=== PATIENT | female | born 1945 | race Caucasian/White ===

== ENCOUNTER 2025-03-14 12:19 | Outpatient (REF) | payer MEDICARE, SELFPAY ==
--- OUTSIDE RECORDS SUMMARY | 2025-03-13 09:00 | XMS_ITS | Encounter Summary ---
Author Organization [facility] Address [address] [place] [address] Phone Care Team Providers Care Poultry Service Technician Name Role Phone Christopher Thompson MD Unavailable + [phone] Ysabel Sanchez RN Unavailable [email or web address] Stephon Chambers RN Unavailable [phone] Carine Rivas RN Unavailable [email or web address] Vikki Perez MD Unavailable Amirah Smith MD Primary Care Provider Dusty Aguirre DO Unavailable [phone] Stephon Maya MD Unavailable Ayanna Fox RETAIL ANALYST Unavailable [phone] Karen Santo CNP Unavailable Shala Hartman NP Unavailable [phone] Reason for Visit * Treatment and Therapy Plan (Routine) - Authorized Specialty Diagnoses / Procedures Referred By Contac t Referred To Contact Infusion Therapy Procedures PORT Dusty Montes DO Phone: tel: fax: mailto:[email or web address] Florence Mccarty RN [address] [place] [address] Phone: tel: mailto:[email or web address] Referral ID Status Reason Start Date Expiration Date V isits Requested Visits Authorized [id number] Authorized 05/15/2022 05/15/2082 [id number] Encounter Details Date Type Department Care Team (Late st Contact Info) Description 03/13/2025 9:00 AM EDT Infusion [facility] at [facility] [address] [place] [address] Dusty Aguirre, DO [address] [place] [address] [email or web address] Malignant neoplasm of both ovaries; Intra-abdominal tumor Social History Tobacco Use Types Packs/Day Years Used Date Smoking Tobacco: Former Cigarettes 0.5 25 0 01/15/1995 - 01/16/2020 Smokeless Tobacco: Never Alcohol Use Standard Drinks/Week Comments Not Currently 0 (1 standard drink = 0.6 oz pur e alcohol) Child or Family Care Answer Date Record ed Do you have problems with on e of the following making it difficult for you to work, study, or receive health care? No 03/25/2024 Education Answer Date Recorded Are you interested in more education? Not on jose e 11/14/2022 Are you concerned about learning? Not on file 11/14/2022 No 11/14/2022 No 11/14/2022 Food Answer Date Recorded Within the past 6 months we worried whether our food would run out before we got money to buy more. Never True 03/25/2024 Within the past 6 months the food we bought just didn't last and we didn't have enough money to get more. Never True Residential Stability Answer Date Recor ded What is your housing situation today? I have malika sing 03/25/2024 How many times have you move d in the past 12 months? Zero (I did not move) 03/25/2024 Paying for Meds Answer Date Recorded Do you have trouble paying for medicines? No 03/25/2024 Paying Utility Bills Answer Date Record ed Do you have trouble paying your heating or elect ricity bill? No 03/25/2024 Transportation Answer Date Recorded Has the lack of transportati on kept you from medical appointments or from getting medications? No 03/25/2024 Digital Access Answer Date Recorded No 03/25/2024 Yes 03/25/2024 Do you have reliable internet access at home? Ye s 03/25/2024 Do you have a device (e.g., phone, tablet, computer) with a working camera? Yes 03/25/2024 Intimate Partner Violence Answer Date R ecorded Are you denied basic needs s uch as food, clothing, or medical care? No 11/10/2022 In the past 12 months have y ou been in a relationship with a person who hurts, threatens, or tries to control you? No 11/10/2022 Are you denied basic needs s uch as food, clothing, or medical care? No 11/10/2022 In the past 12 months have y ou been in a relationship with a person who hurts, threatens, or tries to control you? No 11/10/2022 Comments No Sex and Gender Information Value Date Recorded Sex Assigned at Not on file Legal Sex Female 12:05 PM EDT Gender Identity Not on file Sexual Orientation Not on file documented as of this encounter Plan of Treatment Upcoming Encounters Date Type Department Care Team (Late st Contact Info) Description 03/21/2025 9:40 AM EDT Infusion [facility] at [address] [address] Dusty Aguirre, [address] [address] [email or web address] 03/21/2025 11:30 AM EDT Office Visit [facility] at [address] [address] Ayanna Fox FNP [address] [place] [phone] 03/21/2025 12:40 PM EDT Infusion [facility] at [address] [address] Dusty Aguirre, [address] [address] [email or web address] Karen Burgos, KAPIL [address] [place] [address] 04/04/2025 8:20 AM EDT Appointment [facility] Laboratory [address] [place] [address] Dusty Aguirre, DO [address] [place] [address] [email or web address] 04/04/2025 9:00 AM EDT Office Visit [facility] at [address] [address] Ayanna Fox FNP [address] [place] [phone] [email or web address] 04/04/2025 10:00 AM EDT Infusion [facility] Center at [address] [address] Dusty Aguirre, DO [address] [place] [address] [email or web address] Niyah Cole RN [address] [place] [address] 04/06/2025 3:20 PM EDT Telemedicine [facility] Rheumatology [address], [address], [address] [place] [address] Stephon Maya MD [address] [place] [address] [email or web address] 04/11/2025 10:20 AM EDT Appointment [facility] Laboratory [address] [place] [address] Dusty Aguirre, DO [address] [place] [address] [email or web address] 04/11/2025 11:30 AM EDT Office Visit [facility] at [address] [address] Ayanna Fox FNP [address] [place] [phone] [email or web address] 04/11/2025 12:40 PM EDT Infusion [facility] at [address] [address] Dusty Aguirre, DO [address] [place] [address] [email or web address] Eldon Mckeon RN [address] [place] [address] [email or web address] 04/17/2025 9:10 AM EDT Appointment [facility] Laboratory [address] [place] [address] Dusty Aguirre, DO [address] [place] [address] [email or web address] 04/17/2025 10:30 AM EDT Office Visit [facility] Center at [address] [address] Dusty Aguirre, DO [address] [place] [address] [email or web address] 04/17/2025 11:20 AM EDT Infusion [facility] at [address] [address] Dusty Aguirre, DO [address] [place] [address] [email or web address] Eldon Mckeon RN [address] [place] [address] 04/28/2025 11:50 AM EDT Appointment [facility] Laboratory [address] [place] [address] Dusty Aguirre, DO [address] [place] [address] [email or web address] 04/28/2025 1:00 PM EDT Office Visit [facility] at [address] [address] Ayanna Fox FNP [address] [place] [phone] [email or web address] 04/28/2025 2:00 PM EDT Infusion [facility] at [address] [address] Dusty Aguirre, DO [address] [place] [address] [email or web address] Sophy Nolan, KAPIL [address] [place] [address] 05/08/2025 7:50 AM EDT Appointment [facility] Laboratory [address] [place] [address] Dusty Aguirre, DO [address] [place] [address] [email or web address] 05/08/2025 9:00 AM EDT Office Visit [facility] at [address] [address] Dusty Aguirre, DO [address] [place] [address] [email or web address] 05/08/2025 10:00 AM EDT Infusion [facility] at [facility] [address] [place] [address] Dusty Aguirre DO [address] [place] [address] [email or web address] Eldon Mckeon RN [address] [place] [address] [email or web address] documented as of this encounter Procedures Procedure Name Priority Date/Time Associated Diagnosis Comments COMPREHENSIVE METABOLIC PANEL Routine 03/13/2025 8:56 AM EDT Malignant neoplasm of both ovaries CBC AND DIFFERENTIAL Routine 03/13/2025 8:56 AM EDT Malignant neoplasm of both ovaries CA-125 Routine 03/13/2025 8:56 AM EDT Malignant neoplasm of both ovaries Intra-abdominal tumor documented in this encounter Results * (ABNORMAL) Comprehensive metabolic panel (03/13/2025 8:56 AM EDT) SODIUM 138 133 - 146 mmol/L [facility] POTASSIUM 4.2 3.3 - 5.1 mmol/L [facility] CHLORIDE 102 96 - 108 mmol/L [facility] CO2 25 21 - 35 mmol/L [facility] BUN 17 6 - 19 mg/dL [facility] CREATININE 0.60 0.5 - 1.5 mg/dL [facility] GLUCOSE 101(H) 70 - 99 mg/dL [facility] ALBUMIN 3.9 3.9 - 4.8 g/dL [facility] TOTAL PROTEIN 5.7(L) 6.5 - 8.0 g/dL [facility] CALCIUM 9.2 8.4 - 10.3 mg/dL [facility] ALKALINE PHOSPHATASE 66 39 - 117 U/L [facility] TOTAL BILIRUBIN 0.4 0.0 - 1.2 mg/dL [facility] AST 23 0 - 37 U/L [facility] ALT 17 0 - 40 U/L [facility] GLOBULIN 1.8 1 - 4.8 g/dL [facility] EGFR 92 >59 mL/min/1.7 3m2 [facility] Comment:Estimated glomerular filtration rate calculated using the CKD-EPI refit equation. ANION GAP 15 10 - 20 mmol/L [facility] Blood 03/13/2025 8:56 AM EDT 03/13/2025 9:17 AM EDT us Shala Hartman NP LAB BLOOD ORDERABLES Fin al Result [facility] [address] [place], [place] [id number] * (ABNORMAL) CBC and differential (03/13/2025 8:56 AM EDT) WBC 11.58(H) 4.00 - 11.00 K/uL [facility] RBC 3.24(L) 4.00 - 5.20 M/uL [facility] HGB 10.4(L) 12.0 - 16.0 g/dL [facility] HCT 33.0(L) 36.0 - 46.0 % [facility] PLT 411 150 - 450 K/uL [facility] MCV 101.9(H) 80.0 - 100.0 fL [facility] MCH 32.1(H) 27.0 - 31.0 pg [facility] MCHC 31.5(L) 32.0 - 36.0 g/dL [facility] RDW 17.0(H) 11.5 - 14.5 % [facility] MPV 9.6 8.4 - 12.0 fL [facility] NRBC 0.30(H) 0.00 /100 WBCs [facility] ABSOLUTE NRBC 0.03(H) 0.00 K/uL [facility] DIFF METHOD Auto [facility] NEUTS 72.4 48.0 - 76.0 % [facility] LYMPHS 19.3 18.0 - 41.0 % [facility] MONOS 4.9 4.0 - 11.0 % [facility] EOS 1.4 0.0 - 5.0 % [facility] BASOS 0.8 0.0 - 1.5 % [facility] Granulocytes, immature (%) 1.2(H) 0.0 - 0.9 % [facility] ABSOLUTE NEUTS 8.38(H) 1.92 - 7.60 K/uL [facility] ABSOLUTE LYMPHS 2.24 0.72 - 4.10 K/uL [facility] ABSOLUTE MONOS 0.57 0.16 - 1.10 K/uL [facility] ABSOLUTE EOS 0.16 0.00 - 0.50 K/uL [facility] ABSOLUTE BASOS 0.09 0.00 - 0.15 K/uL [facility] Granulocytes, immature 0.14(H) 0.00 - 0.09 K/uL [facility] Blood 03/13/2025 8:56 AM EDT 03/13/2025 9:17 AM EDT us Shala Hartman DOCUMENTATION IMPROVEMENT SPECIALIST LAB BLOOD ORDERABLES Fin al Result [address] [address] * (ABNORMAL) CA-125 (03/13/2025 8:56 AM EDT) CA 125 156.0(H) 0 - 35 U/mL [facility] Comment: Test Methodology Brenda [id number] Patient results determined by assays using different manufacturers or methods may not be comparable. Blood 03/13/2025 8:56 AM EDT 03/13/2025 9:17 AM EDT us Dusty Aguirre DO LAB BLOOD ORDERABLES Final Result Performing Organization Address [facility]/ZIP Co de Phone Number [address] [address] documented in this encounter Visit Diagnoses Diagnosis Malignant neoplasm of both ovaries Intra-abdominal tumor documented in this encounter Care Teams Poultry Service Technician Relationship Specialty Start Date End Date Amirah Smith MD [address] [place] [address] [place] [phone] PCP - General Internal Medicine 03/06/22 Christopher Thompson MD [address] [place] [address] Obstetrics and Gynecology ServiceYAW [address] [place] [address] [email or web address] Primary Oncologist Gynecologic Oncology 02/06/20 Ysabel Sanchez, KAPIL [address] [place] [address] [email or web address] Associate Infusion Nurse 03/29/20 Stephon Chambers RN [address] [place] [address] [email or web address] Associate Infusion Nurse 09/18/20 Carine Rivas RN [address] [place] [phone] [email or web address] Primary Infusion Nurse 11/05/20 Vikki Perez MD [address] [place] [address] [address] [place] [address] [email or web address] Primary Oncologist Gynecologic Oncology 03/27/21 Dusty Aguirre DO [address] [place] [address] [email or web address] Primary Oncologist Hematology and Oncology 05/01/22 Stephon Maya MD [address] [place] [address] [email or web address] 07/30/23 Ayanna Fox FNP [address] [place] [address] [email or web address] Registered Nurse Nurse Practitioner 08/09/24 Karen Santo CNP [address] [place] [address] [email or web address] Nurse Practitioner 08/29/24 Shala Hartman NP [address] [place] [address] [email or web address] Nurse Practitioner 11/08/24 documented as of this encounter Additional Source Comments The information contained in this document represents components of the legal health record. It is not the complete legal health record.[facility]
--- OUTSIDE RECORDS SUMMARY | 2025-03-13 10:00 | XMS_ITS | Encounter Summary ---
Author Organization [facility] Address [address] [place] [address] Phone Care Team Providers Care Agriculture Research Director Name Role Phone Christopher Thompson MD Unavailable + [phone] Ysabel Sanchez RN Unavailable [email or web address] Stephon Chambers RN Unavailable +[phone] Carine Rivas RN Unavailable [email or web address] Vikki Perez MD Unavailable [phone] Amirah Smith MD Primary Care Provider Dusty Aguirre DO Unavailable [phone] Stephon Maya MD Unavailable Ayanna Fox VISITOR SERVICES INFORMATION ASSISTANT Unavailable Karen Santo CNP Unavailable Shala Hartman NP Unavailable Reason for Visit * Reason Comments Follow Up Visit Encounter Details Date Type Department Care Team (Late st Contact Info) Description 03/13/2025 10:00 AM EDT Office Visit [facility] [address] [place] [address] Dusty Aguirre DO [address] [place] [address] [email or web address] Shala Hartman, SALES CONSULTANT RESIDENTIAL MANAGER [address] [place] [address] [place] [address] [email or web address] Malignant neoplasm of both ovaries (Primary Dx) Social History Tobacco Use Types Packs/Day Years [...] on file documented as of this encounter Last Filed Vital Signs Vital Sign Reading Time Taken Comments Blood Pressure 128/64 03/13/2025 9:00 AM EDT Pulse 79 03/13/2025 9:00 AM EDT Temperature 36.5 C (97.7 F) 03/13/2025 9:00 AM EDT Respiratory Rate - - Oxygen Saturation 95% 03/13/2025 9:00 AM EDT Inhaled Oxygen Concentration - - Weight 56.2 kg (123 lb 14.4 oz) 03/13/2025 9:00 AM EDT Height 158 cm (5' 2.21 ) 03/13/2025 9:00 AM EDT Body Mass Index 22.51 03/13/2025 9:00 AM EDT documented in this encounter Progress Notes * Shala Hartman, KATHY - 03/13/2025 10:00 AM EDT Images from the original note were not included. Hematology/ Medical Oncology Progress Note [facility] Date: March 13, 2025 Primary oncologist: Dusty Aguirre MD CATERING TRUCK OPERATOR Oncologist [facility]: Vikki Perez MD Current treatment plan: Paclitaxel 80 mg/m2 on days 1, 8, and 15 out of a 28 day cycle Lesly Ospina [id number] Assessment Lesly Ospina is a 79 year old woman who has ovarian cancer. She had previously been receiving bevacizumab however was recently noted to have disease progression. Her [facility] CATERING TRUCK OPERATOR Oncologist recommended we stop bevacizumab and start her on paclitaxel as described above. She is due for C8D8 today. She denies headaches, dizziness, CP, SOB, N/V/D/C, weight/appetite changes. Her daughter is with her today. Oncology History Oncology History Malignant neoplasm of both ovaries 02/08/2020 Initial Diagnosis Malignant neoplasm of both ovaries 02/14/2020 - 08/08/2020 Systemic Therapy Adjuvant/Neoadjuvant; CARBOPLATIN/PACLITAXEL EVERY 3 WEEKS-MINIMUM CREATININE FOR AUC CALCULATION SET AT 0.7 Christopher Thompson MD 10/04/2020 - 12/09/2020 Systemic Therapy Maintenance; BEVACIZUMAB 15 MG/KG - EVERY 3 WEEKS Christopher Thompson MD 12/31/2020 - 03/04/2022 Systemic Therapy Palliative; DOXORUBICIN LIPOSOMAL Kwasi Vega MD 04/03/2022 - 06/11/2022 Systemic Therapy Palliative; BEVACIZUMAB/DOXORUBICIN LIPOSOMAL Dusty Aguirre, DO 06/26/2022 - 12/29/2022 Systemic Therapy Palliative; BEVACIZUMAB / PEMBROLIZUMAB - EVERY 3 WEEKS Dusty Hernandez Timothy, DO 08/03/2023 - 07/11/2024 Systemic Therapy Palliative; MIRVETUXIMAB SORAVTANSINE-GYNX / BEVACIZUMAB Montano David Timothy, DO 08/23/2024 - Systemic Therapy Palliative; PACLITAXEL 80 MG/M2 Montano David Timothy, DO Malignant neoplasm of right ovary 04/26/2020 Initial Diagnosis Malignant neoplasm of right ovary 07/17/2022 - 07/17/2022 Systemic Therapy Palliative; BEVACIZUMAB 15 MG/KG/CYCLOPHOSPHAMIDE Dusty Aguirre, DO 05/04/2024 - 05/04/2024 Systemic Therapy Palliative; BEVACIZUMAB 15 MG/KG - EVERY 3 WEEKS Dusty Aguirre, DO Cancer Staging No matching staging information was found for the patient. Subjective Review of Systems Review of Systems - Oncology PFSHx, allergies- reviewed, unchanged since last seen. Objective Last Vitals ECO- Restricted in physically strenuous activity but ambulatory and able to carry out work of alight or sedentary nature, e.g., light house work, office work Physical Exam Objective: Wt Readings from Last 3 Encounters: 03/06/25 56 kg (123 lb 6.4 oz) 02/20/25 54.8 kg (120 lb 14.4 oz) 02/14/25 54.4 kg (120 lb) Temp Readings from Last 3 Encounters: 03/06/25 36.5 ??C (97.7 ??F) (Tympanic) 02/20/25 36.5 ??C (97.7 ??F) (Tympanic) BP Readings from Last 3 Encounters: 03/06/25 126/63 02/20/25 112/69 02/14/25 115/70 Pulse Readings from Last 3 Encounters: 03/06/25 73 02/20/25 72 02/14/25 79 Physical Exam: General appearance - alert, well appearing, and in no distress Mental status - alert, oriented to person, place, and time Chest - clear to auscultation, no wheezes, rales or rhonchi, symmetric air entry Heart - normal rate, regular rhythm, normal S1, S2, no murmurs, rubs, clicks or gallops Abdomen - soft, nontender, nondistended, no masses or organomegaly Neurological - alert, oriented, normal speech, no focal findings or movement disorder noted Musculoskeletal - no joint tenderness, deformity or swelling Extremities - peripheral pulses normal, no pedal edema, no clubbing or cyanosis Skin - normal coloration and turgor, no rashes, no suspicious skin lesions noted Meds/Labs/Radiology: Reviewed personally in chart along with patient. Plan: Labs obtained prior to this visit reviewed with Lesly. She remains slightly anemic but stable. Labs otherwise are OK to proceed with C8D8 Paclitaxel today. Orders signed. Will consider obtaining repeat imaging prior to C9. Follow up as scheduled in 1 week prior to C8D15 w/ CBC CMP CA125 prior. I personally spent 37 minutes preparing for, caring for the patient (redw-em-rrqv and ykj-meoy-xd-face) and finalizing the visit for this patient. Sign RIA Hernandez 03/13/2025 9:12 AM Dusty Aguirre DO documented in this encounter Plan of Treatment Upcoming Encounters Date Type Department Care Team (Late st Contact Info) Description 03/21/2025 9:40 AM EDT Infusion [facility] [address] [place] [address] Dusty Aguirre DO [address] [place] [address] [email or web address] 03/21/2025 11:30 AM EDT Office Visit [facility] Center at [address] [address] Ayanna Fox VISITOR SERVICES INFORMATION ASSISTANT[address] [address] 03/21/2025 12:40 PM EDT Infusion [facility] at [address] [address] Dusty Aguirre, DO [address] [place] [address] [email or web address] Karen Burgos RN [address] [place] [address] 04/04/2025 8:20 AM EDT Appointment [facility] [address] [place] [address] Dusty Aguirre, DO [address] [place] [address] [email or web address] 04/04/2025 9:00 AM EDT Office Visit [facility] at [address] [address] Ayanna Fox FN[address] [address] 04/04/2025 10:00 AM EDT Infusion [facility] at [address] [address] Dusty Aguirre, DO [address] [place] [address] [email or web address] Niyah Cole RN [address] [place] [address] 04/06/2025 3:[address] [facility] Rheumatology [place] [address] [facility], 4th Floor, [address] [place] [address] Stephon Maya MD [address] [place] [address] [email or web address] 04/11/2025 10:20 AM EDT Appointment [facility] Laboratory [address] [place] [address] Dusty Aguirre, DO [address] [place] [address] [email or web address] 04/11/2025 11:30 AM EDT Office Visit [facility] Center at [address] [address] Ayanna Fox FNP [address] [place] [address] [email or web address] 04/11/2025 12:40 PM EDT Infusion [facility] at [address] [address] Dusty Aguirre, DO [address] [place] [address] [email or web address]@[email or web address] Eldon Mckoen, KAPIL [address] [place] [address] 04/17/2025 9:10 AM EDT Appointment [facility] Laboratory [address] [place] [address] Dusty Aguirre, DO [address] [place] [address] [email or web address]@[email or web address] 04/17/2025 10:30 AM EDT Office Visit [facility] at [address] [address] Dusty Aguirre, DO [address] [place] [address] [email or web address]@[email or web address] 04/17/2025 11:20 AM EDT Infusion [facility] at [address] [address] Dusty Aguirre, DO [address] [place] [address] [email or web address] Eldon Mckeon RN [address] [place] [address] 04/28/2025 11:50 AM EDT Appointment [address] [address] Dusty Aguirre, DO [address] [place] [address] [email or web address] 04/28/2025 1:00 PM EDT Office Visit [facility] at [address] [address] Ayanna Fox FNP [address] [place] [address] [email or web address] 04/28/2025 2:00 PM EDT Infusion [facility] at [address] [address] Dusty Aguirre, DO [address] [place] [address] [email or web address] Sophy Nolan RN [address] [place] [address] 05/08/2025 7:50 AM EDT Appointment [facility] [address] [place] [address] Timothy, Montano David, DO [address] [place] [address] [email or web address] 05/08/2025 9:00 AM EDT Office Visit [facility] at [address] [address] Dusty Aguirre, DO [address] [place] [address] [email or web address] 05/08/2025 10:00 AM EDT Infusion [facility] at [address] [address] Dusty Aguirre, DO [address] [place] [address] [email or web address] Eldon Mckeon RN [address] [place] [address] [email or web address] documented as of this encounter Visit Diagnoses Diagnosis Malignant neoplasm of both ovaries- Primary documented in this encounter Care Teams Agriculture Research Director Relationship Specialty Start Date End Date Amirah Smith MD [address] [place] [address] [place] [address] PCP - General Internal Medicine 03/06/22 Christopher Thompson MD [address] [place] [address] Obstetrics and Gynecology ServiceYAW [address] [place] [address] [email or web address] Primary Oncologist Gynecologic Oncology 02/06/20 Ysabel Sanchez RN [address] [place] [address] [email or web address] Associate Infusion Nurse 03/29/20 Stephon Chambers RN [address] [place] [address] [email or web address] Associate Infusion Nurse 09/18/20 Carine Rivas, KAPIL [address] [place] [phone] [email or web address] Primary Infusion Nurse 11/05/20 Vikki Perez MD [address] [place] [address] [email or web address] Primary Oncologist Gynecologic Oncology 03/27/21 Dusty Aguirre DO [address] [place] [address] [email or web address] Primary Oncologist Hematology and Oncology 05/01/22 Stephon Maya MD [address] [place] [address] [email or web address] Rheumatology 07/30/23 Ayanna Fox FNP [address] [place] [address] [email or web address] Registered Nurse Nurse Practitioner 08/09/24 Karen Santo CNP [address] [place] [address] [email or web address] Nurse Practitioner 08/29/24 Shala Hartman NP [address] [place] [address] [email or web address] Nurse Practitioner 11/08/24 documented as of this encounter Additional Source Comments The information contained in this document represents components of the legal health record. It is not the complete legal health record.[facility]
--- OUTSIDE RECORDS SUMMARY | 2025-03-13 11:20 | XMS_ITS | Encounter Summary ---
Author Organization [facility] Address [address] [place] [address] Phone Care Team Providers Care Cell Tuber Machine Name Role Phone Christopher Thompson MD Unavailable + [phone] Ysabel Sanchez RN Unavailable [email or web address] [email or web address] Stephon Chambers RN Unavailable [phone] Carine Rivas RN Unavailable [email or web address] Vikki Perez MD Unavailable [phone] Amirah Smith MD Primary Care Provider Dusty Aguirre DO Unavailable [phone] Stephon Maya MD Unavailable [phone] Ayanna Fox DESIGN LEAD Unavailable [phone] Karen Santo AUTO SLIP COVER INSTALLER Unavailable Shala Hartman NP Unavailable [phone] Reason for Visit * Treatment and Therapy Plan (Routine) - Authorized Specialty Diagnoses / Procedures Referred By Contac t Referred To Contact Infusion Therapy Diagnoses Malignant neoplasm of both ovaries Procedures FL PACLITAXEL INJECTION, 1 MG Dusty Aguirre DO [address] [place] [address] Phone: tel: fax: mailto:[email or web address] [place] at [facility] [address] [place] [address] Phone: tel: fax: Referral ID Status Reason Start Date Expiration Date V isits Requested Visits Authorized [id number] Authorized 08/01/2024 08/01/2084 [id number] Encounter Details Date Type Department Care Team (Late st Contact Info) Description 03/13/2025 11:20 AM EDT Infusion [facility] [place] [address] [place] [address] Dusty Aguirre DO [address] [place] [address] [email or web address]GIOVANNA .[facility] Vashti Brizuela RN [address] [place] [address] [email or web address] [email or web address] Malignant neoplasm of both ovaries (Primary Dx) [...] on file documented as of this encounter Progress Notes * Vashti Brizuela, KAPIL - 03/13/2025 11:20 AM EDT Lesly Ospina here today for weekly paclitaxel infusion. Patient arrived with RCWP accessed, clamped and capped from lab draw appointment prior, flushes easily with brisk blood return noted. Paclitaxel administered per order, tolerated well RCWP flushed with 20 mL NS, flushes easily with brisk blood return, saline locked and de-accessed per policy Patient discharged stable documented in this encounter Plan of Treatment Upcoming Encounters Date Type Department Care Team (Late st Contact Info) Description 03/21/2025 9:40 AM EDT Infusion [facility] at [address] [address] Dusty Aguirre, DO [address] [place] [address] [email or web address] 03/21/2025 11:30 AM EDT Office Visit [facility] Center at [address] [address] Ayanna Fox, DESIGN LEAD [address] [place] [address] [email or web address] 03/21/2025 12:40 PM EDT Infusion [facility] at [address] [address] Dusty Aguirre, [address] [address] [email or web address]@[email or web address] Karen Burgos, KAPIL [address] [place] [address] 04/04/2025 8:20 AM EDT Appointment [facility] Laboratory [address] [place] [address] Dusty Aguirre, [address] [address] [email or web address]@[email or web address] 04/04/2025 9:00 AM EDT Office Visit [facility] at [address] [address] Ayanna Fox, DESIGN LEAD [address] [place] [address] [email or web address] 04/04/2025 10:00 AM EDT Infusion [facility] Center at [address] [address] Dusty Aguirre, [address] [address] [email or web address] [place] Niyah Cole RN [address] [place] [address] 04/06/2025 3:20 PM EDT Telemedicine [facility] Rheumatology [place] [address] [facility], 4th Floor, [address] [place] [address] Stephon Maya MD [address] [place] [address] [email or web address] 04/11/2025 10:20 AM EDT Appointment [facility] Laboratory [address] [place] [address] Dusty Aguirre, DO [address] [place] [address] [email or web address]@[email or web address] 04/11/2025 11:30 AM EDT Office Visit [facility] at [address] [address] Ayanna Fox FNP [address] [place] [address] [email or web address] 04/11/2025 12:40 PM EDT Infusion [facility] at [address] [address] Dusty Aguirre, DO [address] [place] [address] [email or web address] [place] Eldon Mckeon RN [address] [place] [address] [email or web address] [email or web address] 04/17/2025 9:10 AM EDT Appointment [facility] Laboratory [address] [place] [address] Dusty Aguirre, DO [address] [place] [address] [email or web address]@[email or web address] 04/17/2025 10:30 AM EDT Office Visit [facility] [place] at [address] [address] Dusty Aguirre, DO [address] [place] [address] [email or web address]@[email or web address] 04/17/2025 11:20 AM EDT Infusion [facility] at [address] [address] Dusty Aguirre, DO [address] [place] [address] [email or web address]@[email or web address] Eldon Mckeon RN [address] [place] [address] 04/28/2025 11:50 AM EDT Appointment [facility] Laboratory [address] [place] [address] Dusty Aguirre, DO [address] [place] [address] [email or web address]@[facility] 04/28/2025 1:00 PM EDT Office Visit [facility] Center at [address] [address] Ayanna Fox FNP [address] [place] [address] 04/28/2025 2:00 PM EDT Infusion [facility] Center at [address] [address] Dusty Aguirre, DO [address] [place] [address] [email or web address]@[email or web address] Sophy Nolan RN [address] [place] [address] 05/08/2025 7:50 AM EDT Appointment [facility] [address] [place] [address] Dusty Aguirre, DO [address] [place] [address] [email or web address]@[email or web address] 05/08/2025 9:00 AM EDT Office Visit [facility] at [address] [address] Dusty Aguirre, [address] [address] [email or web address]@[email or web address] 05/08/2025 10:00 AM EDT Infusion [facility] at [address] [address] Dusty Aguirre, DO [address] [place] [address] [email or web address]@[email or web address] Eldon Mckeon RN [address] [place] [address] [email or web address] [email or web address] documented as of this encounter Visit Diagnoses Diagnosis Malignant neoplasm of both ovaries- Primary documented in this encounter Administered Medications Inactive Administered Medications - up to 3 most recent administrations Medication Order MAR Action Action Date Dose Rate Site cetirizine (ZyrTEC) tablet 10 mg 10 mg, Oral, Once, On Thu03/13/25 at 1130, For 1 dose, Hold if: IV antihistamine given. Administer 30-60 minutes prior to paclitaxel.Indications:Malign ant neoplasm of both ovaries Given 03/13/2025 11:30 AM EDT 10 mg dexAMETHasone (DECADRON) tablet 12 mg 12 mg, Oral, Once, On Thu03/13/25 at 1130, For 1 dose, May administer with food to reduce GI upset.Indications:Malignant neoplasm of both ovaries Given 03/13/2025 11:30 AM EDT 12 mg famotidine (PF) (PEPCID) injection 20 mg 20 mg, Intravenous, Once, On Thu03/13/25 at 1130, For 1 dose, Administer 30-60 minutes prior to paclitaxel. May be given undiluted IV push over 2 minutes.Indications:Malignant neoplasm of both ovaries Given 03/13/2025 11:30 AM EDT 20 mg PACLitaxeL (TAXOL) 99 mg in sodium chloride 0.9% (PVC Free) 286.5 mL IVPB 99 mg (rounded from 99.2 mg = 64 mg/m2 1.55 m2 Treatment Plan BSA from Recorded weight), Intravenous, Administer over 60 Minutes, at 286.5 mL/hr, Once, On Thu03/13/25 at 1245, For 1 dose, Administer over 60 minutes. Use NON-DEHP bag, line and a low-protein binding 0.2 micron in-line filter Gently invert medication bag 2-4 times just prior to infusing. Administer using NON-PVC tubing and through a 0.22 micron in-line filter. THIS IS A HIGH RISK HAZARDOUS AGENT. MUST USE APPROPRIATE PRECAUTIONS WHEN HANDLING AND DISPOSING OF THIS AGENT.Indications:Malignant neoplasm of both ovaries New Bag 03/13/2025 12:18 PM EDT 99 mg 286.5 mL/hr documented in this encounter Care Teams Cell Tuber Machine Relationship Specialty Start Date End Date Amirah Smith MD [address] [place] [address] [place] [address] PCP - General Internal Medicine 03/06/22 Christopher Thompson MD [address] [place] [address] Obstetrics and Gynecology ServiceYAW [address] [place] [address] [email or web address] [place] Primary Oncologist Gynecologic Oncology 02/06/20 Ysabel Sanchez RN [address] [place] [address] [email or web address] [email or web address] Associate Infusion Nurse 03/29/20 Stephon Chambers RN [address] [place] [address] [email or web address] [email or web address] Associate Infusion Nurse 09/18/20 Carine Rivas, KAPIL [address] [place] [address] [email or web address] [email or web address] Primary Infusion Nurse 11/05/20 Vikki Perez MD [address] [address] [email or web address] Primary Oncologist Gynecologic Oncology 03/27/21 Dusty Aguirre DO [address] [place] [address] [email or web address] Primary Oncologist Hematology and Oncology 05/01/22 Stephon Maya MD [address] [place] [address] [email or web address] Rheumatology 07/30/23 Ayanna Fox FNP [address] [place] [address] [email or web address] [email or web address] [email or web address] Registered Nurse Nurse Practitioner 08/09/24 Karen Santo CNP [address] [place] [address] [email or web address] [email or web address] Nurse Practitioner 08/29/24 Shala Hartman NP [address] [place] [address] [email or web address] [email or web address] Nurse Practitioner 11/08/24 documented as of this encounter Additional Source Comments The information contained in this document represents components of the legal health record. It is not the complete legal health record.[facility]
--- OUTSIDE RECORDS SUMMARY | 2025-03-14 13:11 | XMS_ITS | Encounter Summary ---
Author Organization [facility] Address [address] [place] [address] Phone Care Team Providers Care Greeting Card Editor Name Role Phone Christopher Thompson MD Unavailable + [phone] Ysabel Sanchez RN Unavailable [email or web address] Stephon Chambers RN Unavailable [phone] Carine Rivas RN Unavailable [email or web address] Vikki Perez MD Unavailable [phone] Amirah Smith MD Primary Care Provider Dusty Aguirre DO Unavailable [phone] Marilia Nolan COUNTY SURVEYOR Unavailable Karen Santo CNP Unavailable Loyda PinonC Unavailable gloria Stephon Maya MD Unavailable Minor BaltazarBS Unavailable Ayanna Fox COUNTY SURVEYOR Unavailable Shala Hartman NP Unavailable Karen Santo CNP Unavailable Shala Hartman NP Unavailable Encounter Details Date Type Department Care Team (Late st Contact Info) Description 09/12/2022 Procedure Pass [facility], Ct Scan - [address] [address] Social History Tobacco Use Types Packs/Day Years Used Date Smoking Tobacco: Former Cigarettes 0.5 25 0 01/15/1995 - 01/16/2020 Smokeless Tobacco: Never Alcohol Use Standard Drinks/Week Comments Not Currently 0 (1 standard drink = 0.6 oz pur e alcohol) Comments No Sex and Gender Information Value Date Recorded Sex Assigned at Not on file Legal Sex Female 12:05 PM EDT Gender Identity Not on file Sexual Orientation Not on file documented as of this encounter Plan of Treatment Upcoming Encounters Date Type Department Care Team (Late st Contact Info) Description 03/21/2025 9:40 AM EDT Infusion [facility] at [address] [address] Dusty Aguirre, [address] [address] [email or web address] 03/21/2025 11:30 AM EDT Office Visit [facility] at [address] [address] Ayanna Fox FNP [address] [place] [address] [email or web address] 03/21/2025 12:40 PM EDT Infusion [facility] at [address] [address] Dusty Aguirre DO [address] [place] [address] [email or web address] .[email or web address] Karen Burgos, KPAIL [address] [place] [address] [email or web address] 04/04/2025 8:20 AM EDT Appointment [facility] [address] [place] [address] Dusty Aguirre, DO [address] [place] [address] [email or web address] 04/04/2025 9:00 AM EDT Office Visit [facility] at [address] [address] Ayanna Fox, COUNTY SURVEYOR [address] [place] [address] [email or web address] 04/04/2025 10:00 AM EDT Infusion [facility] at [address] [address] Dusty Aguirre, DO [address] [place] [address] [email or web address] Niyah Cole RN [address] [place] [address] [email or web address] 04/06/2025 3:20 PM EDT Telemedicine [address], 4th Floor, [address] [place] [address] Stephon Maya MD [address] [place] [address] [email or web address] 04/11/2025 10:20 AM EDT Appointment [facility] [address] [place] [address] Dusty Aguirre, DO [address] [place] [address] [email or web address] 04/11/2025 11:30 AM EDT Office Visit [facility] at [address] [address] Ayanna Fox COUNTY SURVEYOR[address] [address] 04/11/2025 12:40 PM EDT Infusion [facility] at [address] [address] Dusty Aguirre, DO [address] [place] [address] [email or web address] Eldon Mckeon RN [address] [place] [address] 04/17/2025 9:10 AM EDT Appointment [facility] [address] [place] [address] Dusty Aguirre, DO [address] [place] [address] [email or web address]@[email or web address] 04/17/2025 10:30 AM EDT Office Visit [facility] at [address] [address] Dusty Aguirre, DO [address] [place] [address] [email or web address] 04/17/2025 11:20 AM EDT Infusion [facility] at [address] [address] Dusty Aguirre, DO [address] [place] [address] [email or web address] Eldon Mckeon RN [address] [place] [address] 04/28/2025 11:50 AM EDT Appointment [facility] [address] [place] [address] Dusty Aguirre, DO [address] [place] [address] [email or web address] 04/28/2025 1:00 PM EDT Office Visit [facility] at [address] [address] Ayanna Fox FNP [address] [place] [address] [email or web address] 04/28/2025 2:00 PM EDT Infusion [facility] at [address] [address] Dusty Aguirre, DO [address] [place] [address] [email or web address] Sophy Nolan RN [address] [place] [address] [email or web address] 05/08/2025 7:50 AM EDT Appointment [facility] [address] [place] [address] Dusty Aguirre, DO [address] [place] [address] [email or web address] 05/08/2025 9:00 AM EDT Office Visit [facility] at [address] [address] Dusty Aguirre, DO [address] [place] [address] [email or web address]@[email or web address] 05/08/2025 10:00 AM EDT Infusion [facility] at [address] [address] Dusty Aguirre, DO [address] [place] [address] [email or web address] Eldon Mckeon, RN [address] [place] [address] [email or web address] documented as of this encounter Visit Diagnoses Not on filedocumented in this encounter Additional Health Concerns Infection Onset Date Last Indicated Resolved Time CoV-Risk 11/10/2022 11/10/2022 11/21/2022 1:24 AM EDT documented as of this encounter Care Teams Greeting Card Editor Relationship Specialty Start Date End Date Amirah Smith MD [address] [place] [address] Dr [address] [place] [phone] PCP - General Internal Medicine 03/06/22 Christopher Thompson MD [address] [place] [address] Obstetrics [facility] [address] [place] [address] [email or web address] Primary Oncologist Gynecologic Oncology 02/06/20 Ysabel Sanchez RN [address] [place] [address] [email or web address] Associate Infusion Nurse 03/29/20 Stephon Chambers RN [address] [place] [address] [email or web address] Associate Infusion Nurse 09/18/20 Carine Rivas, KAPIL [address] [place] [phone] [email or web address] Primary Infusion Nurse 11/05/20 Vikki Perez MD [address] [place] [address] [address] [place] [address] [email or web address] Primary Oncologist Gynecologic Oncology 03/27/21 Dusty Aguirre DO [address] [place] [address] [email or web address] Primary Oncologist Hematology and Oncology 05/01/22 Marilia Nolan, COUNTY SURVEYOR [address] [place] [address] [email or web address] Nurse Practitioner Medical Oncology 08/05/22 08/08/24 Karen Santo CNP [address] [place] [address] [email or web address] Nurse Practitioner Medical Oncology 09/05/22 08/08/24 Loyda Pinon PA-C [address] [place] [address] [email or web address] Physician Slot Operations Manager Medical Oncology 10/20/22 08/20/23 Stephon Maya MD [address] [place] [address] [email or web address] [place] [place] Rheumatology 07/30/23 Minor Baltazar MBBS [address] [place] [address] [email or web address] [place] Primary Oncologist Medical Oncology 10/16/23 10/25/23 Ayanna Fox FNP [address] [place] [address] [email or web address] Registered Nurse Nurse Practitioner 08/09/24 Shala Hartman NP [address] [place] [address] [email or web address] Nurse Practitioner 08/15/24 10/30/24 Karen Santo CNP [address] [place] [address] [email or web address] Nurse Practitioner 08/29/24 Shala Hartman NP [address] [place] [address] [email or web address] Nurse Practitioner 11/08/24 documented as of this encounter Additional Source Comments The information contained in this document represents components of the legal health record. It is not the complete legal health record.[facility]
--- OUTSIDE RECORDS SUMMARY | 2025-03-14 13:11 | XMS_ITS | Encounter Summary ---
Author Organization [facility] Address [address] [place] [address] Phone Care Team Providers Care Renal Dietitian Name Role Phone Christopher Thompson MD Unavailable + [phone] Ysabel Sanchez RN Unavailable [email or web address] Stephon Chambers RN Unavailable [phone] Carine Rivas RN Unavailable [email or web address] Vikki Perez MD Unavailable [phone] Amirah Smith MD Primary Care Provider Dusty Aguirre DO Unavailable [phone] Marilia Nolan WELDING ROD COATER Unavailable [phone] Karen Santo CNP Unavailable Loyda PinonC Unavailable gloria Stephon Maya MD Unavailable Minor BaltazarBS Unavailable Ayanna Fox WELDING ROD COATER Unavailable Shala Hartman NP Unavailable Karen Santo CNP Unavailable Shala Hartman NP Unavailable Encounter Details Date Type Department Care Team (Late st Contact Info) Description 06/25/2023 Procedure Pass [facility], Ct Scan - [address] [address] Social History Tobacco Use Types Packs/Day Years Used Date Smoking Tobacco: Former Cigarettes 0.5 25 0 01/15/1995 - 01/16/2020 Smokeless Tobacco: Never Alcohol Use Standard Drinks/Week Comments Not Currently 0 (1 standard drink = 0.6 oz pur e alcohol) Education Answer Date Recorded Are you interested in more education? Not on jose e 11/14/2022 Are you concerned about learning? Not on file 11/14/2022 No 11/14/2022 No 11/14/2022 Digital Access Answer Date Recorded No 12/10/2022 No 12/10/2022 Reliable internet access at home? Not on file 12/10/2022 Device with a working camera? Not on file Intimate Partner Violence Answer Date R ecorded [...] Info) Description 03/21/2025 9:40 AM EDT Infusion [facility] at [address] [address] Dusty Aguirre DO [address] [place] [address] [email or web address] [email or web address] .[email or web address] 03/21/2025 11:30 AM EDT Office Visit [facility] at [address] [address] Ayanna Fox, WELDING ROD COATER[address] [address] 03/21/2025 12:40 PM EDT Infusion [facility] at [address] [address] Dusty Aguirre, DO [address] [place] [address] [email or web address] [place] Karen Burgos, KAPIL [address] [place] [address] 04/04/2025 8:20 AM EDT Appointment [facility] [address] [place] [address] Dusty Aguirre, DO [address] [place] [address] [email or web address] [place] 04/04/2025 9:00 AM EDT Office Visit [facility] at [address] [address] Ayanna Fox, [address] [address] 04/04/2025 10:00 AM EDT Infusion [facility] at [address] [address] Dusty Aguirre, DO [address] [place] [address] [email or web address] [email or web address] [email or web address] [email or web address] Niyah Cole, KAPIL [address] [place] [address] 04/06/2025 3:20 PM EDT Telemedicine [facility] [place] Rheumatology [address], 4[address] Floor, [address] [place] [address] Stephon Maya MD [address] [place] [address] [email or web address] 04/11/2025 10:20 AM EDT Appointment [facility] [address] [place] [address] Dusty Aguirre, DO [address] [place] [address] [email or web address] 04/11/2025 11:30 AM EDT Office Visit [facility] at [address] [address] Ayanna Fox FNP [address] [place] [phone] [email or web address] 04/11/2025 12:40 PM EDT Infusion [facility] at [address] [address] Dusty Aguirre, DO [address] [place] [address] [email or web address]@[email or web address] Eldon Mckeon RN [address] [place] [address] [email or web address] 04/17/2025 9:10 AM EDT Appointment [facility] [address] [place] [address] Dusty Aguirre, DO [address] [place] [address] [email or web address]@[email or web address] 04/17/2025 10:30 AM EDT Office Visit [facility] at [address] [address] Dusty Aguirre, DO [address] [place] [address] [email or web address] [place] [place] 04/17/2025 11:20 AM EDT Infusion [facility] at [address] [address] Dusty Aguirre, DO [address] [place] [address] [email or web address]@[email or web address] Eldon Mckeon, KAPIL [address] [place] [address] 04/28/2025 11:50 AM EDT Appointment [facility] [address] [place] [address] Dusty Aguirre, DO [address] [place] [address] [email or web address]@[facility] 04/28/2025 1:00 PM EDT Office Visit [facility] at [address] [address] Ayanna Fox FNP [address] [place] [address] [email or web address] 04/28/2025 2:00 PM EDT Infusion [facility] at [address] [address] Dusty Aguirre, DO [address] [place] [address] [email or web address]@[email or web address] Sophy Nolan, KAPIL [address] [place] [address] [email or web address] 05/08/2025 7:50 AM EDT Appointment [facility] [address] [place] [address] Dusty Aguirre, DO [address] [place] [address] JAY [email or web address]@[email or web address] 05/08/2025 9:00 AM EDT Office Visit [facility] at [address] [address] Dusty Aguirre, DO [address] [place] [address] JAY [email or web address] 05/08/2025 10:00 AM EDT Infusion [facility] at [address] [address] Dusty Aguirre, [address] [address] JAY [email or web address] Eldon Mckeon RN [address] [place] [address] [email or web address] documented as of this encounter Visit Diagnoses Not on filedocumented in this encounter Care Teams Renal Dietitian Relationship Specialty Start Date End Date Amirah Smith MD [address] [place] [address] [place] [address] PCP - General Internal Medicine 03/06/22 Christopher Thompson MD [address] [place] [address] Obstetrics and Gynecology ServiceYAW [address] [place] [address] [email or web address] [email or web address] Primary Oncologist Gynecologic Oncology 02/06/20 Ysabel Sanchez RN [address] [place] [address] [email or web address] Associate Infusion Nurse 03/29/20 Stephon Chambers RN [address] [place] [address] [email or web address] Associate Infusion Nurse 09/18/20 Carine Rivas, RN [address] [place] [address] [email or web address] Primary Infusion Nurse 11/05/20 Vikki Perez MD [address] [place] [address] [email or web address] Primary Oncologist Gynecologic Oncology 03/27/21 Dusty Aguirre DO [address] [place] [address] [email or web address] Primary Oncologist Hematology and Oncology 05/01/22 Marilia Nolan FNP [address] [place] [address] [email or web address] Nurse Practitioner Medical Oncology 08/05/22 08/08/24 Karen Santo CNP [address] [place] [address] [email or web address] Nurse Practitioner Medical Oncology 09/05/22 08/08/24 Loyda Pinon PA-C [address] [place] [address] [email or web address] Physician Macaroni Maker Medical Oncology 10/20/22 08/20/23 Stephon Maya MD [address] [place] [address] [email or web address] Rheumatology 07/30/23 Minor Baltazar MBBS [address] [place] [address] [email or web address] Primary Oncologist Medical Oncology 10/16/23 10/25/23 Ayanna Fox FNP [address] [place] [address] [email or web address] Registered Nurse Nurse Practitioner 08/09/24 Shala Hartman NP [address] [place] [address] [email or web address] Nurse Practitioner 08/15/24 10/30/24 Karen Santo CNP [address] [place] [address] [email or web address] Nurse Practitioner 08/29/24 Shala Hartman NP [address] [place] [address] [email or web address] Nurse Practitioner 11/08/24 documented as of this encounter Additional Source Comments The information contained in this document represents components of the legal health record. It is not the complete legal health record.[facility]
--- OUTSIDE RECORDS SUMMARY | 2025-03-14 13:11 | XMS_ITS ---
Author Organization [facility] Address [address] [place] [address] Phone Care Team Providers Care Proctologist Name Role Phone Christopher Thompson MD Unavailable [phone] Ysabel Sanchez RN Unavailable [email or web address] Stephon Chambers RN Unavailable [phone] Carine Rivas RN Unavailable [email or web address] Vikki Perez MD Unavailable [phone] Amirah Smith MD Primary Care Provider Dusty Aguirre DO Unavailable Stephon Maya MD Unavailable Ayanna Fox MARINE FISHERIES TECHNICIAN Unavailable Karen Santo FRANCHISE SALES MANAGER Unavailable Shala Hartman FOREST LANDSCAPE ECOLOGY PROFESSOR Unavailable Active Problems Patient Care Coordination No te Formatting of this note migh t be different from the original. 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 DISCUSSION: I discussed all impression and further management in this regard. She tolerated the third cycle of chemotherapy fairly well after dose reduction. There are no recurrent visual side effects. I discussed the potential toxicity from current therapy. She has been responding with significant decline in her tumor marker CA125. I reassured her about this. She will continue current therapy as planned. RECOMMENDATIONS: C4 of chemotherapy today with Elahere, 5mg/kg Return for follow-up in 3 weeks with labs, provider visit and for next cycle of chemotherapy Thank you very much for allowing to participate in this patient's care Elevated CA-125 02/08/2020 Intra-abdominal tumor 01/24/2020 Current Treatment and Therapy Plans ACCESS AND FLUSH ([facility])* Plan Start Date:05/15/2022 Plan Provider:Marcella Zacarias CNP Linked Problems Malignant neoplasm of both o varies Treatment Medications No medications scheduled. PACLITAXEL 80 MG/M2* Plan Start Date:08/23/2024 Plan Provider:Dusty Aguirre DO Linked Problems Malignant neoplasm of both o varies Treatment Medications Current Day (Day 1 5, Cycle 8 - Planned for 03/21/2025) PACLitaxel (TAXOL)PACLitaxel (TAXOL) IVPB in 250 mL (Doses >85 mg to 199 mg) PACLitaxeL (TAXOL) 99 mg in sodium chloride 0.9% (PVC Free) 286.5 mL IVPB Other Current Plans TOCILIZUMAB* Plan Start Date:08/29/2024 Plan Provider:Stephon Maya MD Linked Problems Seropositive rheumatoid arth ritis of multiple sites Treatment Medications No medications scheduled. ZOLEDRONIC ACID ([facility])* Plan Start Date:08/15/2024 Plan Provider:Stephon Maya MD Linked Problems Age-related osteoporosis wit hout current pathological fracture Treatment Medications No medications scheduled. Past Treatment and Therapy Plans TREATMENT PLAN Plan Name Start Date Discontinue Date Treatment Medications Discontinue Reason Plan Provider Cycles MIRVETUXIMAB SORAVTANSINE-GY NX / BEVACIZUMAB 08/03/19 24 08/01/2024 bevacizumab-awwb ([facility]) IVPB Bagmirvetuximab soravtansine-gynx IVPB 2 mg/mL Fr bag b. Progression Dusty Aguirre, DO 15 of 15 cycles started BEVACIZUMAB / PEMBROLIZUMAB - EVERY 3 WEEKS 06/26/20 22 07/02/2023 bevacizumabbevaciz umab-awwb ([facility]) IVPB Bagpembrolizumab (KEYTRUDA)pembroli zumab (KEYTRUDA) IVPB Bag g. Patient Preference Dusty Aguirre, DO 8 of 8 cycles started BEVACIZUMAB/DOX ORUBICIN LIPOSOMAL 04/03/20 22 06/26/2022 bevacizumabbevaciz umab-awwb ([facility]) IVPB BagDOXOrubicin liposomal (DOXIL) IVPB in 250 mL (Doses 90 mg or LESS) b. Progression Dusty Aguirre, DO 3 of 3 cycles started DOXORUBICIN LIPOSOMAL 01/01/20 21 04/03/2022 DOXOrubicin liposomal (DOXIL) IVPB in 250 mL (Doses 90 mg or LESS) b. Progression Kwasi Vega MD 15 of 15 cycles started BEVACIZUMAB 15 MG/KG - EVERY 3 WEEKS 10/05/19 21 12/31/2020 bevacizumabbevaciz umab-awwb ([facility]ASI) IVPB Bag b. Progression Christopher Thompson MD 3 of 6 cycles started CARBOPLATIN/PAC LITAXEL EVERY 3 WEEKS-MINIMUM CREATININE FOR AUC CALCULATION SET AT 0.7 02/14/20 20 10/04/2020 CARBOplatin (PARAPLATIN) IVPB (by AUC) 270 mLPACLitaxel (TAXOL) IVPB in 500 mL (Doses GREATER than 199 mg) a. Therapy Complete Christopher Thompson MD 6 of 6 cycles started TREATMENT PLAN-SUPPLEMENTAL Plan Name Start Date Discontinue Date Treatment Medications Discontinue Reason Plan Provider Cycles BEVACIZUMAB 15 MG/KG - EVERY 3 WEEKS 202304/27/2024 bevacizumab a. Therapy Complete Dusty Aguirre, DO Treatment not started BEVACIZUMAB 15 MG/KG/CYCLOP HOSPHAMIDE 202107/16/2022 bevacizumabcycloPHOSpham demarcus (CYTOXAN) e. 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
--- OUTSIDE RECORDS SUMMARY | 2025-03-14 13:11 | XMS_ITS | Encounter Summary ---
Author Organization [facility] Address [address] [place] [address] Phone Care Team Providers Care Senior Project Architect Name Role Phone Christopher Thompson MD Unavailable + [phone] Ysabel Sanchez RN Unavailable [email or web address] Stephon Chambers RN Unavailable [phone] Carine Rivas RN Unavailable [email or web address] Vikki Perez MD Unavailable Amirah Smith MD Primary Care Provider Dusty Aguirre DO Unavailable Stephon Maya MD Unavailable Ayanna FoxP Unavailable Karen Santo CNP Unavailable Shala Hartman NP Unavailable Encounter Details Date Type Department Care Team (Late st Contact Info) Description 02/20/2025 Orders Only [facility] [address] [place], [place] [phone] Shala Hartman, KATHY [address] [place] [address] [email or web address] Social History Tobacco Use Types Packs/Day Years [...] Info) Description 03/21/2025 9:40 AM EDT Infusion [facility] at [address] [address] Dusty Aguirre, DO [address] [place] [address] [email or web address]@[email or web address] 03/21/2025 11:30 AM EDT Office Visit [facility] at [address] [address] Ayanna Fox FNP [address] [place] [address] [email or web address] 03/21/2025 12:40 PM EDT Infusion [facility] at [address] [address] Dusty Aguirre DO [address] [place] [address] [email or web address] .[facility] Karen Burgos, KAPIL [address] [place] [address] [email or web address] 04/04/2025 8:20 AM EDT Appointment [facility] [address] [place] [address] Dusty Aguirre, DO [address] [place] [address] [email or web address] .[facility] 04/04/2025 9:00 AM EDT Office Visit [facility] at [address] [address] Ayanna Fox, HEAD OF ACQUISITIONS [address] [place] [address] [email or web address] 04/04/2025 10:00 AM EDT Infusion [facility] at [address] [address] Dusty Aguirre, DO [address] [place] [address] [email or web address] Niyah Cole, KAPIL [address] [place] [address] 04/06/2025 3:20 PM EDT Telemedicine [address], 4th Floor, [address] [place] [address] Stephon Maya MD [address] [place] [address] [email or web address] 04/11/2025 10:20 AM EDT Appointment [address] [address] Dusty Aguirre, DO [address] [place] [address] [email or web address]@[email or web address] 04/11/2025 11:30 AM EDT Office Visit [facility] at [address] [address] Ayanna Fox, HEAD OF ACQUISITIONS [address] [place] [address] [email or web address] 04/11/2025 12:40 PM EDT Infusion [facility] at [address] [address] Dusty Aguirre, DO [address] [place] [address] [email or web address]@[email or web address] Eldon Mckeon RN [address] [place] [address] 04/17/2025 9:10 AM EDT Appointment [facility] [address] [place] [address] Dusty Aguirre, DO [address] [place] [address] [email or web address]@[email or web address] 04/17/2025 10:30 AM EDT Office Visit [facility] at [address] [address] Dusty Aguirre, DO [address] [place] [address] [email or web address]@[email or web address] 04/17/2025 11:20 AM EDT Infusion [facility] at [address] [address] Dusty Aguirre, DO [address] [place] [address] NAVEEN@[facility] Eldon Mckeon RN [address] [place] [address] 04/28/2025 11:50 AM EDT Appointment [facility] [address] [place] [address] Dusty Aguirre, DO [address] [place] [address] [email or web address]@[facility] 04/28/2025 1:00 PM EDT Office Visit [facility] at [address] [address] Ayanna Fox FNP [address] [place] [address] [email or web address] 04/28/2025 2:00 PM EDT Infusion [facility] at [address] [address] Dusty Aguirre, DO [address] [place] [address] [email or web address]@[email or web address] Sophy Nolan RN [address] [place] [address] [email or web address] 05/08/2025 7:50 AM EDT Appointment [facility] [address] [place] [address] Dusty Aguirre, DO [address] [place] [address] [email or web address]@[email or web address] 05/08/2025 9:00 AM EDT Office Visit [facility] at [address] [address] Dusty Aguirre, DO [address] [place] [address] [email or web address]@[email or web address] 05/08/2025 10:00 AM EDT Infusion [facility] at [address] [address] Dusty Aguirre, DO [address] [place] [address] [email or web address] Eldon Mckeon, KAPIL [address] [place] [address] [email or web address] documented as of this encounter Visit Diagnoses Not on filedocumented in this encounter Care Teams Senior Project Architect Relationship Specialty Start Date End Date Amirah Smith MD [address] [place] [address] [place] [address] PCP - General Internal Medicine 03/06/22 Christopher Thompson MD [address] [facility] Obstetrics and Gynecology ServiceYAW [address] [place] [address] [email or web address] Primary Oncologist Gynecologic Oncology 02/06/20 Ysabel Sanchez RN [address] [place] [address] [email or web address] Associate Infusion Nurse 03/29/20 Stephon Chambers RN [address] [place] [address] [email or web address] Associate Infusion Nurse 09/18/20 Carine Rivas RN [address] [place] [phone] [email or web address] Primary Infusion Nurse 11/05/20 Vikki Perez MD [address] [facility] Y[address] [place] [address] [email or web address] Primary Oncologist Gynecologic Oncology 03/27/21 Dusty Aguirre DO [address] [place] [address] [email or web address] Primary Oncologist Hematology and Oncology 05/01/22 Stephon Maya MD [address] [place] [address] TIARA@[email or web address] 07/30/23 Ayanna Fox FNP [address] [place] [address] [email or web address] Registered Nurse Nurse Practitioner 08/09/24 Karen Santo CNP [address] [place] [address] [email or web address] Nurse Practitioner 08/29/24 Shala Hartman NP [address] [place] [address] [email or web address] Nurse Practitioner 11/08/24 documented as of this encounter Additional Source Comments The information contained in this document represents components of the legal health record. It is not the complete legal health record.[facility]
--- OUTSIDE RECORDS SUMMARY | 2025-03-14 13:11 | XMS_ITS | Encounter Summary ---
Author Organization [facility] Address [address] [place] [address] Phone Care Team Providers Care Agricultural Research Technologist Name Role Phone Christopher Thompson MD Unavailable + [phone] Ysabel Sanchez RN Unavailable [email or web address] Stephon Chambers RN Unavailable [phone] Carine Rivas RN Unavailable [email or web address] Vikki Perez MD Unavailable [phone] Amirah Smith MD Primary Care Provider Dusty Aguirre DO Unavailable Stephon Maay MD Unavailable Ayanna Looney FRENCH EDGE OPERATOR Unavailable [phone] Karen Santo PHOTOCOPYING EQUIPMENT MECHANIC Unavailable Shala Hartman NP Unavailable Reason for Visit * Reason Onset Date Comments Medication Refill 03/09/2025 Encounter Details Date Type Department Care Team (Late st Contact Info) Description 03/09/2025 Refill [facility] at [address] [phone] Shiela Solo [address] [place] [address] [email or web address] Medication Refill Social History Tobacco Use Types Packs/Day Years [...] as of this encounter Progress Notes * Shiela Solo - 03/09/2025 10:52 AM EDT RACHEL LOONEY documented in this encounter Plan of Treatment Upcoming Encounters Date Type Department Care Team (Late st Contact Info) Description 03/21/2025 9:[address] [facility] at [address] [address] Dusty Aguirre, [address] [address] [email or web address]@[email or web address] 03/21/2025 11:30 AM EDT Office Visit [facility] at [address] [address] Ayanna Looney FNP [address] [place] [address] [email or web address] 03/21/2025 12:[address] [facility] at [address] [address] Dusty Aguirre, DO [address] [place] [address] [email or web address]@[email or web address] [facility] Karen Burgos, KAPIL [address] [place] [address] [email or web address] 04/04/2025 8:20 AM EDT Appointment [facility] [address] [place] [address] Dusty Aguirre, DO [address] [place] [address] [email or web address] 04/04/2025 9:00 AM EDT Office Visit [facility] at [address] [address] Ayanna Looney FNP [address] [place] [address] [email or web address] 04/04/2025 10:[address] [facility] at [address] [address] Dusty Aguirre, [address] [address] [email or web address]@[facility] Niyah Cole RN [address] [place] [address] [email or web address] 04/06/2025 3:20 PM EDT Telemedicine [address], 4th Floor, [address] [place] [address] Stephon Maya MD [address] [place] [address] [email or web address] 04/11/2025 10:20 AM EDT Appointment [facility] [address] [place] [address] Dusty Aguirre, DO [address] [place] [address] [email or web address] 04/11/2025 11:30 AM EDT Office Visit [facility] at [address] [address] Ayanna Looney FNP [address] [place] [address] 04/11/2025 12:40 PM EDT Infusion [facility] at [address] [address] Dusty Aguirre, DO [address] [place] [address] NAVEEN@[facility] Eldon Mckeon RN [address] [place] [address] 04/17/2025 9:10 AM EDT Appointment [facility] [address] [place] [address] Dusty Aguirre, DO [address] [place] [address] NAVEEN@[facility] 04/17/2025 10:30 AM EDT Office Visit [facility] at [address] [address] Dusty Aguirre, DO [address] [place] [address] NAVEEN@[facility] 04/17/2025 11:20 AM EDT Infusion [facility] at [address] [address] Dusty Aguirre, DO [address] [place] [address] NAVEEN@[facility] Eldon Mckeon RN [address] [place] [address] [email or web address] 04/28/2025 11:50 AM EDT Appointment [facility] Laboratory [address] [place] [address] uDsty Aguirre, DO [address] [place] [address] NAVEEN@[facility] 04/28/2025 1:00 PM EDT Office Visit [facility] [place] at [address] [address] Ayanna Looney FNP [address] [place] [address] [email or web address] 04/28/2025 2:00 PM EDT Infusion [facility] at [address] [address] Dusty Aguirre, DO [address] [place] [address] NAVEEN@[facility] Sophy Nolan RN [address] [place] [address] [email or web address] 05/08/2025 7:50 AM EDT Appointment [facility] [address] [place] [address] Dusty Aguirre, DO [address] [place] [address] NAVEEN@[facility] 05/08/2025 9:00 AM EDT Office Visit [facility] at [address] [address] Dusty Aguirre, DO [address] [place] [address] NAVEEN@[facility] 05/08/2025 10:00 AM EDT Infusion [facility] at [address] [address] Dusty Aguirre, DO [address] [place] [address] NAVEEN@[facility] Eldon Mckeon RN [address] [place] [address] [email or web address] documented as of this encounter Visit Diagnoses Not on filedocumented in this encounter Care Teams Agricultural Research Technologist Relationship Specialty Start Date End Date Amirah Smith MD [address] [place] [address] [place] [address] PCP - General Internal Medicine 03/06/22 Christopher Thompson MD [address] [place] [address] Obstetrics and Gynecology ServiceYA [address]E [place] [address] [email or web address] Primary Oncologist Gynecologic Oncology 02/06/20 Ysabel Sanchez RN [address] [place] [address] [email or web address] Associate Infusion Nurse 03/29/20 Stephon Chambers RN [address] [place] [address] [email or web address] Associate Infusion Nurse 09/18/20 Carine Rivas RN [address] [place] [phone] [email or web address] Primary Infusion Nurse 11/05/20 Vikki Perez MD [address] [place] [address] [email or web address] Primary Oncologist Gynecologic Oncology 03/27/21 Dusty Aguirre DO [address] [place] [address] [email or web address]@[email or web address] Primary Oncologist Hematology and Oncology 05/01/22 Stephon Maya MD [address] [place] [address] TIARA@[email or web address] Rheumatology 07/30/23 Ayanna Looney FNP [address] [place] [address] [email or web address] Registered Nurse Nurse Practitioner 08/09/24 Karen Santo CNP [address] [place] [address] [email or web address] Nurse Practitioner 08/29/24 Shala Hartman NP [address] [place] [address] [email or web address] Nurse Practitioner 11/08/24 documented as of this encounter Additional Source Comments The information contained in this document represents components of the legal health record. It is not the complete legal health record[facility]
--- OUTSIDE RECORDS SUMMARY | 2025-03-14 13:11 | XMS_ITS | Encounter Summary ---
Author Organization Formerly [facility] Address [address] [place] [address] Phone Care Team Providers Care Network Engineer Name Role Phone Christopher Thompson MD Unavailable + [phone] Ysabel Sanchez RN Unavailable [email or web address] Stephon Chambers RN Unavailable [phone] Carine Rivas RN Unavailable [email or web address] Vikki Perez MD Unavailable [phone] Amirah Smith MD Primary Care Provider Dusty Aguirre DO Unavailable [phone] Marilia Nolan DRAFTER AUTOMOTIVE DESIGN LAYOUT Unavailable Karen Santo CNP Unavailable Loyda PinonC Unavailable gloria Stephon Maya MD Unavailable Minor BaltazarBS Unavailable Ayanna Fox DRAFTER AUTOMOTIVE DESIGN LAYOUT Unavailable [phone] Shala Hartman NP Unavailable Karen Santo CNP Unavailable Shala Hartman NP Unavailable [phone] Encounter Details Date Type Department Care Team (Late st Contact Info) Description 09/12/2022 Procedure Pass [facility], Ct Scan - [address] [address] Social History Tobacco Use Types Packs/Day Years [...] Info) Description 03/21/2025 9:40 AM EDT Infusion [facility] at [address] [address] Dusty Aguirre, [address] [address] [email or web address]@[facility] 03/21/2025 11:30 AM EDT Office Visit [facility] at [address] [address] Ayanna Fox FNP [address] [place] [address] [email or web address] 03/21/2025 12:40 PM EDT Infusion [facility] at [address] [address] Dusty Aguirre DO [address] [place] [address] [email or web address]@[facility] [facility] Karen Burgos, KAPIL [address] [place] [address] [email or web address] 04/04/2025 8:20 AM EDT Appointment [facility] [address] [place] [address] Dusty Aguirre, DO [address] [place] [address] [email or web address]@[email or web address] 04/04/2025 9:00 AM EDT Office Visit [facility] at [address] [address] Ayanna Fox, DRAFTER AUTOMOTIVE DESIGN LAYOUT [address] [place] [address] [email or web address] 04/04/2025 10:00 AM EDT Infusion [facility] at [address] [address] Dusty Aguirre, DO [address] [place] [address] [email or web address]@[facility] Niyah Cole RN [address] [place] [address] [email or web address] 04/06/2025 3:20 PM EDT Telemedicine [address], 4th Floor, [address] [place] [address] Stephon Maya MD [address] [place] [address] [email or web address] 04/11/2025 10:20 AM EDT Appointment [facility] [address] [place] [address] Dusty Aguirre, DO [address] [place] [address] [email or web address]@[facility] 04/11/2025 11:30 AM EDT Office Visit [facility] at [address] [address] Ayanna Fox DRAFTER AUTOMOTIVE DESIGN L[address] [address] 04/11/2025 12:40 PM EDT Infusion [facility] at [address] [address] Dusty Aguirre, DO [address] [place] [address] [email or web address]@[facility] Eldon Mckeon RN [address] [place] [address] 04/17/2025 9:10 AM EDT Appointment [facility] Laboratory [address] [place] [address] Dusty Aguirre, DO [address] [place] [address] [email or web address]@[facility] 04/17/2025 10:30 AM EDT Office Visit [facility] at [address] [address] Dusty Aguirre, DO [address] [place] [address] [email or web address]@[facility] 04/17/2025 11:20 AM EDT Infusion [facility] Center at [address] [address] Dusty Aguirre, DO [address] [place] [address] [email or web address]@[facility] Eldon Mckeon RN [address] [place] [address] 04/28/2025 11:50 AM EDT Appointment [facility] Laboratory [address] [place] [address] Dusty Aguirre, DO [address] [place] [address] [email or web address]@[facility] 04/28/2025 1:00 PM EDT Office Visit [facility] at [address] [address] Ayanna Fox FNP [address] [place] [address] [email or web address] 04/28/2025 2:00 PM EDT Infusion [facility] at [address] [address] Dusty Aguirre, DO [address] [place] [address] [email or web address]@[facility] Sophy Nolan RN [address] [place] [address] [email or web address] 05/08/2025 7:50 AM EDT Appointment [facility] [address] [place] [address] Dusty Aguirre, DO [address] [place] [address] [email or web address]@[facility] 05/08/2025 9:00 AM EDT Office Visit [facility] at [address] [address] Dusty Aguirre, DO [address] [place] [address] [email or web address]@[facility] 05/08/2025 10:00 AM EDT Infusion [facility] at [address] [address] Dusty Aguirre, DO [address] [place] [address] [email or web address]@[facility] Eldon Mckeon, RN [address] [place] [address] [email or web address] documented as of this encounter Visit Diagnoses Not on filedocumented in this encounter Additional Health Concerns Infection Onset Date Last Indicated Resolved Time CoV-Risk 11/10/2022 11/10/2022 11/21/2022 1:24 AM EDT documented as of this encounter Care Teams Network Engineer Relationship Specialty Start Date End Date Amirah Smith MD [address] [place] [address] Dr Sanchez [address] [place] [phone] PCP - General Internal Medicine 03/06/22 Christopher Thompson MD [address] [place] [address] Obstetrics and [facility] [address] [place] [address] [email or web address] Primary Oncologist Gynecologic Oncology 02/06/20 Ysabel Sanchez RN [address] [place] [address] [email or web address] Associate Infusion Nurse 03/29/20 Stephon Chambers RN [address] [place] [address] [email or web address] Associate Infusion Nurse 09/18/20 Carine Rivas, KAPIL [address] [place] [phone] [email or web address] Primary Infusion Nurse 11/05/20 Vikki Perez MD [address] [place] [address] [address] [place] [address] [email or web address] Primary Oncologist Gynecologic Oncology 03/27/21 Dusty Aguirre DO [address] [place] [address] [email or web address]@[facility] Primary Oncologist Hematology and Oncology 05/01/22 Marilia Nolan, DRAFTER AUTOMOTIVE DESIGN LAYOUT [address] [place] [address] [email or web address] Nurse Practitioner Medical Oncology 08/05/22 08/08/24 Karen Santo CNP [address] [place] [address] [email or web address] Nurse Practitioner Medical Oncology 09/05/22 08/08/24 Loyda Pinon PA-C [address] [place] [address] [email or web address] Physician Furnace Operator Medical Oncology 10/20/22 08/20/23 Stephon Maya MD [address] [place] [address] [email or web address] Rheumatology 07/30/23 Minor Baltazar MBBS [address] [place] [address] [email or web address] Primary Oncologist Medical Oncology 10/16/23 10/25/23 Ayanna Fox FNP [address] [place] [address] [email or web address] Registered Nurse Nurse Practitioner 08/09/24 Shala Hartman NP [address] [place] [address] [email or web address] Nurse Practitioner 08/15/24 10/30/24 Karen Santo CNP [address] [place] [address] [email or web address] Nurse Practitioner 08/29/24 Shala Hartamn NP [address] [place] [address] [email or web address] Nurse Practitioner 11/08/24 documented as of this encounter Additional Source Comments The information contained in this document represents components of the legal health record. It is not the complete legal health record.[facility]
--- OUTSIDE RECORDS SUMMARY | 2025-03-14 13:11 | XMS_ITS | Encounter Summary ---
Author Organization [facility] Address [address] [place] [address] Phone Care Team Providers Care Washer And Capper Machine Operator Name Role Phone Christopher Thompson MD Unavailable + [phone] Ysabel Sanchez RN Unavailable [email or web address] Stephon Chambers RN Unavailable [phone] Carine Rivas RN Unavailable [email or web address] Vikki Perez MD Unavailable [phone] Amirah Smith MD Primary Care Provider Dusty Aguirre DO Unavailable Marilia Nolan HADOOP DEVELOPER Unavailable [phone] PackKaren HUMAN RESOURCES LEADER Unavailable Stephon Maya MD Unavailable Ayanna Fox HADOOP DEVELOPER Unavailable Shala Hartman NP Unavailable Karen Santo HUMAN RESOURCES LEADER Unavailable Shala Hartman NP Unavailable Encounter Details Date Type Department Care Team (Late st Contact Info) Description 03/14/2024 Procedure Pass [facility], Ct Scan - [address] [address] Social History Tobacco Use Types Packs/Day Years [...] work, study, or receive health care? No 07/27/2023 Education Answer Date Recorded Are you interested in more education? Not on jose e 11/14/2022 Are you concerned about learning? Not on file 11/14/2022 No 11/14/2022 No 11/14/2022 Food Answer Date Recorded Within the past 6 months we worried whether our food would run out before we got money to buy more. Never True 07/27/2023 Within the past 6 months the food we bought just didn't last and we didn't have enough money to get more. Never True Residential Stability Answer Date Recor ded Family situation today data Not on file 02/2024 How many times have you move d in the past 12 months? Zero (I did not move) 07/27/2023 Paying for Meds Answer Date Recorded Do you have trouble paying for medicines? No 07/27/2023 Paying Utility Bills Answer Date Record ed Do you have trouble paying your heating or elect ricity bill? No 07/27/2023 Transportation Answer Date Recorded Has the lack of transportati on kept you from medical appointments or from getting medications? No 07/27/2023 Digital Access Answer Date Recorded No 07/27/2023 Yes 07/27/2023 Do you have reliable internet access at home? Ye s 07/27/2023 Do you have a device (e.g., phone, tablet, computer) with a working camera? Yes 07/27/2023 Intimate Partner Violence Answer Date R ecorded [...] Info) Description 03/21/2025 9:40 AM EDT Infusion [facility] at [address] [address] Dusty Aguirre DO [address] [place] [address] [email or web address]@[email or web address] 03/21/2025 11:30 AM EDT Office Visit [facility] at [address] [address] Ayanna Fox FNP [address] [place] [address] [email or web address] 03/21/2025 12:40 PM EDT Infusion [facility] at [address] [address] Dusty Aguirre DO [address] [place] [address] [email or web address]@[email or web address] Karen Burgos, KAPIL [address] [place] [address] [email or web address] 04/04/2025 8:20 AM EDT Appointment [facility] [address] [place] [address] Dusty Aguirre DO [address] [place] [address] [email or web address] 04/04/2025 9:00 AM EDT Office Visit [facility] at [address] [address] Ayanna Fox, HADOOP DEVELOPER [address] [place] [address] [email or web address] 04/04/2025 10:00 AM EDT Infusion [facility] at [address] [address] Dusty Aguirre, DO [address] [place] [address] [email or web address]@[email or web address] Niyah Cole, KAPIL [address] [place] [address] 04/06/2025 3:20 PM EDT Telemedicine [address], 4th Floor, [address] [place] [address] Stephon Maya MD [address] [place] [address] [email or web address] 04/11/2025 10:20 AM EDT Appointment [address] [address] Dusty Aguirre, DO [address] [place] [address] [email or web address]@[facility] 04/11/2025 11:30 AM EDT Office Visit [facility] at [address] [address] Ayanna Fox, HADOOP DEVELOPER [address] [place] [address] [email or web address] 04/11/2025 12:40 PM EDT Infusion [facility] at [address] [address] Dusty Aguirre, DO [address] [place] [address] [email or web address]@[facility] Eldon Mckeon RN [address] [place] [address] 04/17/2025 9:10 AM EDT Appointment [facility] Laboratory [address] [place] [address] Dusty Aguirre, DO [address] [place] [address] [email or web address]@[facility] 04/17/2025 10:30 AM EDT Office Visit [facility] at [address] [address] Dusty Aguirre, [address] [address] [email or web address]@[email or web address] 04/17/2025 11:20 AM EDT Infusion [facility] at [address] [address] Dusty Aguirre, DO [address] [place] [address] [email or web address]@[facility] Eldon Mcekon RN [address] [place] [address] 04/28/2025 11:50 AM EDT Appointment [facility] Laboratory [address] [place] [address] Dusty Aguirre, DO [address] [place] [address] [email or web address]@[facility] 04/28/2025 1:00 PM EDT Office Visit [facility] at [address] [address] Ayanna Fox FNP [address] [place] [address] [email or web address] 04/28/2025 2:00 PM EDT Infusion [facility] at [address] [address] Dusty Aguirre, DO [address] [place] [address] [email or web address]@[email or web address] Sophy Nolan RN [address] [place] [address] [email or web address] 05/08/2025 7:50 AM EDT Appointment [facility] [address] [place] [address] Dusty Aguirre, DO [address] [place] [address] [email or web address]@[email or web address] 05/08/2025 9:00 AM EDT Office Visit [facility] at [address] [address] Dusty Aguirre, DO [address] [place] [address] [email or web address]@[email or web address] 05/08/2025 10:00 AM EDT Infusion [facility] at [address] [address] Dusty Aguirre, DO [address] [place] [address] [email or web address] Eldon Mckeon, KAPIL [address] [place] [address] [email or web address] documented as of this encounter Visit Diagnoses Not on filedocumented in this encounter Care Teams Washer And Capper Machine Operator Relationship Specialty Start Date End Date Amirah Smith MD [address] [place] [address] [place] [address] PCP - General Internal Medicine 03/06/22 Christopher Thompson MD [address] [place] [address] Obstetrics and Gynecology ServiceYAW [address] [place] [address] [email or web address] Primary Oncologist Gynecologic Oncology 02/06/20 Ysabel Sanchez RN [address] [place] [address] [email or web address] Associate Infusion Nurse 03/29/20 Stephon Chambers RN [address] [place] [address] [email or web address] Associate Infusion Nurse 09/18/20 Carine Rivas RN [address] [place] [phone] [email or web address] Primary Infusion Nurse 11/05/20 Vikki Perez MD [address] [place] [address] [address] [email or web address] Primary Oncologist Gynecologic Oncology 03/27/21 Dusty Aguirre DO [address] [place] [address] [email or web address] Primary Oncologist Hematology and Oncology 05/01/22 Marilia Nolan FNP [address] [place] [address] [email or web address] Nurse Practitioner Medical Oncology 08/05/22 08/08/24 Karen Santo CNP [address] [place] [address] [email or web address] Nurse Practitioner Medical Oncology 09/05/22 08/08/24 Stephon Maya MD [address] [place] [address] [email or web address] Rheumatology 07/30/23 Ayanna Fox FNP [address] [place] [address] [email or web address] Registered Nurse Nurse Practitioner 08/09/24 Shala Hartman NP [address] [place] [address] [email or web address] Nurse Practitioner 08/15/24 10/30/24 Karen Santo CNP [address] [place] [address] [email or web address] Nurse Practitioner 08/29/24 Shala Hartman NP [address] [place] [address] [email or web address] Nurse Practitioner 11/08/24 documented as of this encounter Additional Source Comments The information contained in this document represents components of the legal health record. It is not the complete legal health record.[facility]
--- OUTSIDE RECORDS SUMMARY | 2025-03-14 13:11 | XMS_ITS | Encounter Summary ---
Author Organization [facility] Address [address] [place] [address] Phone Care Team Providers Care Petroleum Refinery Operator Name Role Phone Christopher Thompson MD Unavailable + [phone] Ysabel Sanchez RN Unavailable [email or web address] Stephon Chambers RN Unavailable [phone] Carine Rivas RN Unavailable [email or web address] Vikki Perez MD Unavailable Amirah Smith MD Primary Care Provider Dusty Aguirre DO Unavailable Marilia Nolan WAD BLANKING PRESS ADJUSTER Unavailable PackKaren CLASSIFIER OPERATOR Unavailable Stephon Maya MD Unavailable [phone] Ayanna Fox WAD BLANKING PRESS ADJUSTER Unavailable Shala Hartman NP Unavailable Karen Santo CLASSIFIER OPERATOR Unavailable Shala Hartman NP Unavailable Encounter Details Date Type Department Care Team (Late st Contact Info) Description 03/14/2024 Procedure Pass [facility], Ct Scan - [address] [address] Social History Tobacco Use Types Packs/Day Years [...] Info) Description 03/21/2025 9:40 AM EDT Infusion [facility] [place] at [address] [address] Dusty Aguirre DO [address] [place] [address] [email or web address] 03/21/2025 11:30 AM EDT Office Visit [facility] at [address] [address] Ayanna Fox FNP [address] [place] [phone] [email or web address] 03/21/2025 12:40 PM EDT Infusion [facility] at [address] [address] Dusty Aguirre DO [address] [place] [address] [email or web address]@[facility] Karen Burgos, KAPIL [address] [place] [address] [email or web address] 04/04/2025 8:20 AM EDT Appointment [facility] [address] [place] [address] Dusty Aguirre DO [address] [place] [address] [email or web address] 04/04/2025 9:00 AM EDT Office Visit [facility] at [address] [address] Ayanna Fox, WAD BLANKING PRESS ADJUSTER [address] [place] [address] [email or web address] 04/04/2025 10:00 AM EDT Infusion [facility] at [address] [address] Dusty Aguirre, DO [address] [place] [address] [email or web address]@[facility] Niyah Cole, KAPIL [address] [place] [address] 04/06/2025 3:20 PM EDT Telemedicine [address], 4th Floor, [address] [place] [address] Stephon Maya MD [address] [place] [phone] [email or web address] 04/11/2025 10:20 AM EDT Appointment [address] [address] Dusty Aguirre, DO [address] [place] [address] NAVEEN@[facility] 04/11/2025 11:30 AM EDT Office Visit [facility] at [address] [address] Ayanna Fox, WAD BLANKING PRESS ADJUSTER [address] [place] [address] [email or web address] 04/11/2025 12:40 PM EDT Infusion [facility] at [address] [address] Dusty Aguirre, DO [address] [place] [address] [email or web address]@[facility] Eldon Mckeon RN [address] [place] [address] 04/17/2025 9:10 AM EDT Appointment [facility] Laboratory [address] [place] [address] Dusty Aguirre, DO [address] [place] [phone] [email or web address]@[facility] 04/17/2025 10:30 AM EDT Office Visit [facility] at [address] [address] Dusty Aguirre, [address] [address] [email or web address]@[facility] 04/17/2025 11:20 AM EDT Infusion [facility] at [address] [address] Dusty Aguirre, DO [address] [place] [address] [email or web address]@[facility] Eldon Mckeon RN [address] [place] [address] 04/28/2025 11:50 AM EDT Appointment [facility] Laboratory [address] [place] [address] Dusty Aguirre, DO [address] [place] [address] NAVEEN@[facility] 04/28/2025 1:00 PM EDT Office Visit [facility] at [address] [address] Ayanna Fox FNP [address] [place] [address] [email or web address] 04/28/2025 2:00 PM EDT Infusion [facility] Center at [address] [address] Dusty Aguirre, DO [address] [place] [address] [email or web address]@[facility] Sophy Nolan RN [address] [place] [address] [email or web address] 05/08/2025 7:50 AM EDT Appointment [facility] [address] [place] [address] Dusty Aguirre, DO [address] [place] [address] [email or web address]@[facility] 05/08/2025 9:00 AM EDT Office Visit [facility] at [address] [address] Dusty Aguirre, DO [address] [place] [address] [email or web address]@[facility] 05/08/2025 10:00 AM EDT Infusion [facility] Center at [address] [address] Dusty Aguirre, DO [address] [place] [address] [email or web address]@[facility] Eldon Mckeon, KAPIL [address] [place] [address] [email or web address] documented as of this encounter Visit Diagnoses Not on filedocumented in this encounter Care Teams Petroleum Refinery Operator Relationship Specialty Start Date End Date Amirah Smith MD [address] [place] [address] [place] [address] PCP - General Internal Medicine 03/06/22 Christopher Thompson MD [address] [place] [address] Obstetrics and Gynecology ServiceYAW [address] [place] [address] [email or web address] Primary Oncologist Gynecologic Oncology 02/06/20 Ysabel Sanchez RN [address] [place] [address] [email or web address] Associate Infusion Nurse 03/29/20 Stephon Chambers RN [address] [place] [address] [email or web address] Associate Infusion Nurse 09/18/20 Carine Rivas RN [address] [place] [phone] [email or web address] Primary Infusion Nurse 11/05/20 Vikki Perez MD [address] [place] [address] [address] [email or web address] Primary Oncologist Gynecologic Oncology 03/27/21 Dusty Aguirre DO [address] [place] [address] [email or web address] Primary Oncologist Hematology and Oncology 05/01/22 Marilia Nolan FNP [address] [place] [address] [email or web address] Nurse Practitioner Medical Oncology 08/05/22 08/08/24 Karen Santo CNP [address] [place] [address] [email or web address] Nurse Practitioner Medical Oncology 09/05/22 08/08/24 Stephon Maya MD [address] [place] [address] [email or web address] Rheumatology 07/30/23 Ayanna Fox FNP [address] [place] [address] [email or web address] Registered Nurse Nurse Practitioner 08/09/24 Shala Hartman NP [address] [place] [address] [email or web address] Nurse Practitioner 08/15/24 10/30/24 Karen Santo CNP [address] [place] [address] [email or web address] Nurse Practitioner 08/29/24 Shala Hartman NP [address] [place] [address] [email or web address] Nurse Practitioner 11/08/24 documented as of this encounter Additional Source Comments The information contained in this document represents components of the legal health record. It is not the complete legal health record.[facility]
--- OUTSIDE RECORDS SUMMARY | 2025-03-14 13:11 | XMS_ITS | Encounter Summary ---
Author Organization [facility] Address [address] [place] [address] Phone Care Team Providers Care Hose Cementer Name Role Phone Christopher Thompson MD Unavailable + [phone] Ysabel Sanchez RN Unavailable [email or web address] Stephon Chambers RN Unavailable [phone] Carine Rivas RN Unavailable [email or web address] Vikki Perez MD Unavailable [phone] Amirah Smith MD Primary Care Provider Dusty Aguirre DO Unavailable Stephon Maya MD Unavailable Ayanna FoxP Unavailable [phone] Karen Santo CNP Unavailable Shala Hartman NP Unavailable [phone] Reason for Visit * Reason Comments Medication Refill Encounter Details Date Type Department Care Team (Late st Contact Info) Description 03/13/2025 Refill Located Within [facility] [place] [address] [place] [address] Ayanna Fox TENNIS BALL COVERER HAND [address] [place] [address] [email or web address] Medication Refill Social History Tobacco Use Types [...] encounter Progress Notes * Shiela Solo - 03/13/2025 1:20 PM EDT TO [facility] THIS RX CAME BACK A REFUSED RX DUE TO UNABLE TO FIND MEDICATION WITH THIS NAME. I ATTACHED THE MED IT IS LISTED IN HER CHART TO SEE IF THAT HELPS THEM FIND IT. documented in this encounter Plan of Treatment Upcoming Encounters Date Type Department Care Team (Late st Contact Info) Description 03/21/2025 9:40 AM EDT Infusion Located Within [facility] [place] at [address] [address] Dusty Aguirre, DO [address] [place] [address] [email or web address] 03/21/2025 11:30 AM EDT Office Visit [facility] at [address] [address] Ayanna Fox FNP [address] [place] [address] [email or web address] 03/21/2025 12:40 PM EDT Infusion Located Within [facility] [place] at [address] [address] Dusty Aguirre DO [address] [place] [address] [email or web address] .[email or web address] Kaern Brugos, KAPIL [address] [place] [address] 04/04/2025 8:20 AM EDT Appointment [facility] Laboratory [address] [place] [address] Dusty Aguirre, DO [address] [place] [address] [email or web address] 04/04/2025 9:00 AM EDT Office Visit Located Within [facility] at [address] [address] Ayanna Fox FNP [address] [place] [address] [email or web address] 04/04/2025 10:00 AM EDT Infusion [facility] at [address] [address] Dusty Aguirre, DO [address] [place] [address] [email or web address] Niyah Cole RN [address] [place] [address] 04/06/2025 3:20 PM EDT Telemedicine [address], 4th Floor, [address] [place] [address] Stephon Maya MD [address] [place] [address] [email or web address] 04/11/2025 10:20 AM EDT Appointment [facility] Laboratory [address] [place] [address] Dusty Aguirre, DO [address] [place] [address] [email or web address]@[email or web address] 04/11/2025 11:30 AM EDT Office Visit [facility] at [address] [address] Ayanna Fox FNP [address] [place] [address] [email or web address] 04/11/2025 12:[address] [facility] at [address] [address] Dusty Aguirre, DO [address] [place] [address] [email or web address]@[email or web address] Eldon Mckeon RN [address] [place] [address] [email or web address] 04/17/2025 9:10 AM EDT Appointment [facility] Laboratory [address] [place] [address] Dusty Aguirre, DO [address] [place] [address] [email or web address]@[email or web address] 04/17/2025 10:30 AM EDT Office Visit [facility] at [address] [address] Dusty Aguirre, DO [address] [place] [address] [email or web address]@[email or web address] 04/17/2025 11:[address] [facility] at [address] [address] Dusty Aguirre, DO [address] [place] [address] [email or web address]@[email or web address] Eldon Mckeon RN [address] [place] [address] [email or web address] 04/28/2025 11:50 AM EDT Appointment [facility] [address] [place] [address] Dusty Aguirre, DO [address] [place] [address] [email or web address]@[facility] 04/28/2025 1:00 PM EDT Office Visit [facility] at [address] [address] Ayanna Fox FNP [address] [place] [address] [email or web address] 04/28/2025 2:00 PM EDT Infusion [facility] at [address] [address] Dusty Aguirre, DO [address] [place] [address] [email or web address]@[email or web address] Sophy Nolan, RN [address] [place] [address] [email or web address] 05/08/2025 7:50 AM EDT Appointment [facility] Laboratory [address] [place] [address] Dusty Aguirre, DO [address] [place] [address] [email or web address]@[facility] 05/08/2025 9:00 AM EDT Office Visit Located [facility] [place] at [address] [address] Dusty Aguirre, DO [address] [place] [address] [email or web address]@[email or web address] 05/08/2025 10:00 AM EDT Infusion [facility] at [address] [address] Dusty Aguirre, DO [address] [place] [address] [email or web address]@[email or web address] Eldon Mckeon RN [address] [place] [address] [email or web address] documented as of this encounter Visit Diagnoses Not on filedocumented in this encounter Care Teams Hose Cementer Relationship Specialty Start Date End Date Amirah Smith MD [address] [place] [address] [place] [address] PCP - General Internal Medicine 03/06/22 Christopher Thompson MD [address] [place] [address] Obstetrics [facility] [address] [place] [address] [email or web address] Primary Oncologist Gynecologic Oncology 02/06/20 Ysabel aSnchez RN [address] [place] [address] [email or web address] Associate Infusion Nurse 03/29/20 Stephon Chambers RN [address] [place] [address] [email or web address] Associate Infusion Nurse 09/18/20 Carine Rivas, KAPIL [address] [place] [phone] [email or web address] Primary Infusion Nurse 11/05/20 Vikki Perez MD [address] [place] [address] [address] [place] [address] [email or web address] Primary Oncologist Gynecologic Oncology 03/27/21 Dusty Aguirre DO [address] [place] [address] [email or web address]@[email or web address] Primary Oncologist Hematology and Oncology 05/01/22 Stephon Maya MD [address] [place] [address] [email or web address] Rheumatology 07/30/23 Ayanna Fox FNP [address] [place] [address] [email or web address] Registered Nurse Nurse Practitioner 08/09/24 Karen Santo CNP [address] [place] [address] [email or web address] Nurse Practitioner 08/29/24 Shala Hartman NP [address] [place] [address] [email or web address] Nurse Practitioner 11/08/24 documented as of this encounter Additional Source Comments The information contained in this document represents components of the legal health record. It is not the complete legal health record.[facility]
--- OUTSIDE RECORDS SUMMARY | 2025-03-14 13:11 | XMS_ITS | Encounter Summary ---
Author Organization [facility] Address [address] [place] [address] Phone Care Team Providers Care Silverware Etcher Name Role Phone Christopher Thompson MD Unavailable + [phone] Ysabel Sanchez RN Unavailable [email or web address] Stephon Chambers RN Unavailable [phone] Carine Rivas RN Unavailable [email or web address] Vikki Perez MD Unavailable [phone] Amirah Smith MD Primary Care Provider Dusty Aguirre DO Unavailable [phone] Marilia Nolan OFFICE ASSISTANT RECEPTIONIST Unavailable Karen Santo CNP Unavailable Loyda PinonC Unavailable gloria Stephon Maya MD Unavailable Minor BaltazarBS Unavailable Ayanna Fox OFFICE ASSISTANT RECEPTIONIST Unavailable Shala Hartman NP Unavailable Karen Santo CNP Unavailable Shala Hartman NP Unavailable Encounter Details Date Type Department Care Team (Late st Contact Info) Description 06/25/2023 Procedure Pass [facility], Ct Scan - [address] [address] Social History Tobacco Use Types Packs/Day Years [...] Info) Description 03/21/2025 9:40 AM EDT Infusion Merged With [facility] at [address] [address] Dusty Aguirre DO [address] [place] [address] [email or web address] .[facility] 03/21/2025 11:30 AM EDT Office Visit Merged With [facility] at [address] [address] Ayanna Fox, OFFICE ASSISTANT RECEPTIONIST[address] [address] 03/21/2025 12:40 PM EDT Infusion Merged With [facility] at [address] [address] Dusty Aguirre, DO [address] [place] [address] [email or web address] Karen Burgos, KAPIL [address] [place] [address] 04/04/2025 8:20 AM EDT Appointment [facility] Laboratory [address] [place] [address] Dusty Aguirre, DO [address] [place] [address] [email or web address]@[email or web address] 04/04/2025 9:00 AM EDT Office Visit [facility] at [address] [address] Ayanna Fox, [address] [address] 04/04/2025 10:00 AM EDT Infusion Merged With [facility] at [address] [address] Dusty Aguirre, DO [address] [place] [address] [email or web address] .[facility] Niyah Cole, KAPIL [address] [place] [address] 04/06/2025 3:20 PM EDT Telemedicine [facility] Rheumatology [address], 4th Floor, [address] [place] [address] Stephon Maya MD [address] [place] [address] [email or web address] 04/11/2025 10:20 AM EDT Appointment [facility] Laboratory [address] [place] [address] Dusty Aguirre, DO [address] [place] [address] [email or web address]@[facility] 04/11/2025 11:30 AM EDT Office Visit [facility] at [address] [address] Ayanna Fox FNP [address] [place] [phone] [email or web address] 04/11/2025 12:40 PM EDT Infusion Merged With [facility] at [address] [address] Dusty Aguirre, DO [address] [place] [address] [email or web address]@[facility] Eldon Mckeon RN [address] [place] [address] [email or web address] 04/17/2025 9:10 AM EDT Appointment [facility] Laboratory [address] [place] [address] Dusty Aguirre, DO [address] [place] [address] [email or web address]@[facility] 04/17/2025 10:30 AM EDT Office Visit [facility] at [address] [address] Dusty Aguirre, DO [address] [place] [address] [email or web address] 04/17/2025 11:20 AM EDT Infusion Merged With [facility] at [address] [address] Dusty Aguirre, DO [address] [place] [address] [email or web address]@[email or web address] Eldon Mckeon, KAPIL [address] [place] [phone] 04/28/2025 11:50 AM EDT Appointment [facility] Laboratory [address] [place] [address] Dusty Aguirre, DO [address] [place] [address] ROLYOME@[facility] 04/28/2025 1:00 PM EDT Office Visit Merged With [facility] at [address] [address] Ayanna Fox FNP [address] [place] [phone] [email or web address] 04/28/2025 2:00 PM EDT Infusion Merged With [facility] at [address] [address] Dusty Aguirre, DO [address] [place] [address] [email or web address]@[email or web address] Sophy Nolan, KAPIL [address] [place] [address] [email or web address] 05/08/2025 7:50 AM EDT Appointment [facility] Laboratory [address] [place] [address] Dusty Aguirre, DO [address] [place] [address] JAY [email or web address]@[facility] 05/08/2025 9:00 AM EDT Office Visit [facility] at [address] [address] Dusty Aguirre, DO [address] [place] [address] JAY [email or web address] 05/08/2025 10:00 AM EDT Infusion [facility] at [address] [address] Dusty Aguirre, [address] [address] JAY [email or web address] Eldon Mckeon RN [address] [place] [address] [email or web address] documented as of this encounter Visit Diagnoses Not on filedocumented in this encounter Care Teams Silverware Etcher Relationship Specialty Start Date End Date Amirah Smith MD [address] [place] [address] [place] [address] PCP - General Internal Medicine 03/06/22 Christopher Thompson MD [address] [place] [address] Obstetrics and Gynecology ServiceYAW [address] [place] [address] [email or web address] Primary Oncologist Gynecologic Oncology 02/06/20 Ysabel Snachez RN [address] [place] [address] [email or web address] Associate Infusion Nurse 03/29/20 Stephon Chambers RN [address] [place] [address] [email or web address] Associate Infusion Nurse 09/18/20 Carine Rivas, RN [address] [place] [address] [email or web address] Primary Infusion Nurse 11/05/20 Vikki Perez MD [address] [place] [address] CORIN@[facility] Primary Oncologist Gynecologic Oncology 03/27/21 Dusty Aguirre DO [address] [place] [address] [email or web address]@[email or web address] Primary Oncologist Hematology and Oncology 05/01/22 Marilia Nolan FNP [address] [place] [address] [email or web address] Nurse Practitioner Medical Oncology 08/05/22 08/08/24 Karen Santo CNP [address] [place] [address] [email or web address] Nurse Practitioner Medical Oncology 09/05/22 08/08/24 Loyda Pinon PA-C [address] [place] [address] [email or web address] Physician Natural History Collections Curator Medical Oncology 10/20/22 08/20/23 Stephon Maya MD [address] [place] [address] TIARA@[email or web address] Rheumatology 07/30/23 Minor Baltazar MBBS [address] [place] [address] [email or web address] Primary Oncologist Medical Oncology 10/16/23 10/25/23 Ayanna Fox FNP [address] [place] [address] [email or web address] Registered Nurse Nurse Practitioner 08/09/24 Shala Hartman NP [address] [place] [address] [email or web address] Nurse Practitioner 08/15/24 10/30/24 Karen Santo CNP [address] [place] [address] [email or web address] Nurse Practitioner 08/29/24 Shala Hartman NP [address] [place] [address] [email or web address] Nurse Practitioner 11/08/24 documented as of this encounter Additional Source Comments The information contained in this document represents components of the legal health record. It is not the complete legal health record.[facility]
--- OUTSIDE RECORDS SUMMARY | 2025-03-14 13:12 | XMS_ITS | Encounter Summary ---
Author Organization [facility] Address [address] [place] [address] Phone Care Team Providers Care Presales Senior Specialist Name Role Phone Christopher Thompson MD Unavailable + [phone] Ysabel Sanchez RN Unavailable [email or web address] Stephon Chambers RN Unavailable [phone] Carine Rivas RN Unavailable [email or web address] Vikki Perez MD Unavailable [phone] Amirah Smith MD Primary Care Provider Dusty Aguirre DO Unavailable [phone] Marilia Nolan MERCHANDISING ASSISTANT Unavailable PackKaren WAFER FAB TECHNICIAN Unavailable Stephon Maya MD Unavailable [phone] Ayanna Fox MERCHANDISING ASSISTANT Unavailable Shala Hartman NP Unavailable Karen Santo WAFER FAB TECHNICIAN Unavailable Shala Hartman NP Unavailable Encounter Details Date Type Department Care Team (Late st Contact Info) Description 04/26/2024 Procedure Pass [facility], [address] [address] Social History Tobacco Use Types Packs/Day Years [...] Info) Description 03/21/2025 9:40 AM EDT Infusion [facility] at [address] [address] Dusty Aguirre DO [address] [place] [address] [email or web address]@[email or web address] 03/21/2025 11:30 AM EDT Office Visit [facility] at [address] [address] Ayanna Fox FNP [address] [place] [phone] [email or web address] 03/21/2025 12:40 PM EDT Infusion [facility] at [address] [address] Dusty Aguirre DO [address] [place] [address] [email or web address]@[facility] .[facility] Karen Burgos, KAPIL [address] [place] [address] [email or web address] 04/04/2025 8:20 AM EDT Appointment [facility] [address] [place] [address] Dusty Aguirre, DO [address] [place] [address] [email or web address]@[email or web address] .[facility] 04/04/2025 9:00 AM EDT Office Visit [facility] at [address] [address] Ayanna Fox, MERCHANDISING ASSISTANT [address] [place] [address] [email or web address] 04/04/2025 10:00 AM EDT Infusion [facility] at [address] [address] Dusty Aguirre, DO [address] [place] [address] [email or web address]@[email or web address] Niyah Cole, KAPIL [address] [place] [address] 04/06/2025 3:20 PM EDT Telemedicine [address], 4th Floor, [address] [place] [address] Stephon Maya MD [address] [place] [address] TIARA@[email or web address] 04/11/2025 10:20 AM EDT Appointment [facility] Laboratory [address] [place] [address] Dusty Aguirre, DO [address] [place] [address] [email or web address]@[facility] 04/11/2025 11:30 AM EDT Office Visit [facility] at [address] [address] Ayanna Fox, MERCHANDISING ASSISTANT [address] [place] [address] [email or web address] 04/11/2025 12:40 PM EDT Infusion [facility] at [address] [address] Dusty Aguirre, DO [address] [place] [address] [email or web address]@[email or web address] Eldon Mckeon RN [address] [place] [address] 04/17/2025 9:10 AM EDT Appointment [facility] Laboratory [address] [place] [address] Dusty Aguirre, DO [address] [place] [address] [email or web address]@[facility] 04/17/2025 10:30 AM EDT Office Visit [facility] at [address] [address] Dusty Aguirre, DO [address] [place] [address] [email or web address]@[facility] 04/17/2025 11:20 AM EDT Infusion [facility] at [address] [address] Dusty Aguirre, DO [address] [place] [address] [email or web address]@[facility] Eldon Mckeon RN [address] [place] [address] 04/28/2025 11:50 AM EDT Appointment [facility] Laboratory [address] [place] [address] Dusty Aguirre, DO [address] [place] [address] [email or web address]@[facility] 04/28/2025 1:00 PM EDT Office Visit [facility] at [address] [address] Ayanna Fox FNP [address] [place] [address] [email or web address] 04/28/2025 2:00 PM EDT Infusion [facility] at [address] [address] Dusty Aguirre, DO [address] [place] [address] ROLYOME@[facility] Sophy Nolan RN [address] [place] [address] [email or web address] 05/08/2025 7:50 AM EDT Appointment [facility] [address] [place] [address] Dusty Aguirre, DO [address] [place] [address] [email or web address]@[facility] 05/08/2025 9:00 AM EDT Office Visit [facility] at [address] [address] Dusty Aguirre, DO [address] [place] [address] [email or web address]@[facility] 05/08/2025 10:00 AM EDT Infusion [facility] at [address] [address] Dusty Aguirre, DO [address] [place] [address] [email or web address]@[email or web address] Eldon Mckeon, KAPIL [address] [place] [address] [email or web address] documented as of this encounter Visit Diagnoses Not on filedocumented in this encounter Care Teams Presales Senior Specialist Relationship Specialty Start Date End Date Amirah Smith MD [address] [place] [address] [place] [address] PCP - General Internal Medicine 03/06/22 Christopher Thompson MD [address] [place] [address] Obstetrics and Gynecology ServiceYAW [address] [place] [address] [email or web address] Primary Oncologist Gynecologic Oncology 02/06/20 Ysabel Sanchez RN [address] [place] [address] [email or web address] Associate Infusion Nurse 03/29/20 Setphon Chambers RN [address] [place] [address] [email or web address] Associate Infusion Nurse 09/18/20 Carine Rivas RN [address] [place] [phone] [email or web address] Primary Infusion Nurse 11/05/20 Vikki Perez MD [address] [place] [address] [address] [place] [address] [email or web address] Primary Oncologist Gynecologic Oncology 03/27/21 Dusty Aguirre DO [address] [place] [address] [email or web address]@[email or web address] Primary Oncologist Hematology and Oncology 05/01/22 Marilia Nolan FNP [address] [place] [address] [email or web address] Nurse Practitioner Medical Oncology 08/05/22 08/08/24 Karen Santo CNP [address] [place] [address] [email or web address] Nurse Practitioner Medical Oncology 09/05/22 08/08/24 Stephon Maya MD [address] [place] [address] [email or web address] Rheumatology 07/30/23 Ayanna Fox FNP [address] [place] [address] [email or web address] Registered Nurse Nurse Practitioner 08/09/24 Shala Hartman NP [address] [place] [address] [email or web address] Nurse Practitioner 08/15/24 10/30/24 Karen Santo CNP [address] [place] [address] [email or web address] Nurse Practitioner 08/29/24 Shala Hartman NP [address] [place] [address] [email or web address] Nurse Practitioner 11/08/24 documented as of this encounter Additional Source Comments The information contained in this document represents components of the legal health record. It is not the complete legal health record.[facility]
--- OUTSIDE RECORDS SUMMARY | 2025-03-14 13:12 | XMS_ITS | Encounter Summary ---
Author Organization [facility] Address [address] [place] [address] Phone Care Team Providers Care Guide Rail Cleaner Name Role Phone Christopher Thompson MD Unavailable + [phone] Ysabel Sanchez RN Unavailable [email or web address] Stephon Chambers RN Unavailable [phone] Carine Rivas RN Unavailable [email or web address] Vikki Perez MD Unavailable [phone] Amirah Smith MD Primary Care Provider Dusty Aguirre DO Unavailable Marilia Nolan GROCERY MANAGER Unavailable Karen Santo CNP Unavailable Loyda PinonC Unavailable gloria Stephon Maya MD Unavailable Minor BaltazarBS Unavailable Ayanna Fox GROCERY MANAGER Unavailable Shala Hartman NP Unavailable Karen Santo CNP Unavailable Shala Hartman NP Unavailable [phone] Encounter Details Date Type Department Care Team (Late st Contact Info) Description 05/29/2022 Procedure Pass [facility], Ct Scan - [address] [address] Social History Tobacco Use Types Packs/Day Years [...] Info) Description 03/21/2025 9:40 AM EDT Infusion [facility] at [address] [address] Dusty Aguirre, [address] [address] [email or web address] 03/21/2025 11:30 AM EDT Office Visit [facility] at [address] [address] Ayanna Fox FNP [address] [place] [address] [email or web address] 03/21/2025 12:40 PM EDT Infusion [facility] at [address] [address] Dusty Aguirre DO [address] [place] [address] [email or web address] .[facility] Karen Burgos, KAPIL [address] [place] [address] [email or web address] 04/04/2025 8:20 AM EDT Appointment [facility] [address] [place] [address] Dusty Aguirre, DO [address] [place] [address] [email or web address]@[facility] 04/04/2025 9:00 AM EDT Office Visit [facility] at [address] [address] Ayanna Fox, GROCERY MANAGER [address] [place] [address] [email or web address] 04/04/2025 10:00 AM EDT Infusion [facility] at [address] [address] Dusty Aguirre, DO [address] [place] [address] [email or web address]@[facility] Niyah Cole RN [address] [place] [address] [email or web address] 04/06/2025 3:20 PM EDT Telemedicine [address], 4th Floor, [address] [place] [address] Stephon Maya MD [address] [place] [address] [email or web address] 04/11/2025 10:20 AM EDT Appointment [facility] Laboratory [address] [place] [address] Dusty Aguirre, DO [address] [place] [address] [email or web address] 04/11/2025 11:30 AM EDT Office Visit [facility] at [address] [address] Ayanna Fox GROCERY MANAGER[address] [address] 04/11/2025 12:40 PM EDT Infusion [facility] at [address] [address] Dusty Aguirre, DO [address] [place] [address] NAVEEN@[facility] Eldon Mckeon RN [address] [place] [address] 04/17/2025 9:10 AM EDT Appointment [facility] Laboratory [address] [place] [address] Dusty Aguirre, DO [address] [place] [address] NAVEEN@[facility] 04/17/2025 10:30 AM EDT Office Visit [facility] at [address] [address] Dusty Aguirre, DO [address] [place] [address] [email or web address]@[facility] 04/17/2025 11:20 AM EDT Infusion [facility] at [address] [address] Dusty Aguirre, DO [address] [place] [address] NAVEEN@[facility] Eldon Mckeon RN [address] [place] [address] 04/28/2025 11:50 AM EDT Appointment [facility] Laboratory [address] [place] [address] Dusty Aguirre, DO [address] [place] [address] NAVEEN@[facility] 04/28/2025 1:00 PM EDT Office Visit [facility] at [address] [address] Ayanna Fox FNP [address] [place] [address] [email or web address] 04/28/2025 2:00 PM EDT Infusion [facility] at [address] [address] Dusty Aguirre, DO [address] [place] [address] NAVEEN@[facility] Sophy Nolan RN [address] [place] [address] [email or web address] 05/08/2025 7:50 AM EDT Appointment [facility] [address] [place] [address] Dusty Aguirre, DO [address] [place] [address] [email or web address]@[facility] 05/08/2025 9:00 AM EDT Office Visit [facility] at [address] [address] Dusty Aguirre, DO [address] [place] [address] [email or web address]@[facility] 05/08/2025 10:00 AM EDT Infusion [facility] at [address] [address] Dusty Aguirre, DO [address] [place] [address] [email or web address]@[facility] Eldon Mckeon, RN [address] [place] [address] [email or web address] documented as of this encounter Visit Diagnoses Not on filedocumented in this encounter Additional Health Concerns Infection Onset Date Last Indicated Resolved Time CoV-Risk 11/10/2022 11/10/2022 11/21/2022 1:24 AM EDT documented as of this encounter Care Teams Guide Rail Cleaner Relationship Specialty Start Date End Date Amirah Smith MD [address] [place] [address] Dr Sanchez [address] [place] [phone] PCP - General Internal Medicine 03/06/22 Christopher Thompson MD [address] [place] [address] Obstetrics and Gynecology ServiceCON[facility] [address] [place] [address] [email or web address] Primary Oncologist Gynecologic Oncology 02/06/20 Ysabel Sanchez RN [address] [place] [address] [email or web address] Associate Infusion Nurse 03/29/20 Stephon Chambers RN [address] [place] [address] [email or web address] Associate Infusion Nurse 09/18/20 Carine Rivas, KAPIL [address] [place] [phone] [email or web address] Primary Infusion Nurse 11/05/20 Vikki Perez MD [address] [place] [address] YAW [address] [place] [address] [email or web address] Primary Oncologist Gynecologic Oncology 03/27/21 Dusty Aguirre DO [address] [place] [address] [email or web address] Primary Oncologist Hematology and Oncology 05/01/22 Marilia Nolan, GROCERY MANAGER [address] [place] [address] [email or web address] Nurse Practitioner Medical Oncology 08/05/22 08/08/24 Karen Santo CNP [address] [place] [address] [email or web address] Nurse Practitioner Medical Oncology 09/05/22 08/08/24 Loyda Pinon PA-C [address] [place] [address] [email or web address] Physician Pool Installer Medical Oncology 10/20/22 08/20/23 Stephon Maya MD [address] [place] [address] [email or web address] Rheumatology 07/30/23 Minor Baltazar MBBS [address] [place] [address] [email or web address] Primary Oncologist Medical Oncology 10/16/23 10/25/23 Ayanna Fox FNP [address] [place] [address] [email or web address] Registered Nurse Nurse Practitioner 08/09/24 Shala Hartman NP [address] [place] [address] [email or web address] Nurse Practitioner 08/15/24 10/30/24 Karen Santo CNP [address] [place] [address] [email or web address] Nurse Practitioner 08/29/24 Shala Hartman NP [address] [place] [address] [email or web address] Nurse Practitioner 11/08/24 documented as of this encounter Additional Source Comments The information contained in this document represents components of the legal health record. It is not the complete legal health record.[facility]
--- OUTSIDE RECORDS SUMMARY | 2025-03-14 13:12 | XMS_ITS | Encounter Summary ---
Author Organization [facility] Address [address] [place] [address] Phone Care Team Providers Care Cork Sorter Name Role Phone Christopher Thompson MD Unavailable + [phone] Ysabel Sanchez RN Unavailable [email or web address] Stephon Chambers RN Unavailable [phone] Amirah Smith MD Primary Care Provider Carine Rivas RN Unavailable [email or web address] Vikki Perez MD Unavailable [phone] Amirah Smith MD Primary Care Provider Dusty Aguirre DO Unavailable [phone] Marilia Nolan CSO Unavailable [phone] Karen Santo MANAGER REPORT Unavailable Loyda Pinon PA-C Unavailable gloria Stephon Maya MD Unavailable [phone] Minor BaltazarBS Unavailable [phone] Ayanna Fox CSO Unavailable [phone] Shala Hartman NP Unavailable [phone] Karen Santo CNP Unavailable Shala Hartman NP Unavailable [phone] Encounter Details Date Type Department Care Team (Late st Contact Info) Description 09/12/[address], [facility] - [address], [address] [place] [phone] Social History Tobacco Use Types Packs/Day Years [...] Encounters Date Type Department Care Team (Late Contact Info) Description 03/21/2025 9:40 AM EDT Infusion [facility] at [address] [address] Dusty Aguirre DO [address] [place] [phone] [email or web address]@[facility] 03/21/2025 11:30 AM EDT Office Visit [facility] at [address] [address] Ayanna Fox FNP [address] [place] [address] [email or web address] 03/21/2025 12:40 PM EDT Infusion [facility] at [address] [address] Dusty Aguirre DO [address] [place] [address] [email or web address]@[email or web address] .[facility] Karen Burgos, KAPIL [address] [place] [address] 04/04/2025 8:20 AM EDT Appointment [facility] [address] [place] [address] Dusty Aguirre, DO [address] [place] [address] [email or web address]@[facility] 04/04/2025 9:00 AM EDT Office Visit [facility] at [address] [address] Ayanna Fox FNP [address] [place] [address] [email or web address] 04/04/2025 10:00 AM EDT Infusion [facility] at [address] [address] Dusty Aguirre, DO [address] [place] [address] [email or web address]@[facility] Niyah Cole RN [address] [place] [address] [email or web address] 04/06/2025 3:20 PM EDT Telemedicine [address], 4th Floor, [address] [place] [address] Stephon Maya MD [address] [place] [address] [email or web address] 04/11/2025 10:20 AM EDT Appointment [facility] Laboratory [address] [place] [address] Dusty Aguirre, DO [address] [place] [address] [email or web address]@[facility] 04/11/2025 11:30 AM EDT Office Visit [facility] at [address] [address] Ayanna Fox FNP [address] [place] [address] 04/11/2025 12:40 PM EDT Infusion [facility] at [address] [address] Dusty Aguirre, DO [address] [place] [address] NAVEEN@[facility] Eldon Mckeon RN [address] [place] [address] 04/17/2025 9:10 AM EDT Appointment [facility] Laboratory [address] [place] [address] Dusty Aguirre, DO [address] [place] [address] NAVEEN@[facility] 04/17/2025 10:30 AM EDT Office Visit [facility] at [address] [address] Dusty Aguirre, DO [address] [place] [address] [email or web address]@[facility] 04/17/2025 11:20 AM EDT Infusion [facility] at [address] [address] Dusty Aguirre, DO [address] [place] [address] NAVEEN@[facility] Eldon Mckeon RN [address] [place] [address] 04/28/2025 11:50 AM EDT Appointment [facility] Laboratory [address] [place] [address] Dusty Aguirre, DO [address] [place] [address] NAVEEN@[facility] 04/28/2025 1:00 PM EDT Office Visit [facility] at [address] [address] Ayanna Fox FNP [address] [place] [address] [email or web address] 04/28/2025 2:00 PM EDT Infusion [facility] at [address] [address] Dusty Aguirre, DO [address] [place] [address] NAVEEN@[facility] Sophy Nolan RN [address] [place] [address] [email or web address] 05/08/2025 7:50 AM EDT Appointment [address] [address] Dusty Aguirre, DO [address] [place] [address] NAVEEN@[facility] 05/08/2025 9:00 AM EDT Office Visit [facility] at [address] [address] Dusty Aguirre, DO [address] [place] [address] NAVEEN@[facility] 05/08/2025 10:00 AM EDT Infusion [facility] at [address] [address] Dusty Aguirre, DO [address] [place] [address] JAY [email or web address] Eldon Mckeon RN [address] [place] [address] [email or web address] documented as of this encounter Visit Diagnoses Not on filedocumented in this encounter Additional Health Concerns Infection Onset Date Last Indicated Resolved Time CoV-Risk 11/10/2022 11/10/2022 11/21/2022 1:24 AM EDT documented as of this encounter Care Teams Cork Sorter Relationship Specialty Start Date End Date Amirah Smith MD [address] [place] [address] Dr Sanchez [facility] [place] [phone] PCP - General Internal Medicine 09/25/20 03/05/22 Amirah Smith MD [address] [place] [address] [place] [phone] PCP - General Internal Medicine 03/06/22 Christopher Thompson MD [address] [place] [address] Obstetrics and Gynecology [facility] [address] [place] [address] [email or web address] Primary Oncologist Gynecologic Oncology 02/06/20 Ysabel Sanchez RN [address] [place] [address] [email or web address] Associate Infusion Nurse 03/29/20 Stephon Chambers RN [address] [place] [address] [email or web address] Associate Infusion Nurse 09/18/20 Carine Rivas RN [address] [place] [phone] [email or web address] Primary Infusion Nurse 11/05/20 Vikki Perez MD [address] [place] [address] [address] [place] [address] [email or web address] Primary Oncologist Gynecologic Oncology 03/27/21 Dusty Aguirre DO [address] [place] [address] [email or web address]@[facility] Primary Oncologist Hematology and Oncology 05/01/22 Marilia Nolan FNP [address] [place] [address] [email or web address] Nurse Practitioner Medical Oncology 08/05/22 08/08/24 Karen Santo CNP [address] [place] [address] [email or web address] Nurse Practitioner Medical Oncology 09/05/22 08/08/24 Loyda Pinon PA-C [address] [place] [address] [email or web address] Physician Lace Burn Out Tender Medical Oncology 10/20/22 08/20/23 Stephon Maya MD [address] [place] [address] [email or web address] Rheumatology 07/30/23 Minor Baltazar MBBS [address] [place] [address] [email or web address] Primary Oncologist Medical Oncology 10/16/23 10/25/23 Ayanna Fox FNP [address] [place] [address] [email or web address] Registered Nurse Nurse Practitioner 08/09/24 Shala HartmanKATHY [address] [place] [address] [email or web address] Nurse Practitioner 08/15/24 10/30/24 Karen Santo CNP [address] [place] [address] [email or web address] Nurse Practitioner 08/29/24 Shala Hartman NP [address] [place] [address] [email or web address] Nurse Practitioner 11/08/24 documented as of this encounter Additional Source Comments The information contained in this document represents components of the legal health record. It is not the complete legal health record.[facility]
--- OUTSIDE RECORDS SUMMARY | 2025-03-14 13:12 | XMS_ITS | Encounter Summary ---
Author Organization [facility] Address [address] [place] [address] Phone Care Team Providers Care Civil Design Specialist Name Role Phone Christopher Thompson MD Unavailable + [phone] Ysabel Sanchez RN Unavailable [email or web address] Stephon Chambers RN Unavailable [phone] Carine Rivas RN Unavailable [email or web address] Vikki Perez MD Unavailable [phone] Amirah Smith MD Primary Care Provider Dusty Aguirre DO Unavailable [phone] Marilia Nolan COMMUNITY LIVING INSTRUCTOR Unavailable Karen Santo CNP Unavailable Loyda PinonC Unavailable gloria Stephon Maya MD Unavailable Minor BaltazarBS Unavailable Ayanna Fox COMMUNITY LIVING INSTRUCTOR Unavailable Shala Hartman NP Unavailable Karen Santo CNP Unavailable Shala Hartman NP Unavailable Encounter Details Date Type Department Care Team (Late st Contact Info) Description 01/14/2023 Procedure Pass [facility], Ct Scan - [address] [address] Social History Tobacco Use Types Packs/Day Years [...] [facility] at [address] [address] Dusty Aguirre DO [address] [place] [address] [email or web address] [facility] 03/21/2025 11:30 AM EDT Office Visit [facility] at [address] [address] Ayanna Fox, COMMUNITY LIVING INSTRUCTOR[address] [address] 03/21/2025 12:40 PM EDT Infusion [facility] at [address] [address] Dusty Aguirre, DO [address] [place] [address] [email or web address] Karen Burgos, KAPIL [address] [place] [address] 04/04/2025 8:20 AM EDT Appointment [facility] [address] [place] [address] Dusty Aguirre, DO [address] [place] [address] [email or web address] 04/04/2025 9:00 AM EDT Office Visit [facility] at [address] [address] Ayanna Fox, [address] [address] 04/04/2025 10:00 AM EDT Infusion [facility] at [address] [address] Dusty Aguirre, DO [address] [place] [address] [email or web address] [facility] Niyah Cole, KAPIL [address] [place] [address] 04/06/2025 3:20 PM EDT Telemedicine [facility] Rheumatology [address], 4th Floor, [address] [place] [address] Stephon Maya MD [address] [place] [address] [email or web address] 04/11/2025 10:20 AM EDT Appointment [facility] [address] [place] [address] Dusty Aguirre, DO [address] [place] [address] [email or web address] 04/11/2025 11:30 AM EDT Office Visit [facility] at [address] [address] Ayanna Fox FNP [address] [place] [address] [email or web address] 04/11/2025 12:40 PM EDT Infusion [facility] at [address] [address] Dusty Aguirre, DO [address] [place] [address] [email or web address] Eldon Mckeon RN [address] [place] [address] [email or web address] 04/17/2025 9:10 AM EDT Appointment [facility] [address] [place] [address] Dusty Aguirre, DO [address] [place] [address] [email or web address] 04/17/2025 10:30 AM EDT Office Visit [facility] at [address] [address] Dusty Aguirre, DO [address] [place] [address] [email or web address] 04/17/2025 11:20 AM EDT Infusion [facility] at [address] [address] Dusty Aguirre, DO [address] [place] [address] [email or web address] Eldon Mckeon, KAPIL [address] [place] [address] 04/28/2025 11:50 AM EDT Appointment [facility] [address] [place] [address] Dusty Aguirre, DO [address] [place] [address] [email or web address]@[email or web address] 04/28/2025 1:00 PM EDT Office Visit [facility] at [address] [address] Ayanna Fox FNP [address] [place] [address] [email or web address] 04/28/2025 2:00 PM EDT Infusion [facility] at [address] [address] Dusty Aguirre, DO [address] [place] [address] [email or web address] Sophy Nolan, KAPIL [address] [place] [address] [email or web address] 05/08/2025 7:50 AM EDT Appointment [facility] [address] [place] [address] Dusty Aguirre, DO [address] [place] [address] JAY [email or web address] 05/08/2025 9:00 AM EDT Office Visit [facility] at [address] [address] Dusty Aguirre, DO [address] [place] [address] JAY [email or web address] 05/08/2025 10:00 AM EDT Infusion [facility] at [address] [address] Dusty Aguirre, [address] [address] JAY [email or web address] Eldon Mckeon RN [address] [place] [address] [email or web address] documented as of this encounter Visit Diagnoses Not on filedocumented in this encounter Care Teams Civil Design Specialist Relationship Specialty Start Date End Date Amirah Smith MD [address] [place] [address] [place] [address] PCP - General Internal Medicine 03/06/22 Christopher Thompson MD [address] [place] [address] Obstetrics and Gynecology ServiceYAW [address] [place] [address] [email or web address] Primary Oncologist Gynecologic Oncology 02/06/20 Ysabel Sanchez RN [address] [place] [address] [email or web address] Associate Infusion Nurse 03/29/20 Stephon Chambers RN [address] [place] [address] [email or web address] Associate Infusion Nurse 09/18/20 Carine Rivas, RN [address] [place] [address] [email or web address] Primary Infusion Nurse 11/05/20 Vikki Perez MD [address] [place] [address] [email or web address] Primary Oncologist Gynecologic Oncology 03/27/21 Dusty Aguirre DO [address] [place] [address] [email or web address] Primary Oncologist Hematology and Oncology 05/01/22 Marilia Nolan FNP [address] [place] [address] [email or web address] Nurse Practitioner Medical Oncology 08/05/22 08/08/24 Karen Santo CNP [address] [place] [address] [email or web address] Nurse Practitioner Medical Oncology 09/05/22 08/08/24 Loyda Pinon PA-C [address] [place] [address] [email or web address] Physician Insurance Instructor Medical Oncology 10/20/22 08/20/23 Stephon Maya MD [address] [place] [address] [email or web address] Rheumatology 07/30/23 Minor Baltazar MBBS [address] [place] [address] [email or web address] Primary Oncologist Medical Oncology 10/16/23 10/25/23 Ayanna Fox FNP [address] [place] [address] [email or web address] Registered Nurse Nurse Practitioner 08/09/24 Shala Hartman NP [address] [place] [address] [email or web address] Nurse Practitioner 08/15/24 10/30/24 Karen Santo CNP [address] [place] [address] [email or web address] Nurse Practitioner 08/29/24 Shala Hartman NP [address] [place] [address] [email or web address] Nurse Practitioner 11/08/24 documented as of this encounter Additional Source Comments The information contained in this document represents components of the legal health record. It is not the complete legal health record.[facility]
--- OUTSIDE RECORDS SUMMARY | 2025-03-14 13:12 | XMS_ITS | Encounter Summary ---
Author Organization [facility] Address [address] [place] [address] [place] [address] Phone Care Team Providers Care Soil Analyst Name Role Phone Christopher Thompson MD Unavailable + [phone] Ysabel Sanchez RN Unavailable [email or web address] Stephon Chambers RN Unavailable [phone] Carine Rivas RN Unavailable [email or web address] Vikki Perez MD Unavailable [phone] Amirah Smith MD Primary Care Provider Dusty Aguirre DO Unavailable Marilia Nolan TEXTILE CUTTING MACHINE OPERATOR Unavailable Karen Santo CNP Unavailable Stephon Maya MD Unavailable Ayanna Fox TEXTILE CUTTING MACHINE OPERATOR Unavailable Shala Hartman NP Unavailable Karen Santo CNP Unavailable Shala Hartman NP Unavailable Reason for Visit * Reason Comments Medication Refill Encounter Details Date Type Department Care Team (Late st Contact Info) Description 11/20/2023 Refill [facility] Rheumatology [place] [address] [facility], 4th Floor, [address] [place] [address] Stephon Maya MD [address] [place] [address] [email or web address] Medication Refill Social History Tobacco Use Types [...] as of this encounter Progress Notes * Stephon Maya MD - 11/20/2023 3:39 PM EDT PCP should prescribe atorvastatin * Beena Rojas - 11/20/2023 9:24 AM EDT Rx Care Gap Status - Instructions for Clinical Staff (prescriber discretion applies): > At least one medication below does not meet full criteria. Please see medication-specific renewal instructions below. > Labs due: Remind patient to get lab tests done soon. > Orders needed: Please click BPA/SmartSet to enter. Lipid panel - Needs order * Visit Info Last visit: 07/30/2023 Stephon Maya MD - Rheumatology [facility] YAW4 > Requested f/u: Not specified Upcoming visit: 12/02/2023 (Stephon Maya MD - [facility] RHEUMATOLOGY YAW4) ACTIONS TAKEN BY Beena Rojas - No action needed by clinical staff Cholesterol Medication Rx Protocol - atorvastatin calcium Criteria not met; renew for up to 3 months. (unless patient is on high intensity statin, in which case LDL level may not be needed at provider discretion) Visit in the past 14 months: Yes Clinical criteria: - Lipid panel within past year: No Health Maintenance Labs Due / Due Soon Topic Date Due LIPID PANEL Never done * Jenifer Yin - 11/20/2023 6:53 AM EDT IMMERSE Rx Review INSTRUCTIONS FOR CLINICAL STAFF > At least one medication below does not meet full criteria. Please see medication-specific renewal instructions below. > Staff: Labs due: Remind patient to get lab tests done soon. >Prescriber: > Lab orders needed: Review / cosign pended lab orders. Lipid panel - Needs order * Visit Info Last visit: 07/30/2023 Stephon Maya MD - Rheumatology [facility] YAW4 > Requested f/u: Not specified Upcoming visit: 12/02/2023 (Stephon Maya MD - [facility] RHEUMATOLOGY YAW4) Rx Pool Staff - IMMERSE: Review Required ATORVASTATIN 40 MG TABLET Formula Mismatch: Strength unavailable in Epic Med List. Requested Med Details: ATORVASTATIN 40 MG TABLET Active Med List Details:atorvastatin calcium (ATORVASTATIN ORAL) Protocol information is provided below for renewal guidance once above items are resolved. Provider - Summary Comments for medication One or more active medication requires a lab order. Please review the lab orders before signing. Cholesterol Medication Rx Protocol Clinical Review Required (above) - atorvastatin calcium Safety Alert: Active order listed under ???Historical Provider?? . Please review to determine appropriateness for renewal. Criteria not met; renew for up to 3 months. (unless patient is on high intensity statin, in which case LDL level may not be needed at provider discretion) Visit in the past 14 months: Yes Clinical criteria: - Lipid panel within past year: No IMMERSE: Supporting Clinical Documentation for Requested Med Health Maintenance Labs Due / Due Soon Topic Date Due LIPID PANEL Never done documented in this encounter Plan of Treatment Upcoming Encounters Date Type Department Care Team (Late st Contact Info) Description 03/21/2025 9:40 AM EDT Infusion [facility] at [address] [address] Dusty Aguirre DO [address] [place] [address] [email or web address] [email or web address] 03/21/2025 11:30 AM EDT Office Visit [facility] at [address] [address] Ayanna Fox, TEXTILE CUTTING MACHINE OPERATOR[address] [address] 03/21/2025 12:40 PM EDT Infusion [facility] at [address] [address] Dusty Aguirre, DO [address] [place] [address] [email or web address] Karen Burgos, KAPIL [address] [place] [address] 04/04/2025 8:20 AM EDT Appointment [facility] Laboratory [address] [place] [address] Dusty Aguirre, DO [address] [place] [phone] [email or web address] 04/04/2025 9:00 AM EDT Office Visit [facility] at [address] [address] Ayanna Fox, [address] [address] 04/04/2025 10:00 AM EDT Infusion [facility] at [address] [address] Dusty Aguirre, DO [address] [place] [address] [email or web address] Niyah Cole, KAPIL [address] [place] [address] 04/06/2025 3:20 PM EDT Telemedicine [facility] Rheumatology [address], 4th Floor, [address] [place] [address] Stephon Maya MD [address] [place] [address] [email or web address] 04/11/2025 10:20 AM EDT Appointment [facility] Laboratory [address] [place] [address] Dusty Aguirre, DO [address] [place] [address] [email or web address]@[facility] 04/11/2025 11:30 AM EDT Office Visit [facility] at [address] [address] Ayanna Fox FNP [address] [place] [address] [email or web address] 04/11/2025 12:40 PM EDT Infusion [facility] at [address] [address] Dusty Aguirre, DO [address] [place] [address] [email or web address]@[email or web address] Eldon Mckeon RN [address] [place] [address] [email or web address] 04/17/2025 9:10 AM EDT Appointment [facility] Laboratory [address] [place] [address] Dutsy Aguirre, DO [address] [place] [address] [email or web address]@[facility] 04/17/2025 10:30 AM EDT Office Visit [facility] at [address] [address] Dusty Aguirre, DO [address] [place] [address] [email or web address]@[facility] 04/17/2025 11:20 AM EDT Infusion [facility] at [address] [address] Dusty Aguirre, DO [address] [place] [address] [email or web address]@[facility] Eldon Mckeon, KAPIL [address] [place] [address] 04/28/2025 11:50 AM EDT Appointment [facility] Laboratory [address] [place] [address] Dusty Aguirre, DO [address] [place] [address] [email or web address]@[facility] 04/28/2025 1:00 PM EDT Office Visit [facility] at [address] [address] Ayanna Fox FNP [address] [place] [phone] [email or web address] 04/28/2025 2:00 PM EDT Infusion [facility] at [address] [address] Dusty Aguirre, DO [address] [place] [address] [email or web address]@[facility] Sophy Nolan, KAPIL [address] [place] [address] 05/08/2025 7:50 AM EDT Appointment [facility] Laboratory [address] [place] [address] Dusty Aguirre, DO [address] [place] [address] JAY [email or web address]@[facility] 05/08/2025 9:00 AM EDT Office Visit [facility] at [address] [address] Dusty Aguirre, [address] [address] JAY [email or web address] 05/08/2025 10:00 AM EDT Infusion [facility] at [address] [address] Dusty Aguirre, [address] [address] JAY [email or web address]@[facility] Eldon Mckeon RN [address] [place] [address] [email or web address] documented as of this encounter Visit Diagnoses Diagnosis Encounter for medication monitoring- Primary Encounter for therapeutic drug monitoring Encounter for long-term (current) use of medications Encounter for long-term (current) use of other medications documented in this encounter Care Teams Soil Analyst Relationship Specialty Start Date End Date Amirah Smith MD [address] [place] [address] [place] [address] PCP - General Internal Medicine 03/06/22 Christopher Thompson MD [address] [place] [address] Obstetrics and Gynecology ServiceYAW [address] [place] [address] [email or web address] Primary Oncologist Gynecologic Oncology 02/06/20 Ysabel Sanchez RN [address] [place] [address] [email or web address] Associate Infusion Nurse 03/29/20 Stephon Chambers RN [address] [place] [address] [email or web address] Associate Infusion Nurse 09/18/20 Carine Rivas RN [address] [place] [address] [email or web address] Primary Infusion Nurse 11/05/20 Vikki Perez MD [address] [address] [email or web address] Primary Oncologist Gynecologic Oncology 03/27/21 Dusty Aguirre DO [address] [place] [address] [email or web address] Primary Oncologist Hematology and Oncology 05/01/22 Marilia Nolan FNP [address] [place] [address] [email or web address] Nurse Practitioner Medical Oncology 08/05/22 08/08/24 Karen Santo CNP [address] [place] [address] [email or web address] Nurse Practitioner Medical Oncology 09/05/22 08/08/24 Stephon Maya MD [address] [place] [address] [email or web address] Rheumatology 07/30/23 Ayanna Fox FNP [address] [place] [address] [email or web address] Registered Nurse Nurse Practitioner 08/09/24 Shala Hartman NP [address] [place] [address] [email or web address] Nurse Practitioner 08/15/24 10/30/24 Karen Santo CNP [address] [place] [address] [email or web address] Nurse Practitioner 08/29/24 Shala Hartman NP [address] [place] [address] [email or web address] Nurse Practitioner 11/08/24 documented as of this encounter Additional Source Comments The information contained in this document represents components of the legal health record. It is not the complete legal health record.[facility]
--- OUTSIDE RECORDS SUMMARY | 2025-03-14 13:12 | XMS_ITS | Encounter Summary ---
Author Organization [facility] Address [address] [place] [address] [place] [address] Phone Care Team Providers Care All Around Gear Machine Operator Name Role Phone Christopher Thompson MD Unavailable + [phone] Ysabel Sanchez RN Unavailable [email or web address] Stephon Chambers RN Unavailable [phone] Carine Rivas RN Unavailable [email or web address] Vikki Perez MD Unavailable [phone] Amirah Smith MD Primary Care Provider Dusty Aguirre DO Unavailable Marilia Nolan VACUUM FORMING MACHINE OPERATOR Unavailable Karen Santo SANITARIAN Unavailable Stephon Maya MD Unavailable [phone] Ayanna Fox VACUUM FORMING MACHINE OPERATOR Unavailable Shala Hartman NP Unavailable Karen Santo CNP Unavailable Shala Hartman NP Unavailable Encounter Details Date Type Department Care Team (Latest Contact Info) Description 04/18/2024 Ancillary Orders [facility] Rheumatology [address], 4th Floor, [address] [place], [place] [id number] Stephon Maya MD [address] [place], [place] [id number] [email or web address] Rheumatoid arthritis involving multiple sites with positive rheumatoid factor (Primary Dx); Pain in both hands; Inflammatory arthritis Social History Tobacco Use Types Packs/Day Years [...] Info) Description 03/21/2025 9:40 AM EDT Infusion [facility] at [address] [address] Dusty Aguirre, [address] [address] [email or web address] 03/21/2025 11:30 AM EDT Office Visit [facility] at [address] [address] Ayanna Fox FNP [address] [place] [address] [email or web address] 03/21/2025 12:40 PM EDT Infusion [facility] at [address] [address] Dusty Aguirre, DO [address] [place] [address] [email or web address] .[facility] Karen Burgos, KAPIL [address] [place] [address] [email or web address] 04/04/2025 8:20 AM EDT Appointment [facility] [address] [place] [address] Dusty Aguirre, DO [address] [place] [address] [email or web address] 04/04/2025 9:00 AM EDT Office Visit [facility] at [address] [address] Ayanna Fox FNP [address] [place] [address] [email or web address] 04/04/2025 10:00 AM EDT Infusion [facility] at [address] [address] Dusty Aguirre, [address] [address] [email or web address]@[email or web address] Niyah Cole RN [address] [place] [address] [email or web address] 04/06/2025 3:20 PM EDT Telemedicine [address], 4[address] Floor, [address] [place] [address] Stephon Maya MD [address] [place] [address] [email or web address] 04/11/2025 10:20 AM EDT Appointment [facility] Laboratory [address] [place] [address] Dusty Aguirre, DO [address] [place] [address] [email or web address]@[email or web address] 04/11/2025 11:30 AM EDT Office Visit [facility] at [address] [address] Ayanna Fox FNP [address] [place] [address] 04/11/2025 12:40 PM EDT Infusion [facility] at [address] [address] Dusty Aguirre, DO [address] [place] [address] [email or web address]@[facility] Eldon Mckeon RN [address] [place] [address] 04/17/2025 9:10 AM EDT Appointment [facility] Laboratory [address] [place] [address] Dusty Aguirre, DO [address] [place] [address] [email or web address]@[facility] 04/17/2025 10:30 AM EDT Office Visit [facility] at [address] [address] Dusty Aguirre, DO [address] [place] [address] [email or web address]@[facility] 04/17/2025 11:20 AM EDT Infusion [facility] at [address] [address] Dusty Aguirre, DO [address] [place] [address] [email or web address]@[facility] Eldon Mckeon RN [address] [place] [address] [email or web address] 04/28/2025 11:50 AM EDT Appointment [facility] Laboratory [address] [place] [address] Dusty Aguirre, DO [address] [place] [address] [email or web address]@[facility] 04/28/2025 1:00 PM EDT Office Visit [facility] at [address] [address] Ayanna Fox FNP [address] [place] [address] [email or web address] 04/28/2025 2:00 PM EDT Infusion [facility] at [address] [address] Dusty Aguirre, DO [address] [place] [address] [email or web address]@[facility] Sophy Nolan RN [address] [place] [address] [email or web address] 05/08/2025 7:50 AM EDT Appointment [facility] Laboratory [address] [place] [address] Dusty Aguirre, DO [address] [place] [address] [email or web address]@[facility] 05/08/2025 9:00 AM EDT Office Visit [facility] at [address] [address] Dusty Aguirre, DO [address] [place] [address] [email or web address]@[facility] 05/08/2025 10:00 AM EDT Infusion [facility] at [address] [address] Dusty Aguirre, DO [address] [place] [address] [email or web address]@[email or web address] Eldon Mckeon, KAPIL [address] [place] [address] documented as of this encounter Results * XR FOOT 3 OR MORE VIEWS (LEFT) (04/18/2024 12:43 PM EDT) Anatomical Region Laterality Modality Foot Left Computed Radiogr aphy 04/19/2024 9:06 AM EDT Impressions 04/19/2024 9:07 AM EDT Hallux valgus and degenerative changes. No evidence of inflammatory arthritis. Narrative 04/19/2024 9:07 AM EDT XR FOOT 3 OR MORE VIEWS (LEFT) Referring clinician's provided indication for this examination in Epic: Pain; assess for erosive changes, progression in deformity in patient with seropositive rheumatoid arthritis COMPARISON: XR FOOT 2 VIEWS (LEFT) FINDINGS: Severe hallux valgus with a medial bunion. Healed fracture of the fifth metatarsal. Mild first metatarsophalangeal and scattered interphalangeal degenerative changes. No acute fracture or dislocation. No soft tissue swelling. Procedure Note Estefanía Hernandez MD - 04/19/2024 XR FOOT 3 OR MORE VIEWS (LEFT) Referring clinician's provided indication for this examination in Epic:Pain; assess for erosive changes, progression in deformity in patient withseropositive rheumatoid arthritis COMPARISON: XR FOOT 2 VIEWS (LEFT) FINDINGS: Severe hallux valgus with a medial bunion. Healed fracture of the fifthmetatarsal. Mild first metatarsophalangeal and scattered interphalangealdegenerative changes. No acute fracture or dislocation. No soft tissueswelling. IMPRESSION: Hallux valgus and degenerative changes. No evidence of inflammatory arthritis. Stephon Maya MD IMG XR LOWER EXTREMIT Y Final Result documented in this encounter Visit Diagnoses Diagnosis Rheumatoid arthritis involving multiple sites with positive rheumatoid factor Pain in both hands Inflammatory arthritis Unspecified inflammatory polyarthropathy Rheumatoid arthritis involving multiple sites with positive rheumatoid factor- Primary Pain in both hands Inflammatory arthritis Unspecified inflammatory polyarthropathy documented in this encounter Care Teams All Around Gear Machine Operator Relationship Specialty Start Date End Date Amirah Smith MD [address] [place] [address] [place] [address] PCP - General Internal Medicine 03/06/22 Christopher Thompson MD [address] [place] [address] Obstetrics and Gynecology ServiceYAW [address] [place] [address] [email or web address] Primary Oncologist Gynecologic Oncology 02/06/20 Ysabel Sanchez RN [address] [place] [address] [email or web address] Associate Infusion Nurse 03/29/20 Stephon Chambers RN [address] [place] [address] [email or web address] Associate Infusion Nurse 09/18/20 Carine Rivas, KAPIL [address] [place] [phone] [email or web address] Primary Infusion Nurse 11/05/20 Vikki Perez MD [address] [place] [address] [address] [place] [address] [email or web address] Primary Oncologist Gynecologic Oncology 03/27/21 Dusty Aguirre DO [address] [place] [address] [email or web address] Primary Oncologist Hematology and Oncology 05/01/22 Marilia Nolan, VACUUM FORMING MACHINE OPERATOR [address] [place] [address] [email or web address] Nurse Practitioner Medical Oncology 08/05/22 08/08/24 Karen Santo CNP [address] [place] [address] [email or web address] Nurse Practitioner Medical Oncology 09/05/22 08/08/24 Stephon Maya MD [address] [place] [address] [email or web address] Rheumatology 07/30/23 Ayanna Fox FNP [address] [place] [address] [email or web address] Registered Nurse Nurse Practitioner 08/09/24 Shala Hartman NP [address] [place] [address] [email or web address] Nurse Practitioner 08/15/24 10/30/24 Karen Santo CNP [address] [place] [address] [email or web address] Nurse Practitioner 08/29/24 Shala Hartman NP [address] [place] [address] [email or web address] Nurse Practitioner 11/08/24 documented as of this encounter Additional Source Comments The information contained in this document represents components of the legal health record. It is not the complete legal health record.[facility]
--- OUTSIDE RECORDS SUMMARY | 2025-03-14 13:12 | XMS_ITS | Encounter Summary ---
Author Organization [facility] Address [address] [place] [address] Phone Care Team Providers Care Professor Of Biological Sciences Name Role Phone Christopher Thompson MD Unavailable [phone] Ysabel Sanchez RN Unavailable [email or web address] Stephon Chambers RN Unavailable [phone] Carine Rivas RN Unavailable [email or web address] Vikki Perez MD Unavailable [phone] Amirah Smith MD Primary Care Provider Dusty Aguirre DO Unavailable Marilia Nolan PULMONARY CARE NURSE Unavailable Karen Santo COMPOUNDER FLAVORINGS Unavailable Stephon Maya MD Unavailable [phone] Minor Baltazar MBBS Unavailable Ayanna Fox PULMONARY CARE NURSE Unavailable Shala Hartman ELECTRIC BRAIN WAVE EQUIPMENT MECHANIC Unavailable Karen Santo CNP Unavailable Shala Hartman ELECTRIC BRAIN WAVE EQUIPMENT MECHANIC Unavailable Encounter Details Date Type Department Care Team (Late st Contact Info) Description 10/02/2023 Procedure Pass [facility], Ct Scan - [address] [address] Social History Tobacco Use Types Packs/Day Years [...] Info) Description 03/21/2025 9:40 AM EDT Infusion [facility] at [address] [address] Dusty Aguirre, DO [address] [place] [address] [email or web address] 03/21/2025 11:30 AM EDT [facility] [address] [address] Ayanna Fox FNP [address] [place] [address] [email or web address] 03/21/2025 12:40 PM EDT [facility] [address] [address] Dusty Aguirre, DO [address] [place] [address] [email or web address] .[facility] Karen Burgos, KAPIL [address] [place] [address] 04/04/2025 8:20 AM EDT Appointment [facility] [address] [place] [address] Dusty Aguirre, DO [address] [place] [address] [email or web address]@[email or web address] .[facility] 04/04/2025 9:00 AM EDT Office Visit [facility] at [address] [address] Ayanna Fox FNP [address] [place] [address] [email or web address] 04/04/2025 10:00 AM EDT [facility] at [address] [address] Dusty Aguirre, DO [address] [place] [address] [email or web address] Niyah Cole RN [address] [place] [address] [email or web address] 04/06/2025 3:20 PM EDT Telemedicine [address], 4th Floor, [address] [place] [address] Stephon Maya MD [address] [place] [address] [email or web address] [email or web address] [email or web address] 04/11/2025 10:20 AM EDT Appointment [facility] Laboratory [address] [place] [address] Dusty Aguirre, DO [address] [place] [address] [email or web address] 04/11/2025 11:30 AM EDT Office Visit [facility] at [address] [address] Ayanna Fox FNP [address] [place] [address] [email or web address] 04/11/2025 12:40 PM EDT [facility] [address] [address] Dusty Aguirre, DO [address] [place] [address] [email or web address]@[email or web address] Eldon Mckeon RN [address] [place] [address] 04/17/2025 9:10 AM EDT Appointment [facility] Laboratory [address] [place] [address] Dusty Aguirre, DO [address] [place] [address] [email or web address]@[email or web address] 04/17/2025 10:30 AM EDT [facility] [address] [address] Dusty Aguirre, DO [address] [place] [address] [email or web address]@[email or web address] 04/17/2025 11:20 AM EDT Infusion [facility] at [address] [address] Dusty Aguirre, DO [address] [place] [address] [email or web address]@[email or web address] Eldon Mckeon RN [address] [place] [address] 04/28/2025 11:50 AM EDT Appointment [facility] Laboratory [address] [place] [address] Dusty Aguirre, DO [address] [place] [address] [email or web address]@[email or web address] 04/28/2025 1:00 PM EDT Office Visit [facility] at [address] [address] Ayanna Fox FNP [address] [place] [address] [email or web address] 04/28/2025 2:00 PM EDT Infusion [facility] at [address] [address] Dusty Aguirre, DO [address] [place] [address] [email or web address] Sophy Nolan RN [address] [place] [address] [email or web address] 05/08/2025 7:50 AM EDT Appointment [facility] Laboratory [address] [place] [address] Dusty Aguirre, DO [address] [place] [address] [email or web address] 05/08/2025 9:00 AM EDT [facility] [address] [address] Dusty Aguirre, DO [address] [place] [address] [email or web address] 05/08/2025 10:00 AM EDT Infusion [facility] at [address] [address] Dusty Aguirre, DO [address] [place] [address] [email or web address] Eldon Mckeon, KAPIL [address] [place] [address] [email or web address] documented as of this encounter Visit Diagnoses Not on filedocumented in this encounter Care Teams Professor Of Biological Sciences Relationship Specialty Start Date End Date Amirah Smith MD [address] [place] [address] [place] [address] PCP - General Internal Medicine 03/06/22 Christopher Thompson MD [address] [place] [address] Obstetrics and Gynecology ServiceYAW [address] [place] [address] [email or web address] Primary Oncologist Gynecologic Oncology 02/06/20 Ysabel Sanchez RN [address] [place] [address] [email or web address] Associate Infusion Nurse 03/29/20 Stephon Chambers RN [address] [place] [address] [email or web address] Associate Infusion Nurse 09/18/20 Carine Rivas, KAPIL [address] [place] [phone] [email or web address] Primary Infusion Nurse 11/05/20 Vikki Perez MD [address] [place] [address] [email or web address] Primary Oncologist Gynecologic Oncology 03/27/21 Dusty Aguirre DO [address] [place] [address] [email or web address]@[email or web address] Primary Oncologist Hematology and Oncology 05/01/22 Marilia Nolan FNP [address] [place] [address] [email or web address] Nurse Practitioner Medical Oncology 08/05/22 08/08/24 Karen Santo CNP [address] [place] [address] [email or web address] Nurse Practitioner Medical Oncology 09/05/22 08/08/24 Stephon Maya MD [address] [place] [address] [email or web address] Rheumatology 07/30/23 Minor Baltazar MBBS [address] [place] [address] [email or web address] Primary Oncologist Medical Oncology 10/16/23 10/25/23 Ayanna Fox FNP [address] [place] [address] [email or web address] Registered Nurse Nurse Practitioner 08/09/24 Shala Hartman NP [address] [place] [address] [email or web address] Nurse Practitioner 08/15/24 10/30/24 Karen Santo CNP [address] [place] [address] [email or web address] Nurse Practitioner 08/29/24 Shala Hartman NP [address] [place] [address] [email or web address] Nurse Practitioner 11/08/24 documented as of this encounter Additional Source Comments The information contained in this document represents components of the legal health record. It is not the complete legal health record.[facility]
--- OUTSIDE RECORDS SUMMARY | 2025-03-14 13:12 | XMS_ITS | Encounter Summary ---
Author Organization [facility] Address [address] [place] [address] Phone Care Team Providers Care Sap Business Analyst Name Role Phone Christopher Thompson MD Unavailable + [phone] Ysabel Sanchez RN Unavailable [email or web address] Stephon Chambers RN Unavailable [phone] Amirah Smith MD Primary Care Provider Carine Rivas RN Unavailable [email or web address] Vikki Perez MD Unavailable [phone] Amirah Smith MD Primary Care Provider Dusty Aguirre DO Unavailable [phone] Marilia Nolan MAIL ROOM CLERK Unavailable [phone] Karen Santo NIGHT SHIFT SUPERVISOR Unavailable Loyda Pinon PA-C Unavailable gloria Stephon Maya MD Unavailable Minor BaltazarBS Unavailable [phone] Ayanna Fox MAIL ROOM CLERK Unavailable [phone] Shala Hartman NP Unavailable [phone] Karen Santo CNP Unavailable Shala Hartman NP Unavailable [phone] Encounter Details Date Type Department Care Team (Late st Contact Info) Description 09/12/[address], [facility] - [address], [address] [place] [phone] Social History Tobacco Use Types Packs/Day Years [...] EDT Infusion [facility] at [address] [address] Dusty Aguirre DO [address] [place] [address] [email or web address]@[email or web address] 03/21/2025 11:30 AM EDT Office Visit [facility] at [address] [address] Ayanna Fox FNP [address] [place] [address] [email or web address] [email or web address] 03/21/2025 12:40 PM EDT Infusion [facility] at [address] [address] Dusty Aguirre DO [address] [place] [address] [email or web address] Karen Burgos, KAPIL [address] [place] [address] 04/04/2025 8:20 AM EDT Appointment [facility] [address] [place] [address] Dusty Aguirre, DO [address] [place] [address] [email or web address]@[facility] 04/04/2025 9:00 AM EDT Office Visit [facility] at [address] [address] Ayanna Fox FNP [address] [place] [address] [email or web address] 04/04/2025 10:00 AM EDT Infusion [facility] at [address] [address] Dusty Aguirre, DO [address] [place] [address] [email or web address]@[facility] Niyah Cole RN [address] [place] [address] [email or web address] 04/06/2025 3:20 PM EDT Telemedicine [address], 4[address] Floor, [address] [place] [address] Stephon Maya MD [address] [place] [address] [email or web address] 04/11/2025 10:20 AM EDT Appointment [facility] [address] [place] [address] Dusty Aguirre, DO [address] [place] [address] [email or web address]@[email or web address] 04/11/2025 11:30 AM EDT Office Visit [facility] at [address] [address] Ayanna Fox FNP [address] [place] [address] 04/11/2025 12:40 PM EDT Infusion [facility] at [address] [address] Dusty Aguirre, DO [address] [place] [address] [email or web address]@[facility] Eldon Mckeon RN [address] [place] [address] 04/17/2025 9:10 AM EDT Appointment [facility] [address] [place] [address] Dusty Aguirre, DO [address] [place] [address] [email or web address]@[facility] 04/17/2025 10:30 AM EDT Office Visit [facility] at [address] [address] Dusty Aguirre, DO [address] [place] [address] [email or web address]@[facility] 04/17/2025 11:20 AM EDT Infusion [facility] at [address] [address] Dusty Aguirre, DO [address] [place] [address] [email or web address]@[facility] Eldon Mckeon RN [address] [place] [address] 04/28/2025 11:50 AM EDT Appointment [facility] [address] [place] [address] Dusty Aguirre, DO [address] [place] [address] [email or web address]@[facility] 04/28/2025 1:00 PM EDT Office Visit [facility] at [address] [address] Ayanna Fox FNP [address] [place] [address] [email or web address] [email or web address] 04/28/2025 2:00 PM EDT Infusion [facility] at [address] [address] Dusty Aguirre, DO [address] [place] [address] [email or web address]@[facility] Sophy Nolan RN [address] [place] [address] [email or web address] [email or web address] 05/08/2025 7:50 AM EDT Appointment [address] [address] Dusty Aguirre, DO [address] [place] [address] [email or web address]@[facility] 05/08/2025 9:00 AM EDT Office Visit [facility] at [address] [address] Dusty Aguirre, DO [address] [place] [address] [email or web address]@[facility] 05/08/2025 10:00 AM EDT Infusion [facility] at [address] [address] Dusty Aguirre, DO [address] [place] [address] JAY [email or web address] Eldon Mckeon RN [address] [place] [address] [email or web address] documented as of this encounter Visit Diagnoses Not on filedocumented in this encounter Additional Health Concerns Infection Onset Date Last Indicated Resolved Time CoV-Risk 11/10/2022 11/10/2022 11/21/2022 1:24 AM EDT documented as of this encounter Care Teams Sap Business Analyst Relationship Specialty Start Date End Date Amirah Smith MD [address] [place] [address] Dr [place] [phone] PCP - General Internal Medicine 09/25/20 03/05/22 Amirah Smith MD [address] [place] [address] [place] [phone] PCP - General Internal Medicine 03/06/22 Christopher Thompson MD [address] [place] [address] [facility] [address] [place] [address] [email or web address] Primary Oncologist Gynecologic Oncology 02/06/20 Ysabel Sanchez RN [address] [place] [address] [email or web address] Associate Infusion Nurse 03/29/20 Stephon Chambers RN [address] [place] [address] [email or web address] Associate Infusion Nurse 09/18/20 Carine Rivas RN [address] [place] [phone] [email or web address] [email or web address] Primary Infusion Nurse 11/05/20 Vikki Perez MD [address] [place] [address] [address] [place] [address] [email or web address] Primary Oncologist Gynecologic Oncology 03/27/21 Dusty Aguirre DO [address] [place] [address] [email or web address] Primary Oncologist Hematology and Oncology 05/01/22 Marilia Nolan FNP [address] [place] [address] [email or web address] [email or web address] Nurse Practitioner Medical Oncology 08/05/22 08/08/24 Karen Santo CNP [address] [place] [address] [email or web address] Nurse Practitioner Medical Oncology 09/05/22 08/08/24 Loyda Pinon PA-C [address] [place] [address] [email or web address] Physician [facility] Medical Oncology 10/20/22 08/20/23 Stephon Maya MD [address] [place] [address] TIARA@[email or web address] Rheumatology 07/30/23 Minor Baltazar MBBS [address] [place] [address] [email or web address] Primary Oncologist Medical Oncology 10/16/23 10/25/23 Ayanna Fox FNP [address] [place] [address] [email or web address] Registered Nurse Nurse Practitioner 08/09/24 Shala HartmanKATHY [address] [place] [address] [email or web address] Nurse Practitioner 08/15/24 10/30/24 Karen Santo CNP [address] [place] [address] [email or web address] [email or web address] Nurse Practitioner 08/29/24 Shala Hartman NP [address] [place] [address] [email or web address] Nurse Practitioner 11/08/24 documented as of this encounter Additional Source Comments The information contained in this document represents components of the legal health record. It is not the complete legal health record.[facility]
--- OUTSIDE RECORDS SUMMARY | 2025-03-14 13:12 | XMS_ITS | Encounter Summary ---
Author Organization [facility] Address [address] [place] [address] Phone Care Team Providers Care Dry Folder Cloth Name Role Phone Christopher Thompson MD Unavailable + [phone] Ysabel Sanchez RN Unavailable [email or web address] Stephon Chambers RN Unavailable [phone] Carine Rivas RN Unavailable [email or web address] Vikki Perez MD Unavailable [phone] Amirah Smith MD Primary Care Provider Dusty Aguirre DO Unavailable Marilia Nolan INJECTION MOULDING MACHINE OPERATOR Unavailable PackKaren MARKET RISK SPECIALIST Unavailable Stephon Maya MD Unavailable Ayanna Fox INJECTION MOULDING MACHINE OPERATOR Unavailable Shala Hartman NP Unavailable [phone] Karen Santo MARKET RISK SPECIALIST Unavailable Shala Hartman NP Unavailable Encounter Details Date Type Department Care Team (Late st Contact Info) Description 05/30/2024 Procedure Pass [facility] Ct Scan - [address] [address] Social History Tobacco Use Types Packs/Day Years [...] Info) Description 03/21/2025 9:40 AM EDT Infusion [facility] at [address] [address] Dusty Aguirre, DO [address] [place] [address] [email or web address] 03/21/2025 11:30 AM EDT Office Visit [facility] at [address] [address] Ayanna Fox FNP [address] [place] [address] [email or web address] 03/21/2025 12:40 PM EDT Infusion [facility] at [address] [address] Dusty Aguirre [address] [address] [email or web address]@[email or web address] Karen Burgos, KAPIL [address] [place] [address] [email or web address] 04/04/2025 8:20 AM EDT Appointment [facility] [address] [place] [address] Dusty Aguirre, DO [address] [place] [address] [email or web address]@[email or web address] [facility] 04/04/2025 9:00 AM EDT Office Visit [facility] at [address] [address] Ayanna Fox, INJECTION MOULDING MACHINE OPERATOR [address] [place] [address] [email or web address] 04/04/2025 10:00 AM EDT Infusion [facility] at [address] [address] Dusty Aguirre, DO [address] [place] [address] [email or web address]@[email or web address] Niyah Cole RN [address] [place] [address] 04/06/2025 3:20 PM EDT Telemedicine [address], 4th Floor, [address] [place] [address] Stephon Maya MD [address] [place] [address] TIARA@[facility] 04/11/2025 10:20 AM EDT Appointment [facility] [address] [place] [address] Dusty Aguirre, DO [address] [place] [address] [email or web address]@[email or web address] 04/11/2025 11:30 AM EDT Office Visit [facility] at [address] [address] Ayanna Fox INJECTION MOULDING MACHINE OPERATOR [address] [place] [address] [email or web address] 04/11/2025 12:40 PM EDT Infusion [facility] at [address] [address] Dusty Aguirre, DO [address] [place] [address] [email or web address]@[facility] Eldon Mckeon RN [address] [place] [address] 04/17/2025 9:10 AM EDT Appointment [facility] [address] [place] [address] Dusty Aguirre, DO [address] [place] [address] [email or web address]@[facility] 04/17/2025 10:30 AM EDT Office Visit [facility] at [address] [address] Dusty Aguirre, [address] [address] [email or web address]@[facility] 04/17/2025 11:20 AM EDT Infusion [facility] at [address] [address] Dusty Aguirre, [address] [address] NAVEEN@[facility] Eldon Mckeon RN [address] [place] [address] 04/28/2025 11:50 AM EDT Appointment [facility] [address] [place] [address] Dusty Aguirre, DO [address] [place] [address] [email or web address]@[facility] 04/28/2025 1:00 PM EDT Office Visit [facility] at [address] [address] Ayanna Fox FNP [address] [place] [address] [email or web address] 04/28/2025 2:00 PM EDT Infusion [facility] at [address] [address] Dusty Aguirre, DO [address] [place] [address] [email or web address]@[facility] Sophy Nolan, KAPIL [address] [place] [address] [email or web address] 05/08/2025 7:50 AM EDT Appointment [facility] [address] [place] [address] Dusty Aguirre, DO [address] [place] [address] [email or web address]@[email or web address] 05/08/2025 9:00 AM EDT Office Visit [facility] at [address] [address] Dusty Aguirre, DO [address] [place] [address] [email or web address]@[email or web address] 05/08/2025 10:00 AM EDT Infusion [facility] at [address] [address] Dusty Aguirre, DO [address] [place] [address] [email or web address] Eldon Mckeon, KAPIL [address] [place] [address] [email or web address] documented as of this encounter Visit Diagnoses Not on filedocumented in this encounter Care Teams Dry Folder Cloth Relationship Specialty Start Date End Date Amirah Smith MD [address] [place] [address] [place] [phone] PCP - General Internal Medicine 03/06/22 Christopher Thompson MD [address] [place] [address] Obstetrics and Gynecology [facility] [address] [place] [address] [email or web address] Primary Oncologist Gynecologic Oncology 02/06/20 Ysabel Sanchez RN [address] [place] [address] [email or web address] Associate Infusion Nurse 03/29/20 Stephon Chambers RN [address] [place] [address] [email or web address] Associate Infusion Nurse 09/18/20 Carine Rivas RN [address] [place] [phone] [email or web address] Primary Infusion Nurse 11/05/20 Vikki Perez MD [address] [place] [address] [address] [place] [address] [email or web address] Primary Oncologist Gynecologic Oncology 03/27/21 Dusty Aguirre DO [address] [place] [address] [email or web address]@[email or web address] Primary Oncologist Hematology and Oncology 05/01/22 Marilia Nolan FNP [address] [place] [address] [email or web address] Nurse Practitioner Medical Oncology 08/05/22 08/08/24 Karen Santo CNP [address] [place] [address] [email or web address] Nurse Practitioner Medical Oncology 09/05/22 08/08/24 Stephon Maya MD [address] [place] [address] [email or web address]@[email or web address] Rheumatology 07/30/23 Ayanna Fox FNP [address] [place] [address] [email or web address] Registered Nurse Nurse Practitioner 08/09/24 Shala Hartman NP [address] [place] [address] [email or web address] Nurse Practitioner 08/15/24 10/30/24 Karen Santo CNP [address] [place] [address] [email or web address] Nurse Practitioner 08/29/24 Shala Hartman NP [address] [place] [address] [email or web address] Nurse Practitioner 11/08/24 documented as of this encounter Additional Source Comments The information contained in this document represents components of the legal health record. It is not the complete legal health record.[facility]
--- OUTSIDE RECORDS SUMMARY | 2025-03-14 13:12 | XMS_ITS | Encounter Summary ---
Author Organization [facility] Address [address] [place] [address] Phone Care Team Providers Care Management Nurse Rn Name Role Phone Christopher Thompson MD Unavailable + [phone] Ysabel Sanchez RN Unavailable [email or web address] Stephon Chambers RN Unavailable [phone] Carine Rivas RN Unavailable [email or web address] Vikki Perez MD Unavailable [phone] Amirah Smith MD Primary Care Provider Dusty Aguirre DO Unavailable Marilia Nolan THEATRE INSTRUCTOR Unavailable Karen Santo CNP Unavailable Loyda PinonC Unavailable gloria Stephon Maya MD Unavailable [phone] Minor BaltazarBS Unavailable Ayanna Fox THEATRE INSTRUCTOR Unavailable Shala Hartman NP Unavailable Karen Santo CNP Unavailable Shala Hartman NP Unavailable Encounter Details Date Type Department Care Team (Late st Contact Info) Description 01/14/2023 Procedure Pass [facility], Ct Scan - [address] [address] Social History Tobacco Use Types Packs/Day Years [...] Description 03/21/2025 9:40 AM EDT Infusion [facility] at [address] [address] Dusty Aguirre DO [address] [place] [address] [email or web address] [facility] 03/21/2025 11:30 AM EDT Office Visit [facility] at [address] [address] Ayanna Fox, THEATRE INSTRUCTOR[address] [address] 03/21/2025 12:40 PM EDT Infusion [facility] at [address] [address] Dusty Aguirre, DO [address] [place] [address] [email or web address]@[facility] Karen Burgos, KAPIL [address] [place] [address] 04/04/2025 8:20 AM EDT Appointment [facility] Laboratory [address] [place] [address] Dusty Aguirre, DO [address] [place] [address] [email or web address]@[facility] 04/04/2025 9:00 AM EDT Office Visit [facility] at [address] [address] Ayanna Fox, [address] [address] 04/04/2025 10:00 AM EDT Infusion [facility] at [address] [address] Dusty Aguirre, DO [address] [place] [address] [email or web address] [facility] Niyah Cole, KAPIL [address] [place] [address] 04/06/2025 3:20 PM EDT Telemedicine [facility] Rheumatology [address], [address] Floor, [address] [place] [address] Stephon Maya MD [address] [place] [address] [email or web address] 04/11/2025 10:20 AM EDT Appointment [facility] Laboratory [address] [place] [address] Dusty Aguirre, DO [address] [place] [address] [email or web address]@[facility] 04/11/2025 11:30 AM EDT Office Visit [facility] at [address] [address] Ayanna Fox FNP [address] [place] [address] [email or web address] 04/11/2025 12:40 PM EDT Infusion [facility] at [address] [address] Dusty Aguirre, DO [address] [place] [address] [email or web address]@[facility] Eldon Mckeon RN [address] [place] [address] [email or web address] 04/17/2025 9:10 AM EDT Appointment [facility] Laboratory [address] [place] [address] Dusty Aguirre, DO [address] [place] [address] [email or web address]@[facility] 04/17/2025 10:30 AM EDT Office Visit [facility] at [address] [address] Dusty Aguirre, DO [address] [place] [address] [email or web address] 04/17/2025 11:20 AM EDT Infusion [facility] at [address] [address] Dusty Aguirre, DO [address] [place] [address] [email or web address] Eldon Mckeon, KAPIL [address] [place] [address] 04/28/2025 11:50 AM EDT Appointment [facility] Laboratory [address] [place] [address] Dusty Aguirre, DO [address] [place] [address] [email or web address]@[facility] 04/28/2025 1:00 PM EDT Office Visit [facility] at [address] [address] Ayanna Fox FNP [address] [place] [address] [email or web address] 04/28/2025 2:00 PM EDT Infusion [facility] at [address] [address] Dusty Aguirre, DO [address] [place] [address] [email or web address] Sophy Nolan, KAPIL [address] [place] [address] [email or web address] 05/08/2025 7:50 AM EDT Appointment [facility] Laboratory [address] [place] [address] Dusty Aguirre, DO [address] [place] [address] JAY [email or web address] 05/08/2025 9:00 AM EDT Office Visit [facility] at [address] [address] Dusty Aguirre, DO [address] [place] [address] JAY [email or web address] 05/08/2025 10:00 AM EDT Infusion [facility] at [address] [address] Dusty Aguirre, [address] [address] JAY [email or web address] Eldon Mckeon RN [address] [place] [address] [email or web address] documented as of this encounter Visit Diagnoses Not on filedocumented in this encounter Care Teams Management Nurse Rn Relationship Specialty Start Date End Date Amirah Smith MD [address] [place] [address] [place] [address] PCP - General Internal Medicine 03/06/22 Christopher Thompson MD [address] [place] [address] Obstetrics and Gynecology ServiceYAW [address] [place] [address] [email or web address]@[email or web address] Primary Oncologist Gynecologic Oncology 02/06/20 Ysabel Sanchez RN [address] [place] [address] [email or web address] Associate Infusion Nurse 03/29/20 Stephon Chambers RN [address] [place] [address] [email or web address] Associate Infusion Nurse 09/18/20 Carine Rivas, RN [address] [place] [address] [email or web address] Primary Infusion Nurse 11/05/20 Vikki Perez MD [address] [place] [address] [email or web address] Primary Oncologist Gynecologic Oncology 03/27/21 Dusty Aguirre DO [address] [place] [address] [email or web address]@[facility] Primary Oncologist Hematology and Oncology 05/01/22 Marilia Nolan FNP [address] [place] [address] [email or web address] Nurse Practitioner Medical Oncology 08/05/22 08/08/24 Karen Santo CNP [address] [place] [address] [email or web address] Nurse Practitioner Medical Oncology 09/05/22 08/08/24 Loyda Pinon PA-C [address] [place] [address] [email or web address] Physician [employer] Inspector Medical Oncology 10/20/22 08/20/23 Stephon Maya MD [address] [place] [address] TIARA@[email or web address] Rheumatology 07/30/23 Minor Baltazar MBBS [address] [place] [address] [email or web address] Primary Oncologist Medical Oncology 10/16/23 10/25/23 Ayanna Fox FNP [address] [place] [address] [email or web address] Registered Nurse Nurse Practitioner 08/09/24 Shala Hartman NP [address] [place] [address] [email or web address] Nurse Practitioner 08/15/24 10/30/24 Karen Santo CNP [address] [place] [address] [email or web address] Nurse Practitioner 08/29/24 Shala Hartman NP [address] [place] [address] [email or web address] Nurse Practitioner 11/08/24 documented as of this encounter Additional Source Comments The information contained in this document represents components of the legal health record. It is not the complete legal health record.[facility]
--- OUTSIDE RECORDS SUMMARY | 2025-03-14 13:12 | XMS_ITS | Encounter Summary ---
Author Organization [facility] Address [address] [place] [address] Phone Care Team Providers Care Trolley Coach Driver Name Role Phone Christopher Thompson MD Unavailable [phone] Ysabel Sanchez RN Unavailable [email or web address] Stephon Chambers RN Unavailable [phone] Carine Rivas RN Unavailable [email or web address] Vikki Perez MD Unavailable [phone] Amirah Smith MD Primary Care Provider Dusty Aguirre DO Unavailable Marilia Nolan DIRECTOR TITLE Unavailable Karen Santo CRITICAL CARE UNIT NURSE Unavailable Stephon Maya MD Unavailable Minor Baltazar MBBS Unavailable Ayanna Fox DIRECTOR TITLE Unavailable Shala Hartman SACK SEWER MACHINE Unavailable [phone] Karen Santo CNP Unavailable Shala Hartman SACK SEWER MACHINE Unavailable Encounter Details Date Type Department Care Team (Late st Contact Info) Description 10/02/2023 Procedure Pass [facility], Ct Scan - [address] [address] Social History Tobacco Use Types Packs/Day Years [...] 9:40 AM EDT Infusion [facility] at [address] [address] Dusty Aguirre, DO [address] [place] [place] [address] [email or web address]@[facility] 03/21/2025 11:30 AM EDT Office Visit [facility] at [address] [address] Ayanna Fox FNP [address] [place] [place] [address] [email or web address] 03/21/2025 12:40 PM EDT Infusion [facility] at [address] [address] Dusty Aguirre, DO [address] [place] [address] [email or web address]@[email or web address] Karen Burgos, KAPIL [address] [place] [place] [address] 04/04/2025 8:20 AM EDT Appointment [facility] [address] [place] [address] Dusty Aguirre, DO [address] [place] [address] [email or web address]@[email or web address] [facility] 04/04/2025 9:00 AM EDT Office Visit [facility] at [address] [address] Ayanna Fox FNP [address] [place] [address] [email or web address] 04/04/2025 10:00 AM EDT Infusion [facility] at [address] [address] Dusty Aguirre, DO [address] [place] [address] [email or web address]@[email or web address] Niyah Cole RN [address] [place] [address] [email or web address] 04/06/2025 3:20 PM EDT Telemedicine [address], 4[address] Floor, [address] [place] [address] Stephon Maya MD [address] [place] [address] [email or web address] 04/11/2025 10:20 AM EDT Appointment [facility] Laboratory [address] [place] [address] Dusty Aguirre, DO [address] [place] [address] [email or web address]@[facility] 04/11/2025 11:30 AM EDT Office Visit [facility] at [address] [address] Ayanna Fox FNP [address] [place] [address] [email or web address] 04/11/2025 12:40 PM EDT Infusion [facility] at [address] [address] Dusty Aguirre, DO [address] [place] [address] [email or web address]@[facility] Eldon Mckeon RN [address] [place] [address] 04/17/2025 9:10 AM EDT Appointment [facility] Laboratory [address] [place] [address] Dusty Aguirre, DO [address] [place] [place] [address] [email or web address]@[facility] 04/17/2025 10:30 AM EDT Office Visit [facility] at [address] [address] Dusty Aguirre, DO [address] [place] [place] [address] [email or web address]@[facility] 04/17/2025 11:[address] [facility] at [address] [address] Dusty Aguirre, DO [address] [place] [address] [email or web address]@[facility] Eldon Mckeon RN [address] [place] [address] 04/28/2025 11:50 AM EDT Appointment [facility] Laboratory [address] [place] [address] Dusty Aguirre, DO [address] [place] [address] [email or web address]@[facility] 04/28/2025 1:00 PM EDT Office Visit [facility] at [address] [address] Ayanna Fox FNP [address] [place] [place] [address] [email or web address] 04/28/2025 2:[address] [facility] at [address] [address] Dusty Aguirre, DO [address] [place] [address] [email or web address]@[facility] Sophy Nolan RN [address] [place] [place] [address] [email or web address] 05/08/2025 7:50 AM EDT Appointment [facility] Laboratory [address] [place] [address] Dusty Aguirre, DO [address] [place] [address] [email or web address] 05/08/2025 9:00 AM EDT Office Visit [facility] at [address] [address] Dusty Aguirre, DO [address] [place] [address] [email or web address]@[facility] 05/08/2025 10:[address] [facility] at [address] [address] Dusty Aguirre, DO [address] [place] [address] [email or web address] Eldon Mckeon, KAPIL [address] [place] [place] [address] [email or web address] documented as of this encounter Visit Diagnoses Not on filedocumented in this encounter Care Teams Trolley Coach Driver Relationship Specialty Start Date End Date Amirah Smith MD [address] [place] [address] [place] [address] PCP - General Internal Medicine 03/06/22 Christopher Thompson MD [address] [place] [address] Obstetrics and Gynecology ServiceYAW [address] [place] [address] [email or web address] Primary Oncologist Gynecologic Oncology 02/06/20 Ysabel Sanchez RN [address] [place] [address] [email or web address] Associate Infusion Nurse 03/29/20 Stephon Chambers RN [address] [place] [address] [email or web address] Associate Infusion Nurse 09/18/20 Carine Rivas, KAPIL [address] [place] [phone] [email or web address] Primary Infusion Nurse 11/05/20 Vikki Perez MD [address] [place] [address] [email or web address] Primary Oncologist Gynecologic Oncology 03/27/21 Dusty Aguirre DO [address] [place] [address] [email or web address]@[facility] Primary Oncologist Hematology and Oncology 05/01/22 Marilia Nolan FNP [address] [place] [address] [email or web address] Nurse Practitioner Medical Oncology 08/05/22 08/08/24 Karen Santo CNP [address] [place] [place] [address] [email or web address] Nurse Practitioner Medical Oncology 09/05/22 08/08/24 Stephon Maya MD [address] [place] [address] TIARA@[email or web address] Rheumatology 07/30/23 Minor Baltazar MBBS [address] [place] [address] [email or web address] Primary Oncologist Medical Oncology 10/16/23 10/25/23 Ayanna Fox FNP [address] [place] [place] [address] [email or web address] Registered Nurse Nurse Practitioner 08/09/24 Shala Hartman NP [address] [place] [place] [address] [email or web address] Nurse Practitioner 08/15/24 10/30/24 Karen Santo CNP [address] [place] [place] [address] [email or web address] Nurse Practitioner 08/29/24 Shala Hartman NP [address] [place] [address] [email or web address] Nurse Practitioner 11/08/24 documented as of this encounter Additional Source Comments The information contained in this document represents components of the legal health record. It is not the complete legal health record.[facility]
--- OUTSIDE RECORDS SUMMARY | 2025-03-14 13:12 | XMS_ITS | Encounter Summary ---
Author Organization [facility] Address [address] [place] [address] Phone Care Team Providers Care Psych Social Worker Name Role Phone Christopher Thompson MD Unavailable [phone]- [phone] Ysabel Sanchez RN Unavailable [email or web address] Stephon Chambers RN Unavailable [phone] Carine Rivas RN Unavailable [email or web address] Vikki Perez MD Unavailable [phone] Amirah Smith MD Primary Care Provider Dusty Aguirre DO Unavailable Stephon Maya MD Unavailable Ayanna Fox DIRECTOR OF PHYSICIAN PRACTICES Unavailable Shala Hartman PULP GRINDER FEEDER Unavailable [phone] Karen Santo CNP Unavailable Shala Hartman NP Unavailable Encounter Details Date Type Department Care Team (Late st Contact Info) Description 09/26/2024 Procedure Pass [facility], Ct Scan - [address] [address] Social History Tobacco Use Types Packs/Day Years [...] Info) Description 03/21/2025 9:40 AM EDT Infusion [facility] Center at [address] [address] Dusty Aguirre DO [address] [place] [address] [email or web address]@[facility] 03/21/2025 11:30 AM EDT Office Visit [facility] at [address] [address] Ayanna Fox FNP [address] [place] [address] [email or web address] 03/21/2025 12:40 PM EDT Infusion [facility] at [address] [address] Dusty Aguirre DO [address] [place] [address] NAVEEN@[facility] Karen Burgos, KAPIL [address] [place] [address] 04/04/2025 8:20 AM EDT Appointment [facility] [address] [place] [address] Dusty Aguirre DO [address] [place] [address] NAVEEN@[facility] 04/04/2025 9:00 AM EDT Office Visit [facility] at [address] [address] Ayanna Fox FNP [address] [place] [address] 04/04/2025 10:00 AM EDT Infusion [facility] at [address] [address] Dusty Aguirre, DO [address] [place] [address] NAVEEN@[facility] Niyah Cole RN [address] [place] [address] 04/06/2025 3:20 PM EDT Telemedicine [address], 4th Floor, [address] [place] [address] Stephon Maya MD [address] [place] [address] [email or web address] 04/11/2025 10:20 AM EDT Appointment [facility] Laboratory [address] [place] [address] Dusty Aguirre, DO [address] [place] [address] NAVEEN@[facility] 04/11/2025 11:30 AM EDT Office Visit [facility] at [address] [address] Ayanna Fox FNP [address] [place] [address] [email or web address] 04/11/2025 12:40 PM EDT Infusion [facility] at [address] [address] Dusty Aguirre, DO [address] [place] [address] NAVEEN@[facility] Eldon Mckeon RN [address] [place] [address] 04/17/2025 9:10 AM EDT Appointment [facility] Laboratory [address] [place] [address] Dusty Aguirre, DO [address] [place] [address] NAVEEN@[facility] 04/17/2025 10:30 AM EDT Office Visit [facility] at [address] [address] Dusty Aguirre, DO [address] [place] [address] NAVEEN@[facility] 04/17/2025 11:20 AM EDT Infusion [facility] at [address] [address] Dusty Aguirre, DO [address] [place] [address] NAVEEN@[facility] Eldon Mckeon RN [address] [place] [address] 04/28/2025 11:50 AM EDT Appointment [facility] Laboratory [address] [place] [address] Dusty Aguirre, DO [address] [place] [address] NAVEEN@[facility] 04/28/2025 1:00 PM EDT Office Visit [facility] at [address] [address] Ayanna Fox FNP [address] [place] [address] 04/28/2025 2:00 PM EDT Infusion [facility] at [address] [address] Dusty Aguirre, DO [address] [place] [address] ROLYOME@[facility] Sophy Nolan RN [address] [place] [address] 05/08/2025 7:50 AM EDT Appointment [facility] Laboratory [address] [place] [address] Dusty Aguirre, DO [address] [place] [address] [email or web address]@[facility] 05/08/2025 9:00 AM EDT Office Visit [facility] Center at [address] [address] Dusty Aguirre, DO [address] [place] [address] [email or web address]@[facility] 05/08/2025 10:00 AM EDT Infusion [facility] at [address] [address] Dusty Aguirre, DO [address] [place] [address] [email or web address]@[facility] Eldon Mckeon RN [address] [place] [address] [email or web address] documented as of this encounter Visit Diagnoses Not on filedocumented in this encounter Care Teams Psych Social Worker Relationship Specialty Start Date End Date Amirah Smith MD [address] [place] [address] [place] [phone] PCP - General Internal Medicine 03/06/22 Christopher Thompson MD [address] [place] [address] Obstetrics and Gynecology [address] [address] [email or web address] Primary Oncologist Gynecologic Oncology 02/06/20 Ysabel Sanchez RN [address] [place] [address] [email or web address] Associate Infusion Nurse 03/29/20 Stephon Chambers RN [address] [place] [address] [email or web address] Associate Infusion Nurse 09/18/20 Carine Rivas RN [address] [place] [phone] [email or web address] Primary Infusion Nurse 11/05/20 Vikki Perez MD [address] [place] [address] [email or web address] Primary Oncologist Gynecologic Oncology 03/27/21 Dusty Aguirre DO [address] [place] [address] [email or web address]@[email or web address] Primary Oncologist Hematology and Oncology 05/01/22 Stephon Maya MD [address] [place] [address] [email or web address] Rheumatology 07/30/23 Ayanna Fox FNP [address] [place] [address] [email or web address] Registered Nurse Nurse Practitioner 08/09/24 Shala Hartman NP [address] [place] [address] [email or web address] Nurse Practitioner 08/15/24 10/30/24 Karen Santo CNP [address] [place] [address] [email or web address] Nurse Practitioner 08/29/24 Shala Hartman NP [address] [place] [address] [email or web address] Nurse Practitioner 11/08/24 documented as of this encounter Additional Source Comments The information contained in this document represents components of the legal health record. It is not the complete legal health record.[facility]
--- OUTSIDE RECORDS SUMMARY | 2025-03-14 13:12 | XMS_ITS | Encounter Summary ---
Author Organization [facility] Address [address] [place] [address] Phone Care Team Providers Care Wardrobe Technician Name Role Phone Christopher Thompson MD Unavailable + [phone] Ysabel Sanchez RN Unavailable [email or web address] Stephon Chambers RN Unavailable [phone] Carine Rivas RN Unavailable [email or web address] Vikki Perez MD Unavailable [phone] Amirah Smith MD Primary Care Provider Dusty Aguirre DO Unavailable [phone] Marilia Nolan BIOMEDICAL ENGINEERING TECHNOLOGIST Unavailable Karen Santo CNP Unavailable Loyda PinonC Unavailable gloria Stephon Maya MD Unavailable Minor BaltazarBS Unavailable Ayanna oFx BIOMEDICAL ENGINEERING TECHNOLOGIST Unavailable Shala Hartman NP Unavailable [phone] Karen Santo CNP Unavailable Shala Hartman NP Unavailable Encounter Details Date Type Department Care Team (Late st Contact Info) Description 05/29/2022 Procedure Pass [facility], Ct Scan - [address] [address] Social History Tobacco Use Types Packs/Day Years [...] [facility] at [address] [address] Dusty Aguirre, [address] [address] [email or web address] 03/21/2025 11:30 AM EDT Office Visit [facility] at [address] [address] Ayanna Fox FNP [address] [place] [address] [email or web address] 03/21/2025 12:40 PM EDT Infusion [facility] at [address] [address] Dusty Aguirre DO [address] [place] [address] [email or web address] Karen Burgos, KAPIL [address] [place] [address] [email or web address] 04/04/2025 8:20 AM EDT Appointment [facility] [address] [place] [address] Dusty Aguirre, DO [address] [place] [address] NAVEEN@[facility] 04/04/2025 9:00 AM EDT Office Visit [facility] at [address] [address] Ayanna Fox, BIOMEDICAL ENGINEERING TECHNOLOGIST [address] [place] [address] [email or web address] 04/04/2025 10:00 AM EDT Infusion [facility] at [address] [address] Dusty Aguirre, DO [address] [place] [address] NAVEEN@[facility] Niyah Cole RN [address] [place] [address] [email or web address] 04/06/2025 3:20 PM EDT Telemedicine [address], 4[address] Floor, [address] [place] [address] Stephon Maya MD [address] [place] [address] [email or web address] 04/11/2025 10:20 AM EDT Appointment [facility] [address] [place] [address] Dusty Aguirre, DO [address] [place] [address] [email or web address] 04/11/2025 11:30 AM EDT Office Visit [facility] at [address] [address] Ayanna Fox BIOMEDICAL ENGINEERING TECHNOLOGIST[address] [address] 04/11/2025 12:40 PM EDT Infusion [facility] at [address] [address] Dusty Aguirre, DO [address] [place] [address] NAVEEN@[facility] Eldon Mckeon RN [address] [place] [address] 04/17/2025 9:10 AM EDT Appointment [facility] [address] [place] [address] Dusty Aguirre, DO [address] [place] [address] NAVEEN@[facility] 04/17/2025 10:30 AM EDT Office Visit [facility] at [address] [address] Dusty Aguirre, DO [address] [place] [address] [email or web address]@[facility] 04/17/2025 11:20 AM EDT Infusion [facility] at [address] [address] Dusty Aguirre, DO [address] [place] [address] NAVEEN@[facility] Eldon Mckeon RN [address] [place] [address] 04/28/2025 11:50 AM EDT Appointment [facility] [address] [place] [address] Dusty Aguirre, DO [address] [place] [address] NAVEEN@[facility] 04/28/2025 1:00 PM EDT Office Visit [facility] at [address] [address] Ayanna Fox FNP [address] [place] [address] [email or web address] 04/28/2025 2:00 PM EDT Infusion [facility] at [address] [address] Dusty Aguirre, DO [address] [place] [address] NAVEEN@[facility] Sophy Nolan RN [address] [place] [address] [email or web address] 05/08/2025 7:50 AM EDT Appointment [facility] [address] [place] [address] Dusty Aguirre, DO [address] [place] [address] NAVEEN@[facility] 05/08/2025 9:00 AM EDT Office Visit [facility] at [address] [address] Dusty Aguirre, DO [address] [place] [address] [email or web address]@[facility] 05/08/2025 10:00 AM EDT Infusion [facility] at [address] [address] Dusty Aguirre, DO [address] [place] [address] [email or web address]@[facility] Eldon Mckeon, RN [address] [place] [address] [email or web address] documented as of this encounter Visit Diagnoses Not on filedocumented in this encounter Additional Health Concerns Infection Onset Date Last Indicated Resolved Time CoV-Risk 11/10/2022 11/10/2022 11/21/2022 1:24 AM EDT documented as of this encounter Care Teams Wardrobe Technician Relationship Specialty Start Date End Date Amirah Smith MD [address] [place] [address] Dr Sanchez [address] [place] [phone] PCP - General Internal Medicine 03/06/22 Christopher Thompson MD [address] [place] [address] Obstetrics and Gynecology [facility] [address] [place] [address] [email or web address] Primary Oncologist Gynecologic Oncology 02/06/20 Ysabel Sanchez RN [address] [place] [address] [email or web address] Associate Infusion Nurse 03/29/20 Stephon Chambers RN [address] [place] [address] [email or web address] Associate Infusion Nurse 09/18/20 Carine Rivas, KAPIL [address] [place] [phone] [email or web address] Primary Infusion Nurse 11/05/20 Vikki Perez MD [address] [place] [address] [address] [place] [address] [email or web address] Primary Oncologist Gynecologic Oncology 03/27/21 Dusty Aguirre DO [address] [place] [address] [email or web address] Primary Oncologist Hematology and Oncology 05/01/22 Marilia Nolan, BIOMEDICAL ENGINEERING TECHNOLOGIST [address] [place] [address] [email or web address] Nurse Practitioner Medical Oncology 08/05/22 08/08/24 Karen Santo CNP [address] [place] [address] [email or web address] Nurse Practitioner Medical Oncology 09/05/22 08/08/24 Loyda Pinon PA-C [address] [place] [address] [email or web address] Physician Sawmill Production Worker Medical Oncology 10/20/22 08/20/23 Stephon Maya MD [address] [place] [address] [email or web address] Rheumatology 07/30/23 Minor Baltazar MBBS [address] [place] [address] [email or web address] Primary Oncologist Medical Oncology 10/16/23 10/25/23 Ayanna Fox FNP [address] [place] [address] [email or web address] Registered Nurse Nurse Practitioner 08/09/24 Shala Hartman NP [address] [place] [address] [email or web address] Nurse Practitioner 08/15/24 10/30/24 Karen Santo CNP [address] [place] [address] [email or web address] Nurse Practitioner 08/29/24 Shala Hartman NP [address] [place] [address] [email or web address] Nurse Practitioner 11/08/24 documented as of this encounter Additional Source Comments The information contained in this document represents components of the legal health record. It is not the complete legal health record.[facility]
--- OUTSIDE RECORDS SUMMARY | 2025-03-14 13:12 | XMS_ITS | Encounter Summary ---
Author Organization [facility] Address [address] [place] [address] [place] [address] Phone Care Team Providers Care Cafeteria Clerk Name Role Phone Christopher Thompson MD Unavailable + [phone] Ysabel Sanchez RN Unavailable [email or web address] Stephon Chambers RN Unavailable [phone] Carine Rivas RN Unavailable [email or web address] Vikki Perez MD Unavailable [phone] Amirah Smith MD Primary Care Provider Dusty Aguirre DO Unavailable Marilia Nolan CATTLE CARE WORKER Unavailable Karen Santo HOG SCRAPER Unavailable Stephon Maya MD Unavailable [phone] Ayanna Fox CATTLE CARE WORKER Unavailable [phone] Shala Hartman NP Unavailable Karen Santo CNP Unavailable Shala Hartman NP Unavailable [phone] Encounter Details Date Type Department Care Team (Latest Contact Info) Description 04/18/2024 Ancillary Orders [facility] Rheumatology [address], 4[address] Floor, [address] [place], [place] [phone] Stephon Maya MD [address] [place], [place] [phone] [email or web address] Rheumatoid arthritis involving multiple sites with positive [...] Info) Description 03/21/2025 9:40 AM EDT Infusion [facility] at [address] [address] Dusty Aguirre, [address] [address] [email or web address]@[facility] 03/21/2025 11:30 AM EDT Office [facility] [address] [address] Ayanna Fox FNP [address] [place] [address] [email or web address] 03/21/2025 12:40 PM EDT Infusion [facility] [address] [address] Dusty Aguirre, DO [address] [place] [address] [email or web address].[place] [facility] Karen Burgos, KAPIL [address] [place] [address] [email or web address] 04/04/2025 8:20 AM EDT Appointment [facility] [address] [place] [address] Dusty Aguirre, DO [address] [place] [address] [email or web address]@[email or web address] 04/04/2025 9:00 AM EDT Office Visit [facility] [address] [address] Ayanna Fox FNP [address] [place] [address] [email or web address] 04/04/2025 10:00 AM EDT Infusion [facility] [address] [address] Dusty Aguirre, [address] [address] NAVEEN@[facility] Niyah Cole RN [address] [place] [address] [email or web address] 04/06/2025 3:20 PM EDT Telemedicine [address], 4[address] Floor, [address] [place] [address] Stephon Maya MD [address] [place] [address] [email or web address] 04/11/2025 10:20 AM EDT Appointment [facility] [address] [place] [address] Dusty Aguirre, DO [address] [place] [address] [email or web address]@[facility] 04/11/2025 11:30 AM EDT Office [facility] [address] [address] Ayanna Fox FNP [address] [place] [address] 04/11/2025 12:40 PM EDT Infusion [facility] at [address] [address] Dusty Aguirre, DO [address] [place] [address] [email or web address]@[facility] Eldon Mckeon RN [address] [place] [address] 04/17/2025 9:10 AM EDT Appointment [facility] [address] [place] [address] Dusty Aguirre, DO [address] [place] [address] [email or web address]@[facility] 04/17/2025 10:30 AM EDT Office Visit [facility] at [address] [address] Dusty Aguirre, DO [address] [place] [address] [email or web address]@[facility] 04/17/2025 11:20 AM EDT Infusion [facility] at [address] [address] Dusty Aguirre, DO [address] [place] [address] [email or web address]@[facility] Eldon Mckeon RN [address] [place] [address] [email or web address] 04/28/2025 11:50 AM EDT Appointment [facility] [address] [place] [address] Dusty Aguirre, DO [address] [place] [address] NAVEEN@[facility] 04/28/2025 1:00 PM EDT Office Visit [facility] at [address] [address] Ayanna Fox FNP [address] [place] [address] [email or web address] 04/28/2025 2:00 PM EDT Infusion [facility] at [address] [address] Dusty Aguirre, DO [address] [place] [address] [email or web address]@[facility] Sophy Nolan RN [address] [place] [address] [email or web address] 05/08/2025 7:50 AM EDT Appointment [facility] [address] [place] [address] Dusty Aguirre, DO [address] [place] [address] [email or web address]@[facility] 05/08/2025 9:00 AM EDT Office Visit [facility] at [address] [address] Dusty Aguirre, DO [address] [place] [address] [email or web address]@[facility] 05/08/2025 10:00 AM EDT Infusion [facility] at [address] [address] Dusty Aguirre, DO [address] [place] [address] [email or web address]@[facility] Eldon Mckeon, RN [address] [place] [address] documented as of this encounter Results * XR FOOT 3 OR MORE VIEWS (RIGHT) (04/18/2024 12:43 PM EDT) Anatomical Region Laterality Modality Foot Right Computed Radiogr aphy 04/19/2024 9:04 AM EDT Impressions 04/19/2024 9:08 AM EDT No specific evidence of inflammatory arthritis. Narrative 04/19/2024 9:08 AM EDT XR FOOT 3 OR MORE VIEWS (RIGHT) Referring clinician's provided indication for this examination in [facility]: Pain COMPARISON: XR FOOT 2 VIEWS (RIGHT) FINDINGS: Severe first metatarsophalangeal degenerative changes. No acute fracture or dislocation. No soft tissue swelling. Procedure Note Estefanía Hernandez MD - 04/19/2024 XR FOOT 3 OR MORE VIEWS (RIGHT) Referring clinician's provided indication for this examination in Epic:Pain COMPARISON: XR FOOT 2 VIEWS (RIGHT) FINDINGS: Severe first metatarsophalangeal degenerative changes. No acute fractureor dislocation. No soft tissue swelling. IMPRESSION: No specific evidence of inflammatory arthritis. Stephon Maya MD [...] polyarthropathy documented in this encounter Care Teams Cafeteria Clerk Relationship Specialty Start Date End Date Amirah Smith MD [address] [place] [address] [place] [phone] PCP - General Internal Medicine 03/06/22 Christopher Thompson MD [address] [place] [address] Obstetrics and Gynecology ServiceYAW [address] [place] [address] [email or web address] Primary Oncologist Gynecologic Oncology 02/06/20 Ysabel Sanchez RN [address] [place] [address] [email or web address] Associate Infusion Nurse 03/29/20 Stephon Chambers RN [address] [place] [address] [email or web address] Associate Infusion Nurse 09/18/20 Carine Rivas RN [address] [place] [phone] [email or web address] Primary Infusion Nurse 11/05/20 Vikki Perez MD [address] [place] [address] [email or web address] Primary Oncologist Gynecologic Oncology 03/27/21 Dusty Aguirre DO [address] [place] [address] [email or web address]@[email or web address] Primary Oncologist Hematology and Oncology 05/01/22 Marilia Nolan FNP [address] [place] [address] [email or web address] Nurse Practitioner Medical Oncology 08/05/22 08/08/24 Karen Santo CNP [address] [place] [address] [email or web address] Nurse Practitioner Medical Oncology 09/05/22 08/08/24 Stephon Maya MD [address] [place] [address] [email or web address] Rheumatology 07/30/23 Ayanna Fox FNP [address] [place] [address] [email or web address] Registered Nurse Nurse Practitioner 08/09/24 Shala Hartman NP [address] [place] [address] [email or web address] Nurse Practitioner 08/15/24 10/30/24 Karen Santo CNP [address] [place] [address] [email or web address] Nurse Practitioner 08/29/24 Shala Hartman NP [address] [place] [address] [email or web address] Nurse Practitioner 11/08/24 documented as of this encounter Additional Source Comments The information contained in this document represents components of the legal health record. It is not the complete legal health record.[facility]
--- OUTSIDE RECORDS SUMMARY | 2025-03-14 13:12 | XMS_ITS | Encounter Summary ---
Author Organization [facility] Address [address] [place] [address] Phone Care Team Providers Care Supervisor Assembly Room Name Role Phone Christopher Thompson MD Unavailable + [phone] Ysabel Sanchez RN Unavailable [email or web address] Stephon Chambers RN Unavailable [phone] Carine Rivas RN Unavailable [email or web address] Vikki Perez MD Unavailable [phone] Amirah Smith MD Primary Care Provider Dusty Aguirre DO Unavailable Stephon Maya MD Unavailable Ayanna Fox MANAGER OF CORPORATE COMMUNICATIONS Unavailable Karen Santo CNP Unavailable Shala Hartman NP Unavailable Reason for Visit * Reason Comments Med Change Request Encounter Details Date Type Department Care Team (Late st Contact Info) Description 03/13/2025 Refill [facility] [address] [place], [place] [phone] Shala Hartman, KATHY [address] [place] [address] [email or web address] Med Change Request Social History Tobacco Use Types Packs/Day Years [...] Progress Notes * Shiela Solo - 03/13/2025 1:36 PM EDT RACHEL HARTMAN documented in this encounter Plan of Treatment Upcoming Encounters Date Type Department Care Team (Late st Contact Info) Description 03/21/2025 9:40 AM EDT Infusion [facility] at [address] [address] Dusty Aguirre, [address] [address] [email or web address]@[facility] 03/21/2025 11:30 AM EDT Office Visit [facility] at [address] [address] Ayanna Fox FNP [address] [place] [address] [email or web address] 03/21/2025 12:40 PM EDT Infusion [facility] at [address] [address] Dusty Aguirre, DO [address] [place] [address] [email or web address]@[email or web address] Karen Burgos, KAPIL [address] [place] [address] [email or web address] 04/04/2025 8:20 AM EDT Appointment [facility] [address] [place] [address] Dusty Aguirre, DO [address] [place] [address] [email or web address]@[facility] 04/04/2025 9:00 AM EDT Office Visit [facility] at [address] [address] Ayanna Fox FNP [address] [place] [address] [email or web address] 04/04/2025 10:00 AM EDT Infusion [facility] at [address] [address] Dusty Aguirre, [address] [address] [email or web address]@[facility] Niyah Cole RN [address] [place] [address] [email or web address] 04/06/2025 3:20 PM EDT Telemedicine [address], 4[address], [address] [place] [address] Stephon Maya MD [address] [place] [address] [email or web address] 04/11/2025 10:20 AM EDT Appointment [facility] [address] [place] [address] Dusty Aguirre DO [address] [place] [address] [email or web address] 04/11/2025 11:30 AM EDT Office Visit [facility] at [address] [address] Ayanna Fox FNP [address] [place] [address] 04/11/2025 12:40 PM EDT Infusion [facility] at [address] [address] Dusty Aguirre, DO [address] [place] [address] NAVEEN@[facility] Eldon Mckeon RN [address] [place] [address] 04/17/2025 9:10 AM EDT Appointment [facility] [address] [place] [address] Dusty Aguirre, DO [address] [place] [address] NAVEEN@[facility] 04/17/2025 10:30 AM EDT Office Visit [facility] at [address] [address] Dusty Aguirre, DO [address] [place] [address] [email or web address]@[facility] 04/17/2025 11:20 AM EDT Infusion [facility] at [address] [address] Dusty Aguirre, DO [address] [place] [address] NAVEEN@[facility] Eldon Mckeon RN [address] [place] [address] [email or web address] 04/28/2025 11:50 AM EDT Appointment [facility] [address] [place] [address] Dusty Aguirre, DO [address] [place] [address] NAVEEN@[facility] 04/28/2025 1:00 PM EDT Office Visit [facility] at [address] [address] Ayanna Fox FNP [address] [place] [address] [email or web address] 04/28/2025 2:00 PM EDT Infusion [facility] at [address] [address] Dusty Aguirre, DO [address] [place] [address] [email or web address]@[facility] Sophy Nolan RN [address] [place] [address] [email or web address] 05/08/2025 7:50 AM EDT Appointment [facility] [address] [place] [address] Dusty Aguirre, DO [address] [place] [address] [email or web address]@[facility] 05/08/2025 9:00 AM EDT Office Visit [facility] at [address] [address] Dusty Aguirre, DO [address] [place] [address] [email or web address]@[facility] 05/08/2025 10:00 AM EDT Infusion [facility] at [address] [address] Dusty Aguirre, DO [address] [place] [address] NAVEEN@[facility] Eldon Mckeon RN [address] [place] [address] [email or web address] documented as of this encounter Visit Diagnoses Not on filedocumented in this encounter Care Teams Supervisor Assembly Room Relationship Specialty Start Date End Date Amirah Smith MD [address] [place] [address] [place] [address] PCP - General Internal Medicine 03/06/22 Christopher Thompson MD [address] [place] [address] Obstetrics and Gynecology ServiceYAW [address], [place] [address] [email or web address] Primary Oncologist Gynecologic Oncology 02/06/20 Ysabel Sanchez RN [address] [place] [address] [email or web address] Associate Infusion Nurse 03/29/20 Stephon Chambers RN [address] [place] [address] [email or web address] Associate Infusion Nurse 09/18/20 Carine Rivas RN [address] [place] [phone] [email or web address] Primary Infusion Nurse 11/05/20 Vikki Perez MD [address] [place] [address] [email or web address] Primary Oncologist Gynecologic Oncology 03/27/21 Dusty Aguirre DO [address] [place] [address] [email or web address]@[email or web address] Primary Oncologist Hematology and Oncology 05/01/22 Stephon Maya MD [address] [place] [address] [email or web address] Rheumatology 07/30/23 Ayanna Fox FNP [address] [place] [address] [email or web address] Registered Nurse Nurse Practitioner 08/09/24 Karen Santo CNP [address] [place] [address] [email or web address] Nurse Practitioner 08/29/24 Shala Hartman NP [address] [place] [address] [email or web address] Nurse Practitioner 11/08/24 documented as of this encounter Additional Source Comments The information contained in this document represents components of the legal health record. It is not the complete legal health record.[facility]
--- OUTSIDE RECORDS SUMMARY | 2025-03-14 13:12 | XMS_ITS | Encounter Summary ---
Author Organization [facility] Address [address] [place] [address] Phone Care Team Providers Care Chief Order Dispatcher Name Role Phone Christopher Thompson MD Unavailable +- [phone] Ysabel Sanchez RN Unavailable [email or web address] Stephon Chambers RN Unavailable [phone] Carine Rivas RN Unavailable [email or web address] Vikki Perez MD Unavailable [phone] Amirah Smith MD Primary Care Provider Dusty Aguirre DO Unavailable Stephon Maya MD Unavailable Ayanna Fox SHARED SERVICES AND OUTSOURCING MANAGER Unavailable Shala Hartman ADOPTION COORDINATOR Unavailable [phone] Karen Santo CNP Unavailable Shala Hartman NP Unavailable Encounter Details Date Type Department Care Team (Late st Contact Info) Description 09/26/2024 Procedure Pass [facility], Ct Scan - [address] [address] Social History Tobacco Use Types Packs/Day Years [...] Info) Description 03/21/2025 9:40 AM EDT Infusion [facility] at [address] [address] Dusty Aguirre DO [address] [place] [address] [email or web address]@[email or web address] 03/21/2025 11:30 AM EDT Office Visit [facility] at [address] [address] Ayanna Fox FNP [address] [place] [address] [email or web address] 03/21/2025 12:40 PM EDT Infusion [facility] at [address] [address] Dusty Aguirre DO [address] [place] [address] [email or web address]@[facility] Karen Burgos, KAPIL [address] [place] [address] 04/04/2025 8:20 AM EDT Appointment [facility] [address] [place] [address] Dusty Aguirre DO [address] [place] [address] [email or web address]@[facility] 04/04/2025 9:00 AM EDT Office Visit [facility] at [address] [address] Ayanna Fox FNP [address] [place] [address] 04/04/2025 10:00 AM EDT Infusion [facility] at [address] [address] Dusty Agurire, DO [address] [place] [address] [email or web address]@[facility] Niyah Cole RN [address] [place] [address] 04/06/2025 3:20 PM EDT Telemedicine [address], 4th Floor, [address] [place] [address] Stephon Maya MD [address] [place] [address] [email or web address] 04/11/2025 10:20 AM EDT Appointment [facility] Laboratory [address] [place] [address] Dusty Aguirre, DO [address] [place] [address] [email or web address]@[facility] 04/11/2025 11:30 AM EDT Office Visit [facility] at [address] [address] Ayanna Fox FNP [address] [place] [address] [email or web address] 04/11/2025 12:40 PM EDT Infusion [facility] at [address] [address] Dusty Aguirre, DO [address] [place] [address] [email or web address]@[facility] Eldon Mckeon RN [address] [place] [address] 04/17/2025 9:10 AM EDT Appointment [facility] Laboratory [address] [place] [address] Dusty Aguirre, DO [address] [place] [address] 225[address] [email or web address]@[facility] 04/17/2025 10:30 AM EDT Office Visit [facility] at [address] [address] Dusty Aguirre, DO [address] [place] [address] [email or web address]@[facility] 04/17/2025 11:20 AM EDT Infusion [facility] at [address] [address] Dusty Aguirre, DO [address] [place] [address] NAVEEN@[facility] Eldon Mckeon RN [address] [place] [address] 04/28/2025 11:50 AM EDT Appointment [facility] Laboratory [address] [place] [address] Dusty Aguirre, DO [address] [place] [address] [email or web address]@[facility] 04/28/2025 1:00 PM EDT Office Visit [facility] at [address] [address] Ayanna Fox FNP [address] [place] [address] 04/28/2025 2:00 PM EDT Infusion [facility] at [address] [address] Dusty Aguirre, DO [address] [place] [address] [email or web address]@[facility] Sophy Nolan RN [address] [place] [address] 470[address] 05/08/2025 7:50 AM EDT Appointment [facility] Laboratory [address] [place] [address] Dusty Aguirre, DO [address] [place] [address] 19560 [email or web address]@[facility] 05/08/2025 9:00 AM EDT Office Visit [facility] at [address] [address] Dusty Aguirre, DO [address] [place] [address] 97[address] [email or web address]@[facility] 05/08/2025 10:00 AM EDT Infusion [facility] at [address] [address] Dusty Aguirre, DO [address] [place] [address] 599[address] [email or web address]@[facility] Eldon Mckeon RN [address] [place] [address] [email or web address] documented as of this encounter Visit Diagnoses Not on filedocumented in this encounter Care Teams Chief Order Dispatcher Relationship Specialty Start Date End Date Amirah Smith MD [address] [place] [address] [place] [address] PCP - General Internal Medicine 03/06/22 Christopher Thompson MD [address] [place] [address] Obstetrics and Gynecology [address] [address] [email or web address] Primary Oncologist Gynecologic Oncology 02/06/20 Ysabel Sanchez RN [address] [place] [address] [email or web address] Associate Infusion Nurse 03/29/20 Stephon Chambers RN [address] [place] [address] [email or web address] Associate Infusion Nurse 09/18/20 Carine Rivas RN [address] [place] [phone] [email or web address] Primary Infusion Nurse 11/05/20 Vikki Perez MD [address] [place] [address] [email or web address] Primary Oncologist Gynecologic Oncology 03/27/21 Dusty Aguirre DO [address] [place] [address] NAVEEN@[email or web address] Primary Oncologist Hematology and Oncology 05/01/22 Stephon Maya MD [address] [place] [address] [email or web address] Rheumatology 07/30/23 Ayanna Fox FNP [address] [place] [address] [email or web address] Registered Nurse Nurse Practitioner 08/09/24 Shala Hartman NP [address] [place] [address] [email or web address] Nurse Practitioner 08/15/24 10/30/24 Karen Santo CNP [address] [place] [address] [email or web address] Nurse Practitioner 08/29/24 Shala Hartman NP [address] [place] [address] [email or web address] Nurse Practitioner 11/08/24 documented as of this encounter Additional Source Comments The information contained in this document represents components of the legal health record. It is not the complete legal health record.[facility]
--- OUTSIDE RECORDS SUMMARY | 2025-03-14 13:12 | XMS_ITS | Encounter Summary ---
Author Organization [facility] Address [address] [place] [address] Phone Care Team Providers Care Turn Machine Operator Name Role Phone Christopher Thompson MD Unavailable + [phone] Ysabel Sanchez RN Unavailable [email or web address] Stephon Chambers RN Unavailable [phone] Carine Rivas RN Unavailable [email or web address] Vikki Perez MD Unavailable Amirah Smith MD Primary Care Provider Dusty Aguirre DO Unavailable Marilia Nolan PHYSICAL DIRECTOR Unavailable [phone] PackKaren MUNICIPAL MAINTENANCE WORKER Unavailable Stephon Maya MD Unavailable Ayanna Fox PHYSICAL DIRECTOR Unavailable Shala Hartman NP Unavailable Karen Santo MUNICIPAL MAINTENANCE WORKER Unavailable Shala Hartman NP Unavailable Encounter Details Date Type Department Care Team (Late st Contact Info) Description 05/30/2024 Procedure Pass [facility], Ct Scan - [address] [address] Social History Tobacco Use Types Packs/Day Years [...] Info) Description 03/21/2025 9:40 AM EDT Infusion [facility] at [address] [address] Dusty Aguirre, DO [address] [place] [address] [email or web address]@[email or web address] 03/21/2025 11:30 AM EDT Office Visit [facility] at [address] [address] Ayanna Fox FNP [address] [place] [address] [email or web address] 03/21/2025 12:40 PM EDT Infusion [facility] at [address] [address] Dusty Aguirre [address] [address] [email or web address]@[email or web address] Karen uBrgos, KAPIL [address] [place] [address] [email or web address] 04/04/2025 8:20 AM EDT Appointment [facility] [address] [place] [address] Dusty Aguirre, DO [address] [place] [address] [email or web address]@[email or web address] .[email or web address] 04/04/2025 9:00 AM EDT Office Visit [facility] at [address] [address] Ayanna Fox, PHYSICAL DIRECTOR [address] [place] [address] [email or web address] 04/04/2025 10:00 AM EDT Infusion [facility] at [address] [address] Dusty Aguirre, DO [address] [place] [address] [email or web address]@[email or web address] Niyah Cole RN [address] [place] [address] 04/06/2025 3:20 PM EDT Telemedicine [address], 4th Floor, [address] [place] [address] Stephon Maya MD [address] [place] [address] TIARA@[email or web address] 04/11/2025 10:[address] [facility] Laboratory [address] [place] [address] Dusty Aguirre, DO [address] [place] [address] [email or web address]@[email or web address] 04/11/2025 11:30 AM EDT Office Visit [facility] at [address] [address] Ayanna Fox PHYSICAL DIRECTOR [address] [place] [address] [email or web address] 04/11/2025 12:40 PM EDT Infusion [facility] at [address] [address] Dusty Aguirre, DO [address] [place] [address] [email or web address]@[email or web address] Eldon Mckeon RN [address] [place] [address] 04/17/2025 9:[address] [facility] Laboratory [address] [place] [address] Dusty Aguirre, DO [address] [place] [address] NAVEEN@[facility] 04/17/2025 10:30 AM EDT Office Visit [facility] at [address] [address] Dusty Aguirre, [address] [address] [email or web address]@[facility] 04/17/2025 11:20 AM EDT Infusion [facility] at [address] [address] Dusty Aguirre, [address] [address] NAVEEN@[facility] Eldon Mckeon RN [address] [place] [address] 04/28/2025 11:[address] [facility] [address] [place] [address] Dusty Aguirre, DO [address] [place] [address] [email or web address]@[facility] 04/28/2025 1:00 PM EDT Office Visit [facility] at [address] [address] Ayanna Fox FNP [address] [place] [address] [email or web address] 04/28/2025 2:00 PM EDT Infusion [facility] at [address] [address] Dusty Aguirre, DO [address] [place] [address] [email or web address]@[facility] Sophy Nolan, KAPIL [address] [place] [address] [email or web address] 05/08/2025 7:50 AM EDT Appointment [facility] [address] [place] [address] Dusty Aguirre, DO [address] [place] [address] [email or web address]@[facility] 05/08/2025 9:00 AM EDT Office Visit [facility] at [address] [address] Dusty Aguirre, DO [address] [place] [address] [email or web address]@[facility] 05/08/2025 10:00 AM EDT Infusion [facility] at [address] [address] Dusty Aguirre, DO [address] [place] [address] [email or web address]@[facility] Eldon Mckeon, KAPIL [address] [place] [address] [email or web address] documented as of this encounter Visit Diagnoses Not on filedocumented in this encounter Care Teams Turn Machine Operator Relationship Specialty Start Date End Date Amirah Smith MD [address] [place] [address] [place] [address] PCP - General Internal Medicine 03/06/22 Christopher Thompson MD [address] [place] [address] Obstetrics and Gynecology ServiceYAW [address] [place] [address] [email or web address] Primary Oncologist Gynecologic Oncology 02/06/20 Ysabel Sanchez RN [address] [place] [address] [email or web address] Associate Infusion Nurse 03/29/20 Stephon Chambers RN [address] [place] [address] [email or web address] Associate Infusion Nurse 09/18/20 Carine Rivas RN [address] [place] [phone] [email or web address] Primary Infusion Nurse 11/05/20 Vikki Perez MD [address] [place] [address] [address] [place] [address] [email or web address] Primary Oncologist Gynecologic Oncology 03/27/21 Dusty Aguirre DO [address] [place] [address] [email or web address]@[email or web address] Primary Oncologist Hematology and Oncology 05/01/22 Marilia Nolan FNP [address] [place] [address] [email or web address] Nurse Practitioner Medical Oncology 08/05/22 08/08/24 Karen Santo CNP [address] [place] [address] [email or web address] Nurse Practitioner Medical Oncology 09/05/22 08/08/24 Stephon Maya MD [address] [place] [address] TIARA@[email or web address] Rheumatology 07/30/23 Ayanna Fox FNP [address] [place] [address] [email or web address] Registered Nurse Nurse Practitioner 08/09/24 Shala Hartman NP [address] [place] [address] [email or web address] Nurse Practitioner 08/15/24 10/30/24 Karen Santo CNP [address] [place] [address] [email or web address] Nurse Practitioner 08/29/24 Shala Hartman NP [address] [place] [address] [email or web address] Nurse Practitioner 11/08/24 documented as of this encounter Additional Source Comments The information contained in this document represents components of the legal health record. It is not the complete legal health record.[facility]
--- OUTSIDE RECORDS SUMMARY | 2025-03-14 13:13 | XMS_ITS | Encounter Summary ---
Author Organization [facility] Address [address] [place] [address] Phone Care Team Providers Care Occupational Nurse Name Role Phone Christopher Thompson MD Unavailable [phone]- [phone] Ysabel Sanchez RN Unavailable [email or web address] Stephon Chambers RN Unavailable [phone] Carine Rivas RN Unavailable [email or web address] Vikki Perez MD Unavailable [phone] Amirah Smith MD Primary Care Provider Dusty Aguirre DO Unavailable [phone] Stephon Maya MD Unavailable [phone] Ayanna Fox SOCIAL AND HUMAN SERVICES ASSISTANT Unavailable Karen Santo GOLF COURSE MANAGER Unavailable Shala Hartman NP Unavailable Encounter Details Date Type Department Care Team (Late st Contact Info) Description 01/09/2025 Procedure Pass [facility], Ct Scan - [address] [address] Social History Tobacco Use Types Packs/Day Years [...] Info) Description 03/21/2025 9:40 AM EDT Infusion [facility] at [address] [address] Dusty Aguirre, DO [address] [place] [address] [email or web address]@[email or web address] 03/21/2025 11:30 AM EDT Office Visit [facility] at [address] [address] Ayanna Fox FNP [address] [place] [address] [email or web address] 03/21/2025 12:40 PM EDT Infusion [facility] at [address] [address] Dusty Aguirre DO [address] [place] [address] [email or web address]@[email or web address] [place] [place] [place] [facility] Karen Burgos, KAPIL [address] [place] [address] 04/04/2025 8:20 AM EDT Appointment [facility] [address] [place] [address] Dusty Aguirre, DO [address] [place] [address] [email or web address]@[facility] [place] [place] 04/04/2025 9:00 AM EDT Office Visit [facility] at [address] [address] Ayanna Fox FNP [address] [place] [address] 04/04/2025 10:00 AM EDT Infusion [facility] at [address] [address] Dusty Aguirre, DO [address] [place] [address] [email or web address]@[facility] Niyah Cole RN [address] [place] [address] [email or web address] 04/06/2025 3:20 PM EDT Telemedicine [facility] [address] [facility], 4th Floor, [address] [place] [address] Stephon Maya MD [address] [place] [address] [email or web address] 04/11/2025 10:20 AM EDT Appointment [facility] [address] [place] [address] Dusty Aguirre DO [address] [place] [address]185 [email or web address]@[facility] 04/11/2025 11:30 AM EDT Office Visit [facility] at [address] [address] Ayanna Fox FNP [address] [place] [address] [email or web address] 04/11/2025 12:40 PM EDT Infusion [facility] at [address] [address] Dusty Aguirre, DO [address] [place] [address] NAVEEN@[facility] Eldon Mckeon RN [address] [place] [address] 04/17/2025 9:10 AM EDT Appointment [facility] Laboratory [address] [place] [address] Dusty Aguirre, DO [address] [place] [address] NAVEEN@[facility] 04/17/2025 10:30 AM EDT Office Visit [facility] at [address] [address] Dusty Aguirre, DO [address] [place] [address] [email or web address]@[facility] 04/17/2025 11:20 AM EDT Infusion [facility] at [address] [address] Dusty Aguirre, DO [address] [place] [address] NAEVEN@[facility] Eldon Mckeon RN [address] [place] [address] 04/28/2025 11:50 AM EDT Appointment [facility] Laboratory [address] [place] [address] Dusty Aguirre, DO [address] [place] [address] NAVEEN@[facility] 04/28/2025 1:00 PM EDT Office Visit [facility] at [address] [address] Ayanna Fox FNP [address] [place] [address] [email or web address] 04/28/2025 2:00 PM EDT Infusion [facility] at [address] [address] Dusty Aguirre, DO [address] [place] [address] NAVEEN@[facility] Sophy Nolan RN [address] [place] [address] 05/08/2025 7:50 AM EDT Appointment [facility] [address] [place] [address] Dusty Aguirre, DO [address] [place] [address] 027[address] NAVEEN@[facility] 05/08/2025 9:00 AM EDT Office Visit [facility] at [address] [address] Dusty Aguirre, DO [address] [place] [address] [email or web address]@[facility] 05/08/2025 10:00 AM EDT Infusion [facility] at [address] [address] Dusty Aguirre, DO [address] [place] [address] [email or web address]@[facility] Eldon Mckeon, KAPIL [address] [place] [address] documented as of this encounter Visit Diagnoses Not on filedocumented in this encounter Care Teams Occupational Nurse Relationship Specialty Start Date End Date Amirah Smith MD [address] [place] [address] [place] [phone] PCP - General Internal Medicine 03/06/22 Christopher Thompson MD [facility] Obstetrics and Gynecology ServiceYAW [address] [place] [address] [email or web address] Primary Oncologist Gynecologic Oncology 02/06/20 Ysabel Sanchez RN [address] [place] [address] [email or web address] Associate Infusion Nurse 03/29/20 Stephon Chambers RN [address] [place] [address] [email or web address] Associate Infusion Nurse 09/18/20 Carine Rivas RN [address] [place] [phone] [email or web address] Primary Infusion Nurse 11/05/20 Vikki Perez MD [address] [place] [address] [address] [place] [address] CORIN@[email or web address] Primary Oncologist Gynecologic Oncology 03/27/21 Dusty Aguirre DO [address] [place] [address] [email or web address] Primary Oncologist Hematology and Oncology 05/01/22 Stephon Maya MD [address] [place] [address] [email or web address] Rheumatology 07/30/23 Ayanna Fox FNP [address] [place] [address] [email or web address] Registered Nurse Nurse Practitioner 08/09/24 Karen Santo CNP [address] [place] [address] [email or web address] Nurse Practitioner 08/29/24 Shala Hartman NP [address] [place] [address] [email or web address] Nurse Practitioner 11/08/24 documented as of this encounter Additional Source Comments The information contained in this document represents components of the legal health record. It is not the complete legal health record.[facility]
--- OUTSIDE RECORDS SUMMARY | 2025-03-14 13:13 | XMS_ITS | Encounter Summary ---
Author Organization [facility] Address [address] [place] [address] Phone Care Team Providers Care Powerhouse Electrician Apprentice Name Role Phone Christopher Thompson MD Unavailable + [phone] Ysabel Sanchez RN Unavailable [email or web address] Stephon Chambers RN Unavailable [phone] Amirah Smith MD Primary Care Provider Carine Rivas RN Unavailable [email or web address] Vikki Perez MD Unavailable [phone] Amirah Smith MD Primary Care Provider Dusty Aguirre DO Unavailable [phone] Marilia Nolan BOOKS SALESPERSON Unavailable [phone] Karen Santo CLINICAL MASSAGE THERAPIST Unavailable Loyda Pinon PA-C Unavailable gloria Stephon Maya MD Unavailable Minor BaltazarBS Unavailable [phone] Ayanna Fox BOOKS SALESPERSON Unavailable [phone] Shala Hartman NP Unavailable [phone] Karen Santo CNP Unavailable Shala Hartman NP Unavailable [phone] Encounter Details Date Type Department Care Team (Late st Contact Info) Description 07/15/2021 Procedure Pass [facility] [place] [facility] [address] [facility], [address] [place] [id number] Social History Tobacco Use Types Packs/Day Years [...] Info) Description 03/21/2025 9:40 AM EDT Infusion [facility] at [address] [address] Dusty Aguirre DO [address] [place] [address] [email or web address]@[email or web address] 03/21/2025 11:30 AM EDT Office [facility] Center at [address] [address] Ayanna Fox FNP [address] [place] [address] [email or web address] 03/21/2025 12:[address] [facility] Center at [address] [address] Dusty Aguirre DO [address] [place] [address] [email or web address] .[facility] Karen Burgos, KAPIL [address] [place] [address] [email or web address] 04/04/2025 8:20 AM EDT Appointment [facility] [address] [place] [address] Dusty Aguirre, DO [address] [place] [address] NAVEEN@[email or web address] 04/04/2025 9:00 AM EDT [facility] [address] [address] Ayanna Fox FNP [address] [place] [address] [email or web address] 04/04/2025 10:00 AM EDT [facility] [address] [address] Dusty Aguirre, DO [address] [place] [address] NAVEEN@[email or web address] Niyah Cole RN [address] [place] [address] [email or web address] 04/06/2025 3:20 PM EDT Telemedicine [address], 4[address] Floor, [address] [place] [address] Stephon Maya MD [address] [place] [address] [email or web address] 04/11/2025 10:20 AM EDT Appointment [facility] Laboratory [address] [place] [address] Dusty Aguirre, DO [address] [place] [address] [email or web address]@[email or web address] 04/11/2025 11:30 AM EDT [facility] [address] [address] Ayanna Fox FNP [address] [place] [address] 04/11/2025 12:40 PM EDT Infusion [facility] at [address] [address] Dusty Aguirre, DO [address] [place] [address] 332[address] NAVEEN@[email or web address] Eldon Mckeon RN [address] [place] [address] 04/17/2025 9:10 AM EDT Appointment [facility] Laboratory [address] [place] [address] Dusty Aguirre, DO [address] [place] [address] NAVEEN@[email or web address] 04/17/2025 10:30 AM EDT Office [facility] at [address] [address] Dusty Aguirre, DO [address] [place] [address] NAVEEN@[email or web address] 04/17/2025 11:20 AM EDT Infusion [facility] at [address] [address] Dusty Aguirre, DO [address] [place] [address] NAVEEN@[email or web address] Eldon Mckeon RN [address] [place] [address] [email or web address] 04/28/2025 11:50 AM EDT Appointment [facility] Laboratory [address] [place] [address] Dusty Aguirre, DO [address] [place] [address] NAVEEN@[email or web address] 04/28/2025 1:00 PM EDT [facility] [address] [address] Ayanna Fox FNP [address] [place] [address] [email or web address] 04/28/2025 2:[address] [facility] Center at [address] [address] Dusty Aguirre, DO [address] [place] [address] NAVEEN@[email or web address] Sophy Nolan RN [address] [place] [address] [email or web address] 05/08/2025 7:50 AM EDT Appointment [facility] Laboratory [address] [place] [address] Dusty Aguirre, DO [address] [place] [address] NAVEEN@[email or web address] 05/08/2025 9:00 AM EDT Office [facility] at [address] [address] Dusty Aguirre, DO [address] [place] [address] NAVEEN@[email or web address] 05/08/2025 10:[address] [facility] at [address] [address] Dusty Aguirre, DO [address] [place] [address] [email or web address]@[email or web address] Eldon Mckeon RN [address] [place] [address] [email or web address] documented as of this encounter Visit Diagnoses Not on filedocumented in this encounter Additional Health Concerns Infection Onset Date Last Indicated Resolved Time CoV-Risk 11/10/2022 11/10/2022 11/21/2022 1:24 AM EDT documented as of this encounter Care Teams Powerhouse Electrician Apprentice Relationship Specialty Start Date End Date Amirah Smith MD [address] [place] [address] Dr Sanchez [address] [place] [phone] PCP - General Internal Medicine 09/25/20 03/05/22 Amirah Smith MD [address] [place] [address] Dr Sanchez [address] [place] [address] [phone] PCP - General Internal Medicine 03/06/22 Christopher Thompson MD [address] [place] [address] Obstetrics and Gynecology [facility] [address] [place] [address] [email or web address] Primary Oncologist Gynecologic Oncology 02/06/20 Ysabel Sanchez RN [address] [place] [address] [email or web address] Associate Infusion Nurse 03/29/20 Stephon Chambers RN [address] [place] [address] [email or web address] Associate Infusion Nurse 09/18/20 Carine Rivas RN [address] [place] [phone] [email or web address] Primary Infusion Nurse 11/05/20 Vikki Perez MD [address] [place] [address] [address] [place] [address] [email or web address] Primary Oncologist Gynecologic Oncology 03/27/21 Dusty Aguirre DO [address] [place] [address] [email or web address]@[email or web address] Primary Oncologist Hematology and Oncology 05/01/22 Marilia Nolan FNP [address] [place] [address] [email or web address] Nurse Practitioner Medical Oncology 08/05/22 08/08/24 Karen Santo CNP [address] [place] [address] [email or web address] Nurse Practitioner Medical Oncology 09/05/22 08/08/24 Loyda Pinon PA-C [address] [place] [address] [email or web address] Physician M48/M60 Tank Driver Medical Oncology 10/20/22 08/20/23 Stephon Maya MD [address] [place] [address] [email or web address] Rheumatology 07/30/23 Minor Baltazar MBBS [address] [place] [address] [email or web address] Primary Oncologist Medical Oncology 10/16/23 10/25/23 Ayanna Fox FNP [address] [place] [address] [email or web address] Registered Nurse Nurse Practitioner 08/09/24 Shala Hartman, KATHY [address] [place] [address] [email or web address] Nurse Practitioner 08/15/24 10/30/24 Karen Santo CNP [address] [place] [address] [email or web address] Nurse Practitioner 08/29/24 Shala Hartman NP [address] [place] [address] [email or web address] Nurse Practitioner 11/08/24 documented as of this encounter Additional Source Comments The information contained in this document represents components of the legal health record. It is not the complete legal health record.[facility]
--- OUTSIDE RECORDS SUMMARY | 2025-03-14 13:13 | XMS_ITS | Encounter Summary ---
Author Organization [facility] Address [address] [place] [address] Phone Care Team Providers Care Turret Lathe Tender Name Role Phone Christopher Thompson MD Unavailable + [phone] Ysabel Sanchez RN Unavailable [email or web address] Stephon Chambers RN Unavailable [phone] Amirah Smith MD Primary Care Provider Carine Rivas RN Unavailable [email or web address] Vikki Perez MD Unavailable [phone] Amirah Smith MD Primary Care Provider Dusty Aguirre DO Unavailable [phone] Marilia Nolan INSIDE WIREMAN Unavailable [phone] Karen Santo ANESTHESIA ASSOCIATE Unavailable Loyda Pinon PA-C Unavailable gloria Stephon Maya MD Unavailable [phone] Minor BaltazarBS Unavailable [phone] Ayanna Fox INSIDE WIREMAN Unavailable [phone] Shala Hartman NP Unavailable [phone] Karen Santo CNP Unavailable Shala Hartman NP Unavailable [phone] Encounter Details Date Type Department Care Team (Late st Contact Info) Description 09/27/2020 Procedure Pass [facility] [place] [facility] [address] [facility], [address] [place] [address] Social History Tobacco Use Types Packs/Day Years [...] Description 03/21/2025 9:40 AM EDT Infusion [facility] at [address] [address] Dusty Aguirre DO [address] [place] [address] [email or web address]@[email or web address] 03/21/2025 11:30 AM EDT Office Visit [facility] Center at [address] [address] Ayanna Fox FNP [address] [place] [address] [email or web address] 03/21/2025 12:40 PM EDT Infusion [facility] Center at [address] [address] Dusty Aguirre DO [address] [place] [address] [email or web address]@[email or web address] [facility] Karen Burgos, KAPIL [address] [place] [address] [email or web address] 04/04/2025 8:20 AM EDT Appointment [facility] [address] [place] [address] Dusty Aguirre, DO [address] [place] [address] [email or web address] 04/04/2025 9:00 AM EDT Office Visit [facility] at [address] [address] Ayanna Fox FNP [address] [place] [address] [email or web address] 04/04/2025 10:00 AM EDT Infusion [facility] at [address] [address] Dusty Aguirre, DO [address] [place] [address] NAVEEN@[facility] Niyah Cole RN [address] [place] [address] [email or web address] 04/06/2025 3:20 PM EDT Telemedicine [address], 4[address] Floor, [address] [place] [address] Stephon Maya MD [address] [place] [address] [email or web address] 04/11/2025 10:20 AM EDT Appointment [facility] Laboratory [address] [place] [address] Dusty Aguirre, DO [address] [place] [address] NAVEEN@[facility] 04/11/2025 11:30 AM EDT Office Visit [facility] at [address] [address] Ayanna Fox FNP [address] [place] [address] 04/11/2025 12:40 PM EDT Infusion [facility] at [address] [address] Dusty Aguirre, DO [address] [place] [address] NAVEEN@[facility] Eldon Mckeon RN [address] [place] [address] 04/17/2025 9:10 AM EDT Appointment [facility] Laboratory [address] [place] [address] Dusty Aguirre, DO [address] [place] [address] NAVEEN@[facility] 04/17/2025 10:30 AM EDT Office Visit [facility] Center at [address] [address] Dusty Aguirre, DO [address] [place] [address] NAVEEN@[facility] 04/17/2025 11:20 AM EDT Infusion [facility] at [address] [address] Dusty Aguirre, DO [address] [place] [address] NAVEEN@[facility] Eldon Mckeon RN [address] [place] [address] [email or web address] 04/28/2025 11:50 AM EDT Appointment [facility] Laboratory [address] [place] [address] Dusty Aguirre, DO [address] [place] [address] NAVEEN@[facility] 04/28/2025 1:00 PM EDT Office Visit [facility] at [address] [address] Ayanna Fox FNP [address] [place] [address] [email or web address] 04/28/2025 2:00 PM EDT Infusion [facility] Center at [address] [address] Dusty Aguirre, DO [address] [place] [address] NAVEEN@[facility] Sophy Nolan RN [address] [place] [address] [email or web address] 05/08/2025 7:50 AM EDT Appointment [facility] Laboratory [address] [place] [address] Dusty Aguirre, DO [address] [place] [address] NAVEEN@[facility] 05/08/2025 9:00 AM EDT Office Visit [facility] Center at [address] [address] Dusty Aguirre, DO [address] [place] [address] NAVEEN@[facility] 05/08/2025 10:00 AM EDT Infusion [facility] Center at [address] [address] Dusty Aguirre, DO [address] [place] [address] [email or web address]@[email or web address] Eldon Mckeon RN [address] [place] [address] [email or web address] documented as of this encounter Visit Diagnoses Not on filedocumented in this encounter Additional Health Concerns Infection Onset Date Last Indicated Resolved Time CoV-Risk 11/10/2022 11/10/2022 11/21/2022 1:24 AM EDT documented as of this encounter Care Teams Turret Lathe Tender Relationship Specialty Start Date End Date Amirah Smith MD [address] [place] [address] Dr Sanchez [address] [place] [phone] PCP - General Internal Medicine 09/25/20 03/05/22 Amirah Smith MD [address] [place] [address] Dr Sanchez [address] [place] [address] [phone] PCP - General Internal Medicine 03/06/22 Christopher Thompson MD [address] [place] [address] Obstetrics and Gynecology [facility] [address] [place] [address] [email or web address] Primary Oncologist Gynecologic Oncology 02/06/20 Ysabel Sanchez RN [address] [place] [address] [email or web address] Associate Infusion Nurse 03/29/20 Stephon Chambers RN [address] [place] [address] [email or web address] Associate Infusion Nurse 09/18/20 Carine Rivas RN [address] [place] [phone] [email or web address] Primary Infusion Nurse 11/05/20 Vikki Perez MD [address] [place] [address] [address] [place] [address] CORIN@[email or web address] Primary Oncologist Gynecologic Oncology 03/27/21 Dusty Aguirre DO [address] [place] [address] NAVEEN@[facility] Primary Oncologist Hematology and Oncology 05/01/22 Marilia Nolan FNP [address] [place] [address] [email or web address] Nurse Practitioner Medical Oncology 08/05/22 08/08/24 Karen Santo CNP [address] [place] [address] [email or web address] Nurse Practitioner Medical Oncology 09/05/22 08/08/24 Loyda Pinon PA-C [address] [place] [address] [email or web address] Physician Client Leader Medical Oncology 10/20/22 08/20/23 Stephon Maya MD [address] [place] [address] TIARA@[email or web address] Rheumatology 07/30/23 Minor Baltazar MBBS [address] [place] [address] [email or web address] Primary Oncologist Medical Oncology 10/16/23 10/25/23 Ayanna Fox FNP [address] [place] [address] [email or web address] Registered Nurse Nurse Practitioner 08/09/24 Shala Hartman, KATHY [address] [place] [address] [email or web address] Nurse Practitioner 08/15/24 10/30/24 Karen Santo CNP [address] [place] [address] [email or web address] Nurse Practitioner 08/29/24 Shala Hartman NP [address] [place] [address] [email or web address] Nurse Practitioner 11/08/24 documented as of this encounter Additional Source Comments The information contained in this document represents components of the legal health record. It is not the complete legal health record.[facility]
--- OUTSIDE RECORDS SUMMARY | 2025-03-14 13:13 | XMS_ITS | Encounter Summary ---
Author Organization [facility] Address [address] [place] [address] Phone Care Team Providers Care Ski Maker Name Role Phone Seble Medina MD Primary Care Provider [phone] Christopher Thompson MD Unavailable + [phone] Ysabel Sanchez RN Unavailable [email or web address] Stephon Chambers RN Unavailable [phone] Amirah Smith MD Primary Care Provider Carine Rivas RN Unavailable [email or web address] Vikki Perez MD Unavailable [phone] Amirah Smith MD Primary Care Provider Dusty Aguirre DO Unavailable + [phone] Marilia Nolan MIDDLEWARE CONSULTANT Unavailable +[phone] Karen Santo CNP Unavailable Loyda Pinon PA-C Unavailable pnugen Stephon Maya MD Unavailable Minor BaltazarBS Unavailable [phone] Ayanna Fox MIDDLEWARE CONSULTANT Unavailable [phone] Shala Harmtan NP Unavailable [phone] Karen Santo CNP Unavailable Shala Hartman NP Unavailable Encounter Details Date Type Department Care Team (Late Contact Info) Description 04/25/2020 Procedure Pass [facility]IVE [facility] [address] [place] [address] Social History Tobacco Use Types Packs/Day Years [...] Info) Description 03/21/2025 9:40 AM EDT Infusion [facility] at [address] [address] Dusty Aguirre, [address] [place] [address] [email or web address]@[email or web address] 03/21/2025 11:30 AM EDT Office Visit [facility] at [address] [address] Ayanna Fox FNP [address] [place] [address] [email or web address] 03/21/2025 12:40 PM EDT Infusion [facility] at [address] [address] Dusty Aguirre DO [address] [place] [address] [email or web address]@[email or web address] .[facility] Karen Burgos, KAPIL [address] [place] [address] [email or web address] 04/04/2025 8:20 AM EDT Appointment [facility] [address] [place] [address] Dusty Aguirre, DO [address] [place] [address] [email or web address]@[email or web address] 04/04/2025 9:00 AM EDT Office Visit [facility] at [address] [address] Ayanna Fox FNP 30 [place] [address] [email or web address] 04/04/2025 10:00 AM EDT Infusion [facility] at [address] [address] Dsuty Agiurre, DO [address] [place] [address] [email or web address]@[facility] Niyah Cole, KAPIL [address] [place] [address] [email or web address] 04/06/2025 3:20 PM EDT Telemedicine [address], 4th Floor, [address] [place] [address] Stephon Maya MD [address] [place] [address] [email or web address] 04/11/2025 10:20 AM EDT Appointment [facility] [address] [place] [address] Dusty Aguirre, DO [address] [place] [address] [email or web address]@[email or web address] 04/11/2025 11:30 AM EDT Office Visit [facility] at [address] [address] Ayanna Fox FNP [address] [place] [address] [email or web address] 04/11/2025 12:40 PM EDT Infusion [facility] at [address] [address] Dusty Aguirre, DO [address] [place] [address] NAVEEN@[facility] Eldon Mckeon RN [address] [place] [address] 04/17/2025 9:10 AM EDT Appointment [facility] [address] [place] [address] Dusty Aguirre, DO [address] [place] [address] NAVEEN@[facility] 04/17/2025 10:30 AM EDT Office Visit [facility] at [address] [address] Dusty Aguirre, DO [address] [place] [address] [email or web address]@[facility] 04/17/2025 11:20 AM EDT Infusion [facility] at [address] [address] Dusty Aguirre, DO [address] [place] [address] NAVEEN@[facility] Eldon Mckeon, KAPIL [address] [place] [address] 04/28/2025 11:50 AM EDT Appointment [facility] Laboratory [address] [place] [address] Dusty Aguirre, DO [address] [place] [address] NAVEEN@[facility] 04/28/2025 1:00 PM EDT Office Visit [facility] at [address] [address] Ayanna Fox FNP [address] [place] [address] [email or web address] 04/28/2025 2:00 PM EDT Infusion [facility] at [address] [address] Dusty Aguirre, [address] [address] NAVEEN@[facility] Sophy Nolan, KAPIL [address] [place] [address] [email or web address] 05/08/2025 7:50 AM EDT Appointment [facility] Laboratory [address] [place] [address] Dusty Aguirre, DO [address] [place] [address] NAVEEN@[facility] 05/08/2025 9:00 AM EDT Office Visit [facility] at [address] [address] Dusty Aguirre, DO [address] [place] [address] NAVEEN@[facility] 05/08/2025 10:00 AM EDT Infusion [facility] at [address] [address] Dusty Aguirre, DO [address] [place] [address] [email or web address]@[email or web address] Eldon Mckeon, KAPIL [address] [place] [address] [email or web address] documented as of this encounter Visit Diagnoses Not on filedocumented in this encounter Additional Health Concerns Infection Onset Date Last Indicated Resolved Time CoV-Risk 11/10/2022 11/10/2022 11/21/2022 1:24 AM EDT documented as of this encounter Care Teams Ski Maker Relationship Specialty Start Date End Date Seble Medina MD [address] [place] [address] Dr LEMUS [facility] [phone] PCP - General Internal Medicine 01/19/20 09/24/20 Amirah Smith MD [address] [place] [address] [place] [phone] PCP - General Internal Medicine 09/25/20 03/05/22 Amirah Smith MD [address] [place] [address] [place] [phone] PCP - General Internal Medicine 03/06/22 Christopher Thompson MD [address] [place] [address] Obstetrics and Gynecology ServiceYA [address] [place] [address] [email or web address] Primary Oncologist Gynecologic Oncology 02/06/20 Ysabel Sanchez RN [address] [place] [address] [email or web address] Associate Infusion Nurse 03/29/20 Stephon Chambers RN [address] [place] [address] [email or web address] Associate Infusion Nurse 09/18/20 Carine Rivas, KAPIL [address] [place] [phone] [email or web address] Primary Infusion Nurse 11/05/20 Vikki Perez MD [address] [place] [address] [email or web address] Primary Oncologist Gynecologic Oncology 03/27/21 Dusty Aguirre DO [address] [place] [address] [email or web address]@[email or web address] Primary Oncologist Hematology and Oncology 05/01/22 Marilia Nolan FNP [address] [place] [address] [email or web address] Nurse Practitioner Medical Oncology 08/05/22 08/08/24 Karen Santo CNP [address] [place] [address] [email or web address] Nurse Practitioner Medical Oncology 09/05/22 08/08/24 Loyda Pinon PA-C [address] [place] [address] [email or web address] Physician Service Center Manager Medical Oncology 10/20/22 08/20/23 Stephon Maya MD [address] [place] [address] TIARA@[facility] Rheumatology 07/30/23 Minor Baltazar MBBS [address] [place] [address] [email or web address] Primary Oncologist Medical Oncology 10/16/23 10/25/23 Ayanna Fox FNP [address] [place] [address] [email or web address] Registered Nurse Nurse Practitioner 08/09/24 Shala Hartman NP [address] [place] [address] [email or web address] Nurse Practitioner 08/15/24 10/30/24 Karen Santo CNP [address] [place] [address] [email or web address] Nurse Practitioner 08/29/24 Shala Hartman NP [address] [place] [address] [email or web address] Nurse Practitioner 11/08/24 documented as of this encounter Additional Source Comments The information contained in this document represents components of the legal health record. It is not the complete legal health record.[facility]
--- OUTSIDE RECORDS SUMMARY | 2025-03-14 13:13 | XMS_ITS | Encounter Summary ---
Author Organization [facility] Address [address] [place] [address] Phone Care Team Providers Care Flash Welding Machine Operator Name Role Phone Christopher Thompson MD Unavailable + [phone] Ysabel Sanchez RN Unavailable [email or web address] Stephon Chambers RN Unavailable [phone] Amirah Smith MD Primary Care Provider Carine Rivas RN Unavailable [email or web address] Vikki Perez MD Unavailable [phone] Amirah Smith MD Primary Care Provider Dusty Aguirre DO Unavailable [phone] Marilia Nolan LABORATORY ANALYST Unavailable [phone] Karen Santo SPINNING MACHINE TENDER Unavailable Loyda Pinon PA-C Unavailable gloria Stephon Maya MD Unavailable Minor BaltazarBS Unavailable [phone] Ayanna Fox LABORATORY ANALYST Unavailable [phone] Shala Hartman NP Unavailable [phone] Karen Santo CNP Unavailable Shala Hartman NP Unavailable [phone] Encounter Details Date Type Department Care Team (Late st Contact Info) Description 03/04/2022 Procedure Pass [facility] Ct Scan - [address] [address] Social History Tobacco Use Types Packs/Day Years [...] Description 03/21/2025 9:40 AM EDT Infusion [facility] at [address] [address] Dusty Aguirre, DO [address] [place] [address] [email or web address]@[facility] 03/21/2025 11:30 AM EDT Office Visit [facility] at [address] [address] Ayanna Fox FNP [address] [place] [address] [email or web address] 03/21/2025 12:40 PM EDT Infusion [facility] at [address] [address] Dusty Aguirre DO [address] [place] [address] [email or web address] .[email or web address] Karen Burgos, KAPIL [address] [place] [address] 04/04/2025 8:20 AM EDT Appointment [facility] [address] [place] [address] Dusty Aguirre, DO [address] [place] [address] [email or web address]@[facility] 04/04/2025 9:00 AM EDT Office Visit [facility] at [address] [address] Ayanna Fox FNP [address] [place] [address] [email or web address] 04/04/2025 10:00 AM EDT Infusion [facility] at [address] [address] Dusty Aguirre, DO [address] [place] [address] NAVEEN@[facility] Niyah Cole RN [address] [place] [address] [email or web address] 04/06/2025 3:20 PM EDT Telemedicine [address], 4[address], [address] [place] [address] Stephon Maya MD [address] [place] [address] [email or web address]@[email or web address] 04/11/2025 10:20 AM EDT Appointment [facility] Laboratory [address] [place] [address] Dusty Aguirre, DO [address] [place] [address] NAVEEN@[facility] 04/11/2025 11:30 AM EDT Office Visit [facility] at [address] [address] Ayanna Fox FNP [address] [place] [address] 04/11/2025 12:40 PM EDT Infusion [facility] at [address] [address] Dusty Aguirre, DO [address] [place] [address] NAVEEN@[facility] Eldon Mckeon RN [address] [place] [address] 04/17/2025 9:10 AM EDT Appointment [facility] Laboratory [address] [place] [address] Dusty Aguirre, DO [address] [place] [address] NAVEEN@[facility] 04/17/2025 10:30 AM EDT Office Visit [facility] at [address] [address] Dusty Aguirre, DO [address] [place] [address] NAVEEN@[facility] 04/17/2025 11:20 AM EDT Infusion [facility] at [address] [address] Dusty Aguirre, DO [address] [place] [address] NAVEEN@[facility] Eldon Mckeon RN [address] [place] [address] 04/28/2025 11:50 AM EDT Appointment [facility] Laboratory [address] [place] [address] Dusty Aguirre, DO [address] [place] [address] NAVEEN@[facility] 04/28/2025 1:00 PM EDT Office Visit [facility] at [address] [address] Ayanna Fox [address] [address] [email or web address] 04/28/2025 2:00 PM EDT Infusion [facility] at [address] [address] Dusty Aguirre, DO [address] [place] [address] NAVEEN@[facility] Sophy Nolan RN [address] [place] [address] [email or web address] 05/08/2025 7:50 AM EDT Appointment [facility] [address] [place] [address] Dusty Aguirre, [address] [address] NAVEEN@[facility] 05/08/2025 9:00 AM EDT Office Visit [facility] at [address] [address] Dusty Aguirre, DO [address] [place] [address] NAVEEN@[facility] 05/08/2025 10:00 AM EDT Infusion [facility] at [address] [address] Dusty Aguirre, DO [address] [place] [address] [email or web address] Eldon Mckeon RN [address] [place] [address] [email or web address] documented as of this encounter Visit Diagnoses Not on filedocumented in this encounter Additional Health Concerns Infection Onset Date Last Indicated Resolved Time CoV-Risk 11/10/2022 11/10/2022 11/21/2022 1:24 AM EDT documented as of this encounter Care Teams Flash Welding Machine Operator Relationship Specialty Start Date End Date Amirah Smith MD [address] [place] [address] Dr Sanchez [address] [place] [phone] PCP - General Internal Medicine 09/25/20 03/05/22 Amirah Smith MD [address] [place] [address] Dr Sanchez [address] [place] [address] [phone] PCP - General Internal Medicine 03/06/22 Christopher Thompson MD [address] [place] [address] Obstetrics and Gynecology [facility] [address], [place] [address] [email or web address] Primary Oncologist Gynecologic Oncology 02/06/20 Ysabel Sanchez RN [address] [place] [address] [email or web address] Associate Infusion Nurse 03/29/20 tSephon Chambers RN [address] [place] [address] [email or web address] Associate Infusion Nurse 09/18/20 Carine Rivas RN [address] [place] [phone] [email or web address] Primary Infusion Nurse 11/05/20 Vikki Perez MD [address] [place] [address] [address] [place] [address] [email or web address] Primary Oncologist Gynecologic Oncology 03/27/21 Dusty Aguirre DO [address] [place] [address] [email or web address]@[email or web address] Primary Oncologist Hematology and Oncology 05/01/22 Marilia Nolan FNP [address] [place] [address] [email or web address] Nurse Practitioner Medical Oncology 08/05/22 08/08/24 Karen Santo CNP [address] [place] [address] [email or web address] Nurse Practitioner Medical Oncology 09/05/22 08/08/24 Loyda Pinon PA-C [address] [place] [address] [email or web address] Physician Social Services Analyst Medical Oncology 10/20/22 08/20/23 Stephon Maya MD [address] [place] [address] [email or web address]@[email or web address] Rheumatology 07/30/23 Minor Baltazar MBBS [address] [place] [address] [email or web address] Primary Oncologist Medical Oncology 10/16/23 10/25/23 Ayanna Fox FNP [address] [place] [address] [email or web address] Registered Nurse Nurse Practitioner 08/09/24 Shala Hartman, KATHY [address] [place] [address] [email or web address] Nurse Practitioner 08/15/24 10/30/24 Karen Santo CNP [address] [place] [address] [email or web address] Nurse Practitioner 08/29/24 Shala Hartman NP [address] [place] [address] [email or web address] Nurse Practitioner 11/08/24 documented as of this encounter Additional Source Comments The information contained in this document represents components of the legal health record. It is not the complete legal health record.[facility]
--- OUTSIDE RECORDS SUMMARY | 2025-03-14 13:13 | XMS_ITS | Clinical Summary ---
Author Organization [facility] Address [address] [place] [phone] Phone Care Team Providers Care Allergist Name Role Phone Christopher Thompson MD Unavailable [phone] Ysabel Sanchez RN Unavailable [email or web address] Stephon Chambers RN Unavailable [phone] Carine Rivas RN Unavailable [email or web address] Vikki Perez MD Unavailable [phone] Amirah Smith MD Primary Care Provider Dusty Aguirre DO Unavailable Stephon Maya MD Unavailable Ayanna Fox CAPACITY MANAGER Unavailable [phone] Karen Santo DIE GRINDER Unavailable Shala Hartman NP Unavailable [phone] Allergies Active Allergy Reactions Criticality Noted Date Comments Aspirin 01/24/2020 Medications FLUoxetine (PROZAC) 20 MG tablet Take 20 mg by mouth nightly at bedtime. Active atorvastatin calcium (ATORVASTATIN ORAL) Take 40 mg by mouth nightly at bedtime. Active budesonide/form oterol fumarate (SYMBICORT INHL) Inhale 1 puff into the lungs 2 (two) times a day. Active albuterol 90 mcg/actuation inhaler Inhale 1 puff into the lungs every 6 (six) hours as needed for wheezing. Active acetaminophen (TYLENOL) 325 mg tablet Take 2 tablets (650 mg total) by mouth every 6 (six) hours. 60 tablet 1 Active polyethylene glycol (MIRALAX) 17 gram packet Take 17 g by mouth daily. 30 packet 2 Active Additional Information Patient taking differently:17 g OralAs needed, Reported on 03/13/2025 senna (SENOKOT) 8.6 mg tablet Take 1 tablet by mouth nightly at bedtime. 30 tablet 1 Active Additional Information Patient not taking.Reported on 03/13/2025 buPROPion (WELLBUTRIN SR) 100 MG SR 12 hr tablet Take 100 mg by mouth daily. Active omeprazole (PRILOSEC) 20 MG capsule Take 1 capsule (20 mg total) by mouth daily. 30 capsule 3 021 Active magnesium oxide (MAG-OX) 400 mg (241.3 mg elemental) tabletIndicatio ns:Malignant neoplasm of ovary, unspecified laterality Take 1 tablet (400 mg total) by mouth daily. 30 tablet 3 022 Active levothyroxine (SYNTHROID, LEVOTHROID) 50 MCG tablet TAKE 1 TABLET BY MOUTH EVERY DAY IN THE MORNING 90 tablet 1 023 Active PEG 400-propylene glycol (SYSTANE) 0.4-0.3 % Drop Place 1 drop into each eye 4 (four) times a day. 10 mL 11 024 Active Additional Information Patient not taking.Reported on 03/13/2025 amLODIPine (NORVASC) 5 MG tabletIndicatio ns:Malignant neoplasm of ovary, unspecified laterality TAKE 1 TABLET (5 MG TOTAL) BY MOUTH DAILY. 90 tablet 1 024 Active carboxymethylce llulose (REFRESH TEARS) 0.5 % Drop Place 1-2 drops into each eye 4 (four) times a day. Active prochlorperazin e (COMPAZINE) 10 MG tabletIndicatio ns:Malignant neoplasm of ovary, unspecified laterality Take 1 tablet (10 mg total) by mouth every 6 (six) hours as needed. 30 tablet 3 024 Active cholecalciferol (VITAMIN D3) 2,000 unit tablet Take 1 tablet (2,000 Units total) by mouth daily. 90 tablet 1 025 Active simethicone 125 mg Cap Take 1 capsule (125 mg total) by mouth 4 (four) times a day as needed (CRAMPING PAIN). 28 capsule 025 Active Additional Information Patient not taking.Reported on 03/13/2025 LORazepam (ATIVAN) 1 MG tabletIndicatio ns:Malignant neoplasm of both ovaries Take 1 tablet (1 mg total) by mouth every 6 (six) hours as needed for anxiety (anxiety/nausea ). 30 tablet 3 025 Active calcium citrate (CALCITRATE) 950 mg (200 mg elemental) tablet Take 1 tablet by mouth daily. Active hydroxychloroqu ine (PLAQUENIL) 200 mg tablet TAKE 1 TABLET BY MOUTH EVERY DAY 90 tablet 3 025 Active lidocaine 2 % Soln Swish and spit 15 mL every 4 (four) hours as needed (for pain related to chemotherapy induced mouth sores). 100 mL 025 Active ACTEMRA ACTPEN 162 mg/0.9 mL subcutaneous pen injectionIndica tions:Seroposit jaleel rheumatoid arthritis of multiple sites INJECT 1 PEN (162 MG) UNDER THE SKIN EVERY 14 DAYS 1.8 mL 3 025 Active predniSONE (DELTASONE) 5 MG tabletIndicatio ns:Rheumatoid arthritis involving multiple sites with positive rheumatoid factor TAKE 1 TABLET BY MOUTH EVERY DAY WITH BREAKFAST 90 tablet 1 025 Active magnesium-alum- simeth(MAALOX)- diphenhydrAMINE -lidocaine (MIRACLE MOUTHWASH) oral/mucosal solution 1:1:1 Swish and spit 10 mL every 4 (four) hours as needed (for chemotherapy induced mouth sores). 280 mL 025 Active nystatin (MYCOSTATIN) 100,000 units/mL suspension SWISH AND SPIT 10 ML BY MOUTH EVERY 4 HOURS NEEDED FOR CHEMOTHERAPY INDUCED MOUTH SORES. 10 mL 025 Active predniSONE (DELTASONE) 5 MG tabletIndicatio ns:Rheumatoid arthritis involving multiple sites with positive rheumatoid factor Take 1 tablet (5 mg total) by mouth daily with breakfast. 90 tablet 1 024 2024 Discontinued nystatin (MYCOSTATIN) 100,000 units/mL suspension Take 5 mL (500,000 Units total) by mouth 4 (four) times a day. 473 mL 025 2024 Discontinued magnesium-alum- simeth(MAALOX)- diphenhydramine -lidocaine (MIRACLE MOUTHWASH) oral/mucosal solution 1:1:1 Swish and spit 10 mL every 4 (four) hours as needed (for chemotherapy induced mouth sores). 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 at [address] [address] Dusty Aguirre, Shala Muir, KATHY Malignant neoplasm of both ovaries (Primary Dx) 03/13/2025 9:[address] [facility] at [address] [address] Dusty Aguirre DO Malignant neoplasm of both ovaries; Intra-abdominal tumor 03/13/2025 Refill [facility] at [address] [address] Shala Hartman NP Med Change Request 03/13/[address] [facility] at [address] [address] Ayanna Fox FNP Medication Refill 03/09/[address] [facility] at [address] [address] Shiela Solo Medication Refill 03/06/2025 10:[address] [facility] at [address] [address] Dusty Aguirre, Carmen Belle, KAPIL Malignant neoplasm of both ovaries (Primary Dx) 03/06/2025 9:30 AM EDT Office Visit [facility] at [address] [address] Shala Hartman, KATHY Malignant neoplasm of both ovaries (Primary Dx) 03/06/2025 8:[address] [facility] at [address] [address] Dusty Aguirre, Tana Ross, KAPIL Malignant neoplasm of both ovaries 02/26/2025 Refill [facility] Rheumatology [address], 4[address] Floor, [address] [place] [address] Stephon Maya MD Medication Refill 02/20/2025 12:40 PM EDT Infusion [facility] at [address] [address] Dusty Aguirre DO Tompkins, Tessa Anne, KAIPL Malignant neoplasm of both ovaries (Primary Dx) 02/20/2025 11:00 AM EDT Office Visit [facility] at [address] [address] Dusty Aguirre, Shala Muir, KATHY Malignant neoplasm of both ovaries (Primary Dx) 02/20/2025 9:40 AM EDT Infusion [facility] at [address] [address] Dusty Aguirre DO Malignant neoplasm of both ovaries; Intra-abdominal tumor 02/20/2025 Orders Only [facility] at [address] [address] Shala Hartman, KATHY 02/14/2025 10:40 AM EDT Infusion [facility] at [address] [address] Dusty Aguirre, Karen Nayak, KAPIL Malignant neoplasm of both ovaries (Primary Dx) 02/14/2025 9:30 AM EDT Office Visit [facility] at [address] [address] Fox, Ayanna A, CAPACITY MANAGER Malignant neoplasm of both ovaries (Primary Dx); Drug-induced constipation 02/14/2025 8:40 AM EDT Infusion [facility] at [address] [address] Dusty Aguirre DO Hickson, Lauren, KAPIL Malignant neoplasm of both ovaries 02/10/2025 Orders Only [facility] Center for Gynecology Oncology [address] [place] [address], 9th Floor, [address] [place] [address] Marcella Zacarias CNP 02/07/2025 1:20 PM EDT Infusion [facility] at [address] [address] Dusty Aguirre DO Romero Losada, Martha Katherine, KAPIL Malignant neoplasm of both ovaries (Primary Dx) 02/07/2025 11:30 AM EDT Office Visit [facility] at [address] [address] Dominique Ayanna A, CAPACITY MANAGER Malignant neoplasm of both ovaries (Primary Dx); Anemia, unspecified type; Fatigue, unspecified type 02/07/2025 10:[address] [facility] at [address] [address] Dusty Aguirre DO Malignant neoplasm of both ovaries 02/07/2025 Orders Only [facility] at [address] [address] Isha Eileen Rose Malignant neoplasm of both ovaries (Primary Dx) 02/02/[address] [facility] at [address] [address] Dominique Ayanna A, CAPACITY MANAGER 02/02/2025 Refill [facility] Rheumatology [place] [address], 4th Floor, [address] [place] [address] Stephon Maya MD Medication Refill 01/31/2025 2:00 PM EDT [facility] On[facility] [address], 9th Floor, [address] [place] [address] Vikki Perez MD Malignant neoplasm of ovary, unspecified laterality (Primary Dx) 01/26/2025 9:30 AM EDT - 01/26/2025 11:59 PM EDT Hospital Encounter [facility] Scan - [address] [address] Dusty Aguirre DO Discharge Disposition: Home or Self Care 01/24/2025 12:[address] [facility] at [address] [address] Dusty Aguirre DO Brumbaugh, Benjamin, KAPIL Malignant neoplasm of both ovaries (Primary Dx) 01/24/2025 11:00 AM EDT Office Visit [facility] at [address] [address] Mery Foxil A, CAPACITY MANAGER Malignant neoplasm of both ovaries (Primary Dx); Mouth sores; Fatigue, unspecified type 01/24/2025 10:[address] [facility] at [address] [address] Dusty Aguirre, Malignant neoplasm of both ovaries 01/09/2025 10:[address] [facility] at [address] [address] Dusty Aguirre, Sophy Lazo, KAPIL Malignant neoplasm of both ovaries (Primary Dx) 01/09/2025 9:30 AM EDT Office Visit [facility] at [address] [address] Dusty Aguirre, Malignant neoplasm of both ovaries (Primary Dx) 01/09/2025 8:[address] [facility] at [address] [address] Dusty Aguirre, Malignant neoplasm of both ovaries; Intra-abdominal tumor 01/09/2025 Procedure Pass [address] [address] 01/09/2025 Procedure Pass [address] [id number] 12/27/2024 12:[address] [facility] at [address] [address] Dusty Aguirre DO Romero Losada, Martha Katherine, RN Malignant neoplasm of both ovaries (Primary Dx) 12/27/2024 11:00 AM EDT Office Visit [facility] at [address] [address] Ayanna Fox A, CAPACITY MANAGER Malignant neoplasm of both ovaries (Primary Dx); Anemia, unspecified type; Mouth sores; Fatigue, unspecified type 12/27/2024 10:[address] 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 at [address] [address] Eileen Vieira Malignant neoplasm of both ovaries (Primary Dx) 12/19/2024 12:[address] [facility] at [address] [address] Dusty Aguirre, Eldon Greer RN Malignant neoplasm of both ovaries (Primary Dx) 12/19/2024 10:00 AM EDT Office Visit [facility] at [address] [address] Dusty Aguirre DO Cowell, Courtney Lynn, KATHY Malignant neoplasm of both ovaries (Primary Dx) 12/19/2024 9:[address] [facility] at [address] [address] Dusty Aguirre DO Tompkins, Tessa Anne, KAPIL Malignant neoplasm of both ovaries; Intra-abdominal tumor 12/13/2024 1:[address] [facility] at [address] [address] Dusty Aguirre DO Romero Losada, Martha Katherine, KAPIL Malignant neoplasm of both ovaries (Primary Dx) 12/13/2024 10:30 AM EDT Office Visit [facility] at [address] [address] Ayanna Fox FNP Malignant neoplasm of both ovaries (Primary Dx); Functional diarrhea; Hypothyroidism, unspecified type 12/13/2024 9:[address] [facility] at [address] [address] Dusty Aguirre W, DO Malignant neoplasm of both ovaries; Intra-abdominal tumor; Rheumatoid arthritis involving multiple sites with positive rheumatoid factor; Anticentromere antibodies present; Age-related osteoporosis without current pathological fracture; manager intermediate (current) use of systemic steroids; High mean corpuscular hemoglobin concentration (MCHC); Elevated TSH 12/13/[address] [facility] at [address] [address] Ayanna Fox FNP Med Change Request from Last 3 Months Immunizations Immunization Administration Dates Next Due Influenza High-Dose Quadrivalent Preservative Fr ee IM 04/05/2020 Influenza High-Dose Trivalent Preservative Free IM 08/18/2017 Influenza, Unspecified Formulation 04/05/2020 Pneumococcal polysaccharide PPSV23 08/05/2013 Tdap 08/05/2013 Family History Medical History Relation Comments Colon cancer Father Breast cancer Paternal Aunt Relation Status Comments Father Paternal Aunt Social History Tobacco Use Types Packs/Day Years Used Date Smoking Tobacco: Former Cigarettes 0.5 25 0 01/15/1995 - 01/16/2020 Smokeless Tobacco: Never Tobacco Cessation:Counseling Given: Not Answered Alcohol Use Standard Drinks/Week Comments Not Currently [...] your housing situation today? I have malika morrison 03/25/2024 How many times have you move [...] on file Sexual Orientation Not on file Last Filed Vital Signs Vital Sign Reading Time Taken Comments Blood Pressure 128/64 03/13/2025 9:00 AM EDT Pulse 79 03/13/2025 9:00 AM EDT Temperature 36.5 C (97.7 F) 03/13/2025 9:00 AM EDT Respiratory Rate 16 12/13/2024 1:00 PM EDT Oxygen Saturation 95% 03/13/2025 9:00 AM EDT Inhaled Oxygen Concentration - - Weight 56.2 kg (123 lb 14.4 oz) 03/13/2025 9:00 AM EDT Height 158 cm (5' 2.21 ) 03/13/2025 9:00 AM EDT Body Mass Index 22.51 03/13/2025 9:00 AM EDT Plan of Treatment Upcoming Encounters Date Type Department Care Team (Late st Contact Info) Description 03/21/2025 9:[address] [facility] at [address] [address] Dusty Aguirre, DO [address] [place] [phone] [email or web address] 03/21/2025 11:30 AM EDT Office Visit [facility] at [address] [address] Ayanna Fox FNP [address] [place] [phone] [email or web address] 03/21/2025 12:40 PM EDT Infusion [facility] at [address] [address] Dusty Aguirre DO [address] [place] [address] [email or web address] Karen Burgos, KAPIL [address] [place] [address] [email or web address] 04/04/2025 8:20 AM EDT Appointment [facility] [address] [place] [address] Dusty Aguirre DO [address] [place] [address] [email or web address] 04/04/2025 9:00 AM EDT Office Visit [facility] at [address] [address] Ayanna Fox, CAPACITY MANAGER [address] [place] [address] [email or web address] 04/04/2025 10:00 AM EDT Infusion [facility] at [address] [address] Dusty Aguirre, DO [address] [place] [address] [email or web address] Niyah Cole, KAPIL [address] [place] [address] 04/06/2025 3:20 PM EDT Telemedicine [address], 4th Floor, [address] [place] [address] Stephon Maya MD [address] [place] [address] [email or web address] 04/11/2025 10:20 AM EDT Appointment [address] [address] Dusty Aguirre, DO [address] [place] [address] [email or web address] 04/11/2025 11:30 AM EDT Office Visit [facility] at [address] [address] Ayanna Fox, CAPACITY MANAGER [address] [place] [address] [email or web address] 04/11/2025 12:40 PM EDT Infusion [facility] at [address] [address] Dusty Aguirre, DO [address] [place] [address] [email or web address] Eldon Mckeon RN [address] [place] [address] 04/17/2025 9:10 AM EDT Appointment [facility] [address] [place] [address] Dusty Aguirre, DO [address] [place] [phone] [email or web address] 04/17/2025 10:30 AM EDT Office Visit [facility] at [address] [address] Dusty Aguirre, DO [address] [place] [phone] [email or web address] 04/17/2025 11:20 AM EDT Infusion [facility] at [address] [address] Dusty Aguirre, DO [address] [place] [address] [email or web address] Eldon Mckeon RN [address] [place] [address] 04/28/2025 11:50 AM EDT Appointment [facility] [address] [place] [address] Dusty Aguirre, DO [address] [place] [phone] [email or web address] 04/28/2025 1:00 PM EDT Office Visit [facility] at [address] [address] Ayanna Fox FNP [address] [place] [address] [email or web address] 04/28/2025 2:00 PM EDT Infusion [facility] at [address] [address] Dusty Aguirre, DO [address] [place] [address] [email or web address] Sophy Nolan, KAPIL [address] [place] [phone] 05/08/2025 7:50 AM EDT Appointment [facility] [address] [place] [address] Dusty Aguirre, DO [address] [place] [phone] [email or web address] 05/08/2025 9:00 AM EDT Office Visit [facility] at [address] [address] Dusty Aguirre, DO [address] [place] [phone] [email or web address] 05/08/2025 10:00 AM EDT Infusion [facility] at [address] [address] Dusty Aguirre, DO [address] [place] [phone] [email or web address] Eldon Mckeon, KAPIL [address] [place] [phone] [email or web address] Health Maintenance Due Date Last Done Comments LIPID PANEL 1947 COVID-19 VACCINE (#1) 1952 DEPRESSION SCREENING 1959 ZOSTER VACCINES (1 of 2) 1966 OSTEOPOROSIS SCREENING INITIAL (ONE-TIME) 2012 PNEUMOCOCCAL VACCINES (50+ years) (2 of 2 - PCV) 08/05/2014 08/05/2013 RSV VACCINE (1 - 1-dose 75+ series) 2022 Adult Td,Tdap Booster 08/05/2023 08/05/2013 INFLUENZA VACCINE (#1) 2025 , 04/05/2020, 08/18/2017 BLOOD PRESSURE 09/13/2025 03/13/2025 TSH LEVEL 12/13/2025 12/13/2024, 06/08/2022, 10/27/2022, Additional history exists SMOKING STATUS SCREENING (Every 5 Years) 03/13/2030 03/13/2025 HEPATITIS C SCREENING Completed 05/06/2023 HEPATITIS A VACCINES Aged Out No long er eligible based on patient's age to complete this topic HIB VACCINES Aged Out No longer eligi ble based on patient's age to complete this topic MENINGOCOCCAL VACCINES (ACWY) Aged Out No longer eligible based on patient's age to complete this topic MENINGOCOCCAL VACCINES (B) Aged Out N o longer eligible based on patient's age to complete this topic Medical Devices Implanted Type Area Core Java Engineer Device Identifier Shelf Expiration Date Model / Serial / Lot Port Dignity 6.6fr Infusion Mini Attachable Silicone Filled Suture Hole Chronoflex Catheter - [id number] Implanted:Qty: 1 on 02/10/2020 by Eufemia Noel CNP at [facility] Right: Chest Wall MED COMP 04/18/2024 [id number] / / [id number] Procedures Procedure Name Priority Date/Time Associated Diagnosis Comments COMPREHENSIVE METABOLIC PANEL Routine 03/13/2025 8:56 AM EDT Malignant neoplasm of both ovaries CBC AND DIFFERENTIAL Routine 03/13/2025 8:56 AM EDT Malignant neoplasm of both ovaries CA-125 Routine 03/13/2025 8:56 AM EDT Malignant neoplasm of both ovaries Intra-abdominal tumor COMPREHENSIVE METABOLIC PANEL Routine 03/06/2025 8:11 AM EDT Malignant neoplasm of both ovaries CBC AND DIFFERENTIAL Routine 03/06/2025 8:11 AM EDT Malignant neoplasm of both ovaries COMPREHENSIVE METABOLIC PANEL Routine 02/20/2025 9:37 AM EDT Malignant neoplasm of both ovaries CBC AND DIFFERENTIAL Routine 02/20/2025 9:37 AM EDT Malignant neoplasm of both ovaries CA-125 Routine 02/20/2025 9:37 AM EDT Malignant neoplasm of both ovaries Intra-abdominal tumor COMPREHENSIVE METABOLIC PANEL Routine 02/14/2025 8:44 AM EDT Malignant neoplasm of both ovaries CBC AND DIFFERENTIAL Routine 02/14/2025 8:44 AM EDT Malignant neoplasm of both ovaries CA-125 Routine 02/14/2025 8:44 AM EDT Malignant neoplasm of both ovaries IRON AND IRON BINDING CAPACITY Routine 02/07/2025 10:11 AM EDT FERRITIN Routine 02/07/2025 10:11 AM EDT CA-125 Routine 02/07/2025 10:11 AM EDT Malignant neoplasm of both ovaries COMPREHENSIVE METABOLIC PANEL Routine 02/07/2025 10:11 AM EDT Malignant neoplasm of both ovaries CBC AND DIFFERENTIAL Routine 02/07/2025 10:11 AM EDT Malignant neoplasm of both ovaries CT ABDOMEN/PELVIS WITH CONTRAST Routine 01/26/2025 10:33 AM EDT Malignant neoplasm of both ovaries CT CHEST WITH CONTRAST Routine 01/26/2025 10:33 AM EDT Malignant neoplasm of both ovaries CA-125 Routine 01/24/2025 9:58 AM EDT Malignant neoplasm of both ovaries COMPREHENSIVE METABOLIC PANEL Routine 01/24/2025 9:58 AM EDT Malignant neoplasm of both ovaries CBC AND DIFFERENTIAL Routine 01/24/2025 9:58 AM EDT Malignant neoplasm of both ovaries COMPREHENSIVE METABOLIC PANEL Routine 01/09/2025 8:42 AM EDT Malignant neoplasm of both ovaries CBC AND DIFFERENTIAL Routine 01/09/2025 8:42 AM EDT Malignant neoplasm of both ovaries CA-125 Routine 01/09/2025 8:42 AM EDT Malignant neoplasm of both ovaries Intra-abdominal tumor IRON AND IRON BINDING CAPACITY Routine 12/27/2024 10:03 AM EDT FERRITIN Routine 12/27/2024 10:03 AM EDT COMPREHENSIVE METABOLIC PANEL Routine 12/27/2024 10:03 AM EDT Malignant neoplasm of both ovaries CBC AND DIFFERENTIAL Routine 12/27/2024 10:03 AM EDT Malignant neoplasm of both ovaries CA-125 Routine 12/27/2024 10:03 AM EDT Malignant neoplasm of both ovaries COMPREHENSIVE METABOLIC PANEL Routine 12/19/2024 9:20 AM EDT Malignant neoplasm of both ovaries CBC AND DIFFERENTIAL Routine 12/19/2024 9:20 AM EDT Malignant neoplasm of both ovaries CA-125 Routine 12/19/2024 9:20 AM EDT Malignant neoplasm of both ovaries Intra-abdominal tumor PARATHYROID HORMONE (PTH) Routine 12/13/2024 9:31 AM EDT Age-related osteoporosis without current pathological fracture penitentiary (current) use of systemic steroids Antinuclear antibody, titer and pattern Routine 12/13/2024 9:25 AM EDT FREE T4 Routine 12/13/2024 9:25 AM EDT FOLATE Routine 12/13/2024 9:25 AM EDT Age-related osteoporosis without current pathological fracture manager intermediate (current) use of systemic steroids High mean corpuscular hemoglobin concentration (MCHC) TSH WITH REFLEX Routine 12/13/2024 9:25 AM EDT Age-related osteoporosis without current pathological fracture manager intermediate (current) use of systemic steroids High mean corpuscular hemoglobin concentration (MCHC) Elevated TSH ANTINUCLEAR ANTIBODY (RADHA) Routine 12/13/2024 9:25 AM EDT Anticentromere antibodies present SEDIMENTATION RATE (ESR) Routine 12/13/2024 9:25 AM EDT Rheumatoid arthritis involving multiple sites with positive rheumatoid factor C-REACTIVE PROTEIN Routine 12/13/2024 9: 25 AM EDT Rheumatoid arthritis involving multiple sites with positive rheumatoid factor COMPREHENSIVE METABOLIC PANEL Routine 12/13/2024 9:25 AM EDT Malignant neoplasm of both ovaries CBC AND DIFFERENTIAL Routine 12/13/2024 9:25 AM EDT Malignant neoplasm of both ovaries CA-125 Routine 12/13/2024 9:25 AM EDT Malignant neoplasm of both ovaries Intra-abdominal tumor HEPATITIS C ANTIBODY, QUALITATIVE Routine 05/06/2023 9:30 AM EDT Need for hepatitis C screening test from Last 3 Months or Most Recently Relevant to Health Maintenance Results * (ABNORMAL) Comprehensive metabolic panel (03/13/2025 8:56 AM EDT) Only the most recent of10 resultswithin the time period is included. SODIUM 138 133 - 146 mmol/L [facility] POTASSIUM 4.2 3.3 - 5.1 mmol/L [facility] CHLORIDE 102 96 - 108 mmol/L [facility] CO2 25 21 - 35 mmol/L [facility] BUN 17 6 - 19 mg/dL [facility] CREATININE 0.60 0.5 - 1.5 mg/dL [facility] GLUCOSE 101(H) 70 - 99 mg/dL [facility] ALBUMIN 3.9 3.9 - 4.8 g/dL [facility] TOTAL PROTEIN 5.7(L) 6.5 - 8.0 g/dL [facility] CALCIUM 9.2 8.4 - 10.3 mg/dL [facility] ALKALINE PHOSPHATASE 66 39 - 117 U/L [facility] TOTAL BILIRUBIN 0.4 0.0 - 1.2 mg/dL [facility] AST 23 0 - 37 U/L [facility] ALT 17 0 - 40 U/L [facility] GLOBULIN 1.8 1 - 4.8 g/dL [facility] EGFR 92 >59 mL/min/1.7 3m2 [facility] Comment:Estimated glomerular filtration rate calculated using the CKD-EPI refit equation. ANION GAP 15 10 - 20 mmol/L [facility] Blood 03/13/2025 8:56 AM EDT 03/13/2025 9:17 AM EDT Shala Hartman NP LAB BLOOD ORDERABLES Fin al Result Performing Organization Address City/State/[facility] Co de Phone Number [address] [address] * (ABNORMAL) CBC and differential (03/13/2025 8:56 AM EDT) Only the most recent of10 resultswithin the time period is included. WBC 11.58(H) 4.00 - 11.00 K/uL [facility] RBC 3.24(L) 4.00 - 5.20 M/uL [facility] HGB 10.4(L) 12.0 - 16.0 g/dL [facility] HCT 33.0(L) 36.0 - 46.0 % [facility] PLT 411 150 - 450 K/uL [facility] MCV 101.9(H) 80.0 - 100.0 fL [facility] MCH 32.1(H) 27.0 - 31.0 pg [facility] MCHC 31.5(L) 32.0 - 36.0 g/dL [facility] RDW 17.0(H) 11.5 - 14.5 % [facility] MPV 9.6 8.4 - 12.0 fL [facility] NRBC 0.30(H) 0.00 /100 WBCs [facility] ABSOLUTE NRBC 0.03(H) 0.00 K/uL [facility] DIFF METHOD Auto [facility] NEUTS 72.4 48.0 - 76.0 % [facility] LYMPHS 19.3 18.0 - 41.0 % [facility] MONOS 4.9 4.0 - 11.0 % [facility] EOS 1.4 0.0 - 5.0 % [facility] BASOS 0.8 0.0 - 1.5 % [facility] Granulocytes, immature (%) 1.2(H) 0.0 - 0.9 % [facility] ABSOLUTE NEUTS 8.38(H) 1.92 - 7.60 K/uL [facility] ABSOLUTE LYMPHS 2.24 0.72 - 4.10 K/uL [facility] ABSOLUTE MONOS 0.57 0.16 - 1.10 K/uL [facility] ABSOLUTE EOS 0.16 0.00 - 0.50 K/uL [facility] ABSOLUTE BASOS 0.09 0.00 - 0.15 K/uL [facility] Granulocytes, immature 0.14(H) 0.00 - 0.09 K/uL [facility] Blood 03/13/2025 8:56 AM EDT 03/13/2025 9:17 AM EDT us Shala Hartman NP LAB BLOOD ORDERABLES Fin al Result [address] [address] * (ABNORMAL) CA-125 (03/13/2025 8:56 AM EDT) Only the most recent of9 resultswithin the time period is included. CA 125 156.0(H) 0 - 35 U/mL [facility] Comment: Test Methodology Brenda [id number] Patient results determined by assays using different manufacturers or methods may not be comparable. Blood 03/13/2025 8:56 AM EDT 03/13/2025 9:17 AM EDT us Montano W Timothy DO LAB BLOOD ORDERABLES Final Result [address] [address] * Iron and iron binding capacity (02/07/2025 10:11 AM EDT) Only the most recent of2 resultswithin the time period is included. IRON 57 30 - 160 ug/dL [facility] IRON BINDING CAPACITY 269 228 - 428 ug/dL [facility] TRANSFERRIN SATURAT. 21 15 - 50 % [facility] 02/07/2025 10:1 1 AM EDT 02/07/2025 10:34 AM EDT Shala Hartman BEHAVIORAL HEALTH CONSULTANT LAB BLOOD ORDERABLES Fin al Result Performing Organization Address City/[facility]/ZIP Co de Phone Number [address] [address] * Ferritin (02/07/2025 10:11 AM EDT) Only the most recent of2 resultswithin the time period is included. FERRITIN 121 13 - 150 ug/L [facility] 02/07/2025 10:1 1 AM EDT 02/07/2025 10:34 AM EDT Shala Hartman BEHAVIORAL HEALTH CONSULTANT LAB BLOOD ORDERABLES Fin al Result Performing Organization Address City/[facility]/ZIP Co de Phone Number [address] [address] * CT CHEST WITH CONTRAST (01/26/2025 10:33 AM EDT) Anatomical Region Laterality Modality Chest Computed Tomogra phy 01/29/2025 5:58 AM EDT Impressions 01/30/2025 10:07 AM EDT 1. Unchanged bilateral pulmonary nodules. No new or enlarging pulmonary nodules are thoracic lymphadenopathy. Narrative 01/30/2025 10:[address] CHEST WITH CONTRAST Referring clinician's provided indication for this examination in [facility]: * Ovarian cancer, assess treatment response TECHNIQUE: Multidetector CT of the chest was performed with intravenous contrast using tailored dose modulation techniques. COMPARISON: CT CHEST WITH CONTRAST FINDINGS: Devices/Tubes/Lines: Port a cath ends in the right atrium. Lungs: The central airways are patent. No focal airspace consolidation. Few linear opacities, favored to represent atelectasis versus scarring. Subpleural reticular opacities particularly in the anterior upper lobes bilaterally. Biapical pleural-parenchymal thickening and calcifications. Calcific granulomas. No new/enlarging pulmonary nodules or consolidation. Unchanged scattered 2-4mm nodules, for example in the right upper lobe (4:84) 2mm and 4 mm (4:161). Mild diffuse bronchial wall thickening. Pleura: No pleural effusion. No pneumothorax. Mediastinum: The imaged thyroid gland is hypotrophic and heterogeneous. Normal size of cardiac chambers. Calcific atherosclerosis of the aorta, coronary arteries, and epiaortic vessels. No pericardial effusion. Tiny hiatal hernia. Lymph Nodes: No enlarged supraclavicular, axillary, mediastinal, or hilar lymph nodes. Upper Abdomen: Reported separately. Chest Wall: No chest wall mass. Bones: No lytic or blastic lesions. Degenerative joint and spine disease. Heterogeneous osseous demineralization Procedure Note Janet Cunha MD - 01/30/2025 CT CHEST WITH CONTRAST Referring clinician's provided indication for this examination in [facility]: *Ovarian cancer, assess treatment response TECHNIQUE: Multidetector CT of the chest was performed with intravenouscontrast using tailored dose modulation techniques. COMPARISON: CT CHEST WITH CONTRAST FINDINGS: Devices/Tubes/Lines: Port a cath ends in the right atrium. Lungs: The central airways are patent. No focal airspace consolidation.Few linear opacities, favored to represent atelectasis versus scarring.Subpleural reticular opacities particularly in the anterior upper lobesbilaterally. Biapical pleural-parenchymal thickening and calcifications.Calcific granulomas. No new/enlarging pulmonary nodules or consolidation.Unchanged scattered 2-4mm nodules, for example in the right upper lobe(4:84) 2mm and 4 mm (4:161). Mild diffuse bronchial wall thickening. Pleura: No pleural effusion. No pneumothorax. Mediastinum: The imaged thyroid gland is hypotrophic and heterogeneous.Normal size of cardiac chambers. Calcific atherosclerosis of the aorta,coronary arteries, and epiaortic vessels. No pericardial effusion. Tinyhiatal hernia. Lymph Nodes: No enlarged supraclavicular, axillary, mediastinal, or hilarlymph nodes. Upper Abdomen: Reported separately. Chest Wall: No chest wall mass. Bones: No lytic or blastic lesions. Degenerative joint and spine disease.Heterogeneous osseous demineralization IMPRESSION: 1. Unchanged bilateral pulmonary nodules. No new or enlarging pulmonarynodules are thoracic lymphadenopathy. us Montano W Timothy DO IMG CT CHEST Final Resul t * CT ABDOMEN/PELVIS WITH CONTRAST (01/26/2025 10:33 AM EDT) Anatomical Region Laterality Modality Abdomen, Pelvis Computed Tomogra phy 01/29/2025 5:46 AM EDT Impressions 01/30/2025 10:16 AM EDT Interval enlargement of a now 16mm right inguinal lymph node. Narrative 01/30/2025 10:[address] ABDOMEN/PELVIS WITH CONTRAST Referring clinician's provided indication for this examination in Epic: * Ovarian cancer, assess treatment response TECHNIQUE: Multidetector-row CT of the abdomen and pelvis was performed after administration of intravenous contrast using tailored dose modulation techniques. Images were reconstructed in the axial, coronal, and sagittal planes. COMPARISON: CT ABDOMEN/PELVIS WITH CONTRAST FINDINGS: Lower chest: Reported separately. Liver: No concerning hepatic lesions. Biliary: No biliary ductal dilatation. Spleen: Resected. Similar calcified left upper quadrant mass. Pancreas: No masses or ductal dilatation. Adrenal glands: No nodules. Kidneys/ureters: No hydronephrosis. No stones. 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 Subcentimeter hypoattenuating foci, too small to accurately characterize and statistically representing cysts. Bowel: No dilation or wall thickening. Small hiatal hernia. Moderate volume fecal burden throughout the colon. Peritoneum/retroperitoneum: No free air or fluid. Lymph nodes: Enlarged 16mm vs 10mm right inguinal lymph node. Scattered additional abdominopelvic lymph nodes which do not meet pathologic criteria by size. Pelvic organs/bladder: No masses. Hysterectomy and bilateral salpingo- oophorectomy. Vessels: No abdominal aortic aneurysm. Calcific atherosclerosis of the aorta and its major branches. Bones/soft tissues: No destructive osseous lesions. Osteopenia. Degenerative joint and spine disease. Unchanged scattered subcentimeter bone islands. Small supraumbilical hernia contains non obstructed loop of small bowel. Unchanged hypotrophy and fat infiltration of the right gluteal musculature. Minimal anterolisthesis of L4 on L5 Procedure Note Janet Cunha MD - 01/30/2025 CT ABDOMEN/PELVIS WITH CONTRAST Referring clinician's provided indication for this examination in Epic: *Ovarian cancer, assess treatment response TECHNIQUE: Multidetector-row CT of the abdomen and pelvis was performedafter administration of intravenous contrast using tailored dosemodulation techniques. Images were reconstructed in the axial, coronal,and sagittal planes. COMPARISON: CT ABDOMEN/PELVIS WITH CONTRAST FINDINGS: Lower chest: Reported separately. Liver: No concerning hepatic lesions. Biliary: No biliary ductal dilatation. Spleen: Resected. Similar calcified left upper quadrant mass. Pancreas: No masses or ductal dilatation. Adrenal glands: No nodules. Kidneys/ureters: No hydronephrosis. No stones. Unchanged partiallyexophytic 17mm lesion arising from the interpolar left kidney andcorresponding to biopsy proven angiomyolipoma. Subcentimeterhypoattenuating foci, too small to accurately characterize andstatistically representing cysts. Bowel: No dilation or wall thickening. Small hiatal hernia. Moderatevolume fecal burden throughout the colon. Peritoneum/retroperitoneum: No free air or fluid. Lymph nodes: Enlarged 16mm vs 10mm right inguinal lymph node. Scatteredadditional abdominopelvic lymph nodes which do not meet pathologiccriteria by size. Pelvic organs/bladder: No masses. Hysterectomy and bilateralsalpingo- oophorectomy. Vessels: No abdominal aortic aneurysm. Calcific atherosclerosis of theaorta and its major branches. Bones/soft tissues: No destructive osseous lesions. Osteopenia.Degenerative joint and spine disease. Unchanged scattered subcentimeterbone islands. Small supraumbilical hernia contains non obstructed loop ofsmall bowel. Unchanged hypotrophy and fat infiltration of the rightgluteal musculature. Minimal anterolisthesis of L4 on L5 IMPRESSION: Interval enlargement of a now 16mm right inguinal lymph node. Dusty Aguirre DO IMG CT ABD/PELVIS Final Res ult * Parathyroid hormone (PTH) (12/13/2024 9:31 AM EDT) PARATHYROID HORMONE 64 15 - 65 pg/mL [facility] Blood 12/13/2024 9:31 AM EDT 12/13/2024 9:46 AM EDT us Stephon Maya MD LAB BLOOD ORDERABLES Final Result Performing Organization Address [facility] Co de Phone Number [address] [address] * Antinuclear antibody, titer and pattern (12/13/2024 9:25 AM EDT) RADHA TITER 1:40 Homogeneous [facility] Comment:1:40 Speckled 12/13/2024 9:25 AM EDT 12/13/2024 9:45 AM EDT Stephon Maya MD LAB BLOOD ORDERABLES Final Result Performing Organization Address [facility] Co de Phone Number [address] [address] * (ABNORMAL) TSH with reflex (12/13/2024 9:25 AM EDT) TSH 9.24(H) 0.27 - 4.20 uIU/mL [facility] Blood 12/13/2024 9:25 AM EDT 12/13/2024 9:45 AM EDT us Stephon Maya MD LAB BLOOD ORDERABLES Final Result Performing Organization Address [facility]/ZIP Co de Phone Number [address] [address] * Sedimentation rate (ESR) (12/13/2024 9:25 AM EDT) [facility] ESR <1 0 - 30 mm/h [facility] Blood 12/13/2024 9:25 AM EDT 12/13/2024 9:45 AM EDT us Stephon Maya MD LAB BLOOD ORDERABLES Final Result Performing Organization Address [facility] Co de Phone Number [address] [address] * C-Reactive Protein (12/13/2024 9:25 AM EDT) [facility] C REACTIVE PROTEIN <3.0 0.0 - 4.0 mg/L [facility] Blood 12/13/2024 9:25 AM EDT 12/13/2024 9:45 AM EDT us Stephon Maya MD LAB BLOOD ORDERABLES Final Result Performing Organization Address [facility] Co de Phone Number [address] [address] * (ABNORMAL) Antinuclear antibody (RADHA) (12/13/2024 9:25 AM EDT) Pathologist [facility] RADHA SCREEN ON HEP 2 Positive(A ) Negative [facility] Comment:An RADHA Titer has bee n reflexed. The results will follow. Blood 12/13/2024 9:25 AM EDT 12/13/2024 9:45 AM EDT Stephon Maya MD LAB BLOOD ORDERABLES Final Result Performing Organization Address [facility] Co de Phone Number [address] [address] * Free T4 (12/13/2024 9:25 AM EDT) FREE T4 1.6 0.9 - 1.7 ng/dL [facility] 12/13/2024 9:25 AM EDT 12/13/2024 9:45 AM EDT Stephon Maya MD LAB BLOOD ORDERABLES Final Result Performing Organization Address [facility] de Phone Number [address] [address] * Folate (12/13/2024 9:25 AM EDT) FOLIC ACID 8.6 4.2 - 19.9 ng/mL [facility] Blood 12/13/2024 9:25 AM EDT 12/13/2024 9:45 AM EDT Stephon Maya MD LAB BLOOD ORDERABLES Final Result Performing Organization Address [facility] de Phone Number [address] [address] * Hepatitis C antibody, qualitative (05/06/2023 9:30 AM EDT) HCV NON-REACTIV E NON-REACTI VE [facility] Blood 05/06/2023 9:30 AM EDT 05/06/2023 9:36 AM EDT Stephon Maya MD LAB BLOOD ORDERABLES Final Result Performing Organization Address [facility] Co de Phone Number [address] [place] [address] from Last 3 Months or Most Recently Relevant to Health Maintenance Insurance [employer] Advance Directives For more information, please contact: [phone] (9AM - 5PM [place], Thursday-Thursday) * Full Code (Latest Code Status on File) Date Activated Date Inactivated Comments 04/27/2020 7:38 AM Question Answer Comments Code Status Confirmed With: Patient Code Discussion Comments: Harvinder * Full Code (Presumed) Date Activated Date Inactivated Comments 02/10/2020 8:56 AM 04/25/2020 10:59 AM Care Teams Allergist Relationship Specialty Start Date End Date Amirah Smith MD [address] [place] [address] [place] [phone] PCP - General Internal Medicine 03/06/22 Christopher Thompson MD [address] [facility] Obstetrics and Gynecology ServiceYAW [address] [place] [address] [email or web address] Primary Oncologist Gynecologic Oncology 02/06/20 Ysabel Sanchez RN [address] [place] [phone] [email or web address] Associate Infusion Nurse 03/29/20 Stephon Chambers RN [address] [place] [phone] [email or web address] Associate Infusion Nurse 09/18/20 Carine Rivas RN [address] [place] [phone] [email or web address] Primary Infusion Nurse 11/05/20 Vikki Perez MD [address] [place] [address] [address] [place] [address] [email or web address] Primary Oncologist Gynecologic Oncology 03/27/21 Dusty Augirre DO [address] [place] [address] [email or web address] Primary Oncologist Hematology and Oncology 05/01/22 Stephon Maya MD [address] [place] [address] [email or web address] Rheumatology 07/30/23 Ayanna Fox FNP [address] [place] [phone] [email or web address] Registered Nurse Nurse Practitioner 08/09/24 Karen Santo CNP [address] [place] [phone] [email or web address] Nurse Practitioner 08/29/24 Shala Hartman NP [address] [place] [phone] [email or web address] Practitioner 11/08/24 Additional Source Comments The information contained in this document represents components of the legal health record. It is not the complete legal health record.[facility]
--- OUTSIDE RECORDS SUMMARY | 2025-03-14 13:13 | XMS_ITS | Encounter Summary ---
Author Organization [facility] Address [address] [place] [address] Phone Care Team Providers Care Metallurgical Engineering Teacher Name Role Phone Christopher Thompson MD Unavailable + [phone] Ysabel Sanchez RN Unavailable [email or web address] Stephon Chambers RN Unavailable [phone] Amirah Smith MD Primary Care Provider Carine Rivas RN Unavailable [email or web address] Vikki Perez MD Unavailable [phone] Amirah Smith MD Primary Care Provider Dusty Aguirre DO Unavailable [phone] Marilia Nolan REPAIRER VENEER SHEET Unavailable [phone] Karen Santo POLYSILICON PREPARATION WORKER Unavailable Loyda Pinon PA-C Unavailable gloria Stephon Maya MD Unavailable Minor BaltazarBS Unavailable [phone] Ayanna Fox REPAIRER VENEER SHEET Unavailable [phone] Shala Hartman NP Unavailable [phone] Karen Santo CNP Unavailable Shala Hartman NP Unavailable [phone] Encounter Details Date Type Department Care Team (Late st Contact Info) Description 09/27/[address], [facility] General Imaging - [place] [address] [place] [address] Social History Tobacco Use Types Packs/Day Years [...] Info) Description 03/21/2025 9:40 AM EDT Infusion [facility] Center at [address] [address] Dusty Aguirre DO [address] [place] [address] [email or web address]@[email or web address] 03/21/2025 11:30 AM EDT Office Visit [facility] at [address] [address] Ayanna Fox FNP [address] [place] [address] [email or web address] 03/21/2025 12:40 PM EDT Infusion [facility] at [address] [address] Dusty Aguirre DO [address] [place] [address] [email or web address] [facility] Karen Burgos, KAPIL [address] [place] [address] 04/04/2025 8:20 AM EDT Appointment [facility] [address] [place] [address] Dusty Aguirre, DO [address] [place] [address] [email or web address]@[facility] 04/04/2025 9:00 AM EDT Office Visit [facility] at [address] [address] Ayanna Fox FNP [address] [place] [address] [email or web address] 04/04/2025 10:00 AM EDT Infusion [facility] at [address] [address] Dusty Aguirre, DO [address] [place] [address] [email or web address]@[facility] Niyah Cole RN [address] [place] [address] [email or web address] 04/06/2025 3:20 PM EDT Telemedicine [address], 4th Floor, [address] [place] [address] Stehpon Maya MD [address] [place] [address] [email or web address] 04/11/2025 10:20 AM EDT Appointment [facility] Laboratory [address] [place] [address] Dusty Aguirre, DO [address] [place] [address] [email or web address]@[email or web address] 04/11/2025 11:30 AM EDT Office Visit [facility] at [address] [address] Ayanna Fox FNP [address] [place] [address] 04/11/2025 12:40 PM EDT Infusion [facility] at [address] [address] Dusty Aguirre, DO [address] [place] [address] [email or web address]@[facility] Eldon Mckeon RN [address] [place] [address] 04/17/2025 9:10 AM EDT Appointment [facility] Laboratory [address] [place] [address] Dusty Aguirre, DO [address] [place] [address] [email or web address]@[facility] 04/17/2025 10:30 AM EDT Office Visit [facility] at [address] [address] Dusty Aguirre, DO [address] [place] [address] [email or web address]@[facility] 04/17/2025 11:20 AM EDT Infusion [facility] at [address] [address] Dusty Aguirre, DO [address] [place] [address] [email or web address]@[facility] Eldon Mckeon RN [address] [place] [address] 04/28/2025 11:50 AM EDT Appointment [facility] Laboratory [address] [place] [address] Dusty Aguirre, DO [address] [place] [address] [email or web address]@[facility] 04/28/2025 1:00 PM EDT Office Visit [facility] at [address] [address] Ayanna Fox FNP [address] [place] [address] [email or web address] 04/28/2025 2:00 PM EDT Infusion [facility] at [address] [address] Dusty Aguirre, DO [address] [place] [address] [email or web address]@[facility] Sophy Nolan RN [address] [place] [address] [email or web address] 05/08/2025 7:50 AM EDT Appointment [address] [address] Dusty Aguirre, DO [address] [place] [address] [email or web address]@[facility] 05/08/2025 9:00 AM EDT Office Visit [facility] at [address] [address] Dusty Aguirre, DO [address] [place] [address] [email or web address]@[facility] 05/08/2025 10:00 AM EDT Infusion [facility] at [address] [address] Dusty Aguirre, DO [address] [place] [address] JAY [email or web address] Eldon Mckeon RN [address] [place] [address] [email or web address] documented as of this encounter Visit Diagnoses Not on filedocumented in this encounter Additional Health Concerns Infection Onset Date Last Indicated Resolved Time CoV-Risk 11/10/2022 11/10/2022 11/21/2022 1:24 AM EDT documented as of this encounter Care Teams Metallurgical Engineering Teacher Relationship Specialty Start Date End Date Amirah Smith MD [address] [place] [address] Dr Sanchez [facility] [place] [phone] PCP - General Internal Medicine 09/25/20 03/05/22 Amirah Smith MD [address] [place] [address] [place] [phone] PCP - General Internal Medicine 03/06/22 Christopher Thompson MD [address] [place] [address] [facility] [address] [place] [address] [email or web address] Primary Oncologist Gynecologic Oncology 02/06/20 Ysabel Sanchez RN [address] [place] [address] [email or web address] Associate Infusion Nurse 03/29/20 Stephon Chambers RN [address] [place] [address] [email or web address] Associate Infusion Nurse 09/18/20 Carine Rivas RN [address] [place] [phone] [email or web address] Primary Infusion Nurse 11/05/20 Vikki Perez MD [address] [place] [address] [address] [place] [address] [email or web address] Primary Oncologist Gynecologic Oncology 03/27/21 Dusty Aguirre DO [address] [place] [address] [email or web address]@[email or web address] Primary Oncologist Hematology and Oncology 05/01/22 Marilia Nolan FNP [address] [place] [address] [email or web address] Nurse Practitioner Medical Oncology 08/05/22 08/08/24 Karen Santo CNP [address] [place] [address] [email or web address] Nurse Practitioner Medical Oncology 09/05/22 08/08/24 Loyda Pinon PA-C [address] [place] [address] [email or web address] Physician Geography Department Chair Medical Oncology 10/20/22 08/20/23 Stephon Maya MD [address] [place] [address] [email or web address] Rheumatology 07/30/23 Minor Baltazar MBBS [address] [place] [address] [email or web address] Primary Oncologist Medical Oncology 10/16/23 10/25/23 Ayanna Fox FNP [address] [place] [address] [email or web address] Registered Nurse Nurse Practitioner 08/09/24 Shala HartmanKATHY [address] [place] [address] [email or web address] Nurse Practitioner 08/15/24 10/30/24 Karen Santo CNP [address] [place] [address] [email or web address] Nurse Practitioner 08/29/24 Shala Hartman NP [address] [place] [address] [email or web address] Nurse Practitioner 11/08/24 documented as of this encounter Additional Source Comments The information contained in this document represents components of the legal health record. It is not the complete legal health record.[facility]
--- OUTSIDE RECORDS SUMMARY | 2025-03-14 13:13 | XMS_ITS | Encounter Summary ---
Author Organization [facility] Address [address] [place] [address] Phone Care Team Providers Care Dean Of Students Name Role Phone Christopher Thompson MD Unavailable + [phone] Ysabel Sanchez RN Unavailable [email or web address] Stephon Chambers RN Unavailable [phone] Carine Rivas RN Unavailable [email or web address] Vikki Perez MD Unavailable [phone] Amirah Smith MD Primary Care Provider Dusty Aguirre DO Unavailable Stephon Maya MD Unavailable [phone] Ayanna Fox WOOD GRINDER Unavailable Karen Santo BLANCHING MACHINE OPERATOR Unavailable Shala Hartman NP Unavailable [phone] Encounter Details Date Type Department Care Team (Late st Contact Info) Description 02/07/2025 Orders Only [facility] at [facility] [address] [place], [place] [phone] Eileen Vieira [address] [place] [address] [email or web address] Malignant neoplasm of both ovaries (Primary Dx) [...] Info) Description 03/21/2025 9:40 AM EDT Infusion [facility] at [address] [address] Dusty Aguirre DO [address] [place] [address] [email or web address]@[email or web address] 03/21/2025 11:30 AM EDT Office Visit [facility] at [address] [address] Ayanna Fox FNP [address] [place] [phone] [email or web address] 03/21/2025 12:40 PM EDT Infusion [facility] at [address] [address] Dusty Aguirre DO [address] [place] [address] [email or web address] .[email or web address] Karen Burgos, KAPIL [address] [place] [address] [email or web address] 04/04/2025 8:20 AM EDT Appointment [facility] [address] [place] [address] Dusty Aguirre DO [address] [place] [address] [email or web address] 04/04/2025 9:00 AM EDT Office Visit [facility] at [address] [address] Ayanna Fox WOOD GRINDER [address] [place] [address] [email or web address] 04/04/2025 10:00 AM EDT Infusion [facility] at [address] [address] Dusty Aguirre, DO [address] [place] [address] [email or web address] Niyah Cole, KAPIL [address] [place] [address] 04/06/2025 3:20 PM EDT Telemedicine [address], 4th Floor, [address] [place] [address] Stephon Maya MD [address] [place] [address] [email or web address] 04/11/2025 10:20 AM EDT Appointment [address] [address] Dusty Aguirre, DO [address] [place] [address] [email or web address]@[facility] 04/11/2025 11:30 AM EDT Office Visit [facility] at [address] [address] Ayanna Fox, WOOD GRIND[address] [address] [email or web address] 04/11/2025 12:40 PM EDT Infusion [facility] at [address] [address] Dusty Aguirre, DO [address] [place] [address] [email or web address]@[facility] Eldon Mckeon RN [address] [place] [address] 04/17/2025 9:10 AM EDT Appointment [facility] Laboratory [address] [place] [address] Dusty Aguirre, DO [address] [place] [address] [email or web address]@[facility] 04/17/2025 10:30 AM EDT Office Visit [facility] at [address] [address] Dusty Aguirre, DO [address] [place] [address] [email or web address]@[facility] 04/17/2025 11:20 AM EDT Infusion [facility] at [address] [address] Dusty Aguirre, DO [address] [place] [address] [email or web address]@[facility] Eldon Mckeon RN [address] [place] [address] 04/28/2025 11:50 AM EDT Appointment [facility] Laboratory [address] [place] [address] Dusty Aguirre, DO [address] [place] [address] [email or web address]@[facility] 04/28/2025 1:00 PM EDT Office Visit [facility] at [address] [address] Ayanna Fox FNP [address] [place] [address] 04/28/2025 2:00 PM EDT Infusion [facility] at [address] [address] Dusty Aguirre, DO [address] [place] [address] [email or web address]@[facility] Sophy Nolan RN [address] [place] [address] 05/08/2025 7:50 AM EDT Appointment [facility] [address] [place] [address] Dusty Aguirre, DO [address] [place] [address] [email or web address] 05/08/2025 9:00 AM EDT Office Visit [facility] at [address] [address] Dusty Aguirre, DO [address] [place] [address] [email or web address]@[facility] 05/08/2025 10:00 AM EDT Infusion [facility] Center at [address] [address] Dusty Aguirre, DO [address] [place] [address] [email or web address]@[facility] Eldon Mckeon, KAPIL [address] [place] [address] [email or web address] documented as of this encounter Results * (ABNORMAL) Comprehensive metabolic panel (02/14/2025 8:44 AM EDT) [facility] SODIUM 138 133 - 146 mmol/L [facility] POTASSIUM 4.1 3.3 - 5.1 mmol/L [facility] CHLORIDE 102 96 - 108 mmol/L [facility] CO2 24 21 - 35 mmol/L [facility] BUN 18 6 - 19 mg/dL [facility] CREATININE 0.70 0.5 - 1.5 mg/dL [facility] GLUCOSE 96 70 - 99 mg/dL [facility] ALBUMIN 4.0 3.9 - 4.8 g/dL [facility] TOTAL PROTEIN 5.8(L) 6.5 - 8.0 g/dL [facility] CALCIUM 9.2 8.4 - 10.3 mg/dL [facility] ALKALINE PHOSPHATASE 69 39 - 117 U/L [facility] TOTAL BILIRUBIN 0.3 0.0 - 1.2 mg/dL [facility] AST 27 0 - 37 U/L [facility] ALT 20 0 - 40 U/L [facility] GLOBULIN 1.8 1 - 4.8 g/dL [facility] EGFR 89 >59 mL/min/1.7 3m2 [facility] Comment:Estimated glomerular filtration rate calculated using the CKD-EPI refit equation. ANION GAP 16 10 - 20 mmol/L [facility] Blood 02/14/2025 8:44 AM EDT 02/14/2025 9:02 AM EDT us Dusty Aguirre DO LAB BLOOD ORDERABLES Final Result Performing Organization Address City/State/[facility] Co de Phone Number [facility] [address] [place] [address] * (ABNORMAL) CBC and differential (02/14/2025 8:44 AM EDT) WBC 11.65(H) 4.00 - 11.00 K/uL [facility] RBC 3.27(L) 4.00 - 5.20 M/uL [facility] HGB 10.3(L) 12.0 - 16.0 g/dL [facility] HCT 33.3(L) 36.0 - 46.0 % [facility] PLT 450 150 - 450 K/uL [facility] MCV 101.8(H) 80.0 - 100.0 fL [facility] MCH 31.5(H) 27.0 - 31.0 pg [facility] MCHC 30.9(L) 32.0 - 36.0 g/dL [facility] RDW 15.9(H) 11.5 - 14.5 % [facility] MPV 9.5 8.4 - 12.0 fL [facility] NRBC 0.30(H) 0.00 /100 WBCs [facility] ABSOLUTE NRBC 0.03(H) 0.00 K/uL [facility] DIFF METHOD Auto [facility] NEUTS 65.9 48.0 - 76.0 % [facility] LYMPHS 23.3 18.0 - 41.0 % [facility] MONOS 6.4 4.0 - 11.0 % [facility] EOS 2.1 0.0 - 5.0 % [facility] BASOS 1.0 0.0 - 1.5 % [facility] Granulocytes, immature (%) 1.3(H) 0.0 - 0.9 % [facility] ABSOLUTE NEUTS 7.68(H) 1.92 - 7.60 K/uL [facility] ABSOLUTE LYMPHS 2.72 0.72 - 4.10 K/uL [facility] ABSOLUTE MONOS 0.74 0.16 - 1.10 K/uL [facility] ABSOLUTE EOS 0.24 0.00 - 0.50 K/uL [facility] ABSOLUTE BASOS 0.12 0.00 - 0.15 K/uL [facility] Granulocytes, immature 0.15(H) 0.00 - 0.09 K/uL [facility] Blood 02/14/2025 8:44 AM EDT 02/14/2025 9:02 AM EDT us Dusty W Timothy DO LAB BLOOD ORDERABLES Final Result [facility] [address] [place] [address] documented in this encounter Visit Diagnoses Diagnosis Malignant neoplasm of both ovaries- Primary documented in this encounter Care Teams Dean Of Students Relationship Specialty Start Date End Date Amirah Smith MD [address] [place] [address] [place] [phone] PCP - General Internal Medicine 03/06/22 Christopher Thompson MD [address] [facility] Obstetrics and Gynecology ServiceYAW [address] [place] [address] [email or web address] Primary Oncologist Gynecologic Oncology 02/06/20 Ysabel Sanchez RN [address] [place] [address] [email or web address] Associate Infusion Nurse 03/29/20 Stephon Chambers RN [address] [place] [address] [email or web address] Associate Infusion Nurse 09/18/20 Carine Rivas RN [address] [place] [phone] [email or web address] Primary Infusion Nurse 11/05/20 Vikki Perez MD [address] [facility] Y[address] [place] [address] [email or web address] Primary Oncologist Gynecologic Oncology 03/27/21 Dusty Aguirre DO [address] [place] [address] [email or web address] Primary Oncologist Hematology and Oncology 05/01/22 Stephon Maya MD [address] [place] [address] [email or web address] Rheumatology 07/30/23 Ayanna Fox FNP [address] [place] [address] [email or web address] Registered Nurse Nurse Practitioner 08/09/24 Karen Santo CNP [address] [place] [address] [email or web address] Nurse Practitioner 08/29/24 Shala Hartman NP [address] [place] [address] [email or web address] Nurse Practitioner 11/08/24 documented as of this encounter Additional Source Comments The information contained in this document represents components of the legal health record. It is not the complete legal health record.[facility]
--- OUTSIDE RECORDS SUMMARY | 2025-03-14 13:13 | XMS_ITS | Encounter Summary ---
Author Organization [facility] Address [address] [place] [address] Phone Care Team Providers Care Seamless Hosiery Knitter Name Role Phone Christopher Thompson MD Unavailable + [phone] Ysabel Sanchez RN Unavailable [email or web address] Stephon Chambers RN Unavailable [phone] Amirah Smith MD Primary Care Provider Carine Rivas RN Unavailable [email or web address] Vikki Perez MD Unavailable [phone] Amirah Smith MD Primary Care Provider Dusty Aguirre DO Unavailable [phone] Marilia Nolan PRIMER WATERPROOFING MACHINE ADJUSTER Unavailable [phone] Karen Santo 2 YEAR [employer] TE[employer] Unavailable Loyda Pinon PA-C Unavailable gloria Stephon Maya MD Unavailable Minor BaltazarBS Unavailable [phone] Ayanna Fox PRIMER WATERPROOFING MACHINE ADJUSTER Unavailable [phone] Shala Hartman NP Unavailable [phone] Karen Santo CNP Unavailable Shala Hartman NP Unavailable [phone] Encounter Details Date Type Department Care Team (Late st Contact Info) Description 03/04/2022 Procedure Pass [facility], Ct Scan - [address] [address] Social History Tobacco Use Types Packs/Day Years [...] Info) Description 03/21/2025 9:40 AM EDT Infusion [facility] at [address] [address] Dusty Aguirre, DO [address] [place] [address] [email or web address]@[email or web address] 03/21/2025 11:30 AM EDT Office Visit [facility] at [address] [address] Ayanna Fox FNP [address] [place] [address] [email or web address] 03/21/2025 12:40 PM EDT Infusion [facility] at [address] [address] Dusty Aguirre DO [address] [place] [address] [email or web address] [facility] Karen Burgos, KAPIL [address] [place] [address] 04/04/2025 8:20 AM EDT Appointment [facility] [address] [place] [address] Dusty Aguirre, DO [address] [place] [address] [email or web address]@[facility] 04/04/2025 9:00 AM EDT Office Visit [facility] at [address] [address] Ayanna Fox FNP [address] [place] [address] [email or web address] 04/04/2025 10:00 AM EDT Infusion [facility] at [address] [address] Dusty Aguirre, DO [address] [place] [address] [email or web address]@[email or web address] Niyah Cole RN [address] [place] [address] [email or web address] 04/06/2025 3:20 PM EDT Telemedicine [address], 4th Floor, [address] [place] [address] tSephon Maya MD [address] [place] [address] [email or web address] 04/11/2025 10:20 AM EDT Appointment [facility] Laboratory [address] [place] [address] Dusty Aguirre, DO [address] [place] [address] NAVEEN@[facility] 04/11/2025 11:30 AM EDT Office Visit [facility] at [address] [address] Ayanna Fox FNP [address] [place] [address] 04/11/2025 12:40 PM EDT Infusion [facility] at [address] [address] Dusty Aguirre, DO [address] [place] [address] [email or web address]@[facility] Eldon Mckeon RN [address] [place] [address] 04/17/2025 9:10 AM EDT Appointment [facility] Laboratory [address] [place] [address] Dusty Aguirre, DO [address] [place] [address] NAVEEN@[facility] 04/17/2025 10:30 AM EDT Office Visit [facility] at [address] [address] Dusty Aguirre, DO [address] [place] [address] NAVEEN@[facility] 04/17/2025 11:20 AM EDT Infusion [facility] at [address] [address] Dusty Aguirre, DO [address] [place] [address] NAVEEN@[facility] Eldon Mckeon RN [address] [place] [address] 04/28/2025 11:50 AM EDT Appointment [facility] Laboratory [address] [place] [address] Dusty Aguirre, DO [address] [place] [address] NAVEEN@[facility] 04/28/2025 1:00 PM EDT Office [facility] at [address] [address] Ayanna Fox [address] [address] [email or web address] 04/28/2025 2:00 PM EDT Infusion [facility] at [address] [address] Dusty Aguirre, DO [address] [place] [address] NAVEEN@[facility] Sophy Nolan RN [address] [place] [address] [email or web address] 05/08/2025 7:50 AM EDT Appointment [facility] Laboratory [address] [place] [address] Dusty Aguirre, [address] [address] NAVEEN@[facility] 05/08/2025 9:00 AM EDT Office Visit [facility] at [address] [address] Dusty Aguirre, DO [address] [place] [address] NAVEEN@[facility] 05/08/2025 10:00 AM EDT Infusion [facility] at [address] [address] Dusty Aguirre, DO [address] [place] [address] [email or web address] Eldon Mckeon RN [address] [place] [address] [email or web address] documented as of this encounter Visit Diagnoses Not on filedocumented in this encounter Additional Health Concerns Infection Onset Date Last Indicated Resolved Time CoV-Risk 11/10/2022 11/10/2022 11/21/2022 1:24 AM EDT documented as of this encounter Care Teams Seamless Hosiery Knitter Relationship Specialty Start Date End Date Amirah Smith MD [address] [place] [address] Dr Sanchez [address] [place] [address] [phone] PCP - General Internal Medicine 09/25/20 03/05/22 Amirah Smith MD [address] [place] [address] Dr Sanchez [address] [place] [address] [place] [phone] PCP - General Internal Medicine 03/06/22 Christopher Thompson MD [address] [place] [address] Obstetrics and Gynecology [facility] [address], [place] [address] [email or web address] Primary Oncologist Gynecologic Oncology 02/06/20 Ysabel Sanchez RN [address] [place] [address] [email or web address] Associate Infusion Nurse 03/29/20 Stephon Chambers RN [address] [place] [address] [email or web address] Associate Infusion Nurse 09/18/20 Carine Rivas RN [address] [place] [phone] [email or web address] Primary Infusion Nurse 11/05/20 Vikki Perez MD [address] [place] [address] [address] [place] [address] [email or web address] Primary Oncologist Gynecologic Oncology 03/27/21 Dusty Aguirre DO [address] [place] [address] [email or web address]@[email or web address] Primary Oncologist Hematology and Oncology 05/01/22 Marilia Nolan FNP [address] [place] [address] [email or web address] Nurse Practitioner Medical Oncology 08/05/22 08/08/24 Karen Santo CNP [address] [place] [address] [email or web address] Nurse Practitioner Medical Oncology 09/05/22 08/08/24 Loyda Pinon PA-C [address] [place] [address] [email or web address] Physician Emergency Services Director Medical Oncology 10/20/22 08/20/23 Stephon Maya MD [address] [place] [address] TIARA@[email or web address] Rheumatology 07/30/23 Minor Baltazar MBBS [address] [place] [address] [email or web address] Primary Oncologist Medical Oncology 10/16/23 10/25/23 Ayanna Fox FNP [address] [place] [address] [email or web address] Registered Nurse Nurse Practitioner 08/09/24 Shala Hartman, KATHY [address] [place] [address] [email or web address] Nurse Practitioner 08/15/24 10/30/24 Karen Santo CNP [address] [place] [address] [email or web address] Nurse Practitioner 08/29/24 Shala Hartman NP [address] [place] [address] [email or web address] Nurse Practitioner 11/08/24 documented as of this encounter Additional Source Comments The information contained in this document represents components of the legal health record. It is not the complete legal health record.[facility]
--- OUTSIDE RECORDS SUMMARY | 2025-03-14 13:13 | XMS_ITS | Encounter Summary ---
Author Organization [facility] Address [address] [place] [address] Phone Care Team Providers Care City Assessor Name Role Phone Christopher Thompson MD Unavailable [phone] Ysabel Sanchez RN Unavailable [email or web address] Stephon Chambers RN Unavailable [phone] Carine Rivas RN Unavailable [email or web address] Vikki Perez MD Unavailable [phone] Amirah Smith MD Primary Care Provider Dusty Aguirre DO Unavailable [phone] Stephon Maya MD Unavailable Ayanna Fox TUCKPOINTER Unavailable Karen Santo RUBBER ATTACHER Unavailable Shala Hartman NP Unavailable [phone] Encounter Details Date Type Department Care Team (Late st Contact Info) Description 01/09/2025 Procedure Pass [facility], Ct Scan - [address] [address] Social History Tobacco Use Types Packs/Day Years [...] Info) Description 03/21/2025 9:40 AM EDT Infusion [facility] at [address] [address] Dusty Aguirre, DO [address] [place] [address] [email or web address]@[facility] 03/21/2025 11:30 AM EDT Office Visit [facility] at [address] [address] Ayanna Fox FNP [address] [place] [address] [email or web address] 03/21/2025 12:40 PM EDT Infusion [facility] at [address] [address] Dusty Aguirre DO [address] [place] [address] [email or web address]@[email or web address] [facility] Karen Burgos, KAPIL [address] [place] [address] 04/04/2025 8:20 AM EDT Appointment [facility] [address] [place] [address] Dusty Aguirre, DO [address] [place] [address] [email or web address]@[email or web address] 04/04/2025 9:00 AM EDT Office Visit [facility] at [address] [address] Ayanna Fox FNP [address] [place] [address] 04/04/2025 10:00 AM EDT Infusion [facility] at [address] [address] Dusty Aguirre, DO [address] [place] [address] [email or web address]@[facility] Niyah Cole RN [address] [place] [address] [email or web address] 04/06/2025 3:20 PM EDT Telemedicine [facility] [address] [facility], 4th Floor, [address] [place] [address] Stephon Maya MD [address] [place] [address] [email or web address]@[facility] 04/11/2025 10:20 AM EDT Appointment [facility] [address] [place] [address] Dusty Aguirre DO [address] [place] [address] [email or web address]@[facility] 04/11/2025 11:30 AM EDT Office Visit [facility] at [address] [address] Ayanna Fox FNP [address] [place] [address] [email or web address] 04/11/2025 12:40 PM EDT Infusion [facility] at [address] [address] Dusty Aguirre, DO [address] [place] [address] [email or web address]@[facility] Eldon Mckeon RN [address] [place] [address] 04/17/2025 9:10 AM EDT Appointment [facility] Laboratory [address] [place] [address] Dusty Aguirre, DO [address] [place] [address] NAVEEN@[facility] 04/17/2025 10:30 AM EDT Office Visit [facility] at [address] [address] Dusty Aguirre, DO [address] [place] [address] [email or web address]@[facility] 04/17/2025 11:20 AM EDT Infusion [facility] at [address] [address] Dusty Aguirre, DO [address] [place] [address] NAVEEN@[facility] Eldon Mckeon RN [address] [place] [address] 04/28/2025 11:50 AM EDT Appointment [facility] Laboratory [address] [place] [address] Dusty Aguirre, DO [address] [place] [address] NAVEEN@[facility] 04/28/2025 1:00 PM EDT Office Visit [facility] at [address] [address] Ayanna Fox FNP [address] [place] [address] [email or web address] 04/28/2025 2:00 PM EDT Infusion [facility] at [address] [address] Dusty Aguirre, DO [address] [place] [address] NAVEEN@[facility] Sophy Nolan RN [address] [place] [address] 05/08/2025 7:50 AM EDT Appointment [facility] [address] [place] [address] Dusty Aguirre, DO [address] [place] [address] NAVEEN@[facility] 05/08/2025 9:00 AM EDT Office Visit [facility] at [address] [address] Dusty Aguirre, DO [address] [place] [address] [email or web address]@[facility] 05/08/2025 10:00 AM EDT Infusion [facility] at [address] [address] Dusty Aguirre, DO [address] [place] [address] [email or web address]@[facility] Eldon Mckeon, KAPIL [address] [place] [address] documented as of this encounter Visit Diagnoses Not on filedocumented in this encounter Care Teams City Assessor Relationship Specialty Start Date End Date Amirah Smith MD [address] [place] [address] [place] [phone] PCP - General Internal Medicine 03/06/22 Christopher Thompson MD [address] [facility] Obstetrics and Gynecology ServiceYAW [address] [place] [address] [email or web address] Primary Oncologist Gynecologic Oncology 02/06/20 Ysabel Sanchez RN [address] [place] [address] [email or web address] Associate Infusion Nurse 03/29/20 Stephon Chambers RN [address] [place] [address] [email or web address] Associate Infusion Nurse 09/18/20 Carine Rivas RN [address] [place] [phone] [email or web address] Primary Infusion Nurse 11/05/20 Vikki Perez MD [address] [place] [address] [address] [place] [address] [email or web address] Primary Oncologist Gynecologic Oncology 03/27/21 Dusty Aguirre DO [address] [place] [address] [email or web address]@[email or web address] Primary Oncologist Hematology and Oncology 05/01/22 Stephon Maya MD [address] [place] [address] TIARA@[email or web address] Rheumatology 07/30/23 Ayanna Fox FNP [address] [place] [address] [email or web address] Registered Nurse Nurse Practitioner 08/09/24 Karen Santo CNP [address] [place] [address] [email or web address] Nurse Practitioner 08/29/24 Shala Hartman NP [address] [place] [address] [email or web address] Nurse Practitioner 11/08/24 documented as of this encounter Additional Source Comments The information contained in this document represents components of the legal health record. It is not the complete legal health record.[facility]
--- OUTSIDE RECORDS SUMMARY | 2025-03-14 13:13 | XMS_ITS | Encounter Summary ---
Author Organization [facility] Address [address] [place] [address] Phone Care Team Providers Care Commercial Specialist Name Role Phone Christopher Thompson MD Unavailable + [phone] Ysabel Sanchez RN Unavailable [email or web address] Stephon Chambers RN Unavailable [phone] Amirah Smith MD Primary Care Provider Carine Rivas RN Unavailable [email or web address] Vikki Perez MD Unavailable [phone] Amirah Smith MD Primary Care Provider Dusty Aguirre DO Unavailable [phone] Marilia Nolan METER SETTER Unavailable [phone] Karen Santo PLUNKET NURSE Unavailable Loyda Pinon PA-C Unavailable gloria Stephon Maya MD Unavailable Minor BaltazarBS Unavailable [phone] Ayanna Fox METER SETTER Unavailable [phone] Shala Hartman NP Unavailable [phone] Karen Santo CNP Unavailable Shala Hartman NP Unavailable [phone] Encounter Details Date Type Department Care Team (Late st Contact Info) Description 03/04/2022 Procedure Pass [facility] [address] [place] [phone] Social History Tobacco Use Types Packs/Day Years [...] Info) Description 03/21/2025 9:40 AM EDT Infusion [facility] at [address] [address] Dusty Aguirre, DO [address] [place] [address] [email or web address] 03/21/2025 11:30 AM EDT Office Visit [facility] at [address] [address] Ayanna Fox FNP [address] [place] [address] [email or web address] 03/21/2025 12:40 PM EDT Infusion [facility] at [address] [address] Dusty Aguirre, DO [address] [place] [address] [email or web address] [facility] Karen Burgos, KAPIL [address] [place] [address] 04/04/2025 8:20 AM EDT Appointment [facility] [address] [place] [address] Dusty Aguirre, DO [address] [place] [address] [email or web address]@[facility] 04/04/2025 9:00 AM EDT Office Visit [facility] at [address] [address] Ayanna Fox FNP [address] [place] [address] [email or web address] 04/04/2025 10:00 AM EDT Infusion [facility] at [address] [address] Dusty Aguirre, [address] [address] [email or web address]@[facility] Niyah Cole RN [address] [place] [address] [email or web address] 04/06/2025 3:20 PM EDT Telemedicine [address], 4th Floor, [address] [place] [address] Stephon Maya MD [address] [place] [address] [email or web address] 04/11/2025 10:20 AM EDT Appointment [facility] [address] [place] [address] Dusty Aguirre, DO [address] [place] [address] [email or web address]@[facility] 04/11/2025 11:30 AM EDT Office Visit [facility] at [address] [address] Ayanna Fox [address] [address] [email or web address] 04/11/2025 12:40 PM EDT Infusion [facility] at [address] [address] Dusty Aguirre, DO [address] [place] [address] NAVEEN@[facility] Eldon Mckeon RN [address] [place] [address] 04/17/2025 9:10 AM EDT Appointment [facility] [address] [place] [address] Dusty Aguirre, [address] [address] [email or web address]@[facility] 04/17/2025 10:30 AM EDT Office Visit [facility] at [address] [address] Dusty Aguirre, DO [address] [place] [address] NAVEEN@[facility] 04/17/2025 11:20 AM EDT Infusion [facility] at [address] [address] Dusty Aguirre, DO [address] [place] [address] [email or web address]@[facility] Eldon Mckeon RN [address] [place] [address] [email or web address] 04/28/2025 11:50 AM EDT Appointment [facility] [address] [place] [address] Dusty Aguirre, DO [address] [place] [address] NAVEEN@[facility] 04/28/2025 1:00 PM EDT Office Visit [facility] at [address] [address] Ayanna Fox FNP [address] [place] [address] [email or web address] 04/28/2025 2:00 PM EDT Infusion [facility] at [address] [address] Dusty Aguirre, DO [address] [place] [address] [email or web address]@[facility] Sophy Nolan RN [address] [place] [address] [email or web address] 05/08/2025 7:50 AM EDT Appointment [facility] [address] [place] [address] Dusty Aguirre, DO [address] [place] [address] [email or web address]@[facility] 05/08/2025 9:00 AM EDT Office Visit [facility] at [address] [address] Dusty Aguirre, DO [address] [place] [address] [email or web address]@[facility] 05/08/2025 10:00 AM EDT Infusion [facility] at [address] [address] Dusty Aguirre, DO [address] [place] [address] [email or web address] Eldon Mckeon RN [address] [place] [address] [email or web address] documented as of this encounter Visit Diagnoses Not on filedocumented in this encounter Additional Health Concerns Infection Onset Date Last Indicated Resolved Time CoV-Risk 11/10/2022 11/10/2022 11/21/2022 1:24 AM EDT documented as of this encounter Care Teams Commercial Specialist Relationship Specialty Start Date End Date Amirah Smith MD [address] [place] [address] Dr Sanchez [facility] [place] [phone] PCP - General Internal Medicine 09/25/20 03/05/22 Amirah Smith MD [address] [place] [address] [place] [phone] PCP - General Internal Medicine 03/06/22 Christopher Thompson MD [address] [place] [address] Obstetrics and Gynecology ServiceYAW [address] [place] [address] [email or web address] Primary Oncologist Gynecologic Oncology 02/06/20 Ysabel Sanchez RN [address] [place] [address] [email or web address] Associate Infusion Nurse 03/29/20 Stephon Chambers RN [address] [place] [address] [email or web address] Associate Infusion Nurse 09/18/20 Carine Rivas RN [address] [place] [address] [email or web address] Primary Infusion Nurse 11/05/20 Vikki Perez MD [address] [facility] [address] [place] [address] [email or web address] Primary Oncologist Gynecologic Oncology 03/27/21 Dusty Aguirre DO [address] [place] [address] [email or web address]@[facility] Primary Oncologist Hematology and Oncology 05/01/22 Marilia Nolan FNP [address] [place] [address] [email or web address] Nurse Practitioner Medical Oncology 08/05/22 08/08/24 Karen Santo CNP [address] [place] [address] [email or web address] Nurse Practitioner Medical Oncology 09/05/22 08/08/24 Loyda Pinon PA-C [address] [place] [address] [email or web address] Physician Abstracter Medical Oncology 10/20/22 08/20/23 Stephon Maya MD [address] [place] [address] [email or web address] Rheumatology 07/30/23 Minor Baltazar MBBS [address] [place] [address] [email or web address] Primary Oncologist Medical Oncology 10/16/23 10/25/23 Ayanna Fox FNP [address] [place] [address] [email or web address] Registered Nurse Nurse Practitioner 08/09/24 Shala Hartman, KATHY [address] [place] [address] [email or web address] Nurse Practitioner 08/15/24 10/30/24 Karen Santo CNP [address] [place] [address] [email or web address] Nurse Practitioner 08/29/24 Shala Hartman NP [address] [place] [address] [email or web address] Nurse Practitioner 11/08/24 documented as of this encounter Additional Source Comments The information contained in this document represents components of the legal health record. It is not the complete legal health record.[facility]
--- OUTSIDE RECORDS SUMMARY | 2025-03-14 13:14 | XMS_ITS | Encounter Summary ---
Author Organization [facility] Address [address] [place] [address] Phone Care Team Providers Care Brickmason Name Role Phone Christopher Thompson MD Unavailable + [phone] Ysabel Sanchez RN Unavailable [email or web address] Stephon Chambers RN Unavailable [phone] Amirah Smith MD Primary Care Provider Carine Rivas RN Unavailable [email or web address] Vikki Perez MD Unavailable [phone] Amirah Smith MD Primary Care Provider Dusty Aguirre DO Unavailable [phone] Marilia Nolan DEDICATED DRIVER Unavailable [phone] Karen Santo HAND II BLOCKER Unavailable Loyda Pinon PA-C Unavailable gloria Stephon Maya MD Unavailable Minor BaltazarBS Unavailable [phone] Ayanna Fox DEDICATED DRIVER Unavailable [phone] Shala Hartman NP Unavailable [phone] Karen Santo CNP Unavailable Shala Hartman NP Unavailable [phone] Encounter Details Date Type Department Care Team (Late st Contact Info) Description 02/25/[address], [facility] - [address], [address] [place] [phone] Social History Tobacco Use Types Packs/Day Years [...] Info) Description 03/21/2025 9:40 AM EDT Infusion [facility] at [address] [address] Dusty Aguirre DO [address] [place] [address] [email or web address]@[facility] 03/21/2025 11:30 AM EDT Office Visit [facility] Center at [address] [address] Ayanna Fox FNP [address] [place] [address] [email or web address] 03/21/2025 12:40 PM EDT Infusion [facility] at [address] [address] Dusty Aguirre DO [address] [place] [address] [email or web address]@[email or web address] Karen Burgos, KAPIL [address] [place] [address] 04/04/2025 8:20 AM EDT Appointment [facility] [address] [place] [address] Dusty Aguirre, DO [address] [place] [address] [email or web address]@[facility] 04/04/2025 9:00 AM EDT Office Visit [facility] at [address] [address] Ayanna Fox FNP [address] [place] [address] [email or web address] 04/04/2025 10:00 AM EDT Infusion [facility] at [address] [address] Dusty Aguirre, DO [address] [place] [address] [email or web address]@[facility] Niyah Cole RN [address] [place] [address] [email or web address] 04/06/2025 3:20 PM EDT Telemedicine [address], 4th Floor, [address] [place] [address] Stephon Maya MD [address] [place] [address] [email or web address] 04/11/2025 10:20 AM EDT Appointment [facility] [address] [place] [address] Dusty Aguirre, DO [address] [place] [address] [email or web address]@[facility] 04/11/2025 11:30 AM EDT Office Visit [facility] at [address] [address] Ayanna Fox FNP [address] [place] [address] 04/11/2025 12:40 PM EDT Infusion [facility] at [address] [address] Dusty Aguirre, DO [address] [place] [address] [email or web address]@[facility] Eldon Mckeon RN [address] [place] [address] 04/17/2025 9:10 AM EDT Appointment [facility] [address] [place] [address] Dusty Aguirre, DO [address] [place] [address] NAVEEN@[facility] 04/17/2025 10:30 AM EDT Office Visit [facility] at [address] [address] Dusty Aguirre, DO [address] [place] [address] [email or web address]@[facility] 04/17/2025 11:20 AM EDT Infusion [facility] at [address] [address] Dusty Aguirre, DO [address] [place] [address] NAVEEN@[facility] Eldon Mckeon RN [address] [place] [address] 04/28/2025 11:50 AM EDT Appointment [facility] [address] [place] [address] Dusty Aguirre, DO [address] [place] [address] [email or web address]@[facility] 04/28/2025 1:00 PM EDT Office Visit [facility] at [address] [address] Ayanna Fox FNP [address] [place] [address] [email or web address] 04/28/2025 2:00 PM EDT Infusion [facility] at [address] [address] Dusty Aguirre, DO [address] [place] [address] [email or web address]@[facility] Sophy Nolan RN [address] [place] [address] [email or web address] 05/08/2025 7:50 AM EDT Appointment [address] [address] Dusty Aguirre, DO [address] [place] [address] [email or web address]@[facility] 05/08/2025 9:00 AM EDT Office Visit [facility] at [address] [address] Dusty Aguirre, DO [address] [place] [address] [email or web address]@[facility] 05/08/2025 10:00 AM EDT Infusion [facility] at [address] [address] Dusty Aguirre, DO [address] [place] [address] JAY [email or web address]@[facility] Eldon Mckeon RN [address] [place] [address] [email or web address] documented as of this encounter Visit Diagnoses Not on filedocumented in this encounter Additional Health Concerns Infection Onset Date Last Indicated Resolved Time CoV-Risk 11/10/2022 11/10/2022 11/21/2022 1:24 AM EDT documented as of this encounter Care Teams Brickmason Relationship Specialty Start Date End Date Amirah Smtih MD [address] [place] [address] Dr Sanchez [facility] [place] [phone] PCP - General Internal Medicine 09/25/20 03/05/22 Amirah Smith MD [address] [place] [address] [place] [phone] PCP - General Internal Medicine 03/06/22 Christopher Thompson MD [address] [place] [address] Obstetrics and Gynecology [facility] [address] [place] [address] [email or web address] Primary Oncologist Gynecologic Oncology 02/06/20 Ysabel Sanchez RN [address] [place] [address] [email or web address] Associate Infusion Nurse 03/29/20 Stephon Chambers RN [address] [place] [address] [email or web address] Associate Infusion Nurse 09/18/20 Carine Rivas RN [address] [place] [phone] [email or web address] Primary Infusion Nurse 11/05/20 Vikki Perez MD [address] [place] [address] [address] [place] [address] CORIN@[facility] Primary Oncologist Gynecologic Oncology 03/27/21 Dusty Aguirre DO [address] [place] [address] [email or web address]@[facility] Primary Oncologist Hematology and Oncology 05/01/22 Marilia Nolan FNP [address] [place] [address] [email or web address] Nurse Practitioner Medical Oncology 08/05/22 08/08/24 Karen Santo CNP [address] [place] [address] [email or web address] Nurse Practitioner Medical Oncology 09/05/22 08/08/24 Loyda Pinon PA-C [address] [place] [address] [email or web address] Physician Call Circuit Worker Medical Oncology 10/20/22 08/20/23 Stephon Maya MD [address] [place] [address] TIARA@[email or web address] Rheumatology 07/30/23 Minor Baltazar MBBS [address] [place] [address] [email or web address] Primary Oncologist Medical Oncology 10/16/23 10/25/23 Ayanna Fox FNP [address] [place] [address] [email or web address] Registered Nurse Nurse Practitioner 08/09/24 Shala HartmanKATHY [address] [place] [address] [email or web address] Nurse Practitioner 08/15/24 10/30/24 Karen Santo CNP [address] [place] [address] [email or web address] Nurse Practitioner 08/29/24 Shala Hartman NP [address] [place] [address] [email or web address] Nurse Practitioner 11/08/24 documented as of this encounter Additional Source Comments The information contained in this document represents components of the legal health record. It is not the complete legal health record.[facility]
--- OUTSIDE RECORDS SUMMARY | 2025-03-14 13:14 | XMS_ITS | Encounter Summary ---
Author Organization [facility] Address [address] [place] [address] Phone Care Team Providers Care Manager Marketing Sales Name Role Phone Christopher Thompson MD Unavailable + [phone] Ysabel Sanchez RN Unavailable [email or web address] Stephon Chambers RN Unavailable [phone] Amirah Smith MD Primary Care Provider Carine Rivas RN Unavailable [email or web address] Vikki Perez MD Unavailable [phone] Amirah Smith MD Primary Care Provider Dusty Aguirre DO Unavailable [phone] Marilia Nolan SAP BUSINESS OBJECTS CONSULTANT Unavailable [phone] Karen Santo JAIL KEEPER Unavailable Loyda Pinon PA-C Unavailable gloria Stephon Maya MD Unavailable Minor BaltazarBS Unavailable [phone] Ayanna Fox SAP BUSINESS OBJECTS CONSULTANT Unavailable [phone] Shala Hartman NP Unavailable [phone] Karen Santo CNP Unavailable Shala Hartman NP Unavailable [phone] Encounter Details Date Type Department Care Team (Late st Contact Info) Description 11/19/[address], [facility] Imaging - [address], [address] [place] [id number] Social History Tobacco Use Types Packs/Day Years [...] [facility] at [address] [address] Dusty Aguirre DO [address] [place] [address] NAVEEN@[email or web address] 03/21/2025 11:30 AM EDT Office Visit [facility] at [address] [address] Ayanna Fox FNP [address] [place] [address] [email or web address] 03/21/2025 12:40 PM EDT Infusion [facility] at [address] [address] Dusty Aguirre DO [address] [place] [address] [email or web address] [facility] Karen Burgos, KAPIL [address] [place] [address] 04/04/2025 8:20 AM EDT Appointment [facility] [address] [place] [address] Dusty Aguirre, DO [address] [place] [address] NAVEEN@[facility] 04/04/2025 9:00 AM EDT Office Visit [facility] at [address] [address] Ayanna Fox FNP [address] [place] [address] [email or web address] 04/04/2025 10:00 AM EDT Infusion [facility] at [address] [address] Dusty Aguirre, DO [address] [place] [address] NAVEEN@[facility] Niyah Cole RN [address] [place] [address] [email or web address] 04/06/2025 3:20 PM EDT Telemedicine [address], 4th Floor, [address] [place] [address] Stephon Maya MD [address] [place] [address] [email or web address] 04/11/2025 10:20 AM EDT Appointment [facility] Laboratory [address] [place] [address] Dusty Aguirre, DO [address] [place] [address] NAVEEN@[email or web address] 04/11/2025 11:30 AM EDT Office Visit [facility] at [address] [address] Aynana Fox FNP [address] [place] [address] 04/11/2025 12:40 PM EDT Infusion [facility] at [address] [address] Dusty Aguirre, DO [address] [place] [address] NAVEEN@[facility] Eldon Mckeon RN [address] [place] [address] 04/17/2025 9:10 AM EDT Appointment [facility] Laboratory [address] [place] [address] Dusty Aguirre, DO [address] [place] [address] NAVEEN@[facility] 04/17/2025 10:30 AM EDT Office Visit [facility] at [address] [address] Dusty Aguirre, DO [address] [place] [address] NAVEEN@[facility] 04/17/2025 11:20 AM EDT Infusion [facility] at [address] [address] Dusty Aguirre, DO [address] [place] [address] NAVEEN@[facility] Eldon Mckeon RN [address] [place] [address] 04/28/2025 11:50 AM EDT Appointment [facility] Laboratory [address] [place] [address] Dusty Aguirre, DO [address] [place] [address] NAVEEN@[facility] 04/28/2025 1:00 PM EDT Office Visit [facility] at [address] [address] Ayanna Fox FNP [address] [place] [address] [email or web address] 04/28/2025 2:00 PM EDT Infusion [facility] at [address] [address] Dusty Aguirre, DO [address] [place] [address] NAVEEN@[facility] Sophy Nolan RN [address] [place] [address] [email or web address] 05/08/2025 7:50 AM EDT Appointment [address] [address] Dusty Aguirre, DO [address] [place] [address] NAVEEN@[facility] 05/08/2025 9:00 AM EDT Office Visit [facility] at [address] [address] Dusty Aguirre, DO [address] [place] [address] NAVEEN@[facility] 05/08/2025 10:00 AM EDT Infusion [facility] at [address] [address] Dusty Aguirre, DO [address] [place] [address] JAY [email or web address] Eldon Mckeon RN [address] [place] [address] [email or web address] documented as of this encounter Visit Diagnoses Not on filedocumented in this encounter Additional Health Concerns Infection Onset Date Last Indicated Resolved Time CoV-Risk 11/10/2022 11/10/2022 11/21/2022 1:24 AM EDT documented as of this encounter Care Teams Manager Marketing Sales Relationship Specialty Start Date End Date Amirah Smith MD [address] [place] [address] Dr Sanchez [facility] [place] [phone] PCP - General Internal Medicine 09/25/20 03/05/22 Amirah Smith MD [address] [place] [address] [place] [phone] PCP - General Internal Medicine 03/06/22 Christopher Thompson MD [address] [place] [address] [facility]s [facility] [address] [place] [address] [email or web address] Primary Oncologist Gynecologic Oncology 02/06/20 Ysabel Sanchez RN [address] [place] [address] [email or web address] Associate Infusion Nurse 03/29/20 Stephon Chambers RN [address] [place] [address] [email or web address] Associate Infusion Nurse 09/18/20 Carine Rivas RN [address] [place] [phone] [email or web address] Primary Infusion Nurse 11/05/20 Vikki Perez MD [address] [place] [address] [address] [place] [address] [email or web address] Primary Oncologist Gynecologic Oncology 03/27/21 Dusty Aguirre DO [address] [place] [address] [email or web address]@[email or web address] Primary Oncologist Hematology and Oncology 05/01/22 Marilia Nolan FNP [address] [place] [address] [email or web address] Nurse Practitioner Medical Oncology 08/05/22 08/08/24 Karen Santo CNP [address] [place] [address] [email or web address] Nurse Practitioner Medical Oncology 09/05/22 08/08/24 Loyda Pinon PA-C [address] [place] [address] [email or web address] Physician Tattoo Artist Medical Oncology 10/20/22 08/20/23 Stephon Maya MD [address] [place] [address] [email or web address] Rheumatology 07/30/23 Minor Baltazar MBBS [address] [place] [address] [email or web address] Primary Oncologist Medical Oncology 10/16/23 10/25/23 Ayanna Fox FNP [address] [place] [address] [email or web address] Registered Nurse Nurse Practitioner 08/09/24 Shala HartmanKATHY [address] [place] [address] [email or web address] Nurse Practitioner 08/15/24 10/30/24 Karen Santo CNP [address] [place] [address] [email or web address] Nurse Practitioner 08/29/24 Shala Hartman NP [address] [place] [address] [email or web address] Nurse Practitioner 11/08/24 documented as of this encounter Additional Source Comments The information contained in this document represents components of the legal health record. It is not the complete legal health record.[facility]
--- OUTSIDE RECORDS SUMMARY | 2025-03-14 13:14 | XMS_ITS | Encounter Summary ---
Author Organization [facility] Address [address] [place] [address] Phone Care Team Providers Care Rug Underlay Machine Operator Name Role Phone Seble Medina MD Primary Care Provider [phone] Christopher Thompson MD Unavailable + [phone] Ysabel Sanchez RN Unavailable [email or web address] Stephon Chambers RN Unavailable [phone] Amirah Smith MD Primary Care Provider Carine Rivas RN Unavailable [email or web address] Vikki Perez MD Unavailable [phone] Amirah Smith MD Primary Care Provider Dusyt Aguirre DO Unavailable [phone] Marilia Nolan ADVERTISING TRAFFIC MANAGER Unavailable [phone] Karen Santo CNP Unavailable Loyda Pinon PA-C Unavailable pnugen Stephon Maya MD Unavailable [phone] Minor BaltazarBS Unavailable [phone] Ayanna Fox ADVERTISING TRAFFIC MANAGER Unavailable [phone] Shala Hartman NP Unavailable [phone] Karen Santo CNP Unavailable Shala Hartman NP Unavailable Encounter Details Date Type Department Care Team (Late st Contact Info) Description 07/19/[address], [facility] Imaging - [address], [address] [place] [id number] Social History Tobacco Use Types Packs/Day Years [...] EDT Infusion [facility] at [address] [address] Dusty Aguirre, DO [address] [place] [address] [email or web address]@[email or web address] 03/21/2025 11:30 AM EDT Office Visit [facility] at [address] [address] Ayanna Fox FNP [address] [place] [address] [email or web address] 03/21/2025 12:40 PM EDT Infusion [facility] at [address] [address] Dusty Aguirre, DO [address] [place] [address] [email or web address]@[email or web address] [facility] Karen Burgos, KAPIL [address] [place] [address] 04/04/2025 8:20 AM EDT Appointment [facility] [address] [place] [address] Dusty Aguirre, DO [address] [place] [address] [email or web address]@[email or web address] 04/04/2025 9:00 AM EDT Office Visit [facility] at [address] [address] Ayanna Fox FNP [address] [place] [address] [email or web address] 04/04/2025 10:00 AM EDT Infusion [facility] at [address] [address] Dusty Aguirre, DO [address] [place] [address] [email or web address]@[facility] Niyah Cole RN [address] [place] [address] [email or web address] 04/06/2025 3:20 PM EDT Telemedicine [address], 4th Floor, [address] [place] [address] Stephon Maya MD [address] [place] [address] [email or web address] 04/11/2025 10:20 AM EDT Appointment [facility] [address] [place] [address] Dusty Aguirre, DO [address] [place] [address] [email or web address]@[facility] 04/11/2025 11:30 AM EDT Office Visit [facility] at [address] [address] Ayanna Fox FNP [address] [place] [address] [email or web address] 04/11/2025 12:40 PM EDT Infusion [facility] at [address] [address] Dusty Aguirre, DO [address] [place] [address] NAVEEN@[facility] Eldon Mckeon RN [address] [place] [address] 04/17/2025 9:10 AM EDT Appointment [facility] Laboratory [address] [place] [address] Dusty Aguirre, DO [address] [place] [address] NAVEEN@[facility] 04/17/2025 10:30 AM EDT Office Visit [facility] at [address] [address] Dusty Aguirre, DO [address] [place] [address] NAVEEN@[facility] 04/17/2025 11:20 AM EDT Infusion [facility] at [address] [address] Dusty Aguirre, DO [address] [place] [address] NAVEEN@[facility] Eldon Mckeon RN [address] [place] [address] 04/28/2025 11:50 AM EDT Appointment [facility] Laboratory [address] [place] [address] Dusty Aguirre, DO [address] [place] [address] NAVEEN@[facility] 04/28/2025 1:00 PM EDT Office Visit [facility] at [address] [address] Ayanna Fox FNP [address] [place] [address] [email or web address] 04/28/2025 2:00 PM EDT Infusion [facility] at [address] [address] Dusty Aguirre, DO [address] [place] [address] NAVEEN@[facility] Sophy Nolan, KAPIL [address] [place] [address] [email or web address] 05/08/2025 7:50 AM EDT Appointment [facility] [address] [place] [address] Dusty Aguirre, DO [address] [place] [address] NAVEEN@[facility] 05/08/2025 9:00 AM EDT Office Visit [facility] at [address] [address] Dusty Aguirre, DO [address] [place] [address] NAVEEN@[facility] 05/08/2025 10:00 AM EDT Infusion [facility] at [address] [address] Dusty Aguirre, DO [address] [place] [address] [email or web address]@[email or web address] Eldon Mckeon RN [address] [place] [address] [email or web address] documented as of this encounter Visit Diagnoses Not on filedocumented in this encounter Additional Health Concerns Infection Onset Date Last Indicated Resolved Time CoV-Risk 11/10/2022 11/10/2022 11/21/2022 1:24 AM EDT documented as of this encounter Care Teams Rug Underlay Machine Operator Relationship Specialty Start Date End Date Seble Medina MD [address] [place] [address] Dr SANCHEZ [address] [place] [address] PCP - General Internal Medicine 01/19/20 09/24/20 Amirah Smith MD [address] [place] [address] Dr Sanchez [address] [place] [phone] PCP - General Internal Medicine 09/25/20 03/05/22 Amirah Smith MD [address] [place] [address] Dr Sanchez [address] [place] [phone] PCP - General Internal Medicine 03/06/22 Christopher Thompson MD [address] [place] [address] Obstetrics and Gynecology [address] [address] [email or web address] Primary Oncologist Gynecologic Oncology 02/06/20 Ysabel Sanchez RN [address] [place] [address] [email or web address] Associate Infusion Nurse 03/29/20 Stephon Chambers RN [address] [place] [address] [email or web address] Associate Infusion Nurse 09/18/20 Carine Rivas RN [address] [place] [phone] [email or web address] Primary Infusion Nurse 11/05/20 Vikki Perze MD [address] [place] [address] [email or web address] Primary Oncologist Gynecologic Oncology 03/27/21 Dusty Aguirre DO [address] [place] [address] [email or web address]@[email or web address] Primary Oncologist Hematology and Oncology 05/01/22 Marilia Nolan FNP [address] [place] [address] [email or web address] Nurse Practitioner Medical Oncology 08/05/22 08/08/24 Karen Santo CNP [address] [place] [address] [email or web address] Nurse Practitioner Medical Oncology 09/05/22 08/08/24 Loyda Pinon PA-C [address] [place] [address] [email or web address] Physician Patient Safety Tech Medical Oncology 10/20/22 08/20/23 Stephon Maya MD [address] [place] [address] [email or web address] Rheumatology 07/30/23 Minor Baltazar MBBS [address] [place] [address] [email or web address] Primary Oncologist Medical Oncology 10/16/23 10/25/23 Ayanna Fox FNP [address] [place] [address] [email or web address] Registered Nurse Nurse Practitioner 08/09/24 Shala Hartman NP [address] [place] [address] [email or web address] Nurse Practitioner 08/15/24 10/30/24 Karen Santo CNP [address] [place] [address] [email or web address] Nurse Practitioner 08/29/24 Shala Hartman NP [address] [place] [address] [email or web address] Nurse Practitioner 11/08/24 documented as of this encounter Additional Source Comments The information contained in this document represents components of the legal health record. It is not the complete legal health record.[facility]
--- OUTSIDE RECORDS SUMMARY | 2025-03-14 13:14 | XMS_ITS | Encounter Summary ---
Author Organization [facility] Address [address] [place] [address] Phone Care Team Providers Care Hand Tier Name Role Phone Christopher Thompson MD Unavailable + [phone] Ysabel Sanchez RN Unavailable [email or web address] Stephon Chambers RN Unavailable [phone] Carine Rivas RN Unavailable [email or web address] Vikki Perez MD Unavailable [phone] Amirah Smith MD Primary Care Provider Dusty Aguirre DO Unavailable [phone] Marilia Nolan HAND BINDER CUTTER Unavailable Karen Santo CNP Unavailable Loyda PinonC Unavailable gloria Stephon Maya MD Unavailable Minor BaltazarBS Unavailable Ayanna Fox HAND BINDER CUTTER Unavailable Shala Hatrman NP Unavailable Karen Santo CNP Unavailable Shala Hartman NP Unavailable [phone] Encounter Details Date Type Department Care Team (Late st Contact Info) Description 06/30/2022 Procedure Pass [facility], Ct Scan - [address] [address] Social History Tobacco Use Types Packs/Day Years [...] on file documented as of this encounter Functional Status * Calculated C-SSRS Risk Score (Lifetime/Recent) Answer Date of Assessment Author No Risk Indicated 06/30/2022 9:27 AM Zaida Ji RN * [place] Suicide Severity Rating Scale (Screener/Recent Self-Report) Question Answer Date of Assessment Author 1. Wish to be (Past 1 Month) No 022 9:27 AM Zaida Hurd, KAPIL 2. Non-Specific Active Suici jr Thoughts (Past 1 Month) No 06/30/2022 9:27 AM Zaida Hurd, RN 6. Suicidal Behavior (Lifetime) No 9:27 AM Zaida Hurd, RN documented as of this encounter Plan of Treatment Upcoming Encounters Date Type Department Care Team (Late st Contact Info) Description 03/21/2025 9:[address] [facility] at [address] [address] Dusty Aguirre DO [address] [place] [address] [email or web address] [facility] 03/21/2025 11:30 AM EDT Office Visit [facility] at [address] [address] Ayanna Fox FNP [address] [place] [address] 03/21/2025 12:[address] [facility] at [address] [address] Dusty Aguirre, DO [address] [place] [address] [email or web address]@[facility] Karen Burgos RN [address] [place] [address] 04/04/2025 8:20 AM EDT Appointment [facility] [address] [place] [address] Dusty Aguirre, DO [address] [place] [address] NAVEEN@[facility] 04/04/2025 9:00 AM EDT Office Visit [facility] at [address] [address] Ayanna Fox FNP [address] [place] [address] [email or web address] 04/04/2025 10:00 AM EDT Infusion [facility] at [address] [address] Dusty Aguirre, DO [address] [place] [address] NAVEEN@[facility] Niyah Cole, KAPIL [address] [place] [address] 04/06/2025 3:20 PM EDT Telemedicine [address], 4th Floor, [address] [place] [address] Stephon Maya MD [address] [place] [address] [email or web address] 04/11/2025 10:20 AM EDT Appointment [facility] Laboratory [address] [place] [address] Dusty Aguirre, DO [address] [place] [address] NAVEEN@[facility] 04/11/2025 11:30 AM EDT Office [facility] at [address] [address] Ayanna Fox FNP [address] [place] [address] [email or web address] 04/11/2025 12:[address] [facility] at [address] [address] Dusty Aguirre, DO [address] [place] [address] [email or web address]@[facility] Eldon Mckeon, KAPIL [address] [place] [address] [email or web address] [place] 04/17/2025 9:10 AM EDT Appointment [facility] Laboratory [address] [place] [address] Dusty Aguirre, DO [address] [place] [address] NAVEEN@[facility] 04/17/2025 10:30 AM EDT Office [facility] at [address] [address] Dusty Aguirre, DO [address] [place] [address] NAVEEN@[facility] 04/17/2025 11:[address] [facility] at [address] [address] Dusty Aguirre, DO [address] [place] [address] NAVEEN@[facility] Eldon Mckeon RN [address] [place] [address] 04/28/2025 11:50 AM EDT Appointment [facility] Laboratory [address] [place] [address] Dusty Aguirre, DO [address] [place] [address] NAVEEN@[facility] 04/28/2025 1:00 PM EDT Office Visit [facility] at [address] [address] Ayanna Fox FNP [address] [place] [address] [email or web address] 04/28/2025 2:00 PM EDT Infusion [facility] at [address] [address] Dusty Aguirre, [address] [address] NAVEEN@[facility] Sophy Nolan, KAPIL [address] [place] [address] 05/08/2025 7:50 AM EDT Appointment [facility] Laboratory [address] [place] [address] Dusty Aguirre, [address] [address] NAVEEN@[facility] 05/08/2025 9:00 AM EDT Office Visit [facility] Center at [address] [place] [address] Dusty Aguirre, DO [address] [place] [address] JAY [email or web address]@[facility] 05/08/2025 10:00 AM EDT Infusion [facility] Center at [facility] [address] [place] [address] TimothyDusty, DO [address] [place] [address] JAY [email or web address]@[facility] Eldon Mckeon RN [address] [place] [address] [email or web address] documented as of this encounter Visit Diagnoses Not on filedocumented in this encounter Additional Health Concerns Infection Onset Date Last Indicated Resolved Time CoV-Risk 11/10/2022 11/10/2022 11/21/2022 1:24 AM EDT documented as of this encounter Care Teams Hand Tier Relationship Specialty Start Date End Date Amirah Smith MD [address] [place] [address] [place] [phone] PCP - General Internal Medicine 03/06/22 Christopher Thompson MD [address] [place] [address] Obstetrics and Gynecology ServiceYAW [address] [place] [address] [email or web address] Primary Oncologist Gynecologic Oncology 02/06/20 Ysabel Sanchez RN [address] [place] [address] [email or web address] Associate Infusion Nurse 03/29/20 Stephon Chambers RN [address] [place] [address] [email or web address] Associate Infusion Nurse 09/18/20 Carine Rivas RN [address] [place] [phone] [email or web address] [place] Primary Infusion Nurse 11/05/20 Vikki Perez MD [address] [place] [address] [email or web address] Primary Oncologist Gynecologic Oncology 03/27/21 Dusty Aguirre DO [address] [place] [address] NAVEEN@[facility] Primary Oncologist Hematology and Oncology 05/01/22 Marilia Nolan FNP [address] [place] [address] [email or web address] [place] Nurse Practitioner Medical Oncology 08/05/22 08/08/24 Karen Santo CNP [address] [place] [address] [email or web address] [place] Nurse Practitioner Medical Oncology 09/05/22 08/08/24 Loyda Pinon PA-C [address] [place] [address] [email or web address] [place] Physician Psychiatric Arnp Medical Oncology 10/20/22 08/20/23 Stephon Maya MD [address] [place] [address] [email or web address] Rheumatology 07/30/23 Minor Baltazar MBBS [address] [place] [address] [email or web address] Primary Oncologist Medical Oncology 10/16/23 10/25/23 Ayanna Fox FNP [address] [place] [address] [email or web address] Registered Nurse Nurse Practitioner 08/09/24 Shala Hartman NP [address] [place] [address] [email or web address] [place] Nurse Practitioner 08/15/24 10/30/24 Karen Santo CNP [address] [place] [address] [email or web address] Nurse Practitioner 08/29/24 Shala Hartman NP [address] [place] [address] [email or web address] [place] Nurse Practitioner 11/08/24 documented as of this encounter Additional Source Comments The information contained in this document represents components of the legal health record. It is not the complete legal health record.[facility]
--- OUTSIDE RECORDS SUMMARY | 2025-03-14 13:14 | XMS_ITS | Clinical Summary ---
Author Organization [facility] Address [address] [place] [address] Care Team Providers Care Gate Guard Name Role Phone Unavailable Primary Care Provider Unavailabl e Surgical History Surgery Date Site/Laterality Comments OTHER SURGICAL HISTORY PROCEDURE: [place] SINUSOT UNI 3/> PARANSL SINUSES; COMMENT: historical TUBAL LIGATION PROCEDURE: HISTORICAL TUBAL LIGATION COLONOSCOPY 11/14/13 PROCEDURE: HISTORICAL COLONOSCOPY; COMMENT: adenomas and hemorrhoids. Repeat in 3 yrs Family History Medical History Relation Name Comments Hypertension Mother stroke Autoimmune disease Sister Relation Name Status Comments Brother 1,half car acci dent Father copd and some k idney Mother alcoholism Sister Alive 3,half sisters. RA Social History Tobacco Use Types Packs/Day Years Used Date Smoking Tobacco: Never Smokeless Tobacco: Never Alcohol Use Standard Drinks/Week Comments No 0 (1 standard drink = 0.6 oz pur e alcohol) Comments Unknown Sex and Gender Information Value Date Recorded Sex Assigned at Not on file Legal Sex Female 4:06 PM EST Gender Identity Not on file Sexual Orientation Not on file Obstetrics History Plan of Treatment Health Maintenance Due Date Last Done Comments Hepatitis A Vaccines (1 of 2 - Risk 2-dose series) 1966 Zoster Vaccines (1 of 2) 1997 Pneumococcal Vaccine: 50+ Ye ars (2 of 2 - PCV) 08/05/2014 08/05/2013 RSV Immunization Adult Patie nts (1 - 1-dose 75+ series) 2022 Cholesterol Screening (Lipid Panel) 06/18/2022 Falls Risk Assessment 06/18/2022 Hepatitis C Screening 06/18/2022 Social Influencers of Health Screening 06/18/2022 DTaP,Tdap,and Td Vaccines (2 - Td or Tdap) 08/05/2023 08/05/2013 COVID-19 Vaccine (2023-2 5 season) 2024 Depression Screening 07/20/2024 Influenza Vaccine (#1) 2025 Osteoporosis Screening (Bone Density Screening) 03/17/2030 03/17/2020 HIB Vaccines Aged Out No longer eligi ble based on patient's age to complete this topic HPV Vaccines Aged Out No longer eligi ble based on patient's age to complete this topic Hepatitis B Vaccines Aged Out No long er eligible based on patient's age to complete this topic IPV Vaccines Aged Out No longer eligi ble based on patient's age to complete this topic MMR Vaccines Aged Out No longer eligi ble based on patient's age to complete this topic Meningococcal ACWY Vaccine Aged Out N o longer eligible based on patient's age to complete this topic Meningococcal B Vaccine Aged Out No l onger eligible based on patient's age to complete this topic RSV Immunization Patients Un bharat 20 months Aged Out No longer eligible b ased on patient's age to complete this topic Varicella Vaccines Aged Out No longer eligible based on patient's age to complete this topic Procedures Procedure Name Priority Date/Time Associated Diagnosis Comments [facility] DEXA AXIAL SKELETON Routine 03/17/2020 2:25 PM EDT Encounter for screening for osteoporosis from Last 3 Months or Most Recently Relevant to Health Maintenance Results * [facility] DEXA AXIAL SKELETON (03/17/2020 2:25 PM EDT) Anatomical Region Laterality Modality Mammography 03/16/2020 1:31 PM EDT Narrative 03/17/2020 2:25 PM EDT [facility] Diagnostic Imaging Department [address] [place] [address] Patient: LESLY OSPINA I /Age/Sex: 1945 - 74 - F Unit#: [id number] [facility] CLI Mnemonic/Ordering Site: MAMDEXAAX/SPMAM Ordering Physician: XOCHILT SHETH MD Chantal Dexa Axial Skeleton - 03/16/20 - 1351 History: Low estrogen state due to menopause. Findings: Bone densitometry is performed utilizing dual energy x-ray absorptiometry (DXA) in the [employer] unit. The lumbar spine and proximal femora are evaluated in the AP projection. The FRAX questionaire was completed. The results indicate osteoporosis, with a right total femur T-scores of -3.3. The detailed DEXA report will be mailed to the referring physician's office. DualFemur FRAX: 10-year Probability of Fracture: Major Osteoporotic 41.1% Hip 18.7%. IMPRESSION: Osteoporosis. [id number] Dictating Physician: HARVINDER HOBBS MD Electronically Signed by: HARVINDER OHBBS MD Dic Date/Time: 03/17/20 1424 Sign date/Time: 03/17/20 1425 Procedure Note Harvinder Hobbs MD - 07/09/2022 [facility] Diagnostic Imaging Department [address] [place] [address] Patient: LESLY OSPINA I /Age/Sex: 1945 - 74 - F Unit#: [id number] Location/Status: SPDIMAM/REG CLI Mnemonic/Ordering Site: MAMDEXAAX/SPMAM Ordering Physician: XOCHILT SHETH MD Chantal Dexa Axial Skeleton - 03/16/20 - 1351 History: Low estrogen state due to menopause. Findings: Bone densitometry is performed utilizing dual energy x-ray absorptiometry(DXA) in the [employer] unit. The lumbar spine and proximal femora areevaluated in the AP projection. The FRAX questionaire was completed. The results indicate osteoporosis, with a right total femur T-scores of-3.3. The detailed DEXA report will be mailed to the referring physician'soffice. DualFemur FRAX: 10-year Probability of Fracture: Major Osteoporotic 41.1%Hip 18.7%. IMPRESSION: Osteoporosis. [id number] Dictating Physician: HARVINDER HOBBS MD Electronically Signed by: HARVINDER HOBBS MD Dic Date/Time: 03/17/20 1424 Sign date/Time: 03/17/20 1425 us Xochilt Sheth MD IMG BI PROCEDURES Final Result from Last 3 Months or Most Recently Relevant to Health Maintenance
--- OUTSIDE RECORDS SUMMARY | 2025-03-14 13:14 | XMS_ITS | Encounter Summary ---
Author Organization [facility] Address [address] [place] [address] Phone Care Team Providers Care Manager Of Tires Sales Name Role Phone Seble Medina MD Primary Care Provider [phone] Christopher Thompson MD Unavailable + [phone] Ysabel Sanchez RN Unavailable [email or web address] Stephon Chambers RN Unavailable [phone] Amirah Smith MD Primary Care Provider Carine Rivas RN Unavailable [email or web address] Vikki Perez MD Unavailable [phone] Amirah Smith MD Primary Care Provider Dusty Aguirre DO Unavailable [phone] Marilia Nolan OCCUPATIONAL HEALTH NURSE Unavailable [phone] Karen Santo CNP Unavailable Loyda Pinon PA-C Unavailable pnugen Stephon Maya MD Unavailable Minor BaltazarBS Unavailable [phone] Ayanna Fox OCCUPATIONAL HEALTH NURSE Unavailable [phone] Shala Hartman NP Unavailable [phone] Karen Santo CNP Unavailable Shala Hartman NP Unavailable Encounter Details Date Type Department Care Team (Late Contact Info) Description 08/16/2020 Procedure Pass [facility] Imaging - RF/IR [address] [place] [address] Social History Tobacco Use Types Packs/Day Years [...] Info) Description 03/21/2025 9:40 AM EDT Infusion [facility] at [address] [address] Dusty Aguirre, DO [address] [place] [address] [email or web address]@[email or web address] 03/21/2025 11:30 AM EDT Office Visit [facility] at [address] [address] Ayanna Fox FNP [address] [place] [address] [email or web address] 03/21/2025 12:40 PM EDT Infusion [facility] at [address] [address] Dusty Aguirre, DO [address] [place] [address] [email or web address]@[email or web address] [email or web address] Karen Burgos, KAPIL [address] [place] [address] 04/04/2025 8:20 AM EDT Appointment [facility] [address] [place] [address] Dusty Aguirre, DO [address] [place] [address] [email or web address]@[facility] 04/04/2025 9:00 AM EDT Office Visit [facility] at [address] [address] Ayanna Fox FNP [address] [place] [address] [email or web address] 04/04/2025 10:00 AM EDT Infusion [facility] at [address] [address] Dusty Aguirre, DO [address] [place] [address] [email or web address]@[facility] Niyah Cole, KAPIL [address] [place] [address] [email or web address] 04/06/2025 3:20 PM EDT Telemedicine [address], 4th Floor, [address] [place] [address] Stephon Maya MD [address] [place] [address] [email or web address] 04/11/2025 10:20 AM EDT Appointment [facility] Laboratory [address] [place] [address] Dusty Aguirre, DO [address] [place] [address] [email or web address]@[facility] 04/11/2025 11:30 AM EDT Office Visit [facility] at [address] [address] Ayanna Fox FNP [address] [place] [address] [email or web address] 04/11/2025 12:40 PM EDT Infusion [facility] at [address] [address] Dusty Aguirre, DO [address] [place] [address] NAVEEN@[facility] Eldon Mckeon RN [address] [place] [address] 04/17/2025 9:10 AM EDT Appointment [facility] Laboratory [address] [place] [address] Dusty Aguirre, DO [address] [place] [address] NAVEEN@[facility] 04/17/2025 10:30 AM EDT Office Visit [facility] at [address] [address] Dusty Aguirre, DO [address] [place] [address] NAVEEN@[facility] 04/17/2025 11:20 AM EDT Infusion [facility] at [address] [address] Dusty Aguirre, DO [address] [place] [address] NAVEEN@[facility] Eldon Mckeon, KAPIL [address] [place] [address] 04/28/2025 11:50 AM EDT Appointment [facility] Laboratory [address] [place] [address] Dusty Aguirre, DO [address] [place] [address] NAVEEN@[facility] 04/28/2025 1:00 PM EDT Office Visit [facility] at [address] [address] Ayanna Fox FNP [address] [place] [address] [email or web address] 04/28/2025 2:00 PM EDT Infusion [facility] at [address] [address] Dusty Aguirre, [address] [address] NAVEEN@[facility] Sophy Nolan, KAPIL [address] [place] [address] [email or web address] 05/08/2025 7:50 AM EDT Appointment [facility] Laboratory [address] [place] [address] Dusty Aguirre, [address] [address] NAVEEN@[facility] 05/08/2025 9:00 AM EDT Office Visit [facility] at [address] [address] Dusty Aguirre, DO [address] [place] [address] NAVEEN@[facility] 05/08/2025 10:00 AM EDT Infusion [facility] at [address] [address] Dusty Aguirre, DO [address] [place] [phone] [email or web address]@[email or web address] Eldon Mckeon, KAPIL [address] [place] [address] [email or web address] documented as of this encounter Visit Diagnoses Not on filedocumented in this encounter Additional Health Concerns Infection Onset Date Last Indicated Resolved Time CoV-Risk 11/10/2022 11/10/2022 11/21/2022 1:24 AM EDT documented as of this encounter Care Teams Manager Of Tires Sales Relationship Specialty Start Date End Date Seble Medina MD [address] [place] [address] Dr SANCHEZ [address] [place] [address] [place] [address] PCP - General Internal Medicine 01/19/20 09/24/20 Amirah Smith MD [address] [place] [address] [place] [phone] PCP - General Internal Medicine 09/25/20 03/05/22 Amirah Smith MD [address] [place] [address] Dr Sanchez [address] [place] [phone] PCP - General Internal Medicine 03/06/22 Christopher Thompson MD [address] [place] [address] Obstetrics and Gynecology ServiceYA [address] [place] [address] [email or web address] Primary Oncologist Gynecologic Oncology 02/06/20 Ysabel Sanchez RN [address] [place] [address] [email or web address] Associate Infusion Nurse 03/29/20 Stephon Chambers RN [address] [place] [address] [email or web address] Associate Infusion Nurse 09/18/20 Carine Rivas RN [address] [place] [phone] [email or web address] Primary Infusion Nurse 11/05/20 Vikki Perez MD [address] [place] [phone] [email or web address] Primary Oncologist Gynecologic Oncology 03/27/21 Dusty Aguirre DO [address] [place] [address] NAVEEN@[facility] Primary Oncologist Hematology and Oncology 05/01/22 Marilia Nolan FNP [address] [place] [phone] [email or web address] Nurse Practitioner Medical Oncology 08/05/22 08/08/24 Karen Santo CNP [address] [place] [address] [email or web address] Nurse Practitioner Medical Oncology 09/05/22 08/08/24 Loyda Pinon PA-C [address] [place] [phone] [email or web address] Physician Customer Service Security Officer Medical Oncology 10/20/22 08/20/23 Stephon Maya MD [address] [place] [phone] [email or web address] Rheumatology 07/30/23 Minor Baltazar MBBS [address] [place] [address] [email or web address] Primary Oncologist Medical Oncology 10/16/23 10/25/23 Ayanna Fox FNP [address] [place] [phone] [email or web address] Registered Nurse Nurse Practitioner 08/09/24 Shala Hartman NP [address] [place] [address] [email or web address] Nurse Practitioner 08/15/24 10/30/24 Karen Santo CNP [address] [place] [address] [email or web address] Nurse Practitioner 08/29/24 Shala Hartman NP [address] [place] [phone] [email or web address] Nurse Practitioner 11/08/24 documented as of this encounter Additional Source Comments The information contained in this document represents components of the legal health record. It is not the complete legal health record.[facility]
--- OUTSIDE RECORDS SUMMARY | 2025-03-14 13:14 | XMS_ITS | Encounter Summary ---
Author Organization [facility] Address [address] [place] [address] Phone Care Team Providers Care Manager Telecom Name Role Phone Seble Medina MD Primary Care Provider [phone] Crhistopher Thompson MD Unavailable + [phone] Ysabel Sanchez RN Unavailable [email or web address] Stephon Chambers RN Unavailable [phone] Amirah Smith MD Primary Care Provider Carine Rivas RN Unavailable [email or web address] Vikki Perez MD Unavailable [phone] Amirah Smith MD Primary Care Provider Dusty Aguirre DO Unavailable + [phone] Marilia Nolan CUSTODY ASSISTANT Unavailable +[phone] Karen Santo CNP Unavailable Loyda Pinon PA-C Unavailable pnugen Stephon Maya MD Unavailable Minor BaltazarBS Unavailable [phone] Ayanna Fox CUSTODY ASSISTANT Unavailable [phone] Shala Hartman NP Unavailable +[phone] Karen Santo CNP Unavailable Shala Hartman NP Unavailable [phone] Reason for Referral * - Closed Specialty Diagnoses / Procedures Referred By La wheeler Referred To Contact Diagnoses Malignant neoplasm of both ovaries Procedures IR Venous Access Placement Christopher Thompson MD Phone: tel: fax: mailto:[email or web address] Referral ID Status Reason Start Date Expiration Date Visits Re quested Visits Authorized [id number] Closed 02/10/2020 02/09/2021 1 1 Encounter Details Date Type Department Care Team (Late Contact Info) Description 02/10/2020 Orders Only [facility] Oncology [address] [place] [address], 9th Floor, [address] [place] [address] Aniyah Egan, RN [address] [place] [phone] [email or web address] Malignant neoplasm of both ovaries (Primary Dx) Social History Tobacco Use Types Packs/Day Years Used Date Smoking Tobacco: Former Cigarettes 0.5 10 Smokeless Tobacco: Never Alcohol Use Standard Drinks/Week [...] Description 03/21/2025 9:40 AM EDT Infusion [facility] at [address] [address] Dusty Aguirre DO [address] [place] [address] [email or web address] 03/21/2025 11:30 AM EDT Office Visit [facility] at [address] [address] Ayanna Fox, CUSTODY ASSISTANT[address] [address] 03/21/2025 12:40 PM EDT Infusion [facility] at [address] [address] Dusty Aguirre, DO [address] [place] [address] [email or web address] Karen Burgos, KAPIL [address] [place] [address] 04/04/2025 8:20 AM EDT Appointment [facility] [address] [place] [address] Dusty Aguirre, DO [address] [place] [address] [email or web address] 04/04/2025 9:00 AM EDT Office Visit [facility] at [address] [address] Ayanna Fox, [address] [address] 04/04/2025 10:00 AM EDT Infusion [facility] at [address] [address] Dusty Aguirre, DO [address] [place] [address] [email or web address] Niyah Cole, KAPIL [address] [place] [address] 04/06/2025 3:20 PM EDT Telemedicine [facility] Rheumatology [address], 4th Floor, [address] [place] [address] Stephon Maya MD [address] [place] [address] [email or web address] 04/11/2025 10:20 AM EDT Appointment [facility] [address] [place] [address] Dusty Aguirre, DO [address] [place] [address] [email or web address]@[email or web address] 04/11/2025 11:30 AM EDT Office Visit [facility] at [address] [address] Ayanna Fox FNP [address] [place] [address] [email or web address] 04/11/2025 12:40 PM EDT Infusion [facility] [place] at [address] [address] Dusty Aguirre, DO [address] [place] [address] [email or web address]@[email or web address] Eldon Mckeon RN [address] [place] [address] [email or web address] 04/17/2025 9:10 AM EDT Appointment [facility] [address] [place] [address] Dusty Aguirre, DO [address] [place] [address] [email or web address]@[email or web address] 04/17/2025 10:30 AM EDT Office Visit [facility] at [address] [address] Dusty Aguirre, DO [address] [place] [address] [email or web address] 04/17/2025 11:20 AM EDT Infusion [facility] at [address] [address] Dusty Aguirre, DO [address] [place] [address] [email or web address] Eldon Mckeon, KAPIL [address] [place] [address] 04/28/2025 11:50 AM EDT Appointment [facility] [address] [place] [address] Dusty Aguirre, DO [address] [place] [address] [email or web address]@[facility] 04/28/2025 1:00 PM EDT Office Visit [facility] at [address] [address] Ayanna Fox FNP [address] [place] [address] [email or web address] 04/28/2025 2:00 PM EDT Infusion [facility] at [address] [address] Dusty Aguirre, DO [address] [place] [address] [email or web address]@[email or web address] Sophy Nolan, KAPIL [address] [place] [address] [email or web address] 05/08/2025 7:50 AM EDT Appointment [facility] [address] [place] [address] Dusty Aguirre, DO [address] [place] [address] JAY [email or web address]@[email or web address] 05/08/2025 9:00 AM EDT Office Visit [facility] at [address] [address] Timothy Montano David, DO [address] [place] [address] JAY [email or web address]@[email or web address] 05/08/2025 10:00 AM EDT Infusion [facility] at [address] [address] Dusty Aguirre, [address] [address] [email or web address]@[email or web address] Eldon Mckeon RN [address] [place] [address] [email or web address] documented as of this encounter Visit Diagnoses Diagnosis Malignant neoplasm of both ovaries- Primary documented in this encounter Additional Health Concerns Infection Onset Date Last Indicated Resolved Time CoV-Risk 11/10/2022 11/10/2022 11/21/2022 1:24 AM EDT documented as of this encounter Care Teams Manager Telecom Relationship Specialty Start Date End Date Seble Medina MD [address] [place] [address] [place] [address] PCP - General Internal Medicine 01/19/20 09/24/20 Amirah Smith MD [address] [place] [address] [place] [phone] PCP - General Internal Medicine 09/25/20 03/05/22 Amirah Smith MD [address] [place] [address] [place] [phone] PCP - General Internal Medicine 03/06/22 Christopher Thompson MD [address] [place] [address] Obstetrics and Gynecology [facility] [address], [place] [address] [email or web address] Primary Oncologist Gynecologic Oncology 02/06/20 Ysabel Sanchez, RN [address] [place] [address] [email or web address] Associate Infusion Nurse 03/29/20 Stephon Chambers RN [address] [place] [address] [email or web address] Associate Infusion Nurse 09/18/20 Carine Rivas RN [address] [place] [phone] [email or web address] Primary Infusion Nurse 11/05/20 Vikki Perez MD [address] [place] [address] [email or web address] Primary Oncologist Gynecologic Oncology 03/27/21 Dusty Aguirre DO [address] [place] [address] [email or web address] Primary Oncologist Hematology and Oncology 05/01/22 Marilia Nolan FNP [address] [place] [address] [email or web address] Nurse Practitioner Medical Oncology 08/05/22 08/08/24 Karen Santo CNP [address] [place] [address] [email or web address] Nurse Practitioner Medical Oncology 09/05/22 08/08/24 Loyda Pinon PA-C [address] [place] [address] [email or web address] Physician Cable Repairer Medical Oncology 10/20/22 08/20/23 Stephon Maya MD [address] [place] [address] [email or web address] Rheumatology 07/30/23 Minor Baltazar MBBS [address] [place] [address] [email or web address] Primary Oncologist Medical Oncology 10/16/23 10/25/23 Ayanna Fox FNP [address] [place] [address] [email or web address] Registered Nurse Nurse Practitioner 08/09/24 Shala Hartman NP [address] [place] [address] [email or web address] Nurse Practitioner 08/15/24 10/30/24 Karen Santo CNP [address] [place] [address] [email or web address] Nurse Practitioner 08/29/24 Shala Hartman NP [address] [place] [address] [email or web address] Nurse Practitioner 11/08/24 documented as of this encounter Additional Source Comments The information contained in this document represents components of the legal health record. It is not the complete legal health record.[facility]
--- OUTSIDE RECORDS SUMMARY | 2025-03-14 13:14 | XMS_ITS | Encounter Summary ---
Author Organization [facility] Address [address] [place] [address] Phone Care Team Providers Care Town Manager Name Role Phone Christopher Thompson MD Unavailable + [phone] Ysabel Sanchez RN Unavailable [email or web address] Stephon Chambers RN Unavailable [phone] Amirah Smith MD Primary Care Provider Carine Rivas RN Unavailable [email or web address] Vikki Perez MD Unavailable [phone] Amirah Smith MD Primary Care Provider Dusty Aguirre DO Unavailable [phone] Marilia Nolan MAIL ORDER CLERK Unavailable [phone] Karen Santo REAL [employer]STATE AGENCY LICENSEE Unavailable Loyda Pinon PA-C Unavailable gloria Stephon Maya MD Unavailable [phone] Minor BaltazarBS Unavailable [phone] Ayanna Fox MAIL ORDER CLERK Unavailable [phone] Shala Hartman NP Unavailable [phone] Karen Santo CNP Unavailable Shala Hartman NP Unavailable [phone] Encounter Details Date Type Department Care Team (Late st Contact Info) Description 02/25/[address], [facility] Imaging - [address], [address] [place] [phone] Social History Tobacco Use Types Packs/Day Years [...] Info) Description 03/21/2025 9:40 AM EDT Infusion [facility] at [address] [address] uDsty Aguirre DO [address] [place] [address] [email or web address] 03/21/2025 11:30 AM EDT Office Visit [facility] at [address] [address] Ayanna Fox FNP [address] [place] [address] [email or web address] 03/21/2025 12:40 PM EDT Infusion [facility] at [address] [address] Dusyt Aguirre DO [address] [place] [address] [email or web address]@[email or web address] .[facility] Karen Burgos, KAPIL [address] [place] [address] 04/04/2025 8:20 AM EDT Appointment [facility] [address] [place] [address] Dusty Aguirre, DO [address] [place] [address] [email or web address]@[email or web address] 04/04/2025 9:00 AM EDT Office Visit [facility] at [address] [address] Ayanna Fox FNP [address] [place] [address] [email or web address] 04/04/2025 10:00 AM EDT Infusion [facility] at [address] [address] Dusty Aguirre, DO [address] [place] [address] [email or web address]@[facility] Niyah Cole RN [address] [place] [address] [email or web address] 04/06/2025 3:20 PM EDT Telemedicine [address], 4th Floor, [address] [place] [address] Stephon Maya MD [address] [place] [address] [email or web address] 04/11/2025 10:20 AM EDT Appointment [facility] [address] [place] [address] Dusty Aguirre, DO [address] [place] [address] [email or web address]@[facility] 04/11/2025 11:30 AM EDT Office Visit [facility] at [address] [address] Ayanna Fox FNP [address] [place] [address] 04/11/2025 12:40 PM EDT Infusion [facility] at [address] [address] Dusty Aguirre, DO [address] [place] [address] [email or web address]@[facility] Eldon Mckeon RN [address] [place] [address] 04/17/2025 9:10 AM EDT Appointment [facility] [address] [place] [address] Dusty Aguirre, DO [address] [place] [address] [email or web address]@[facility] 04/17/2025 10:30 AM EDT Office Visit [facility] at [address] [address] Dusty Aguirre, DO [address] [place] [address] [email or web address]@[facility] 04/17/2025 11:20 AM EDT Infusion [facility] at [address] [address] Dusty Aguirre, DO [address] [place] [address] [email or web address]@[facility] Eldon Mckeon RN [address] [place] [address] 04/28/2025 11:50 AM EDT Appointment [facility] [address] [place] [address] Dusty Aguirre, DO [address] [place] [address] [email or web address]@[facility] 04/28/2025 1:00 PM EDT Office Visit [facility] at [address] [address] Ayanna Fox FNP [address] [place] [address] [email or web address] 04/28/2025 2:00 PM EDT Infusion [facility] at [address] [address] Dusty Aguirre, DO [address] [place] [address] [email or web address]@[facility] Sophy Nolan RN [address] [place] [address] [email or web address] 05/08/2025 7:50 AM EDT Appointment [address] [address] Dusty Aguirre, DO [address] [place] [address] [email or web address]@[facility] 05/08/2025 9:00 AM EDT Office Visit [facility] at [address] [address] Dusty Aguirre, DO [address] [place] [address] [email or web address]@[facility] 05/08/2025 10:00 AM EDT Infusion [facility] at [address] [address] Dusty Aguirre, DO [address] [place] [address] JAY [email or web address]@[email or web address] Eldon Mckeon RN [address] [place] [address] [email or web address] documented as of this encounter Visit Diagnoses Not on filedocumented in this encounter Additional Health Concerns Infection Onset Date Last Indicated Resolved Time CoV-Risk 11/10/2022 11/10/2022 11/21/2022 1:24 AM EDT documented as of this encounter Care Teams Town Manager Relationship Specialty Start Date End Date Amirah Smith MD [address] [place] [address] Dr Sanchez [facility] [place] [phone] PCP - General Internal Medicine 09/25/20 03/05/22 Amirah Smith MD [address] [place] [address] [place] [phone] PCP - General Internal Medicine 03/06/22 Christopher Thompson MD [address] [place] [address] [facility] [address] [place] [address] [email or web address]@[email or web address] Primary Oncologist Gynecologic Oncology 02/06/20 Ysabel Sanchez RN [address] [place] [address] [email or web address] Associate Infusion Nurse 03/29/20 Stephon Chambers RN [address] [place] [address] [email or web address] Associate Infusion Nurse 09/18/20 Carine Rivas RN [address] [place] [phone] [email or web address] Primary Infusion Nurse 11/05/20 Vikki Perez MD [address] [place] [address] [address] [place] [address] CORIN@[email or web address] Primary Oncologist Gynecologic Oncology 03/27/21 Dusty Aguirre DO [address] [place] [address] [email or web address] Primary Oncologist Hematology and Oncology 05/01/22 Marilia Nolan FNP [address] [place] [address] [email or web address] Nurse Practitioner Medical Oncology 08/05/22 08/08/24 Karen Santo CNP [address] [place] [address] [email or web address] Nurse Practitioner Medical Oncology 09/05/22 08/08/24 Loyda Pinon PA-C [address] [place] [address] [email or web address] Physician Interactive Media Project Manager Medical Oncology 10/20/22 08/20/23 Stephon Maya MD [address] [place] [address] [email or web address] Rheumatology 07/30/23 Minor Baltazar MBBS [address] [place] [address] [email or web address] Primary Oncologist Medical Oncology 10/16/23 10/25/23 Ayanna Fox FNP [address] [place] [address] [email or web address] Registered Nurse Nurse Practitioner 08/09/24 Shala HartmanKATHY [address] [place] [address] [email or web address] Nurse Practitioner 08/15/24 10/30/24 Karen Santo CNP [address] [place] [address] [email or web address] Nurse Practitioner 08/29/24 Shala Hartman NP [address] [place] [address] [email or web address] Nurse Practitioner 11/08/24 documented as of this encounter Additional Source Comments The information contained in this document represents components of the legal health record. It is not the complete legal health record.[facility]
--- OUTSIDE RECORDS SUMMARY | 2025-03-14 13:14 | XMS_ITS | Encounter Summary ---
Author Organization [facility] Address [address] [place] [address] Phone Care Team Providers Care Promos Executive Producer Name Role Phone Seble Medina MD Primary Care Provider [phone] Christopher Thompson MD Unavailable + [phone] Ysabel Sanchez RN Unavailable [email or web address] Stephon Chambers RN Unavailable [phone] Amirah Smith MD Primary Care Provider Carine Rivas RN Unavailable [email or web address] Vikki Perez MD Unavailable [phone] Amirah Smith MD Primary Care Provider Dusty Aguirre DO Unavailable + [phone] Marilia Nolan ADOPTION COORDINATOR Unavailable +[phone] Karen Santo CNP Unavailable Loyda Pinon PA-C Unavailable pnugen Stephon Maya MD Unavailable Minor BaltazarBS Unavailable [phone] Ayanna Fox ADOPTION COORDINATOR Unavailable [phone] Shala Hartman NP Unavailable +[phone] Karen Santo CNP Unavailable Shala Hartman NP Unavailable [phone] Reason for Referral * Outpatient Procedure - Closed Specialty Diagnoses / Procedures Referred By La wheeler Referred To Contact Radiology Diagnoses Malignant neoplasm of both ovaries Procedures CT Biopsy Kidney Focal (Left) CT Biopsy Kidney Focal (Right) IR Abdominal Biopsy/Fiducial Placement PA RENAL BIOPSY PRQ TROCAR/NEEDLE CHG SONO GUIDE NEEDLE BIOPSY CHG CT GUIDANCE NEEDLE PLACEMENT Christopher Thompson MD Phone: tel: fax: mailto:[email or web address] Referral ID Status Reason Start Date Expiration Date Visits Re quested Visits Authorized [id number] Closed 08/24/2020 08/24/2020 1 1 Encounter Details Date Type Department Care Team (Late st Contact Info) Description 08/24/2020 Ancillary Orders [facility] Gynecology Oncology [address], 9th Floor, [address] [place] [address] Christopher Thompson MD [address] [facility] Obstetrics and Gynecology ServiceYAW [address] [place] [address] [email or web address] Malignant neoplasm of both ovaries Social History Tobacco Use Types Packs/Day Years [...] Date of Assessment Author No Risk Indicated 08/24/2020 10:52 AM EST Alexandra wheeler, Ally Campos RN * Winston Suicide Severity Rating Scale (Screener/Recent Self-Report) Question Answer Date of Assessment Author 1. Wish to be (Past 1 Month) No 08/24/2020 10:52 AM Ally Al As KAPIL chandler 2. Non-Specific Active Suicidal Thoughts (Past 1 Month) No 08/24/2020 10:52 AM Ally Al As KAPIL chandler 6. Suicidal Behavior (Lifetime) No 08/24/2020 10:52 AM Ally Al As KAPIL chandler documented as of this encounter Plan of Treatment Upcoming Encounters Date Type Department Care Team (Late st Contact Info) Description 03/21/2025 9:40 AM EDT Infusion [facility] at [address] [address] Dusty Aguirre, DO [address] [place] [address] [email or web address] 03/21/2025 11:30 AM EDT Office Visit [facility] at [address] [address] Ayanna Fox FNP [address] [place] [address] [email or web address] 03/21/2025 12:40 PM EDT Infusion [facility] at [address] [address] Dusty Aguirre, DO [address] [place] [address] [email or web address].[email or web address] .[facility] Karen Burgos, KAPIL [address] [place] [address] 04/04/2025 8:20 AM EDT Appointment [facility] [address] [place] [address] Dusty Aguirre, DO [address] [place] [address] [email or web address] 04/04/2025 9:00 AM EDT Office Visit [facility] at [address] [address] Ayanna Fox, ADOPTION COORDINATOR[address] [address] [email or web address] 04/04/2025 10:00 AM EDT Infusion [facility] at [address] [address] Dusty Aguirre, DO [address] [place] [address] [email or web address] Niyah Cole RN [address] [place] [address] [email or web address] 04/06/2025 3:20 PM EDT Telemedicine [address], 4th Floor, [address] [place] [address] Stephon Maya MD [address] [place] [address] [email or web address] 04/11/2025 10:20 AM EDT Appointment [address] [address] Dusty Aguirre, DO [address] [place] [address] [email or web address] 04/11/2025 11:30 AM EDT Office Visit [facility] at [address] [address] Ayanna Fox, [address] [address] [email or web address] 04/11/2025 12:40 PM EDT Infusion [facility] at [address] [address] Dusty Aguirre, DO [address] [place] [address] [email or web address]@[email or web address] Eldon Mckeon RN [address] [place] [address] 04/17/2025 9:10 AM EDT Appointment [facility] Laboratory [address] [place] [address] Dusty Aguirre, DO [address] [place] [address] [email or web address]@[email or web address] 04/17/2025 10:30 AM EDT Office Visit [facility] at [address] [address] Dusty Aguirre, DO [address] [place] [address] [email or web address]@[email or web address] 04/17/2025 11:20 AM EDT Infusion [facility] at [address] [address] Dusty Aguirre, [address] [address] [email or web address]@[email or web address] Eldon Mckeon RN [address] [place] [address] 04/28/2025 11:50 AM EDT Appointment [facility] Laboratory [address] [place] [address] Dusty Aguirre, [address] [address] [email or web address]@[email or web address] 04/28/2025 1:00 PM EDT Office Visit [facility] at [address] [address] Ayanna Fox FNP [address] [place] [address] [email or web address] 04/28/2025 2:00 PM EDT Infusion [facility] at [address] [address] Dusty Aguirre, DO [address] [place] [address] [email or web address] Sophy Nolan RN [address] [place] [address] 05/08/2025 7:50 AM EDT Appointment [address] [address] Dusty Aguirre, DO [address] [place] [address] [email or web address] 05/08/2025 9:00 AM EDT Office Visit [facility] at [address] [address] Dusty Aguirre, DO [address] [place] [address] [email or web address] 05/08/2025 10:00 AM EDT Infusion [facility] at [address] [address] Dusty Aguirre, DO [address] [place] [address] [email or web address] .[email or web address] Eldon Mckeon, KAPIL [address] [place] [address] documented as of this encounter Results * CT Biopsy Kidney Focal (Left) (08/24/2020 12:57 PM EST) Anatomical Region Laterality Modality Kidney Computed Tomogra phy 08/24/2020 1:36 PM EST Impressions 08/24/2020 8:[address]-guided targeted left renal biopsy. PLAN: Recovery and observation for 2 hours then discharge home. ATTESTATION: I, Dr. Christo Sahni as teaching physician, have reviewed the images for this case and if necessary edited the report originally created by Dr. Christopher Rico. Narrative 08/24/2020 8:[address] BIOPSY KIDNEY FOCAL (LEFT) COMPARISON: Abdomen and pelvis CT 08/10/2020; abdominal MRI 04/13/2020. OPERATORS: Dr. Christopher Sahni was present for the entire procedure. CONSENT: Informed consent was obtained. The purposes, alternatives, risks, and benefits were explained and discussed. All questions were answered. ANESTHESIA/MEDICATIONS: 1% lidocaine subcutaneous; otherwise see nursing notes. TECHNIQUE: Informed consent was obtained and the patient was brought to the interventional radiology CT procedure suite and placed on the couch in prone position. Preliminary computed tomographic images were obtained to delineate the anatomy. The targeted lesion in the left kidney was identified, a safe approach was determined and the overlying skin was marked. The back was prepped and draped in the standard sterile fashion. All elements of maximal sterile barrier technique were followed including cap and mask, sterile gown, sterile gloves, large sterile sheet, hand hygiene, and 2% chlorhexidine for cutaneous antisepsis. A safety timeout was performed adherent to universal protocol verifying the patient's identification and planned procedure. 1% lidocaine was injected into the skin and deep to the subcutaneous soft tissues for local anesthesia. A 17-gauge coaxial needle was advanced to the lesion in the left kidney under intermittent computed tomographic guidance. 18-gauge core biopsy samples were obtained using a biopsy apparatus and placed in formalin. The samples were submitted to pathology for evaluation. Prior removal of the coaxial needle, Gelfoam pledgets were deployed near the renal capsule and all needles were removed from the patient. Completion computed tomographic images were obtained. Loading Dock Helper images were saved to the permanent electronic medical record. There were no immediate complications. Procedure Note Christo Sahni MD, MBBS - 08/24/2020 CT BIOPSY KIDNEY FOCAL (LEFT) COMPARISON: Abdomen and pelvis CT 08/10/2020; abdominal MRI 04/13/2020. OPERATORS: Dr. Christopher Sahni was present for the entire procedure. CONSENT: Informed consent was obtained. The purposes, alternatives, risks, andbenefits were explained and discussed. All questions were answered. ANESTHESIA/MEDICATIONS: 1% lidocaine subcutaneous; otherwise see nursingnotes. TECHNIQUE: Informed consent was obtained and the patient was brought to theinterventional radiology CT procedure suite and placed on the couch inprone position. Preliminary computed tomographic images were obtained to delineate theanatomy. The targeted lesion in the left kidney was identified, a safeapproach was determined and the overlying skin was marked. The back was prepped and draped in the standard sterile fashion. Allelements of maximal sterile barrier technique were followed including capand mask, sterile gown, sterile gloves, large sterile sheet, hand hygiene,and 2% chlorhexidine for cutaneous antisepsis. A safety timeout was performed adherent to universal protocol verifyingthe patient's identification and planned procedure. 1% lidocaine was injected into the skin and deep to the subcutaneous softtissues for local anesthesia. A 17-gauge coaxial needle was advanced tothe lesion in the left kidney under intermittent computed tomographicguidance. 18-gauge core biopsy samples were obtained using a biopsyapparatus and placed in formalin. The samples were submitted to pathologyfor evaluation. Prior removal of the coaxial needle, Gelfoam pledgets weredeployed near the renal capsule and all needles were removed from thepatient. Completion computed tomographic images were obtained. Representativeimages were saved to the permanent electronic medical record. There were no immediate complications. IMPRESSION: CT-guided targeted left renal biopsy. PLAN: Recovery and observation for 2 hours then discharge home. ATTESTATION: I, Dr. Christo Sahni as teaching physician, have reviewed theimages for this case and if necessary edited the report originally createdby Dr. Christopher Rico. 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 documented in this encounter Additional Health Concerns Infection Onset Date Last Indicated Resolved Time CoV-Risk 11/10/2022 11/10/2022 11/21/2022 1:24 AM EDT documented as of this encounter Care Teams Promos Executive Producer Relationship Specialty Start Date End Date Seble Medina MD [address] [place] [address] Dr SANCHEZ [address] [place] [address] PCP - General Internal Medicine 01/19/20 09/24/20 Amirah Smith MD [address] [place] [address] [place] [phone] PCP - General Internal Medicine 09/25/20 03/05/22 Amirah Smith MD [address] [place] [address] Dr Sanchez [facility] [place] [phone] PCP - General Internal Medicine 03/06/22 Christopher Thompson MD [address] [place] [address] Obstetrics and Gynecology [facility] [address] [place] [address] [email or web address] Primary Oncologist Gynecologic Oncology 02/06/20 Ysabel Sanchez RN [address] [place] [address] Associate Infusion Nurse 03/29/20 Stephon Chambers RN [address] [place] [address] [email or web address] Associate Infusion Nurse 09/18/20 Carine Rivas, RN [address] [place] [phone] [email or web address] Primary Infusion Nurse 11/05/20 Vikki Perez MD [address] [place] [address] [email or web address] Primary Oncologist Gynecologic Oncology 03/27/21 Dusty Aguirre DO [address] [place] [address] [email or web address] Primary Oncologist Hematology and Oncology 05/01/22 Marilia Nolan FNP [address] [place] [address] [email or web address] Nurse Practitioner Medical Oncology 08/05/22 08/08/24 Karen Santo CNP [address] [place] [address] [email or web address] Nurse Practitioner Medical Oncology 09/05/22 08/08/24 Loyda Pinon PA-C [address] [place] [address] [email or web address] Physician Carton Wrapper Medical Oncology 10/20/22 08/20/23 Stephon Maya MD [address] [place] [address] [email or web address] 07/30/23 Minor Baltazar MBBS [address] [place] [address] [email or web address] Primary Oncologist Medical Oncology 10/16/23 10/25/23 Ayanna Fox FNP [address] [place] [address] [email or web address] Registered Nurse Nurse Practitioner 08/09/24 Shala Hartman NP [address] [place] [address] [email or web address] Nurse Practitioner 08/15/24 10/30/24 Karen Santo CNP [address] [place] [address] [email or web address] Nurse Practitioner 08/29/24 Shala Hartman NP [address] [place] [address] [email or web address] Nurse Practitioner 11/08/24 documented as of this encounter Additional Source Comments The information contained in this document represents components of the legal health record. It is not the complete legal health record.[facility]
--- OUTSIDE RECORDS SUMMARY | 2025-03-14 13:14 | XMS_ITS | Encounter Summary ---
Author Organization [facility] Address [address] [place] [address] Phone Care Team Providers Care Ball Worker Name Role Phone Seble Medina MD Primary Care Provider [phone] Christopher Thompson MD Unavailable + [phone] Ysabel Sanchez RN Unavailable [email or web address] Stephon Chambers RN Unavailable [phone] Amirah Smith MD Primary Care Provider Carine Rivas RN Unavailable [email or web address] Vikki Perez MD Unavailable [phone] Amirah Smith MD Primary Care Provider Dusty Aguirre DO Unavailable + [phone] Marilia Nolan ENVIRONMENTAL DESIGNER Unavailable [phone] Karen Santo CNP Unavailable Loyda Pinon PA-C Unavailable pnugen Stephon Maya MD Unavailable [phone] Minor BaltazarBS Unavailable [phone] Ayanna Fox ENVIRONMENTAL DESIGNER Unavailable [phone] Shala Hartman NP Unavailable +[phone] Karen Santo CNP Unavailable Shala Hartman NP Unavailable [phone] Encounter Details Date Type Department Care Team (Late st Contact Info) Description 07/19/[address], [facility] - [address], [address] [place] [id number] Social History Tobacco Use Types Packs/Day Years [...] AM EDT Infusion [facility] at [address] [address] Dusty Aguirre, DO [address] [place] [address] [email or web address] 03/21/2025 11:30 AM EDT Office Visit [facility] at [address] [address] Ayanna Fox FNP [address] [place] [address] [email or web address] 03/21/2025 12:40 PM EDT Infusion [facility] at [address] [address] Dusty Aguirre, DO [address] [place] [address] [email or web address] [email or web address] Karen Burgos, KAPIL [address] [place] [address] 04/04/2025 8:20 AM EDT Appointment [facility] [address] [place] [address] Dusty Aguirre, DO [address] [place] [address] [email or web address]@[email or web address] 04/04/2025 9:00 AM EDT Office Visit [facility] at [address] [address] Ayanna Fox FNP [address] [place] [address] [email or web address] 04/04/2025 10:00 AM EDT Infusion [facility] at [address] [address] Dusty Aguirre, DO [address] [place] [address] [email or web address] Niyah Cole RN [address] [place] [address] [email or web address] 04/06/2025 3:20 PM EDT Telemedicine [address], 4[address] Floor, [address] [place] [address] Stephon Maya MD [address] [place] [address] [email or web address] 04/11/2025 10:20 AM EDT Appointment [facility] [address] [place] [address] Dusty Aguirre, DO [address] [place] [address] [email or web address]@[email or web address] 04/11/2025 11:30 AM EDT Office Visit [facility] at [address] [address] Ayanna Fox FNP [address] [place] [address] [email or web address] 04/11/2025 12:40 PM EDT Infusion [facility] at [address] [address] Dusty Aguirre, DO [address] [place] [address] [email or web address]@[email or web address] Eldon Mckeon RN [address] [place] [address] 04/17/2025 9:10 AM EDT Appointment [facility] Laboratory [address] [place] [address] Dusty Aguirre, DO [address] [place] [address] [email or web address]@[email or web address] 04/17/2025 10:30 AM EDT Office Visit [facility] at [address] [address] Dusty Aguirre, DO [address] [place] [address] [email or web address]@[email or web address] 04/17/2025 11:20 AM EDT Infusion [facility] at [address] [address] Dusty Aguirre, DO [address] [place] [address] [email or web address]@[email or web address] Eldon Mckeon RN [address] [place] [address] 04/28/2025 11:50 AM EDT Appointment [facility] [address] [place] [address] Dusty Aguirre, DO [address] [place] [address] [email or web address]@[email or web address] 04/28/2025 1:00 PM EDT Office Visit [facility] at [address] [address] Ayanna Fox FNP [address] [place] [address] [email or web address] 04/28/2025 2:00 PM EDT Infusion [facility] at [address] [address] Dusty Aguirre, DO [address] [place] [address] [email or web address]@[email or web address] Sophy Nolan, KAPIL [address] [place] [address] [email or web address] 05/08/2025 7:50 AM EDT Appointment [facility] [address] [place] [address] Dusty Aguirre, DO [address] [place] [address] [email or web address]@[email or web address] 05/08/2025 9:00 AM EDT Office Visit [facility] at [address] [address] Dusty Aguirre, DO [address] [place] [address] [email or web address]@[email or web address] 05/08/2025 10:00 AM EDT Infusion [facility] at [address] [address] Dusty Aguirre, DO [address] [place] [address] [email or web address]@[email or web address] Eldon Mckeon RN [address] [place] [address] [email or web address] documented as of this encounter Visit Diagnoses Not on filedocumented in this encounter Additional Health Concerns Infection Onset Date Last Indicated Resolved Time CoV-Risk 11/10/2022 11/10/2022 11/21/2022 1:24 AM EDT documented as of this encounter Care Teams Ball Worker Relationship Specialty Start Date End Date Seble Medina MD [address] [place] [address] Dr SANCHEZ [address] [place] [address] PCP - General Internal Medicine 01/19/20 09/24/20 Amirah Smith MD [address] [place] [address] Dr Sanchez [address] [place] [phone] PCP - General Internal Medicine 09/25/20 03/05/22 Amirah Smith MD [address] [place] [address] Dr Sanchez [address] [place] [phone] PCP - General Internal Medicine 03/06/22 Christopher Thompson MD [address] [place] [address] Obstetrics and Gynecology Service[address] [address] [email or web address] Primary Oncologist Gynecologic Oncology 02/06/20 Ysabel Sanchez RN [address] [place] [address] [email or web address] Associate Infusion Nurse 03/29/20 Stephon Chambers RN [address] [place] [address] [email or web address] Associate Infusion Nurse 09/18/20 Carine Rivas RN [address] [place] [phone] [email or web address] Primary Infusion Nurse 11/05/20 Vikki Perez MD [address] [place] [address] [email or web address] Primary Oncologist Gynecologic Oncology 03/27/21 Dusty Aguirre DO [address] [place] [address] [email or web address]@[email or web address] Primary Oncologist Hematology and Oncology 05/01/22 Marilia Nolan FNP [address] [place] [address] [email or web address] Nurse Practitioner Medical Oncology 08/05/22 08/08/24 Karen Santo CNP [address] [place] [address] [email or web address] Nurse Practitioner Medical Oncology 09/05/22 08/08/24 Loyda Pinon PA-C [address] [place] [address] [email or web address] Physician English Language Learner Tutor Medical Oncology 10/20/22 08/20/23 Stephon Maya MD [address] [place] [address] [email or web address] Rheumatology 07/30/23 Minor Baltazar MBBS [address] [place] [address] [email or web address] Primary Oncologist Medical Oncology 10/16/23 10/25/23 Ayanna Fox FNP [address] [place] [address] [email or web address] Registered Nurse Nurse Practitioner 08/09/24 Shala Hartman NP [address] [place] [address] [email or web address] Nurse Practitioner 08/15/24 10/30/24 Karen Santo CNP [address] [place] [address] [email or web address] Nurse Practitioner 08/29/24 Shala Hartman NP [address] [place] [address] [email or web address] Nurse Practitioner 11/08/24 documented as of this encounter Additional Source Comments The information contained in this document represents components of the legal health record. It is not the complete legal health record.[facility]
--- OUTSIDE RECORDS SUMMARY | 2025-03-14 13:15 | XMS_ITS | Encounter Summary ---
Author Organization [facility] Address [address] [place] [phone] Phone Care Team Providers Care Supervisor Sewing Room Name Role Phone Christopher Thompson MD Unavailable + [phone] Ysabel Sanchez RN Unavailable [email or web address] Stephon Chambers RN Unavailable [phone] Carine Rivas RN Unavailable [email or web address] Vikki Perez MD Unavailable [phone] Amirah Smith MD Primary Care Provider Dusty Aguirre DO Unavailable Marilia Nolan REFINERY OPERATOR ASSISTANT Unavailable [phone] Karen Santo CNP Unavailable Loyda PinonC Unavailable gloria Stephon Maya MD Unavailable Minor BaltazarBS Unavailable Ayanna Fox REFINERY OPERATOR ASSISTANT Unavailable Shala Hartman NP Unavailable Karen Santo CNP Unavailable Shala Hartman NP Unavailable Encounter Details Date Type Department Care Team (Late st Contact Info) Description 04/13/2023 Procedure Pass [facility], Ct Scan - [address] [address] Social History Tobacco Use Types Packs/Day Years [...] 03/21/2025 9:40 AM EDT Infusion [facility] at [address] [address] Dusty Aguirre DO [address] [place] [address] [email or web address].[email or web address] .[facility] 03/21/2025 11:30 AM EDT Office Visit [facility] at [address] [address] Ayanna Fox, REFINERY OPERATOR ASSISTANT[address] [address] 03/21/2025 12:40 PM EDT Infusion [facility] at [address] [address] Dusty Aguirre, DO [address] [place] [address] [email or web address] Karen Burgos, KAPIL [address] [place] [address] 04/04/2025 8:20 AM EDT Appointment [facility] [address] [place] [address] Dusty Aguirre, DO [address] [place] [address] [email or web address] 04/04/2025 9:00 AM EDT Office Visit [facility] at [address] [address] Ayanna Fox, [address] [address] 04/04/2025 10:00 AM EDT Infusion [facility] at [address] [address] Dusty Aguirre, DO [address] [place] [address] [email or web address].AMBLER .[facility] Niyah Cole, KAPIL [address] [place] [address] 04/06/2025 3:20 PM EDT Telemedicine [facility] Rheumatology [address], [address] [place] [address] Stephon Maya MD [address] [place] [address] [email or web address] 04/11/2025 10:20 AM EDT Appointment [facility] [address] [place] [address] Dusty Aguirre, DO [address] [place] [address] [email or web address] 04/11/2025 11:30 AM EDT Office Visit [facility] at [address] [address] Ayanna Fox FNP [address] [place] [address] [email or web address] 04/11/2025 12:40 PM EDT Infusion [facility] at [address] [address] Dusty Aguirre, DO [address] [place] [address] [email or web address] Eldon Mckeon RN [address] [place] [address] [email or web address] 04/17/2025 9:10 AM EDT Appointment [facility] [address] [place] [address] Dusty Aguirre, DO [address] [place] [address] [email or web address] 04/17/2025 10:30 AM EDT Office Visit [facility] at [address] [address] Dusty Aguirre, DO [address] [place] [address] [email or web address] 04/17/2025 11:20 AM EDT Infusion [facility] at [address] [address] Dusty Aguirre, DO [address] [place] [address] [email or web address] Eldon Mckeon, KAPIL [address] [place] [address] 04/28/2025 11:50 AM EDT Appointment [facility] [address] [place] [address] Dusty Aguirre, DO [address] [place] [address] [email or web address] 04/28/2025 1:00 PM EDT Office Visit [facility] at [address] [address] Ayanna Fox FNP [address] [place] [address] [email or web address] 04/28/2025 2:00 PM EDT Infusion [facility] at [address] [address] Dusty Aguirre, DO [address] [place] [address] [email or web address] Sophy Nolan, KAPIL [address] [place] [address] [email or web address] 05/08/2025 7:50 AM EDT Appointment [facility] [address] [place] [address] Dusty Aguirre, DO [address] [place] [address] JAY [email or web address] 05/08/2025 9:00 AM EDT Office Visit [facility] at [address] [address] Dusty Aguirre, DO [address] [place] [address] JAY [email or web address] 05/08/2025 10:00 AM EDT Infusion [facility] at [address] [address] Dusty Aguirre, [address] [address] JAY [email or web address] Eldon Mckeon RN [address] [place] [address] [email or web address] documented as of this encounter Visit Diagnoses Not on filedocumented in this encounter Care Teams Supervisor Sewing Room Relationship Specialty Start Date End Date Amirah Smith MD [address] [place] [address] [place] [address] PCP - General Internal Medicine 03/06/22 Christopher Thompson MD [address] [place] [address] Obstetrics and Gynecology Service[facility] [address] [place] [address] [email or web address] Primary Oncologist Gynecologic Oncology 02/06/20 Ysabel Sanchez RN [address] [place] [address] [email or web address] Associate Infusion Nurse 03/29/20 Stephon Chambers RN [address] [place] [address] [email or web address] Associate Infusion Nurse 09/18/20 Carine Rivas, RN [address] [place] [address] [email or web address] Primary Infusion Nurse 11/05/20 Vikki Perez MD [address] [place] [phone] [email or web address] Primary Oncologist Gynecologic Oncology 03/27/21 Dusty Aguirre DO [address] [place] [address] [email or web address] Primary Oncologist Hematology and Oncology 05/01/22 Marilia Nolan FNP [address] [place] [address] [email or web address] Nurse Practitioner Medical Oncology 08/05/22 08/08/24 Karen Santo CNP [address] [place] [address] [email or web address] Nurse Practitioner Medical Oncology 09/05/22 08/08/24 Loyda Pinon PA-C [address] [place] [address] [email or web address] Physician Claim Manager Medical Oncology 10/20/22 08/20/23 Stephon Maya MD [address] [place] [address] [email or web address] [email or web address] 07/30/23 Minor Baltazar MBBS [address] [place] [address] [email or web address] Primary Oncologist Medical Oncology 10/16/23 10/25/23 Ayanna Fox FNP [address] [place] [address] [email or web address] Registered Nurse Nurse Practitioner 08/09/24 Shala Hartman NP [address] [place] [address] [email or web address] Nurse Practitioner 08/15/24 10/30/24 Karen Santo CNP [address] [place] [address] [email or web address] Nurse Practitioner 08/29/24 Shala Hartman NP [address] [place] [address] [email or web address] Nurse Practitioner 11/08/24 documented as of this encounter Additional Source Comments The information contained in this document represents components of the legal health record. It is not the complete legal health record.[facility]
--- OUTSIDE RECORDS SUMMARY | 2025-03-14 13:15 | XMS_ITS | Encounter Summary ---
Author Organization [facility] Address [address] [place] [phone] Phone Care Team Providers Care Commercial Tire Service Technician Name Role Phone Christopher Thompson MD Unavailable + [phone] Ysabel Sanchez RN Unavailable [email or web address] Stephon Chambers RN Unavailable [phone] Carine Rivas RN Unavailable [email or web address] Vikki Perez MD Unavailable [phone] Amirah Smith MD Primary Care Provider Dusty Aguirre DO Unavailable Marilia Nolan FITNESS AND WELLNESS COORDINATOR Unavailable Karen Santo CNP Unavailable Loyda PinonC Unavailable [email or web address] Stephon Maya MD Unavailable Minor Baltazar MBBS Unavailable Ayanna Fox FITNESS AND WELLNESS COORDINATOR Unavailable hSala Hartman NP Unavailable [phone] Karen Santo CNP Unavailable Shala Hartman NP Unavailable [phone] Encounter Details Date Type Department Care Team (Latest Contact Info) Description 04/30/2023 Ancillary Orders [facility] Musculoskeletal [address] 4[address], [address] [place] [address] Stephon Maya MD [address] [place] [address] [email or web address] Metatarsalgia of both feet; Ulnar deviation of fingers of both hands Social History Tobacco Use Types Packs/Day Years [...] Info) Description 03/21/2025 9:40 AM EDT Infusion [facility] at [facility] [address] [place] [address] Dusty Aguirre, [address] [place] [address] [email or web address] 03/21/2025 11:30 AM EDT Office Visit [facility] [place] at [address] [address] Ayanna Fox, FITNESS AND WELLNESS COORDINATOR[address] [address] 03/21/2025 12:40 PM EDT Infusion [facility] at [address] [address] Dusty Aguirre, DO [address] [place] [phone] [email or web address] Karen Burgos RN [address] [place] [address] 04/04/2025 8:20 AM EDT Appointment [facility] [address] [place] [address] Dusty Aguirre, DO [address] [place] [address] [email or web address] 04/04/2025 9:00 AM EDT Office Visit [facility] at [address] [address] Ayanna Fox, FITNESS AND WELLNESS COORDINATOR [address] [place] [address] 04/04/2025 10:00 AM EDT Infusion [facility] Center at [address] [address] Dusty Aguirre, DO [address] [place] [phone] [email or web address]@[email or web address] Niyah Cole RN [address] [place] [address] 04/06/2025 3:20 PM EDT Telemedicine [facility] Rheumatology [place] [address] [facility], 4th Floor, [address] [place] [address] Stephon Maya MD [address] [place] [address] [email or web address] 04/11/2025 10:20 AM EDT Appointment [facility] [address] [place] [address] Dusty Aguirre, DO [address] [place] [phone] [email or web address] 04/11/2025 11:30 AM EDT Office Visit [facility] at [address] [address] Ayanna Fox FNP [address] [place] [phone] [email or web address] 04/11/2025 12:40 PM EDT Infusion [facility] at [address] [address] Dusty Aguirre, DO [address] [place] [address] [email or web address]@[email or web address] Eldon Mckeon RN [address] [place] [address] 04/17/2025 9:10 AM EDT Appointment [facility] Laboratory [address] [place] [address] Dusty Aguirre, DO [address] [place] [address] [email or web address]@[email or web address] 04/17/2025 10:30 AM EDT Office Visit [facility] [place] at [address] [address] Dusty Aguirre, DO [address] [place] [phone] [email or web address]@[facility] 04/17/2025 11:20 AM EDT Infusion [facility] at [address] [address] Dusty Aguirre, DO [address] [place] [phone] [email or web address]@[facility] Eldon Mckeon RN [address] [place] [address] 04/28/2025 11:50 AM EDT Appointment [facility] Laboratory [address] [place] [address] Dusty Aguirre, DO [address] [place] [phone] [email or web address]@[facility] 04/28/2025 1:00 PM EDT Office Visit [facility] at [address] [address] Ayanna Fox FNP [address] [place] [phone] [email or web address] 04/28/2025 2:00 PM EDT Infusion [facility] at [address] [address] Dusty Aguirre, DO [address] [place] [phone] [email or web address]@[facility] Sophy Nolan, KAPIL [address] [place] [address] 05/08/2025 7:50 AM EDT Appointment [facility] [address] [place] [address] Dusty Aguirre, DO [address] [place] [phone] [email or web address]@[facility] 05/08/2025 9:00 AM EDT Office Visit [facility] at [address] [address] Dusty Aguirre, DO [address] [place] [address] [email or web address]@[email or web address] 05/08/2025 10:00 AM EDT Infusion [facility] at [address] [address] Dusty Aguirre, [address] [address] [email or web address] Eldon Mckeon RN [address] [place] [phone] [email or web address] documented as of this encounter Results * XR FOOT 2 VIEWS (LEFT) (04/30/2023 10:51 AM EDT) Anatomical Region Laterality Modality Foot Left Computed Radiogr aphy 04/30/2023 10:5 4 AM EDT Impressions 04/30/2023 10:59 AM EDT No specific findings for inflammatory arthritis. Multilevel degenerative changes of the cervical spine. Scattered degenerative changes of both hands and feet. Mild bilateral hip degenerative changes. Narrative 04/30/2023 10:59 AM EDT XR HIPS 2+ VW EA BILAT PLUS PELVIS, XR HAND 2 VIEWS (LEFT), XR CERVICAL SPINE 2- 3 VIEWS, XR FOOT 2 VIEWS (RIGHT), XR HAND 2 VIEWS (RIGHT), XR FOOT 2 VIEWS (LEFT) COMPARISON: None. FINDINGS: Cervical spine: The alignment is normal. The vertebral body heights are maintained. No compression fractures. There are multilevel disc degenerative changes, most advanced at C5-6. There is multilevel uncovertebral and facet arthropathy. No prevertebral soft tissue thickening. The alignment of C1 on C2 is difficult to evaluate on open-mouth views. The bones are diffusely demineralized. Bilateral hands: There are severe degenerative changes of the bilateral triscaphe joints. There are also severe degenerative changes at the left ulnocarpal joint. There are additional moderate scattered degenerative changes of both hands. No specific findings for inflammatory arthritis. The bones are diffusely demineralized. There is chondrocalcinosis of the right TFCC. Pelvis and bilateral hips: There are mild bilateral hip degenerative changes. No acute fracture or dislocation. There are degenerative changes of the partially imaged lower lumbar spine and both sacroiliac joints. The bones are diffusely demineralized. Bilateral feet: There is bilateral hallux valgus, left greater than right. There are severe first metatarsophalangeal joint degenerative changes of the right foot. There are additional mild to moderate scattered degenerative changes of both feet. There is a fracture of the distal left fifth metatarsal shaft in the advanced stages of healing. No specific findings for inflammatory arthritis. The bones are diffusely demineralized. There is mineralization involving both Achilles tendons. Procedure Note Scott Browning MD - 04/30/2023 XR HIPS 2+ VW EA BILAT PLUS PELVIS, XR HAND 2 VIEWS (LEFT), XR CERVICALSPINE 2-3 VIEWS, XR FOOT 2 VIEWS (RIGHT), XR HAND 2 VIEWS (RIGHT), XR FOOT2 VIEWS (LEFT) COMPARISON: None. FINDINGS: Cervical spine: The alignment is normal. The vertebral body heights aremaintained. No compression fractures. There are multilevel discdegenerative changes, most advanced at C5-6. There is multileveluncovertebral and facet arthropathy. No prevertebral soft tissuethickening. The alignment of C1 on C2 is difficult to evaluate onopen- mouth views. The bones are diffusely demineralized. Bilateral hands: There are severe degenerative changes of the bilateraltriscaphe joints. There are also severe degenerative changes at the leftulnocarpal joint. There are additional moderate scattered degenerativechanges of both hands. No specific findings for inflammatory arthritis.The bones are diffusely demineralized. There is chondrocalcinosis of theright TFCC. Pelvis and bilateral hips: There are mild bilateral hip degenerativechanges. No acute fracture or dislocation. There are degenerative changesof the partially imaged lower lumbar spine and both sacroiliac joints. Thebones are diffusely demineralized. Bilateral feet: There is bilateral hallux valgus, left greater than right.There are severe first metatarsophalangeal joint degenerative changes ofthe right foot. There are additional mild to moderate scattereddegenerative changes of both feet. There is a fracture of the distal leftfifth metatarsal shaft in the advanced stages of healing. No specificfindings for inflammatory arthritis. The bones are diffuselydemineralized. There is mineralization involving both Achilles tendons. IMPRESSION: No specific findings for inflammatory arthritis. Multilevel degenerative changes of the cervical spine. Scattered degenerative changes of both hands and feet. Mild bilateral hip degenerative changes. us Stephon Maya MD IMG XR LOWER EXTREMIT Y Final Result * XR HAND 2 VIEWS (LEFT) (04/30/2023 10:50 AM EDT) Anatomical Region Laterality Modality Hand Left Computed Radiogr aphy 04/30/2023 10:5 4 AM EDT Impressions 04/30/2023 10:59 AM EDT No specific findings for inflammatory arthritis. Multilevel degenerative changes of the cervical spine. Scattered degenerative changes of both hands and feet. Mild bilateral hip degenerative changes. Narrative 04/30/2023 10:59 AM EDT XR HIPS 2+ VW EA BILAT PLUS PELVIS, XR HAND 2 VIEWS (LEFT), XR CERVICAL SPINE 2- 3 VIEWS, XR FOOT 2 VIEWS (RIGHT), XR HAND 2 VIEWS (RIGHT), XR FOOT 2 VIEWS (LEFT) COMPARISON: None. FINDINGS: Cervical spine: The alignment is normal. The vertebral body heights are maintained. No compression fractures. There are multilevel disc degenerative changes, most advanced at C5-6. There is multilevel uncovertebral and facet arthropathy. No prevertebral soft tissue thickening. The alignment of C1 on C2 is difficult to evaluate on open-mouth views. The bones are diffusely demineralized. Bilateral hands: There are severe degenerative changes of the bilateral triscaphe joints. There are also severe degenerative changes at the left ulnocarpal joint. There are additional moderate scattered degenerative changes of both hands. No specific findings for inflammatory arthritis. The bones are diffusely demineralized. There is chondrocalcinosis of the right TFCC. Pelvis and bilateral hips: There are mild bilateral hip degenerative changes. No acute fracture or dislocation. There are degenerative changes of the partially imaged lower lumbar spine and both sacroiliac joints. The bones are diffusely demineralized. Bilateral feet: There is bilateral hallux valgus, left greater than right. There are severe first metatarsophalangeal joint degenerative changes of the right foot. There are additional mild to moderate scattered degenerative changes of both feet. There is a fracture of the distal left fifth metatarsal shaft in the advanced stages of healing. No specific findings for inflammatory arthritis. The bones are diffusely demineralized. There is mineralization involving both Achilles tendons. Procedure Note Scott Browning MD - 04/30/2023 XR HIPS 2+ VW EA BILAT PLUS PELVIS, XR HAND 2 VIEWS (LEFT), XR CERVICALSPINE 2-3 VIEWS, XR FOOT 2 VIEWS (RIGHT), XR HAND 2 VIEWS (RIGHT), XR FOOT2 VIEWS (LEFT) COMPARISON: None. FINDINGS: Cervical spine: The alignment is normal. The vertebral body heights aremaintained. No compression fractures. There are multilevel discdegenerative changes, most advanced at C5-6. There is multileveluncovertebral and facet arthropathy. No prevertebral soft tissuethickening. The alignment of C1 on C2 is difficult to evaluate onopen- mouth views. The bones are diffusely demineralized. Bilateral hands: There are severe degenerative changes of the bilateraltriscaphe joints. There are also severe degenerative changes at the leftulnocarpal joint. There are additional moderate scattered degenerativechanges of both hands. No specific findings for inflammatory arthritis.The bones are diffusely demineralized. There is chondrocalcinosis of theright TFCC. Pelvis and bilateral hips: There are mild bilateral hip degenerativechanges. No acute fracture or dislocation. There are degenerative changesof the partially imaged lower lumbar spine and both sacroiliac joints. Thebones are diffusely demineralized. Bilateral feet: There is bilateral hallux valgus, left greater than right.There are severe first metatarsophalangeal joint degenerative changes ofthe right foot. There are additional mild to moderate scattereddegenerative changes of both feet. There is a fracture of the distal leftfifth metatarsal shaft in the advanced stages of healing. No specificfindings for inflammatory arthritis. The bones are diffuselydemineralized. There is mineralization involving both Achilles tendons. IMPRESSION: No specific findings for inflammatory arthritis. Multilevel degenerative changes of the cervical spine. Scattered degenerative changes of both hands and feet. Mild bilateral hip degenerative changes. us Stephon Maya MD IMG XR UPPER EXTREMIT Y Final Result documented in this encounter Visit Diagnoses Diagnosis Metatarsalgia of both feet Ulnar deviation of fingers of both hands Metatarsalgia of both feet Ulnar deviation of fingers of both hands documented in this encounter Care Teams [employer] T[employer] Service Technician Relationship Specialty Start Date End Date Amirah Smith MD [address] [place] [address] [facility] [place] [phone] PCP - General Internal Medicine 03/06/22 Christopher Thompson MD [address] [place] [address] Obstetrics and Gynecology ServiceW [address] [place] [address] [email or web address] Primary Oncologist Gynecologic Oncology 02/06/20 Ysabel Sanchez RN [address] [place] [phone] [email or web address] Associate Infusion Nurse 03/29/20 Stephon Chambers RN [address] [place] [phone] [email or web address] Associate Infusion Nurse 09/18/20 Carine Rivas RN [address] [place] [phone] [email or web address] Primary Infusion Nurse 11/05/20 Vikki Perez MD [address] [place] [address] [address] [place] [address] [email or web address] Primary Oncologist Gynecologic Oncology 03/27/21 Dusty Aguirre DO [address] [place] [phone] [email or web address] Primary Oncologist Hematology and Oncology 05/01/22 Marilia Nolan FNP [address] [place] [address] [email or web address] Nurse Practitioner Medical Oncology 08/05/22 08/08/24 Karen Santo CNP [address] [place] [address] [email or web address] Nurse Practitioner Medical Oncology 09/05/22 08/08/24 Loyda Pinon PA-C [address] [place] [address] [email or web address] Physician Receiving Room Clerk Medical Oncology 10/20/22 08/20/23 Stephon Maya MD [address] [place] [phone] [email or web address] Rheumatology 07/30/23 Minor Baltazar MBBS [address] [place] [address] [email or web address] Primary Oncologist Medical Oncology 10/16/23 10/25/23 Ayanna Fox FNP [address] [place] [phone] [email or web address] Registered Nurse Nurse Practitioner 08/09/24 Shala Hartman, KATHY [address] [place] [address] [email or web address] Nurse Practitioner 08/15/24 10/30/24 Karen Santo CNP [address] [place] [address] [email or web address] Nurse Practitioner 08/29/24 Shala Hartman NP [address] [place] [phone] [email or web address] Nurse Practitioner 11/08/24 documented as of this encounter Additional Source Comments The information contained in this document represents components of the legal health record. It is not the complete legal health record.[facility]
--- OUTSIDE RECORDS SUMMARY | 2025-03-14 13:15 | XMS_ITS | Encounter Summary ---
Author Organization [facility] Address [address] [place] [address] Phone Care Team Providers Care [facility] Attendant Name Role Phone Christopher Thompson MD Unavailable + [phone] Ysabel Sanchez RN Unavailable [email or web address] Stephon Chambers RN Unavailable [phone] Carine Rivas RN Unavailable [email or web address] Vikki Perez MD Unavailable [phone] Amirah Smith MD Primary Care Provider Dusty Aguirre DO Unavailable Marilia Nolan CARAMEL CUTTER HELPER Unavailable Karen Santo CNP Unavailable Loyda PinonC Unavailable gloria Stephon Maya MD Unavailable Minor BaltazarBS Unavailable Ayanna Fox CARAMEL CUTTER HELPER Unavailable Shala [place] NP Unavailable [phone] Karen Santo CNP Unavailable Shala [place] NP Unavailable Encounter Details Date Type Department Care Team (Late st Contact Info) Description 08/06/2022 Procedure Pass [facility], Ct Scan - [address] [address] Social History Tobacco Use Types Packs/Day Years [...] Info) Description 03/21/2025 9:40 AM EDT Infusion [facility] at [address] [address] Dusty Aguirre, [address] [address] [email or web address] 03/21/2025 11:30 AM EDT Office Visit [facility] at [address] [address] Ayanna Fox FNP [address] [place] [address] [email or web address] 03/21/2025 12:40 PM EDT Infusion [facility] at [address] [address] Dusty Aguirre DO [address] [place] [address] [email or web address] .[facility] Karen Burgos, KAPIL [address] [place] [address] [email or web address] 04/04/2025 8:20 AM EDT Appointment [facility] [address] [place] [address] Dusty Aguirre, DO [address] [place] [address] [email or web address]@[email or web address] [place] 04/04/2025 9:00 AM EDT Office Visit [facility] at [address] [address] Ayanna Fox, CARAMEL CUTTER HELPER [address] [place] [address] [email or web address] 04/04/2025 10:00 AM EDT Infusion [facility] at [address] [address] Dusty Aguirre, DO [address] [place] [address] [email or web address]@[email or web address] [place] Niyah Cole RN [address] [place] [address] [email or web address] 04/06/2025 3:20 PM EDT Telemedicine [address], 4th Floor, [address] [place] [address] Stephon Maya MD [address] [place] [address] [email or web address] 04/11/2025 10:20 AM EDT Appointment [facility] Laboratory [address] [place] [address] Dusty Aguirre, DO [address] [place] [address] [email or web address]@[email or web address] 04/11/2025 11:30 AM EDT Office Visit [facility] at [address] [address] Ayanna Fox CARAMEL CUTTER HELPER[address] [address] 04/11/2025 12:40 PM EDT Infusion [facility] at [address] [address] Dusty Aguirre, DO [address] [place] [address] [email or web address]@[email or web address] [place] Eldon Mckeon RN [address] [place] [address] 04/17/2025 9:10 AM EDT Appointment [facility] Laboratory [address] [place] [address] Dusty Aguirre, DO [address] [place] [address] [email or web address]@[email or web address] [place] 04/17/2025 10:30 AM EDT Office Visit [facility] at [address] [address] Dusty Aguirre, DO [address] [place] [address] [email or web address]@[email or web address] [place] 04/17/2025 11:20 AM EDT Infusion [facility] at [address] [address] Dusty Aguirre, DO [address] [place] [address] [email or web address]@[email or web address] [place] Eldon Mckeon RN [address] [place] [address] 04/28/2025 11:50 AM EDT Appointment [facility] Laboratory [address] [place] [address] Dusty Aguirre, DO [address] [place] [address] [email or web address]@[email or web address] [place] 04/28/2025 1:00 PM EDT Office Visit [facility] at [address] [address] Ayanna Fox FNP [address] [place] [address] [email or web address] 04/28/2025 2:00 PM EDT Infusion [facility] at [address] [address] Dusty Aguirre, DO [address] [place] [address] [email or web address]@[email or web address] [place] Sophy Nolan RN [address] [place] [address] [email or web address] 05/08/2025 7:50 AM EDT Appointment [facility] [address] [place] [address] Dusty Aguirre, DO [address] [place] [phone] [email or web address]@[email or web address] [place] 05/08/2025 9:00 AM EDT Office Visit [facility] at [address] [address] Dusty Aguirre, DO [address] [place] [address] [email or web address]@[email or web address] [place] 05/08/2025 10:00 AM EDT Infusion [facility] at [address] [address] Dusty Aguirre, DO [address] [place] [address] [email or web address]@[email or web address] [place] Eldon Mckeon, RN [address] [place] [address] [email or web address] documented as of this encounter Visit Diagnoses Not on filedocumented in this encounter Additional Health Concerns Infection Onset Date Last Indicated Resolved Time CoV-Risk 11/10/2022 11/10/2022 11/21/2022 1:24 AM EDT documented as of this encounter Care Teams [facility] Attendant Relationship Specialty Start Date End Date Amirah Smith MD [address] [place] [address] Dr Sanchez [address] [place] [phone] PCP - General Internal Medicine 03/06/22 Christopher Thompson MD [address] [place] [address] Obstetrics and Gynecology [facility] [address] [place] [address] [email or web address] Primary Oncologist Gynecologic Oncology 02/06/20 Ysabel Sanchez RN [address] [place] [address] [email or web address] Associate Infusion Nurse 03/29/20 Stephon Chambers RN [address] [place] [address] [email or web address] Associate Infusion Nurse 09/18/20 Carine Rivas, KAPIL [address] [place] [phone] [email or web address] Primary Infusion Nurse 11/05/20 Vikki Perez MD [address] [place] [address] [address] [place] [address] [email or web address] Primary Oncologist Gynecologic Oncology 03/27/21 Dusty Aguirre DO [address] [place] [address] [email or web address] [email or web address] Primary Oncologist Hematology and Oncology 05/01/22 Marilia Nolan, CARAMEL CUTTER HELPER [address] [place] [address] [email or web address] Nurse Practitioner Medical Oncology 08/05/22 08/08/24 Karen Santo CNP [address] [place] [address] [email or web address] Nurse Practitioner Medical Oncology 09/05/22 08/08/24 Loyda Pinon PA-C [address] [place] [address] [email or web address] Physician Button Sewer Medical Oncology 10/20/22 08/20/23 Stephon Maay MD [address] [place] [address] [email or web address] Rheumatology 07/30/23 Minor Baltazar MBBS [address] [place] [address] [email or web address] Primary Oncologist Medical Oncology 10/16/23 10/25/23 Ayanna Fox FNP [address] [place] [address] [email or web address] Registered Nurse Nurse Practitioner 08/09/24 Shala Hartman NP [address] [place] [address] [email or web address] Nurse Practitioner 08/15/24 10/30/24 Karen Santo CNP [address] [place] [address] [email or web address] Nurse Practitioner 08/29/24 Shala Hartman NP [address] [place] [address] [email or web address] Nurse Practitioner 11/08/24 documented as of this encounter Additional Source Comments The information contained in this document represents components of the legal health record. It is not the complete legal health record.[facility]
--- OUTSIDE RECORDS SUMMARY | 2025-03-14 13:15 | XMS_ITS | Encounter Summary ---
Author Organization [facility] Address [address] [place] [address] Phone Care Team Providers Care Foreclosure Field Inspector Name Role Phone Christopher Thompson MD Unavailable + [phone] Ysabel Sanchez RN Unavailable [email or web address] Stephon Chambers RN Unavailable [phone] Amirah Smith MD Primary Care Provider Carine Rivas RN Unavailable [email or web address] Vikki Perez MD Unavailable [phone] Amirah Smith MD Primary Care Provider Dusty Aguirre DO Unavailable [phone] Marilia Nolan CONSULTING NETWORKING ENGINEER Unavailable [phone] Karen Santo TAXI PROPRIETOR Unavailable Loyda Pinon PA-C Unavailable gloria Stephon Maya MD Unavailable Minor BaltazarBS Unavailable [phone] Ayanna Fox CONSULTING NETWORKING ENGINEER Unavailable [phone] Shala Hartman NP Unavailable [phone] Karen Santo CNP Unavailable Shala Hartman NP Unavailable [phone] Encounter Details Date Type Department Care Team (Late st Contact Info) Description 06/17/[address], [facility] - [address], [address] [place] [id number] Social History Tobacco Use Types Packs/Day Years [...] Info) Description 03/21/2025 9:40 AM EDT Infusion [facility] at [address] [address] Dusty Aguirre DO [address] [place] [address] [email or web address]@[email or web address] 03/21/2025 11:30 AM EDT Office Visit [facility] at [address] [address] Ayanna Fox FNP [address] [place] [address] [email or web address] 03/21/2025 12:40 PM EDT Infusion [facility] at [address] [address] Dusty Aguirre DO [address] [place] [address] [email or web address] .[email or web address] Karen Burgos, KAPIL [address] [place] [address] 04/04/2025 8:20 AM EDT Appointment [facility] [address] [place] [address] Dusty Aguirre, DO [address] [place] [address] [email or web address]@[email or web address] 04/04/2025 9:00 AM EDT Office Visit [facility] at [address] [address] Ayanna Fox FNP [address] [place] [address] [email or web address] 04/04/2025 10:00 AM EDT Infusion [facility] at [address] [address] Dusty Aguirre, DO [address] [place] [address] [email or web address]@[email or web address] Niyah Cole RN [address] [place] [address] [email or web address] 04/06/2025 3:20 PM EDT Telemedicine [address], 4th Floor, [address] [place] [address] Stephon Maya MD [address] [place] [address] [email or web address] [email or web address] 04/11/2025 10:[address] [facility] [address] [place] [address] Dusty Aguirre, DO [address] [place] [address] [email or web address]@[email or web address] 04/11/2025 11:30 AM EDT Office Visit [facility] at [address] [address] Ayanna Fox FNP [address] [place] [address] 04/11/2025 12:40 PM EDT Infusion [facility] at [address] [address] Dusty Aguirre, DO [address] [place] [address] [email or web address]@[email or web address] Eldon Mckeon RN [address] [place] [address] 04/17/2025 9:[address] [facility] [address] [place] [address] Dusty Aguirre, DO [address] [place] [address] NAVEEN@[email or web address] 04/17/2025 10:30 AM EDT Office Visit [facility] at [address] [address] Dusty Aguirre, DO [address] [place] [address] [email or web address]@[email or web address] 04/17/2025 11:20 AM EDT Infusion [facility] at [address] [address] Dusty Aguirre, DO [address] [place] [address] NAVEEN@[email or web address] Eldon Mckeon RN [address] [place] [address] 04/28/2025 11:[address] [facility] [address] [place] [address] Dusty Aguirre, DO [address] [place] [address] [email or web address]@[email or web address] 04/28/2025 1:00 PM EDT Office Visit [facility] at [address] [address] Ayanna Fox FNP [address] [place] [address] [email or web address] 04/28/2025 2:00 PM EDT Infusion [facility] at [address] [address] Dusty Aguirre, DO [address] [place] [address] NAVEEN@[email or web address] Sophy Nolan RN [address] [place] [address] [email or web address] 05/08/2025 7:50 AM EDT Appointment [address] [address] Dusty Aguirre, DO [address] [place] [address] [email or web address]@[email or web address] 05/08/2025 9:00 AM EDT Office Visit [facility] at [address] [address] Dusty Aguirre, DO [address] [place] [address] [email or web address]@[email or web address] 05/08/2025 10:00 AM EDT Infusion [facility] at [address] [address] Dusty Aguirre, DO [address] [place] [address] JAY [email or web address] Eldon Mckeon RN [address] [place] [address] [email or web address] documented as of this encounter Visit Diagnoses Not on filedocumented in this encounter Additional Health Concerns Infection Onset Date Last Indicated Resolved Time CoV-Risk 11/10/2022 11/10/2022 11/21/2022 1:24 AM EDT documented as of this encounter Care Teams Foreclosure Field Inspector Relationship Specialty Start Date End Date Amirah Smith MD [address] [place] [address] [place] [phone] PCP - General Internal Medicine 09/25/20 03/05/22 Amirah Smith MD [address] [place] [address] [place] [phone] PCP - General Internal Medicine 03/06/22 Christopher Thompson MD [address] [place] [address] [facility] [address] [place] [address] [email or web address] Primary Oncologist Gynecologic Oncology 02/06/20 Ysabel Sanchez RN [address] [place] [address] [email or web address] Associate Infusion Nurse 03/29/20 Stephon Chambers RN [address] [place] [address] [email or web address] Associate Infusion Nurse 09/18/20 Carine Rivas RN [address] [place] [phone] [email or web address] Primary Infusion Nurse 11/05/20 Vikki Perez MD [address] [place] [address] [address] [place] [address] [email or web address] Primary Oncologist Gynecologic Oncology 03/27/21 Dusty Aguirre DO [address] [place] [address] [email or web address]@[email or web address] Primary Oncologist Hematology and Oncology 05/01/22 Marilia Nolan FNP [address] [place] [address] [email or web address] Nurse Practitioner Medical Oncology 08/05/22 08/08/24 Karen Santo CNP [address] [place] [address] [email or web address] Nurse Practitioner Medical Oncology 09/05/22 08/08/24 Loyda Pinon PA-C [address] [place] [address] [email or web address] Physician Telephone Information Clerk Medical Oncology 10/20/22 08/20/23 Stephon Maya MD [address] [place] [address] [email or web address] Rheumatology 07/30/23 Minor Baltazar MBBS [address] [place] [address] [email or web address] Primary Oncologist Medical Oncology 10/16/23 10/25/23 Ayanna Fox FNP [address] [place] [address] [email or web address] Registered Nurse Nurse Practitioner 08/09/24 Shala HartmanKATHY [address] [place] [address] [email or web address] Nurse Practitioner 08/15/24 10/30/24 Karen Satno CNP [address] [place] [address] [email or web address] Nurse Practitioner 08/29/24 Shala Hartman NP [address] [place] [address] [email or web address] Nurse Practitioner 11/08/24 documented as of this encounter Additional Source Comments The information contained in this document represents components of the legal health record. It is not the complete legal health record.[facility]
--- OUTSIDE RECORDS SUMMARY | 2025-03-14 13:15 | XMS_ITS | Encounter Summary ---
Author Organization [facility] Address [address] [place] [address] Phone Care Team Providers Care Producer Director Name Role Phone Christopher Thompson MD Unavailable + [phone] Ysabel Sanchez RN Unavailable [email or web address] Stephon Chambers RN Unavailable [phone] Carine Rivas RN Unavailable [email or web address] Vikki Perez MD Unavailable [phone] Amirah Smith MD Primary Care Provider Dusty Aguirre DO Unavailable Marilia Nolan MOTEL MAID Unavailable [phone] Karen Santo CNP Unavailable Loyda PinonC Unavailable gloria Stephon Maya MD Unavailable Minor BaltazarBS Unavailable Ayanna Fox MOTEL MAID Unavailable [phone] Shala Hartman NP Unavailable Karen Santo CNP Unavailable Shala Hartman NP Unavailable Encounter Details Date Type Department Care Team (Late st Contact Info) Description 04/13/2023 Procedure Pass [facility], Ct Scan - [address] [address] Social History Tobacco Use Types Packs/Day Years [...] [facility] at [address] [address] Dusty Aguirre DO [address] [place] [address] [email or web address]@[email or web address].SHELBY .[facility] 03/21/2025 11:30 AM EDT Office Visit [facility] at [address] [address] Ayanna Fox, MOTEL MA[address] [address] 03/21/2025 12:40 PM EDT Infusion [facility] at [address] [address] Dusty Aguirre, DO [address] [place] [address] [email or web address]@[email or web address] Karen Burgos, KAPIL [address] [place] [address] 04/04/2025 8:20 AM EDT Appointment [facility] Laboratory [address] [place] [address] Dusty Aguirre, DO [address] [place] [address] [email or web address]@[email or web address] 04/04/2025 9:00 AM EDT Office Visit [facility] Center at [address] [address] Ayanna Fox, [address] [address] 04/04/2025 10:00 AM EDT Infusion [facility] at [address] [address] Dusty Aguirre, DO [address] [place] [address] [email or web address].SHELBY .[facility] Niyah Cole, KAPIL [address] [place] [address] 04/06/2025 3:20 PM EDT Telemedicine [facility] Rheumatology [address], [address] [place] [address] Stephon Maya MD [address] [place] [address] [email or web address] 04/11/2025 10:20 AM EDT Appointment [facility] Laboratory [address] [place] [address] Dusty Aguirre, DO [address] [place] [address] [email or web address]@[facility] 04/11/2025 11:30 AM EDT Office Visit [facility] at [address] [address] Ayanna Fox FNP [address] [place] [address] [email or web address] 04/11/2025 12:40 PM EDT Infusion [facility] at [address] [address] Dusty Aguirre, DO [address] [place] [address] [email or web address]@[facility] Eldon Mckeon RN [address] [place] [address] [email or web address] 04/17/2025 9:10 AM EDT Appointment [facility] Laboratory [address] [place] [address] Dusty Aguirre, DO [address] [place] [address] [email or web address]@[facility] 04/17/2025 10:30 AM EDT Office Visit [facility] at [address] [address] Dusty Aguirre, DO [address] [place] [address] [email or web address] 04/17/2025 11:20 AM EDT Infusion [facility] at [address] [address] Dusty Aguirre, DO [address] [place] [address] [email or web address] Eldon Mckeon, KAPIL [address] [place] [address] 04/28/2025 11:50 AM EDT Appointment [facility] Laboratory [address] [place] [address] Dusty Aguirre, DO [address] [place] [address] [email or web address]@[facility] 04/28/2025 1:00 PM EDT Office Visit [facility] at [address] [address] Ayanna Fox FNP [address] [place] [address] [email or web address] 04/28/2025 2:00 PM EDT Infusion [facility] at [address] [address] Dusty Aguirre, DO [address] [place] [address] [email or web address]@[facility] Sophy Nolan, KAPIL [address] [place] [address] [email or web address] 05/08/2025 7:50 AM EDT Appointment [facility] Laboratory [address] [place] [address] Dusty Aguirre, DO [address] [place] [address] JAY [email or web address]@[facility] 05/08/2025 9:00 AM EDT Office Visit [facility] at [address] [address] Dusty Aguirre, DO [address] [place] [address] JAY [email or web address] 05/08/2025 10:00 AM EDT Infusion [facility] at [address] [address] Dusty Aguirre, [address] [address] JAY [email or web address] Eldon Mckeon RN [address] [place] [address] [email or web address] documented as of this encounter Visit Diagnoses Not on filedocumented in this encounter Care Teams Producer Director Relationship Specialty Start Date End Date Amirah Smith MD [address] [place] [address] [place] [address] PCP - General Internal Medicine 03/06/22 Christopher Thompson MD [address] [place] [address] Obstetrics and Gynecology ServiceYAW [address] [place] [address] [email or web address] Primary Oncologist Gynecologic Oncology 02/06/20 Ysabel Sanchez RN [address] [place] [address] [email or web address] Associate Infusion Nurse 03/29/20 Stephon Chambers RN [address] [place] [address] [email or web address] Associate Infusion Nurse 09/18/20 Carine Rivas, RN [address] [place] [address] [email or web address] Primary Infusion Nurse 11/05/20 Vikki Perez MD [address] [place] [address] [email or web address] Primary Oncologist Gynecologic Oncology 03/27/21 Dusty Aguirre DO [address] [place] [address] [email or web address]@[email or web address] Primary Oncologist Hematology and Oncology 05/01/22 Marilia Nolan FNP [address] [place] [address] [email or web address] Nurse Practitioner Medical Oncology 08/05/22 08/08/24 Karen Santo CNP [address] [place] [address] [email or web address] Nurse Practitioner Medical Oncology 09/05/22 08/08/24 Loyda Pinon PA-C [address] [place] [address] [email or web address] Physician Employment Security Officer Medical Oncology 10/20/22 08/20/23 Stephon Maya MD [address] [place] [address] [email or web address] Rheumatology 07/30/23 Minor Baltazar MBBS [address] [place] [address] [email or web address] Primary Oncologist Medical Oncology 10/16/23 10/25/23 Ayanna Fox FNP [address] [place] [address] [email or web address] Registered Nurse Nurse Practitioner 08/09/24 Shala Hartman NP [address] [place] [address] [email or web address] Nurse Practitioner 08/15/24 10/30/24 Karen Santo CNP [address] [place] [address] [email or web address] Nurse Practitioner 08/29/24 Shala Hartman NP [address] [place] [address] [email or web address] Nurse Practitioner 11/08/24 documented as of this encounter Additional Source Comments The information contained in this document represents components of the legal health record. It is not the complete legal health record.[facility]
--- OUTSIDE RECORDS SUMMARY | 2025-03-14 13:15 | XMS_ITS | Encounter Summary ---
Author Organization [facility] Address [address] [place] [address] Phone Care Team Providers Care Commercial Insurance Underwriter Name Role Phone Christopher Thompson MD Unavailable + [phone] Ysabel Sanchez RN Unavailable [email or web address] Stephon Chambers RN Unavailable [phone] Amirah Smith MD Primary Care Provider Carine Rivas RN Unavailable [email or web address] Vikki Perez MD Unavailable [phone] Amirah Smith MD Primary Care Provider Dusty Aguirre DO Unavailable [phone] Marilia Nolan HARNESS MAKER Unavailable [phone] Karen Santo BULL CHAIN OPERATOR Unavailable Loyda Pinon PA-C Unavailable gloria Stephon Maya MD Unavailable [phone] Minor BaltazarBS Unavailable [phone] Ayanna Fox HARNESS MAKER Unavailable [phone] Shala Hartman NP Unavailable [phone] Karen Santo CNP Unavailable Shala Hartman NP Unavailable [phone] Encounter Details Date Type Department Care Team (Late st Contact Info) Description 12/05/[address], [facility] Imaging - [address], [address] [place] [id number] Social History Tobacco Use Types Packs/Day Years [...] [facility] at [address] [address] Dusty Aguirre DO [address] [place] [address] [email or web address]@[facility] 03/21/2025 11:30 AM EDT Office Visit [facility] Center at [address] [address] Ayanna Fox FNP [address] [place] [address] [email or web address] 03/21/2025 12:40 PM EDT Infusion [facility] at [address] [address] Dusty Aguirre DO [address] [place] [address] [email or web address]@[email or web address] .[facility] Karen Burgos, KAPIL [address] [place] [address] 04/04/2025 8:20 AM EDT Appointment [facility] [address] [place] [address] Dusty Aguirre, DO [address] [place] [address] [email or web address]@[facility] 04/04/2025 9:00 AM EDT Office Visit [facility] at [address] [address] Ayanna Fox FNP [address] [place] [address] [email or web address] 04/04/2025 10:00 AM EDT Infusion [facility] at [address] [address] Dusty Aguirre, DO [address] [place] [address] [email or web address]@[facility] Niyah Cole RN [address] [place] [address] [email or web address] 04/06/2025 3:20 PM EDT Telemedicine [address], 4[address] Floor, [address] [place] [address] Stephon Maya MD [address] [place] [address] [email or web address] 04/11/2025 10:20 AM EDT Appointment [facility] Laboratory [address] [place] [address] Dusty Aguirre, DO [address] [place] [address] [email or web address]@[facility] 04/11/2025 11:30 AM EDT Office Visit [facility] at [address] [address] Ayanna Fox FNP [address] [place] [address] 04/11/2025 12:40 PM EDT Infusion [facility] at [address] [address] Dusty Aguirre, DO [address] [place] [address] [email or web address]@[facility] Eldon Mckeon RN [address] [place] [address] 04/17/2025 9:10 AM EDT Appointment [facility] Laboratory [address] [place] [address] Dusty Aguirre, DO [address] [place] [address] NAVEEN@[facility] 04/17/2025 10:30 AM EDT Office Visit [facility] at [address] [address] Dusty Aguirre, DO [address] [place] [address] NAVEEN@[facility] 04/17/2025 11:20 AM EDT Infusion [facility] at [address] [address] Dusty Aguirre, DO [address] [place] [address] NAVEEN@[facility] Eldon Mckeon RN [address] [place] [address] 04/28/2025 11:50 AM EDT Appointment [facility] Laboratory [address] [place] [address] Dusty Aguirre, DO [address] [place] [address] [email or web address]@[facility] 04/28/2025 1:00 PM EDT Office Visit [facility] at [address] [address] Ayanna Fox FNP [address] [place] [address] [email or web address] 04/28/2025 2:00 PM EDT Infusion [facility] at [address] [address] Dusty Aguirre, DO [address] [place] [address] NAVEEN@[facility] Sophy Nolan RN [address] [place] [address] [email or web address] 05/08/2025 7:50 AM EDT Appointment [address] [address] Dusty Aguirre, DO [address] [place] [address] NAVEEN@[facility] 05/08/2025 9:00 AM EDT Office Visit [facility] at [address] [address] Dusty Aguirre, DO [address] [place] [address] NAVEEN@[facility] 05/08/2025 10:00 AM EDT Infusion [facility] at [address] [address] Dusty Aguirre, DO [address] [place] [address] JAY [email or web address]@[email or web address] Eldon Mckeon RN [address] [place] [address] [email or web address] documented as of this encounter Visit Diagnoses Not on filedocumented in this encounter Additional Health Concerns Infection Onset Date Last Indicated Resolved Time CoV-Risk 11/10/2022 11/10/2022 11/21/2022 1:24 AM EDT documented as of this encounter Care Teams Commercial Insurance Underwriter Relationship Specialty Start Date End Date Amirah Smith MD [address] [place] [address] Dr Sanchez [facility] [place] [address] PCP - General Internal Medicine 09/25/20 03/05/22 Amirah Smith MD [address] [place] [address] [place] [phone] PCP - General Internal Medicine 03/06/22 Christopher Thompson MD [address] [place] [address] [facility]st[facility]s [facility] [address] [place] [address] [email or web address] Primary Oncologist Gynecologic Oncology 02/06/20 Ysabel Sanchez RN [address] [place] [address] [email or web address] Associate Infusion Nurse 03/29/20 Stephon Chambers RN [address] [place] [address] [email or web address] Associate Infusion Nurse 09/18/20 Carine Rivas RN [address] [place] [phone] [email or web address] Primary Infusion Nurse 11/05/20 Vikki Perez MD [address] [place] [address] [address] [place] [address] [email or web address] Primary Oncologist Gynecologic Oncology 03/27/21 Dusty Aguirre DO [address] [place] [address] [email or web address]@[email or web address] Primary Oncologist Hematology and Oncology 05/01/22 Marilia Nolan FNP [address] [place] [address] [email or web address] Nurse Practitioner Medical Oncology 08/05/22 08/08/24 Karen Santo CNP [address] [place] [address] [email or web address] Nurse Practitioner Medical Oncology 09/05/22 08/08/24 Loyda Pinon PA-C [address] [place] [address] [email or web address] Physician Anesthetic Assistant Medical Oncology 10/20/22 08/20/23 Stephon Maya MD [address] [place] [address] [email or web address] Rheumatology 07/30/23 Minor Baltazar MBBS [address] [place] [address] [email or web address] Primary Oncologist Medical Oncology 10/16/23 10/25/23 Ayanna Fox FNP [address] [place] [address] [email or web address] Registered Nurse Nurse Practitioner 08/09/24 Shala HartmanKATHY [address] [place] [address] [email or web address] Nurse Practitioner 08/15/24 10/30/24 Karen Santo CNP [address] [place] [address] [email or web address] Nurse Practitioner 08/29/24 Shala Hartman NP [address] [place] [address] [email or web address] Nurse Practitioner 11/08/24 documented as of this encounter Additional Source Comments The information contained in this document represents components of the legal health record. It is not the complete legal health record.[facility]
--- OUTSIDE RECORDS SUMMARY | 2025-03-14 13:15 | XMS_ITS | Encounter Summary ---
Author Organization [facility] Address [address] [place] [address] Phone Care Team Providers Care Robotics Technician Name Role Phone Christopher Thompson MD Unavailable + [phone] Ysabel Sanchez RN Unavailable [email or web address] Stephon Chambers RN Unavailable [phone] Carine Rivas RN Unavailable [email or web address] Vikki Perez MD Unavailable [phone] Amirah Smith MD Primary Care Provider Dusty Aguirre DO Unavailable [phone] Marilia Nolan HAND SOLE SEWER Unavailable PackKaren INSPECTOR FINISHING Unavailable Stephon Maya MD Unavailable [phone] Ayanna Fox HAND SOLE SEWER Unavailable [phone] Shala Hartman NP Unavailable Karen Santo INSPECTOR FINISHING Unavailable Shala Hartman NP Unavailable Encounter Details Date Type Department Care Team (Late st Contact Info) Description 01/08/2024 Procedure Pass [facility], Ct Scan - [address] [address] Social History Tobacco Use Types Packs/Day Years [...] Info) Description 03/21/2025 9:40 AM EDT [facility]fusion [facility] [place] at [address] [address] Dusty Aguirre DO [address] [place] [address] [email or web address]@[email or web address] 03/21/2025 11:30 AM EDT Office Visit [facility] at [address] [address] Ayanna Fox FNP [address] [place] [address] [email or web address] 03/21/2025 12:40 PM EDT Infusion [facility] at [address] [address] uDsty Aguirre DO [address] [place] [address] [email or web address]@[email or web address] Karen Burgos, KAPIL [address] [place] [address] [email or web address] 04/04/2025 8:20 AM EDT Appointment [facility] [address] [place] [address] Dusty Aguirre DO [address] [place] [address] [email or web address]@[email or web address] 04/04/2025 9:00 AM EDT Office Visit [facility] at [address] [address] Ayanna Fox, HAND SOLE SEWER [address] [place] [address] [email or web address] 04/04/2025 10:00 AM EDT Infusion [facility] at [address] [address] Dusty Aguirre, DO [address] [place] [address] [email or web address]@[email or web address] Niyah Cole, KAPIL [address] [place] [address] 04/06/2025 3:20 PM EDT Telemedicine [address], 4th Floor, [address] [place] [address] Stephon Maya MD [address] [place] [address] [email or web address] 04/11/2025 10:20 AM EDT Appointment [address] [address] Dusty Aguirre, DO [address] [place] [address] [email or web address]@[email or web address] 04/11/2025 11:30 AM EDT Office [facility] at [address] [address] Ayanna Fxo, HAND SOLE SEWER [address] [place] [address] [email or web address] 04/11/2025 12:40 PM EDT Infusion [facility] at [address] [address] Dusty Aguirre, DO [address] [place] [address] [email or web address]@[email or web address] Eldon Mckeon RN [address] [place] [address] 04/17/2025 9:10 AM EDT Appointment [facility] [address] [place] [address] Dusty Aguirre, DO [address] [place] [address] [email or web address]@[email or web address] 04/17/2025 10:30 AM EDT Office [facility] at [address] [address] Dusty Aguirre, [address] [address] [email or web address]@[email or web address] 04/17/2025 11:20 AM EDT [facility] at [address] [address] Dusty Aguirre, DO [address] [place] [address] [email or web address]@[email or web address] Eldon Mckeon RN [address] [place] [address] 04/28/2025 11:50 AM EDT Appointment [facility] [address] [place] [address] Dusty Aguirre, DO [address] [place] [address] [email or web address]@[email or web address] 04/28/2025 1:00 PM EDT Office [facility] at [address] [address] Ayanna Fox FNP [address] [place] [address] [email or web address] 04/28/2025 2:00 PM EDT Infusion [facility] at [address] [address] Dusty Aguirre, DO [address] [place] [address] [email or web address]@[email or web address] Sophy Nolan RN [address] [place] [address] [email or web address] 05/08/2025 7:50 AM EDT Appointment [facility] [address] [place] [address] Dusty Aguirre, DO [address] [place] [address] [email or web address]@[email or web address] 05/08/2025 9:00 AM EDT Office [facility] at [address] [address] Dusty Aguirre, DO [address] [place] [address] [email or web address]@[email or web address] 05/08/2025 10:00 AM EDT Infusion [facility] at [address] [address] Dusty Aguirre, DO [address] [place] [address] [email or web address]@[email or web address] Eldon Mckeon, KAPIL [address] [place] [address] [email or web address] documented as of this encounter Visit Diagnoses Not on filedocumented in this encounter Care Teams Robotics Technician Relationship Specialty Start Date End Date Amirah Smith MD [address] [place] [address] [place] [address] PCP - General Internal Medicine 03/06/22 Christopher Thompson MD [address] [place] [address] Obstetrics and Gynecology ServiceYAW [address] [place] [address] [email or web address] Primary Oncologist Gynecologic Oncology 02/06/20 Ysabel Sanchez RN [address] [place] [address] [email or web address] Associate Infusion Nurse 03/29/20 Stephon Chambers RN [address] [place] [address] [email or web address] Associate Infusion Nurse 09/18/20 Craine Rivas RN [address] [place] [phone] [email or web address] Primary Infusion Nurse 11/05/20 Vikki Perez MD [address] [place] [address] [address] [email or web address] Primary Oncologist Gynecologic Oncology 03/27/21 Dusty Aguirre DO [address] [place] [address] [email or web address]@[email or web address] Primary Oncologist Hematology and Oncology 05/01/22 Marilia Nolan FNP [address] [place] [address] [email or web address] Nurse Practitioner Medical Oncology 08/05/22 08/08/24 Karen Santo CNP [address] [place] [address] [email or web address] Nurse Practitioner Medical Oncology 09/05/22 08/08/24 Stephon Maya MD [address] [place] [address] [email or web address] Rheumatology 07/30/23 Ayanna Fox FNP [address] [place] [address] [email or web address] Registered Nurse Nurse Practitioner 08/09/24 Shala Hartman NP [address] [place] [address] [email or web address] Nurse Practitioner 08/15/24 10/30/24 Karen Santo CNP [address] [place] [address] [email or web address] Nurse Practitioner 08/29/24 Shala Hartman NP [address] [place] [address] [email or web address] Nurse Practitioner 11/08/24 documented as of this encounter Additional Source Comments The information contained in this document represents components of the legal health record. It is not the complete legal health record.[facility]
--- OUTSIDE RECORDS SUMMARY | 2025-03-14 13:15 | XMS_ITS | Encounter Summary ---
Author Organization [facility] Address [address] [place] [address] Phone Care Team Providers Care Slide Developer Name Role Phone Christopher Thompson MD Unavailable + [phone] Ysabel Sanchez RN Unavailable [email or web address] Stephon Chambers RN Unavailable [phone] Carine Rivas RN Unavailable [email or web address] Vikki Perez MD Unavailable [phone] Amirah Smith MD Primary Care Provider Dusty Aguirre DO Unavailable [phone] Marilia Nolan LIBRARY PARAPROFESSIONAL Unavailable PackKaren IT SUPPORT CONSULTANT Unavailable Stephon Maya MD Unavailable [phone] Ayanna Fox LIBRARY PARAPROFESSIONAL Unavailable Shala Hartman NP Unavailable [phone] Karen Santo IT SUPPORT CONSULTANT Unavailable Shala Hartman NP Unavailable [phone] Encounter Details Date Type Department Care Team (Late st Contact Info) Description 01/08/2024 Procedure Pass [facility], Ct Scan - [address] [address] Social History Tobacco Use Types Packs/Day Years [...] AM EDT Infusion [facility] [place] at [address] [address] Dusty Aguirre DO [address] [place] [address] [email or web address]@[facility] 03/21/2025 11:30 AM EDT Office Visit [facility] at [address] [address] Ayanna Fox FNP [address] [place] [address] [email or web address] 03/21/2025 12:[address] [facility] at [address] [address] Dusty Aguirre DO [address] [place] [address] [email or web address]@[facility] Karen Burgos, KAPIL [address] [place] [address] [email or web address] 04/04/2025 8:20 AM EDT Appointment [facility] [address] [place] [address] Dusty Aguirre DO [address] [place] [address] [email or web address]@[email or web address] 04/04/2025 9:00 AM EDT Office Visit [facility] at [address] [address] Ayanna Fox, LIBRARY PARAPROFESSIONAL [address] [place] [address] [email or web address] 04/04/2025 10:[address] [facility] at [address] [address] Dusty Aguirre, DO [address] [place] [address] [email or web address]@[facility] Niyah Cole, KAPIL [address] [place] [address] 04/06/2025 3:20 PM EDT Telemedicine [address], 4th Floor, [address] [place] [address] Stephon Maya MD [address] [place] [address] [email or web address] 04/11/2025 10:20 AM EDT Appointment [address] [address] Dusty Aguirre, DO [address] [place] [address] [email or web address]@[facility] 04/11/2025 11:30 AM EDT Office Visit [facility] at [address] [address] Ayanna Fox, LIBRARY PARAPROFESSIONAL [address] [place] [address] [email or web address] 04/11/2025 12:[address] [facility] at [address] [address] Dusty Aguirre, DO [address] [place] [address] NAVEEN@[facility] Eldon Mckeon RN [address] [place] [address] 04/17/2025 9:10 AM EDT Appointment [facility] [address] [place] [address] Dusty Aguirre, DO [address] [place] [address] NAVEEN@[facility] 04/17/2025 10:30 AM EDT Office Visit [facility] at [address] [address] Dusty Aguirre, [address] [address] NAVEEN@[facility] 04/17/2025 11:20 AM EDT Infusion [facility] at [address] [address] Dusty Aguirre, DO [address] [place] [address] NAVEEN@[facility] Eldon Mckeon RN [address] [place] [address] 04/28/2025 11:50 AM EDT Appointment [facility] Laboratory [address] [place] [address] Dusty Aguirre, DO [address] [place] [address] [email or web address]@[facility] 04/28/2025 1:00 PM EDT Office Visit [facility] at [address] [address] Ayanna Fox FNP [address] [place] [address] [email or web address] 04/28/2025 2:00 PM EDT Infusion [facility] at [address] [address] Dusty Aguirre, DO [address] [place] [address] RLOYOME@[facility] Sophy Nolan RN [address] [place] [address] [email or web address] 05/08/2025 7:50 AM EDT Appointment [facility] [address] [place] [address] Dusty Aguirre, DO [address] [place] [address] [email or web address]@[facility] 05/08/2025 9:00 AM EDT Office Visit [facility] at [address] [address] Dusty Aguirre, DO [address] [place] [address] ROLYOME@[facility] 05/08/2025 10:00 AM EDT Infusion [facility] at [address] [address] Dusty Aguirre, DO [address] [place] [address] [email or web address]@[facility] Eldon Mckeon, KAPIL [address] [place] [address] [email or web address] documented as of this encounter Visit Diagnoses Not on filedocumented in this encounter Care Teams Slide Developer Relationship Specialty Start Date End Date Amirah Smith MD [address] [place] [address] [place] [address] PCP - General Internal Medicine 03/06/22 Christopher Thompson MD [address] [place] [address] Obstetrics and Gynecology ServiceYAW [address] [place] [address] [email or web address] Primary Oncologist Gynecologic Oncology 02/06/20 Ysabel Sanchez RN [address] [place] [address] [email or web address] Associate Infusion Nurse 03/29/20 Stephon Chambers RN [address] [place] [address] [email or web address] Associate Infusion Nurse 09/18/20 Carine Rivas RN [address] [place] [phone] [email or web address] Primary Infusion Nurse 11/05/20 Vikki Perez MD [address] [place] [address] [place] [address] [address] [email or web address] Primary Oncologist Gynecologic Oncology 03/27/21 Dusty Aguirre DO [address] [place] [address] [email or web address]@[email or web address] Primary Oncologist Hematology and Oncology 05/01/22 Marilia Nolan FNP [address] [place] [address] [email or web address] Nurse Practitioner Medical Oncology 08/05/22 08/08/24 Karen Santo CNP [address] [place] [address] [email or web address] Nurse Practitioner Medical Oncology 09/05/22 08/08/24 Stephon Maya MD [address] [place] [address] [email or web address] Rheumatology 07/30/23 Ayanna Fox FNP [address] [place] [address] [email or web address] Registered Nurse Nurse Practitioner 08/09/24 Shala Hartman NP [address] [place] [address] [email or web address] Nurse Practitioner 08/15/24 10/30/24 Karen Santo CNP [address] [place] [address] [email or web address] Nurse Practitioner 08/29/24 Shala Hartman NP [address] [place] [address] [email or web address] Nurse Practitioner 11/08/24 documented as of this encounter Additional Source Comments The information contained in this document represents components of the legal health record. It is not the complete legal health record.[facility]
--- OUTSIDE RECORDS SUMMARY | 2025-03-14 13:15 | XMS_ITS | Encounter Summary ---
Author Organization [facility] Address [address] [place] [address] Phone Care Team Providers Care Boilermaker Ship Name Role Phone Christopher Thompson MD Unavailable + [phone] Ysabel Sanchez RN Unavailable [email or web address] Stephon Chambers RN Unavailable [phone] Amirah Smtih MD Primary Care Provider Carine Rivas RN Unavailable [email or web address] Vikki Perez MD Unavailable Amirah Smith MD Primary Care Provider Dusty Aguirre DO Unavailable [phone] Marilia Nolan FLIGHT COORDINATOR Unavailable [phone] Karen Santo MANAGER OF INTERNATIONAL Unavailable Loyda Pinon PA-C Unavailable gloria Stephon Maya MD Unavailable Minor BaltazarBS Unavailable [phone] Ayanna Fox FLIGHT COORDINATOR Unavailable [phone] Shala Hartman NP Unavailable [phone] Karen Santo CNP Unavailable Shala Hartman NP Unavailable [phone] Encounter Details Date Type Department Care Team (Late st Contact Info) Description 06/17/[address] - [address], [address] [place] [id number] Social History Tobacco Use Types Packs/Day Years [...] Infusion [facility] at [address] [address] Dusty Aguirre DO [address] [place] [address] [email or web address]@[email or web address] 03/21/2025 11:30 AM EDT Office Visit [facility] at [address] [address] Ayanna Fox FNP [address] [place] [address] [email or web address] 03/21/2025 12:40 PM EDT Infusion [facility] at [address] [address] Dusty Aguirre DO [address] [place] [address] [email or web address] .[facility] Karen Burgos, KAPIL [address] [place] [address] 04/04/2025 8:20 AM EDT Appointment [facility] [address] [place] [address] Dusty Aguirre, DO [address] [place] [address] [email or web address]@[facility] 04/04/2025 9:00 AM EDT Office Visit [facility] at [address] [address] Ayanna Fox FNP [address] [place] [address] [email or web address] 04/04/2025 10:00 AM EDT Infusion [facility] at [address] [address] Dusty Aguirre, DO [address] [place] [address] NAVEEN@[email or web address] Niyah Cole RN [address] [place] [address] [email or web address] 04/06/2025 3:20 PM EDT Telemedicine [address], 4th Floor, [address] [place] [address] Stephon Maya MD [address] [place] [address] [email or web address] 04/11/2025 10:20 AM EDT Appointment [facility] [address] [place] [address] Dusty Aguirre, DO [address] [place] [address] [email or web address]@[email or web address] 04/11/2025 11:30 AM EDT Office Visit [facility] at [address] [address] Ayanna Fox FNP [address] [place] [address] 04/11/2025 12:40 PM EDT Infusion [facility] at [address] [address] Dusty Aguirre, DO [address] [place] [address] [email or web address]@[email or web address] Eldon Mckeon RN [address] [place] [address] 04/17/2025 9:10 AM EDT Appointment [facility] Laboratory [address] [place] [address] Dusty Aguirre, DO [address] [place] [address] NAVEEN@[facility] 04/17/2025 10:30 AM EDT Office Visit [facility] at [address] [address] Dusty Aguirre, DO [address] [place] [address] [email or web address]@[facility] 04/17/2025 11:20 AM EDT Infusion [facility] at [address] [address] Dusty Aguirre, DO [address] [place] [address] NAVEEN@[facility] Eldon Mckeon RN [address] [place] [address] 04/28/2025 11:50 AM EDT Appointment [facility] Laboratory [address] [place] [address] Dusty Aguirre, DO [address] [place] [address] NAVEEN@[facility] 04/28/2025 1:00 PM EDT Office Visit [facility] at [address] [address] Ayanna Fox FNP [address] [place] [address] [email or web address] 04/28/2025 2:00 PM EDT Infusion [facility] at [address] [address] Dusty Aguirre, DO [address] [place] [address] [email or web address]@[facility] Sophy Nolan RN [address] [place] [address] [email or web address] 05/08/2025 7:50 AM EDT Appointment [address] [address] Dusty Aguirre, DO [address] [place] [address] NAVEEN@[facility] 05/08/2025 9:00 AM EDT Office Visit [facility] at [address] [address] Dusty Aguirre, DO [address] [place] [address] [email or web address]@[facility] 05/08/2025 10:00 AM EDT Infusion [facility] at [address] [address] Dusty Aguirre, DO [address] [place] [address] JAY [email or web address] Eldon Mckeon RN [address] [place] [address] [email or web address] documented as of this encounter Visit Diagnoses Not on filedocumented in this encounter Additional Health Concerns Infection Onset Date Last Indicated Resolved Time CoV-Risk 11/10/2022 11/10/2022 11/21/2022 1:24 AM EDT documented as of this encounter Care Teams Boilermaker Ship Relationship Specialty Start Date End Date Amirah Smith MD [address] [place] [address] Dr Sanchez [facility] [place] [phone] PCP - General Internal Medicine 09/25/20 03/05/22 Amirah Smith MD [address] [place] [address] [place] [phone] PCP - General Internal Medicine 03/06/22 Christopher Thompson MD [address] [place] [address] [facility] [address] [place] [address] [email or web address] Primary Oncologist Gynecologic Oncology 02/06/20 Ysabel Sanchez RN [address] [place] [address] [email or web address] Associate Infusion Nurse 03/29/20 Stephon Chambers RN [address] [place] [address] [email or web address] Associate Infusion Nurse 09/18/20 Carine Rivas RN [address] [place] [phone] [email or web address] Primary Infusion Nurse 11/05/20 Vikki Perez MD [address] [place] [address] [address] [place] [address] [email or web address] Primary Oncologist Gynecologic Oncology 03/27/21 Dusty Aguirre DO [address] [place] [address] [email or web address]@[email or web address] Primary Oncologist Hematology and Oncology 05/01/22 Marilia Nolan FNP [address] [place] [address] [email or web address] Nurse Practitioner Medical Oncology 08/05/22 08/08/24 Karen Santo CNP [address] [place] [address] [email or web address] Nurse Practitioner Medical Oncology 09/05/22 08/08/24 Loyda Pinon PA-C [address] [place] [address] [email or web address] Physician Social Services Director Medical Oncology 10/20/22 08/20/23 Stephon Maya MD [address] [place] [address] [email or web address] Rheumatology 07/30/23 Minor Baltazar MBBS [address] [place] [address] [email or web address] Primary Oncologist Medical Oncology 10/16/23 10/25/23 Ayanna Fox FNP [address] [place] [address] [email or web address] Registered Nurse Nurse Practitioner 08/09/24 Shala HartmanKATHY [address] [place] [address] [email or web address] Nurse Practitioner 08/15/24 10/30/24 Karen Santo CNP [address] [place] [address] [email or web address] Nurse Practitioner 08/29/24 Shala Hartman NP [address] [place] [address] [email or web address] Nurse Practitioner 11/08/24 documented as of this encounter Additional Source Comments The information contained in this document represents components of the legal health record. It is not the complete legal health record.[facility]
--- OUTSIDE RECORDS SUMMARY | 2025-03-14 13:15 | XMS_ITS | Encounter Summary ---
Author Organization [facility] Address [address] [place] [address] Phone Care Team Providers Care Interlocker Name Role Phone Christopher Thompson MD Unavailable + [phone] Ysabel Sanchez RN Unavailable [email or web address] Stephon Chambers RN Unavailable [phone] Carine Rivas RN Unavailable [email or web address] Vikki Perez MD Unavailable [phone] Amirah Smith MD Primary Care Provider Dusty Aguirre DO Unavailable [phone] Marilia Nolan DESIGN DRAFTER Unavailable Karen Santo CNP Unavailable Loyda PinonC Unavailable gloria Stephon Maya MD Unavailable Minor BaltazarBS Unavailable Ayanna Fox DESIGN DRAFTER Unavailable Shala Hartman NP Unavailable Karen Santo CNP Unavailable Shala aHrtman NP Unavailable Encounter Details Date Type Department Care Team (Late st Contact Info) Description 05/29/2022 Procedure Pass [facility] Ct Scan - [address] [address] Social History Tobacco Use Types Packs/Day Years [...] Info) Description 03/21/2025 9:40 AM EDT Infusion [facility] at [address] [address] Dusty Aguirre, [address] [address] [email or web address] 03/21/2025 11:30 AM EDT Office Visit [facility] at [address] [address] Ayanna Fox FNP [address] [place] [address] [email or web address] 03/21/2025 12:40 PM EDT Infusion [facility] at [address] [address] Dusty Aguirre DO [address] [place] [address] [email or web address]@[email or web address].[email or web address] [facility] Karen Burgos, KAPIL [address] [place] [address] [email or web address] 04/04/2025 8:20 AM EDT Appointment [facility] [address] [place] [address] Dusty Aguirre, DO [address] [place] [address] [email or web address]@[email or web address] 04/04/2025 9:00 AM EDT Office Visit [facility] Center at [address] [address] Ayanna Fox, DESIGN DRAFTER [address] [place] [address] [email or web address] 04/04/2025 10:00 AM EDT Infusion [facility] at [address] [address] Dusty Aguirre, DO [address] [place] [address] [email or web address]@[email or web address] Niyah Cole RN [address] [place] [address] [email or web address] 04/06/2025 3:20 PM EDT Telemedicine [address], 4th Floor, [address] [place] [address] Stephon Maya MD [address] [place] [address] [email or web address] 04/11/2025 10:20 AM EDT Appointment [facility] Laboratory [address] [place] [address] Dusty Aguirre, DO [address] [place] [address] [email or web address]@[facility] 04/11/2025 11:30 AM EDT Office Visit [facility] at [address] [address] Ayanna Fox DESIGN D[address] [address] 04/11/2025 12:40 PM EDT Infusion [facility] at [address] [address] Dusty Aguirre, DO [address] [place] [address] [email or web address]@[email or web address] Eldon Mckeon RN [address] [place] [address] 04/17/2025 9:10 AM EDT Appointment [facility] Laboratory [address] [place] [address] Dusty Aguirre, DO [address] [place] [address] NAVEEN@[facility] 04/17/2025 10:30 AM EDT Office Visit [facility] at [address] [address] Dusty Aguirre, DO [address] [place] [address] NAVEEN@[email or web address] 04/17/2025 11:20 AM EDT Infusion [facility] Center at [address] [address] Dusty Aguirre, DO [address] [place] [address] [email or web address]@[email or web address] Eldon Mckeon RN [address] [place] [address] 04/28/2025 11:50 AM EDT Appointment [facility] [address] [place] [address] Dusty Aguirre, DO [address] [place] [address] NAVEEN@[facility] 04/28/2025 1:00 PM EDT Office Visit [facility] at [address] [address] Ayanna Fox FNP [address] [place] [address] [email or web address] 04/28/2025 2:00 PM EDT Infusion [facility] at [address] [address] Dusty Aguirre, DO [address] [place] [address] NAVEEN@[email or web address] Sophy Nolan RN [address] [place] [address] [email or web address] 05/08/2025 7:50 AM EDT Appointment [facility] [address] [place] [address] Dusty Aguirre, DO [address] [place] [address] NAVEEN@[facility] 05/08/2025 9:00 AM EDT Office Visit [facility] at [address] [address] Dusty Aguirre, DO [address] [place] [address] NAVEEN@[facility] 05/08/2025 10:00 AM EDT Infusion [facility] at [address] [address] Dusty Aguirre, DO [address] [place] [address] [email or web address]@[email or web address] Eldon Mckeon, RN [address] [place] [address] [email or web address] documented as of this encounter Visit Diagnoses Not on filedocumented in this encounter Additional Health Concerns Infection Onset Date Last Indicated Resolved Time CoV-Risk 11/10/2022 11/10/2022 11/21/2022 1:24 AM EDT documented as of this encounter Care Teams Interlocker Relationship Specialty Start Date End Date Amirah Smith MD [address] [place] [address] Dr Sanchez [address] [place] [phone] PCP - General Internal Medicine 03/06/22 Christopher Thompson MD [address] [place] [address] [facility]st[facility]s [facility] [address] [place] [address] [email or web address] Primary Oncologist Gynecologic Oncology 02/06/20 Ysabel Sanchez RN [address] [place] [address] [email or web address] Associate Infusion Nurse 03/29/20 Stephon Chambers RN [address] [place] [address] [email or web address] Associate Infusion Nurse 09/18/20 Carine Rivas, KAPIL [address] [place] [phone] [email or web address] Primary Infusion Nurse 11/05/20 Vikki Perez MD [address] [place] [address] YAW [address] [place] [address] [email or web address] Primary Oncologist Gynecologic Oncology 03/27/21 Dusty Aguirre DO [address] [place] [address] NAVEEN@[email or web address] Primary Oncologist Hematology and Oncology 05/01/22 Marilia Nolan, DESIGN DRAFTER [address] [place] [address] [email or web address] Nurse Practitioner Medical Oncology 08/05/22 08/08/24 Karen Santo CNP [address] [place] [address] [email or web address] Nurse Practitioner Medical Oncology 09/05/22 08/08/24 Loyda Pinon PA-C [address] [place] [address] [email or web address] Physician Registered Nurses Medical Oncology 10/20/22 08/20/23 Stephon Maya MD [address] [place] [address] [email or web address] Rheumatology 07/30/23 Mionr Baltazar MBBS [address] [place] [address] [email or web address] Primary Oncologist Medical Oncology 10/16/23 10/25/23 Ayanna Fox FNP [address] [place] [address] [email or web address] Registered Nurse Nurse Practitioner 08/09/24 Shala Hartman NP [address] [place] [address] [email or web address] Nurse Practitioner 08/15/24 10/30/24 Karen Santo CNP [address] [place] [address] [email or web address] Nurse Practitioner 08/29/24 Shala Hartman NP [address] [place] [address] [email or web address] Nurse Practitioner 11/08/24 documented as of this encounter Additional Source Comments The information contained in this document represents components of the legal health record. It is not the complete legal health record.[facility]
--- OUTSIDE RECORDS SUMMARY | 2025-03-14 13:15 | XMS_ITS | Encounter Summary ---
Author Organization [facility] Address [address] [place] [address] Phone Care Team Providers Care Film Technician Name Role Phone Christopher Thompson MD Unavailable + [phone] Ysabel Sanchez RN Unavailable [email or web address] Stephon Chambesr RN Unavailable [phone] Amirah Smith MD Primary Care Provider Carine Rivas RN Unavailable [email or web address] Vikki Perez MD Unavailable [phone] Amirah Smith MD Primary Care Provider Dusty Aguirre DO Unavailable [phone] Marilia Nolan COLD SAW OPERATOR Unavailable [phone] Karen Santo [employer] MANAGEMENT OFFICER Unavailable Loyda Pinon PA-C Unavailable gloria Stephon Maya MD Unavailable Minor BaltazarBS Unavailable [phone] Ayanna Fox COLD SAW OPERATOR Unavailable [phone] Shala Hartman NP Unavailable [phone] Karen Santo CNP Unavailable Shala Hartman NP Unavailable [phone] Encounter Details Date Type Department Care Team (Late st Contact Info) Description 12/05/[address], [facility] Imaging - [address], [address] [place] [id number] Social History Tobacco Use Types Packs/Day Years [...] Info) Description 03/21/2025 9:40 AM EDT Infusion [facility] at [address] [address] Dusty Aguirre DO [address] [place] [address] [email or web address]@[facility] 03/21/2025 11:30 AM EDT Office Visit [facility] Center at [address] [address] Ayanna Fox FNP [address] [place] [address] [email or web address] 03/21/2025 12:40 PM EDT Infusion [facility] at [address] [address] Dusty Aguirre DO [address] [place] [address] [email or web address] .[facility] Karen Burgos, KAPIL [address] [place] [address] 04/04/2025 8:20 AM EDT Appointment [facility] [address] [place] [address] Dusty Aguirre, DO [address] [place] [address] NAVEEN@[facility] 04/04/2025 9:00 AM EDT Office Visit [facility] at [address] [address] Ayanna Fox FNP [address] [place] [address] [email or web address] 04/04/2025 10:00 AM EDT Infusion [facility] at [address] [address] Dusty Aguirre, DO [address] [place] [address] NAVEEN@[facility] Niyah Cole RN [address] [place] [address] [email or web address] 04/06/2025 3:20 PM EDT Telemedicine [address], 4th Floor, [address] [place] [address] Stephon Maya MD [address] [place] [address] [email or web address] 04/11/2025 10:20 AM EDT Appointment [facility] [address] [place] [address] Dusty Aguirre, DO [address] [place] [address] [email or web address]@[facility] 04/11/2025 11:30 AM EDT Office Visit [facility] at [address] [address] Ayanna Fox FNP [address] [place] [address] 04/11/2025 12:40 PM EDT Infusion [facility] at [address] [address] Dusty Aguirre, DO [address] [place] [address] NAVEEN@[facility] Eldon Mckeon RN [address] [place] [address] 04/17/2025 9:10 AM EDT Appointment [facility] [address] [place] [address] Dusty Aguirre, DO [address] [place] [address] NAVEEN@[facility] 04/17/2025 10:30 AM EDT Office Visit [facility] at [address] [address] Dusty Aguirre, DO [address] [place] [address] NAVEEN@[facility] 04/17/2025 11:20 AM EDT Infusion [facility] at [address] [address] Dusty Aguirre, DO [address] [place] [address] NAVEEN@[facility] Eldon Mckeon RN [address] [place] [address] 04/28/2025 11:50 AM EDT Appointment [facility] [address] [place] [address] Dusty Aguirre, DO [address] [place] [address] NAVEEN@[facility] 04/28/2025 1:00 PM EDT Office Visit [facility] at [address] [address] Ayanna Fox FNP [address] [place] [address] [email or web address] 04/28/2025 2:00 PM EDT Infusion [facility] at [address] [address] Dusty Aguirre, DO [address] [place] [address] NAVEEN@[facility] Sophy Nolan RN [address] [place] [address] [email or web address] 05/08/2025 7:50 AM EDT Appointment [address] [address] Dusty Aguirre, DO [address] [place] [address] NAVEEN@[facility] 05/08/2025 9:00 AM EDT Office Visit [facility] at [address] [address] Dusty Aguirre, DO [address] [place] [address] NAVEEN@[facility] 05/08/2025 10:00 AM EDT Infusion [facility] at [address] [address] Dusty Aguirre, DO [address] [place] [address] JAY [email or web address] Eldon Mckeon RN [address] [place] [address] [email or web address] documented as of this encounter Visit Diagnoses Not on filedocumented in this encounter Additional Health Concerns Infection Onset Date Last Indicated Resolved Time CoV-Risk 11/10/2022 11/10/2022 11/21/2022 1:24 AM EDT documented as of this encounter Care Teams Film Technician Relationship Specialty Start Date End Date Amirah Smith MD [address] [place] [address] Dr Sanchez [facility] [place] [phone] PCP - General Internal Medicine 09/25/20 03/05/22 Amirah Smith MD [address] [place] [address] [place] [phone] PCP - General Internal Medicine 03/06/22 Christopher Thompson MD [address] [place] [address] [facility] [address] [place] [address] [email or web address] Primary Oncologist Gynecologic Oncology 02/06/20 Ysabel Sanchez RN [address] [place] [address] [email or web address] Associate Infusion Nurse 03/29/20 Stephon Chambers RN [address] [place] [address] [email or web address] Associate Infusion Nurse 09/18/20 Carine Rivas RN [address] [place] [phone] [email or web address] Primary Infusion Nurse 11/05/20 Vikki Perez MD [address] [place] [address] [address] [place] [address] [email or web address] Primary Oncologist Gynecologic Oncology 03/27/21 Dusty Aguirre DO [address] [place] [address] [email or web address]@[email or web address] Primary Oncologist Hematology and Oncology 05/01/22 Marilia Nolan FNP [address] [place] [address] [email or web address] Nurse Practitioner Medical Oncology 08/05/22 08/08/24 Karen Santo CNP [address] [place] [address] [email or web address] Nurse Practitioner Medical Oncology 09/05/22 08/08/24 Loyda Pinon PA-C [address] [place] [address] [email or web address] Physician Cooking Instructor Medical Oncology 10/20/22 08/20/23 Stephon Maya MD [address] [place] [address] [email or web address] Rheumatology 07/30/23 Minor Blatazar MBBS [address] [place] [address] [email or web address] Primary Oncologist Medical Oncology 10/16/23 10/25/23 Ayanna Fox FNP [address] [place] [address] [email or web address] Registered Nurse Nurse Practitioner 08/09/24 Shala HartmanKATHY [address] [place] [address] [email or web address] Nurse Practitioner 08/15/24 10/30/24 Karen Santo CNP [address] [place] [address] [email or web address] Nurse Practitioner 08/29/24 Shala Hartman NP [address] [place] [address] [email or web address] Nurse Practitioner 11/08/24 documented as of this encounter Additional Source Comments The information contained in this document represents components of the legal health record. It is not the complete legal health record.[facility]
--- OUTSIDE RECORDS SUMMARY | 2025-03-14 13:15 | XMS_ITS | Encounter Summary ---
Author Organization [facility] Address [address] [place] [address] Phone Care Team Providers Care Area Cleaner Name Role Phone Seble Medina MD Primary Care Provider [phone] Christopher Thompson MD Unavailable + [phone] Ysabel Sanchez RN Unavailable [email or web address] Stephon Chambers RN Unavailable [phone] Amirah Smith MD Primary Care Provider Carine Rivas RN Unavailable [email or web address] Vikki Perez MD Unavailable [phone] Amirah Smith MD Primary Care Provider Dusty Aguirre DO Unavailable [phone] Marilia Nolan ELECTRO PLATER Unavailable [phone] Karen Santo CNP Unavailable Loyda Pinon PA-C Unavailable pnugen Stephon Maya MD Unavailable Minor BaltazarBS Unavailable [phone] Ayanna Fox ELECTRO PLATER Unavailable [phone] Shala Hartman NP Unavailable [phone] Karen Santo CNP Unavailable Shala Hartman NP Unavailable Encounter Details Date Type Department Care Team (Late st Contact Info) Description 03/29/2020 Procedure Pass MRI, [facility] Imaging - [address], [address] [place] [phone] Social History Tobacco Use Types Packs/Day Years [...] Description 03/21/2025 9:40 AM EDT Infusion [facility] Center at [address] [address] Dusty Aguirre, [address] [place] [phone] [email or web address]@[facility] 03/21/2025 11:30 AM EDT Office Visit [facility] Center at [address] [address] Ayanna Fox FNP [address] [place] [address] [email or web address] 03/21/2025 12:40 PM EDT Infusion [facility] at [address] [address] Dusty Aguirre, DO [address] [place] [address] [email or web address] [facility] Karen Burgos, KAPIL [address] [place] [address] 04/04/2025 8:20 AM EDT Appointment [facility] [address] [place] [address] Dusty Aguirre, DO [address] [place] [address] [email or web address]@[facility] 04/04/2025 9:00 AM EDT Office Visit [facility] at [address] [address] Ayanna Fox FNP [address] [place] [address] [email or web address] 04/04/2025 10:00 AM EDT Infusion [facility] at [address] [address] Dusty Aguirre, DO [address] [place] [address] [email or web address]@[facility] Niyah Cole, KAPIL [address] [place] [address] [email or web address] 04/06/2025 3:20 PM EDT Telemedicine [address], 4th Floor, [address] [place] [address] Stephon Maya MD [address] [place] [address] [email or web address] 04/11/2025 10:20 AM EDT Appointment [facility] Laboratory [address] [place] [address] Dusty Aguirre, DO [address] [place] [address] [email or web address]@[facility] 04/11/2025 11:30 AM EDT Office Visit [facility] at [address] [address] Ayanna Fox FNP [address] [place] [address] [email or web address] 04/11/2025 12:40 PM EDT Infusion [facility] at [address] [address] Dusty Aguirre, DO [address] [place] [address] NAVEEN@[facility] Eldon Mckeon RN [address] [place] [address] 04/17/2025 9:10 AM EDT Appointment [facility] Laboratory [address] [place] [address] Dusty Aguirre, DO [address] [place] [address] NAVEEN@[facility] 04/17/2025 10:30 AM EDT Office Visit [facility] at [address] [address] Dusty Aguirre, DO [address] [place] [address] [email or web address]@[facility] 04/17/2025 11:20 AM EDT Infusion [facility] at [address] [address] Dusty Aguirre, DO [address] [place] [address] NAVEEN@[facility] Eldon Mckeon RN [address] [place] [address] [email or web address] 04/28/2025 11:50 AM EDT Appointment [facility] [address] [place] [address] Dusty Aguirre, DO [address] [place] [address] NAVEEN@[facility] 04/28/2025 1:00 PM EDT Office Visit [facility] Center at [address] [address] Ayanna Fox FN[address] [address] [email or web address] 04/28/2025 2:00 PM EDT Infusion [facility] Center at [address] [address] Dusty Aguirre, [address] [address] NAVEEN@[facility] Sophy Nolan, KAPIL [address] [place] [address] [email or web address] 05/08/2025 7:50 AM EDT Appointment [facility] [address] [place] [address] Dusty Aguirre, [address] [address] NAVEEN@[facility] 05/08/2025 9:00 AM EDT Office Visit [facility] at [address] [address] Dusty Aguirre, DO [address] [place] [address] NAVEEN@[facility] 05/08/2025 10:00 AM EDT Infusion [facility] Center at [address] [address] Dusty Aguirre, [address] [address] [email or web address]@[email or web address] Eldon Mckeon RN [address] [place] [address] documented as of this encounter Visit Diagnoses Not on filedocumented in this encounter Additional Health Concerns Infection Onset Date Last Indicated Resolved Time CoV-Risk 11/10/2022 11/10/2022 11/21/2022 1:24 AM EDT documented as of this encounter Care Teams Area Cleaner Relationship Specialty Start Date End Date Seble Medina MD [address] [place] [address] Dr LEMUS [facility] [place] [address] PCP - General Internal Medicine 01/19/20 09/24/20 Amirah Smith MD [address] [place] [address] [place] [phone] PCP - General Internal Medicine 09/25/20 03/05/22 Amirah Smith MD [address] [place] [address] [place] [phone] PCP - General Internal Medicine 03/06/22 Christopher Thompson MD [address] [place] [address] Obstetrics and Gynecology [facility] [address] [place] [address] [email or web address] Primary Oncologist Gynecologic Oncology 02/06/20 Ysabel Sanchez RN [address] [place] [address] Associate Infusion Nurse 03/29/20 Stephon Chambers RN [address] [place] [address] Associate Infusion Nurse 09/18/20 Carine Rivas RN [address] [place] [phone] [email or web address] Primary Infusion Nurse 11/05/20 Vikki Perez MD [address] [place] [address] [email or web address] Primary Oncologist Gynecologic Oncology 03/27/21 Dusty Aguirre DO [address] [place] [address] [email or web address]@[email or web address] Primary Oncologist Hematology and Oncology 05/01/22 Marilia Nolan FNP [address] [place] [phone] [email or web address] Nurse Practitioner Medical Oncology 08/05/22 08/08/24 Karen Santo CNP [address] [place] [address] [email or web address] Nurse Practitioner Medical Oncology 09/05/22 08/08/24 Loyda Pinon PA-C [address] [place] [address] [email or web address] Physician Knitting Machine Fixer Medical Oncology 10/20/22 08/20/23 Stephon Maya MD [address] [place] [address] [email or web address] Rheumatology 07/30/23 Minor Baltazar MBBS [address] [place] [address] [email or web address] Primary Oncologist Medical Oncology 10/16/23 10/25/23 Ayanna Fox FNP [address] [place] [address] [email or web address] Registered Nurse Nurse Practitioner 08/09/24 Shala Hartman NP [address] [place] [address] [email or web address] Nurse Practitioner 08/15/24 10/30/24 Karen Santo CNP [address] [place] [address] [email or web address] Nurse Practitioner 08/29/24 Shala Hartman NP [address] [place] [address] [email or web address] Nurse Practitioner 11/08/24 documented as of this encounter Additional Source Comments The information contained in this document represents components of the legal health record. It is not the complete legal health record.[facility]
--- OUTSIDE RECORDS SUMMARY | 2025-03-14 13:15 | XMS_ITS | Encounter Summary ---
Author Organization [facility] Address [address] [place] [address] Phone Care Team Providers Care Spray Stainer Name Role Phone Christopher Thompson MD Unavailable + [phone] Ysabel Sanchez RN Unavailable [email or web address] Stephon Chambers RN Unavailable [phone] Carine Rivas RN Unavailable [email or web address] Vikki Perez MD Unavailable [phone] Amirah Smith MD Primary Care Provider Dusty Aguirre DO Unavailable [phone] Marilia Nolan MERCHANDISE PLANNING MANAGER Unavailable Karen Santo CNP Unavailable Loyda PinonC Unavailable gloria Stephon Maya MD Unavailable Minor BaltazarBS Unavailable Ayanna Fox MERCHANDISE PLANNING MANAGER Unavailable Shala Hartman NP Unavailable Karen Santo CNP Unavailable Shala Hartman NP Unavailable [phone] Encounter Details Date Type Department Care Team (Late st Contact Info) Description 05/29/2022 Procedure Pass [facility], Ct Scan - [address] [address] Social History Tobacco Use Types Packs/Day Years [...] Info) Description 03/21/2025 9:40 AM EDT Infusion [facility] at [address] [address] Dusty Aguirre, [address] [address] [email or web address] 03/21/2025 11:30 AM EDT Office Visit [facility] at [address] [address] Ayanna Fox FNP [address] [place] [address] [email or web address] 03/21/2025 12:40 PM EDT Infusion [facility] at [address] [address] Dusty Aguirre DO [address] [place] [address] [email or web address] .[facility] Karen Burgos, KAPIL [address] [place] [address] [email or web address] 04/04/2025 8:20 AM EDT Appointment [facility] [address] [place] [address] Dusty Aguirre, DO [address] [place] [address] [email or web address]@[facility] 04/04/2025 9:00 AM EDT Office Visit [facility] at [address] [address] Ayanna Fox, MERCHANDISE PLANNING MANAGER [address] [place] [address] [email or web address] 04/04/2025 10:00 AM EDT Infusion [facility] at [address] [address] Dusty Aguirre, DO [address] [place] [address] [email or web address]@[facility] Niyah Cole RN [address] [place] [address] [email or web address] 04/06/2025 3:20 PM EDT Telemedicine [address], 4th Floor, [address] [place] [address] Stephon Maya MD [address] [place] [address] [email or web address] 04/11/2025 10:20 AM EDT Appointment [facility] Laboratory [address] [place] [address] Dusty Agurire, DO [address] [place] [address] [email or web address]@[email or web address] 04/11/2025 11:30 AM EDT Office Visit [facility] at [address] [address] Ayanna Fox MERCHANDISE PLANNING MANAGER[address] [address] 04/11/2025 12:40 PM EDT Infusion [facility] at [address] [address] Dusty Aguirre, DO [address] [place] [address] NAVEEN@[facility] Eldon Mckeon RN [address] [place] [address] 04/17/2025 9:10 AM EDT Appointment [facility] Laboratory [address] [place] [address] Dusty Aguirre, DO [address] [place] [address] [email or web address]@[facility] 04/17/2025 10:30 AM EDT Office [facility] at [address] [address] Dusty Aguirre, DO [address] [place] [address] NAVEEN@[facility] 04/17/2025 11:20 AM EDT Infusion [facility] at [address] [address] Dusty Aguirre, DO [address] [place] [address] NAVEEN@[facility] Eldon Mckeon RN [address] [place] [address] 04/28/2025 11:50 AM EDT Appointment [facility] Laboratory [address] [place] [address] Dusty Aguirre, DO [address] [place] [address] NAVEEN@[facility] 04/28/2025 1:00 PM EDT Office [facility] at [address] [address] Ayanna Fox FNP [address] [place] [address] [email or web address] 04/28/2025 2:00 PM EDT Infusion [facility] at [address] [address] Dusty Aguirre, DO [address] [place] [address] NAVEEN@[facility] Sophy Nolan RN [address] [place] [address] [email or web address] 05/08/2025 7:50 AM EDT Appointment [facility] [address] [place] [address] Dusty Aguirre, DO [address] [place] [address] NAVEEN@[facility] 05/08/2025 9:00 AM EDT Office Visit [facility] at [address] [address] Dusty Aguirre, DO [address] [place] [address] NAVEEN@[facility] 05/08/2025 10:00 AM EDT Infusion [facility] at [address] [address] Dusty Aguirre, DO [address] [place] [address] NAVEEN@[facility] Eldon Mckeon, RN [address] [place] [address] [email or web address] documented as of this encounter Visit Diagnoses Not on filedocumented in this encounter Additional Health Concerns Infection Onset Date Last Indicated Resolved Time CoV-Risk 11/10/2022 11/10/2022 11/21/2022 1:24 AM EDT documented as of this encounter Care Teams Spray Stainer Relationship Specialty Start Date End Date Amirah Smith MD [address] [place] [address] Dr Sanchez [address] [place] [phone] PCP - General Internal Medicine 03/06/22 Christopher Thompson MD [address] [place] [address] Obstetrics and Gynecology ServiceUP[facility] [address] [place] [address] [email or web address] Primary Oncologist Gynecologic Oncology 02/06/20 Ysabel Sanchez RN [address] [place] [address] [email or web address] Associate Infusion Nurse 03/29/20 Stephon Chambers RN [address] [place] [address] [email or web address] Associate Infusion Nurse 09/18/20 Carine Rivas, KAPIL [address] [place] [phone] [email or web address] Primary Infusion Nurse 11/05/20 Vikki Perez MD [address] [place] [address] YAW [address] [place] [address] [email or web address] Primary Oncologist Gynecologic Oncology 03/27/21 Dusty Aguirre DO [address] [place] [address] [email or web address]@[email or web address] Primary Oncologist Hematology and Oncology 05/01/22 Marilia Nolan, MERCHANDISE PLANNING MANAGER [address] [place] [address] [email or web address] Nurse Practitioner Medical Oncology 08/05/22 08/08/24 Karen Santo CNP [address] [place] [address] [email or web address] Nurse Practitioner Medical Oncology 09/05/22 08/08/24 Loyda Pinon PA-C [address] [place] [address] [email or web address] Physician Chief [place]ar[place] Medical Oncology 10/20/22 08/20/23 Stephon Maya MD [address] [place] [address] [email or web address] Rheumatology 07/30/23 Minor Baltazar MBBS [address] [place] [address] [email or web address] Primary Oncologist Medical Oncology 10/16/23 10/25/23 Ayanna Fox FNP [address] [place] [address] [email or web address] Registered Nurse Nurse Practitioner 08/09/24 Shala Hartman NP [address] [place] [address] [email or web address] Nurse Practitioner 08/15/24 10/30/24 Karen Santo CNP [address] [place] [address] [email or web address] Nurse Practitioner 08/29/24 Shala Hartman NP [address] [place] [address] [email or web address] Nurse Practitioner 11/08/24 documented as of this encounter Additional Source Comments The information contained in this document represents components of the legal health record. It is not the complete legal health record.[facility]
--- OUTSIDE RECORDS SUMMARY | 2025-03-14 13:15 | XMS_ITS | Encounter Summary ---
Author Organization [facility] Address [address] [place] [address] Phone Care Team Providers Care Operations Consultant Name Role Phone Christopher Thompson MD Unavailable + [phone] Ysabel Sanchez RN Unavailable [email or web address] Stephon Chambers RN Unavailable [phone] Carine Rivas RN Unavailable [email or web address] Vikki Perez MD Unavailable [phone] Amirah Smith MD Primary Care Provider Dusty Aguirre DO Unavailable Marilia Nolan EXERCISE MANAGER Unavailable Karen Santo CNP Unavailable Loyda PinonC Unavailable gloria Stephon Maya MD Unavailable [phone] Minor Baltazar MBBS Unavailable Ayanna Fox EXERCISE MANAGER Unavailable Shala Hartman NP Unavailable Karen Santo CNP Unavailable Shala Hartman NP Unavailable Encounter Details Date Type Department Care Team (Late st Contact Info) Description 08/15/2022 Procedure Pass [facility] [address] [facility] [address] Social History Tobacco Use Types Packs/Day Years [...] Info) Description 03/21/2025 9:40 AM EDT Infusion [facility] at [address] [address] Dusty Aguirre, [address] [address] [email or web address] 03/21/2025 11:30 AM EDT Office Visit [facility] at [address] [address] Ayanna Fox FNP [address] [place] [address] [email or web address] 03/21/2025 12:40 PM EDT Infusion [facility] at [address] [address] Dusty Aguirre, DO [address] [place] [address] [email or web address] [facility] Karen Burgos, KAPIL [address] [place] [address] [email or web address] 04/04/2025 8:20 AM EDT Appointment [facility] [address] [place] [address] Dusty Aguirre DO [address] [place] [address] [email or web address] 04/04/2025 9:00 AM EDT Office Visit [facility] at [address] [address] Ayanna Fox, EXERCISE MANAGER [address] [place] [address] [email or web address] 04/04/2025 10:00 AM EDT Infusion [facility] at [address] [address] Dusty Aguirre, DO [address] [place] [address] [email or web address] Niyah Cole RN [address] [place] [address] [email or web address] 04/06/2025 3:20 PM EDT Telemedicine [address], 4th Floor, [address] [place] [address] Stephno Maya MD [address] [place] [address] [email or web address] 04/11/2025 10:20 AM EDT Appointment [address] [address] Dusty Aguirre, DO [address] [place] [address] [email or web address] 04/11/2025 11:30 AM EDT Office Visit [facility] at [address] [address] Ayanna Fox, EXERCISE MANAGER[address] [address] 04/11/2025 12:40 PM EDT Infusion [facility] at [address] [address] Dusty Aguirre, DO [address] [place] [address] [email or web address] Eldon Mckeon RN [address] [place] [address] 04/17/2025 9:10 AM EDT Appointment [facility] Laboratory [address] [place] [address] Dusty Aguirre, DO [address] [place] [address] [email or web address]@[email or web address] 04/17/2025 10:30 AM EDT Office Visit [facility] at [address] [address] Dusty Aguirre, DO [address] [place] [address] [email or web address] 04/17/2025 11:20 AM EDT Infusion [facility] at [address] [address] Dusty Aguirre, DO [address] [place] [address] [email or web address] Eldon Mckeon RN [address] [place] [address] 04/28/2025 11:50 AM EDT Appointment [facility] Laboratory [address] [place] [address] Dusty Aguirre, DO [address] [place] [address] [email or web address]@[email or web address] 04/28/2025 1:00 PM EDT Office Visit [facility] [place] at [address] [address] Ayanna Fox FNP [address] [place] [address] [email or web address] 04/28/2025 2:00 PM EDT Infusion [facility] at [address] [address] Dusty Aguirre, DO [address] [place] [address] [email or web address] Sophy Nolan RN [address] [place] [address] [email or web address] 05/08/2025 7:50 AM EDT Appointment [facility] [address] [place] [address] Dusty Aguirre, DO [address] [place] [address] [email or web address]@[email or web address] 05/08/2025 9:00 AM EDT Office Visit [facility] at [address] [address] Dusty Aguirre, DO [address] [place] [address] [email or web address] 05/08/2025 10:00 AM EDT Infusion [facility] at [address] [address] Dusty Aguirre, DO [address] [place] [address] [email or web address] Eldon Mckeon, KAPIL [address] [place] [address] [email or web address] documented as of this encounter Visit Diagnoses Not on filedocumented in this encounter Additional Health Concerns Infection Onset Date Last Indicated Resolved Time CoV-Risk 11/10/2022 11/10/2022 11/21/2022 1:24 AM EDT documented as of this encounter Care Teams Operations Consultant Relationship Specialty Start Date End Date Amirah Smith MD [address] [place] [address] [place] [address] PCP - General Internal Medicine 03/06/22 Christopher Thompson MD [address] [place] [address] Obstetrics and Gynecology [facility] [address] [place] [address] [email or web address] Primary Oncologist Gynecologic Oncology 02/06/20 Ysabel Sanchez RN [address] [place] [address] [email or web address] Associate Infusion Nurse 03/29/20 Stephon Chambers RN [address] [place] [address] [email or web address] Associate Infusion Nurse 09/18/20 Carine Rivas, RN [address] [place] [phone] [email or web address] Primary Infusion Nurse 11/05/20 Vikki Perez MD [address] [place] [address] YA [address] [place] [address] [email or web address] Primary Oncologist Gynecologic Oncology 03/27/21 Dusty Aguirre DO [address] [place] [address] [email or web address] Primary Oncologist Hematology and Oncology 05/01/22 Marilia Nolan FNP [address] [place] [address] [email or web address] Nurse Practitioner Medical Oncology 08/05/22 08/08/24 Karen Santo CNP [address] [place] [address] [email or web address] Nurse Practitioner Medical Oncology 09/05/22 08/08/24 Loyda Pinon PA-C [address] [place] [address] [email or web address] Physician Web Machine Tender Medical Oncology 10/20/22 08/20/23 Stephon Maya MD [address] [place] [address] [email or web address] Rheumatology 07/30/23 Minor Baltazar MBBS [address] [place] [address] [email or web address] Primary Oncologist Medical Oncology 10/16/23 10/25/23 Ayanna Fox FNP [address] [place] [address] [email or web address] Registered Nurse Nurse Practitioner 08/09/24 Shala Hartman, KATHY [address] [place] [address] [email or web address] Nurse Practitioner 08/15/24 10/30/24 Karen Santo CNP [address] [place] [address] [email or web address] Nurse Practitioner 08/29/24 Shala Hartman NP [address] [place], [place] [address] [email or web address] Nurse Practitioner 11/08/24 documented as of this encounter Additional Source Comments The information contained in this document represents components of the legal health record. It is not the complete legal health record.[facility]
[2025-03-14 13:55] LABS: Cholesterol 206 mg/dL (<200); HDL Cholesterol 62 mg/dL (>40); Triglycerides 131 mg/dL (<150)
[2025-03-14 14:11] LABS: Thyroid Stimulating Hormone 0.97 uIU/mL (0.32-4.0)
== END 2025-03-14 12:20 | disposition home or self-care (01) ==
LOC: HO.10HDL 12:19
PROVIDERS: Visit Provider Internal Medicine
DX: D64.9 Anemia, unspecified (principal); E03.9 Hypothyroidism, unspecified; E78.00 Pure hypercholesterolemia, unspecified; F32.5 Major depressive disorder, single episode, in full remission; I10 Essential (primary) hypertension
CPT/HCPCS: 36415; 80061; 84443